=== PATIENT | male | born 1950 | race Caucasian/White ===

== ENCOUNTER → 2016-10-10 | Outpatient (CLI) | payer OTHER ==
[~2016-10-10] MED LIST: ASPECUNK PO; ATOR80TA PO; CLOP1TAB54 PO; LISI-461 PO; METO-551 PO
[2016-10-10 15:17] LABS: HEMATOCRIT 42.2 % (42-52); MEAN CELL VOLUME 97.2 fL (80-100); MEAN CORPUSCULAR HEMOGLOBIN 32.3 pg (25-34); MEAN CORPUSCULAR HGB CONC 33.2 g/dl (32-36); MEAN PLATELET VOLUME 11.3 fL (7.4-10.4); PLATELET COUNT 191 K/uL (130-400); RED BLOOD COUNT 4.34 M/uL (4.7-6.1); WHITE BLOOD COUNT 6.91 K/uL (4.8-10.8)
[2016-10-10 15:45] LABS: INR 0.9 (0.9-1.1)
[2016-10-10 15:46] LABS: PFT COL EPI 93 SECONDS (80-184)
== END | disposition home or self-care (01) ==
LOC: C.LAB 12:58
PROVIDERS: ATTEND Family Medicine
DX: T14.8 Other injury of unspecified body region (principal); D69.6 Thrombocytopenia, unspecified; M10.9 Gout, unspecified; X58.XXXA Exposure to other specified factors, initial encounter

== ENCOUNTER → 2017-04-22 | Outpatient (CLI) | payer OTHER | END | disposition home or self-care (01) | LOC: C.RDSM 11:43 | PROVIDERS: ATTEND Physical Medicine & Rehabilitation Sports Medicine | DX: M25.562 Pain in left knee (principal) ==

== ENCOUNTER → 2017-09-05 | Outpatient (CLI) | payer OTHER ==
--- NOTE | 2017-09-05 11:14 | DIAGNOSTIC IMAGING REPORT ---
L FOOT MIN 3 VIEWS ROUTINE CLINICAL HISTORY: Left foot pain and swelling. History of gout. Concern for osteomyelitis. COMPARISON: None FINDINGS: Alignment of the left foot is anatomic. Tarsometatarsal joints are intact. There is soft tissue swelling of the left foot, greater along the dorsal aspect. No fracture is evident. There is no evidence for osteomyelitis by radiography. There is mild joint space narrowing and osteophytosis of the left first metatarsophalangeal joint. There is soft tissue swelling medial to the left first metatarsophalangeal joint with possible faint calcific densities. IMPRESSION: 1. No acute fracture. No radiographic evidence of osteomyelitis. 2. Mild to moderate osteophytosis with joint space narrowing of the left first metatarsophalangeal joint. No erosions. Soft tissue swelling medial to the joint is nonspecific but could be seen in the setting of gout. 3. Dorsal soft tissue swelling of the left foot. Electronically signed by: Malcolm Guzman M.D. 09/05/2017 11:13 AM Dictated Date/Time: 09/05/2017 11:10 AM
== END | disposition home or self-care (01) ==
LOC: C.RAD1850 10:58
PROVIDERS: ATTEND Nurse Practitioner Family
DX: M79.89 Other specified soft tissue disorders (principal); Z87.39 Personal history of other diseases of the musculoskeletal system and connective tissue; M79.672 Pain in left foot

== ENCOUNTER 2021-01-14 16:57 | Inpatient (IN) ==
[~2021-01-14 16:57] MED LIST changes: -ASPECUNK PO; -ATOR80TA PO; -CLOP1TAB54 PO; -LISI-461 PO; -METO-551 PO; +THIAMINE HCL 100 MG TAB PO SCH
[2021-01-14] MEDS ORDERED: ONDANSETRON INJ 2 MG/ML 2 ML VIAL IV STA (18:17)
[2021-01-14] MEDS ORDERED: PANTOprazole 80 MG in DEXTROSE 5% 100 ML IV ONE (18:17)
[2021-01-14] MEDS ORDERED: FAMOTIDINE 20MG IV PUSH 20 MG/5 ML SYR IV STA (18:17)
--- NOTE | 2021-01-14 18:21 | Emergency Department Note ---
Impression & Plan Acute GI bleeding, Black stool, Diarrhea, Nausea ED Provider Note NAME: AYSHA EDWARDS AGE: 70 SEX: M : 1950 ARRIVES VIA: Walk-In INFORMANT: [Patient] ED PROVIDER(S): [Leighton Lozoya MD] CHIEF COMPLAINT: Black diarrhea HISTORY OF PRESENT ILLNESS: The patient is a 70-year-old male with a history of a duodenal ulcer. He is no longer on antiulcer medication. Yesterday, he felt a bit tired and weak and had some nausea but things seemed to pass. Today, he felt okay up until about 2 hours ago. He states that he had a bowel movement and it was black diarrhea. He was concerned that he could again be bleeding inside. There is no abdominal pain. He has not vomited. He has not had fever, chills, cough or congestion. No shortness of breath. He is not on any blood thinning medications. He does take a baby aspirin daily. REVIEW OF SYSTEMS: See HPI for pertinent positives and negatives. A total of ten systems were reviewed and were otherwise negative. PMHx/PSHx: See Below SOCIAL HISTORY: See Below. PHYSICAL EXAM: GENERAL: Patient is in no acute distress. HEENT: No acute trauma, normocephalic atraumatic, mucous membranes moist, no nasal congestion, no scleral icterus. NECK: No stridor, no adenopathy, no meningismus, trachea is midline. LUNGS: Clear to auscultation bilaterally, no wheeze, no rhonchi, breath sounds equal. HEART: Without murmurs gallops or rubs, regular rate and rhythm. ABDOMEN: Soft, nontender, bowel sounds positive, no hernias, no peritonitis. EXTREMITIES: No cyanosis or edema, full range of motion of all the joints without pain or difficulty, no signs for acute trauma. NEUROLOGIC: Oriented x 3, no acute motor or sensory deficits, no focal weakness. SKIN: No rash, no jaundice, no diaphoresis. Rectal: Black stool, liquidy, heme positive. DIFFERENTIAL DIAGNOSIS: Diverticulosis, AVM, coagulopathy, colitis, inflammatory bowel disease, malignancy, Ava-Reece tear, esophagitis, peptic ulcer disease, variceal bleed, gastritis, epistaxis, fissure, hemorrhoids, as well as other pathologies. EMERGENCY DEPARTMENT COURSE/PROCEDURES: ECG: Indication was GI bleed. ECG shows a normal sinus rhythm with a rate of 87. There is no ST elevation, no PVCs. The QTc is 454. Continuous Cardiac Monitoring: An order was placed for continuous cardiac monitoring. The monitor shows a rate of 93 with normal sinus rhythm. Critical Care Note: I have personally spent 47 minutes of critical care time in the direct management of this patient. This includes bedside care, interpretation of diagnostic studies, and testing, discussion with consultants, patient, and family members, and other required patient management activities. This 47 minutes is in excess of all separately billable procedures. MEDICAL DECISION MAKING: There is no leukocytosis or worrisome anemia. There is a normal platelet count. No coagulopathy. No renal failure. There were some subtle liver enzyme elevations, the total bilirubin though was normal. Lipase is very mildly elevated but not high enough to diagnose pancreatitis. ECG shows a normal sinus rhythm, no acute ischemia. Cardiac enzyme testing x1 is not consistent with acute cardiac injury. Covid testing returned negative. On exam, the patient was not toxic. There was no abdominal discomfort by palpation. His stool was liquidy, black and heme positive. The patient was aggressively managed as he had been quite ill previously with a GI bleed. He was given IV saline, IV Protonix, IV Zofran. He received IV Pepcid. The patient is currently resting comfortably. He has been stable during his time here in the ED. I did speak with the patient about his findings. I spoke with the welfare case worker. The on-call hospitalist has been consulted. Past Med/Surg History Medical History GI bleed Social History Smoking Status: Former smoker Tobacco Type: Cigarettes Hx Alcohol Use: Yes Alcohol type: hard liquor Hx Substance Use: No Preferred Language: Georgian Supervisor Varnish Required: No Beliefs That Will Affect Care: None Current Living Situation: Spouse Feels Safe at Home: Yes Assistive Devices: Glasses Allergies Allergies Allergy/AdvReac Type Severity Reaction Status Date / Time No Known Allergies Allergy Unknown Verified 10/05/11 07:13 Home Meds Home Medications Medication Instructions Recorded Confirmed allopurinol 300 mg tablet 300 mg PO DAILY 01/14/21 01/14/21 amlodipine 5 mg tablet 5 mg PO DAILY 01/14/21 01/14/21 atorvastatin 80 mg tablet 40 mg PO AMHS 01/14/21 01/14/21 metoprolol tartrate 50 mg tablet 50 mg PO BID 01/14/21 01/14/21 olmesartan 40 mg tablet 40 mg PO HS 01/14/21 01/14/21 Results & Data (ED) Vital Signs Vital Signs - 24 hr 01/14/21 17:22 01/14/21 18:24 01/14/21 18:32 Temperature 36.2 C L Temperature Source Temporal Artery Scan Pulse Rate 93 H 93 H 93 H Pulse Rate from SpO2 Sensor 93 H Pulse Rhythm Regular Regular Pulse Strength Normal Respiratory Rate 20 17 14 Respiratory Effort / Characteristics Non-Labored Spontaneous Respiratory Depth Normal Blood Pressure 164/96 H 159/102 H Blood Pressure Mean 118 121 Blood Pressure Position Sitting Pulse Oximetry 99 98 99 Oxygen Delivery Method Room Air Room Air Room Air Sepsis Recent Fever Within 48 Hours No Sepsis New/Unexplained Change in Mental Status N/A Sepsis Action Taken by Nursing No Action Required 01/14/21 18:45 01/14/21 19:00 Temperature Temperature Source Pulse Rate 102 H 90 Pulse Rate from SpO2 Sensor 95 H 92 H Pulse Rhythm Pulse Strength Respiratory Rate 15 12 Respiratory Effort / Characteristics Respiratory Depth Blood Pressure 167/103 H 156/102 H Blood Pressure Mean 124 120 Blood Pressure Position Pulse Oximetry 98 97 Oxygen Delivery Method Sepsis Recent Fever Within 48 Hours Sepsis New/Unexplained Change in Mental Status Sepsis Action Taken by [facility] Medications Current Medication List: was personally reviewed by me Laboratory Data Attestation: I reviewed the patient's lab results. Result diagrams: 01/15/21 01:30 01/15/21 01:30 Lab Results 01/14/21 01/14/21 01/14/21 Range/Units 18:24 18:24 18:25 WBC (4.8-10.8) K/uL RBC (4.7-6.1) M/uL Hgb (14.0-18.0) g/dL Hct (42-52) % MCV (80-100) fL MCH (25-34) pg MCHC (32-36) g/dL RDW Std Deviation (36.4-46.3) fL RDW Coeff of Elli (11.5-14.5) % Plt Count (130-400) K/uL MPV (7.4-10.4) fL Immature Gran % (Auto) % Neut % (Auto) % Lymph % (Auto) % [place] % (Auto) % Eos % (Auto) % Baso % (Auto) % Neut # (Auto) (1.4-6.5) K/uL Lymph # (Auto) (1.2-3.4) K/uL [facility] # (Auto) (0.11-0.59) K/uL Eos # (Auto) (0-0.5) K/uL Baso # (Auto) (0-0.2) K/uL Immature Gran # (Auto) (0.00-0.02) K/uL PT INR APTT PTT Ratio Sodium (136-145) mmol/L Potassium (3.5-5.1) mmol/L Chloride (98-107) mmol/L Carbon Dioxide (21-32) mmol/L Anion Gap (3-11) BUN (7-18) mg/dl Creatinine (0.6-1.4) mg/dl Est Cr Clr Drug Dosing ml/min Est GFR ( Amer) ml/min Est GFR (Non-Af Amer) ml/min BUN/Creatinine Ratio (10-20) Glucose (70-99) mg/dl Calcium (8.5-10.1) mg/dl Magnesium (1.8-2.4) mg/dl Total Bilirubin (0.2-1) mg/dl AST (15-37) U/L ALT (12-78) U/L Alkaline Phosphatase (45-117) U/L Troponin I (0-0.045) ng/ml Total Protein (6.4-8.2) gm/dl Albumin (3.4-5.0) gm/dl Globulin (2.5-4.0) gm/dl Albumin/Globulin Ratio (0.9-2) Lipase (73-393) U/L COVID-19 Eval Order Covid19 at [facility] SARS-CoV-2 (PCR) NEGATIVE (Negative) Blood Type Cancelled Antibody Screen Cancelled 01/14/21 01/14/21 01/14/21 Range/Units 18:25 18:25 18:25 WBC 7.43 (4.8-10.8) K/uL RBC 4.42 L (4.7-6.1) M/uL Hgb 15.4 (14.0-18.0) g/dL Hct 44.7 (42-52) % MCV 101.1 H (80-100) fL MCH 34.8 H (25-34) pg MCHC 34.5 (32-36) g/dL RDW Std Deviation 54.5 H (36.4-46.3) fL RDW Coeff of Elli 14.9 H (11.5-14.5) % Plt Count 162 (130-400) K/uL MPV 11.3 H (7.4-10.4) fL Immature Gran % (Auto) 0.3 % Neut % (Auto) 74.9 % Lymph % (Auto) 14.3 % [place] % (Auto) 8.9 % Eos % (Auto) 1.5 % Baso % (Auto) 0.1 % Neut # (Auto) 5.57 (1.4-6.5) K/uL Lymph # (Auto) 1.06 L (1.2-3.4) K/uL [facility] # (Auto) 0.66 H (0.11-0.59) K/uL Eos # (Auto) 0.11 (0-0.5) K/uL Baso # (Auto) 0.01 (0-0.2) K/uL Immature Gran # (Auto) 0.02 (0.00-0.02) K/uL PT Cancelled INR Cancelled APTT Cancelled PTT Ratio Cancelled Sodium 137 (136-145) mmol/L Potassium (3.5-5.1) mmol/L Chloride 104 (98-107) mmol/L Carbon Dioxide 24 (21-32) mmol/L Anion Gap 9.0 (3-11) BUN 21 H (7-18) mg/dl Creatinine 0.95 (0.6-1.4) mg/dl Est Cr Clr Drug Dosing 72.6 ml/min Est GFR ( Amer) 92.3 ml/min Est GFR (Non-Af Amer) 79.7 ml/min BUN/Creatinine Ratio 21.7 H (10-20) Glucose 105 H (70-99) mg/dl Calcium 9.4 (8.5-10.1) mg/dl Magnesium (1.8-2.4) mg/dl Total Bilirubin 1.0 (0.2-1) mg/dl AST (15-37) U/L ALT 49 (12-78) U/L Alkaline Phosphatase 131 H (45-117) U/L Troponin I < 0.015 (0-0.045) ng/ml Total Protein 8.4 H (6.4-8.2) gm/dl Albumin 4.4 (3.4-5.0) gm/dl Globulin 4.0 (2.5-4.0) gm/dl Albumin/Globulin Ratio 1.1 (0.9-2) Lipase 427 H (73-393) U/L COVID-19 Eval Order SARS-CoV-2 (PCR) (Negative) Blood Type Antibody Screen 01/14/21 01/14/21 01/14/21 Range/Units 19:36 19:36 19:36 WBC (4.8-10.8) K/uL RBC (4.7-6.1) M/uL Hgb (14.0-18.0) g/dL Hct (42-52) % MCV (80-100) fL MCH (25-34) pg MCHC (32-36) g/dL RDW Std Deviation (36.4-46.3) fL RDW Coeff of Elli (11.5-14.5) % Plt Count (130-400) K/uL MPV (7.4-10.4) fL Immature Gran % (Auto) % Neut % (Auto) % Lymph % (Auto) % [facility] % (Auto) % Eos % (Auto) % Baso % (Auto) % Neut # (Auto) (1.4-6.5) K/uL Lymph # (Auto) (1.2-3.4) K/uL [facility] # (Auto) (0.11-0.59) K/uL Eos # (Auto) (0-0.5) K/uL Baso # (Auto) (0-0.2) K/uL Immature Gran # (Auto) (0.00-0.02) K/uL PT 10.9 INR 1.1 APTT 24.3 PTT Ratio 0.9 Sodium (136-145) mmol/L Potassium 3.8 (3.5-5.1) mmol/L Chloride (98-107) mmol/L Carbon Dioxide (21-32) mmol/L Anion Gap (3-11) BUN (7-18) mg/dl Creatinine (0.6-1.4) mg/dl Est Cr Clr Drug Dosing ml/min Est GFR ( Amer) ml/min Est GFR (Non-Af Amer) ml/min BUN/Creatinine Ratio (10-20) Glucose (70-99) mg/dl Calcium (8.5-10.1) mg/dl Magnesium 1.3 L (1.8-2.4) mg/dl Total Bilirubin (0.2-1) mg/dl AST 45 H (15-37) U/L ALT (12-78) U/L Alkaline Phosphatase (45-117) U/L Troponin I (0-0.045) ng/ml Total Protein (6.4-8.2) gm/dl Albumin (3.4-5.0) gm/dl Globulin (2.5-4.0) gm/dl Albumin/Globulin Ratio (0.9-2) Lipase (73-393) U/L COVID-19 Eval Order SARS-CoV-2 (PCR) (Negative) Blood Type B Positive Antibody Screen NEGATIVE Administered Medications Folic Acid (Folic Acid 1 Mg Tab) 1 mg PO QAM NATALIE Stop: 02/13/21 21:59 Last Admin: 01/14/21 22:56 Dose: 1 mg Documented by: [id number] Thiamine HCl (Thiamine Hcl 100 Mg Tab) 100 mg PO QAM NATALIE Stop: 02/13/21 21:59 Last Admin: 01/14/21 22:56 Dose: 100 mg Documented by: [id number] Discontinued Medications Diazepam (Diazepam 5 Mg/Ml Inj 10ml Vial) 10 mg IV NOW STA Stop: 01/15/21 01:02 Last Admin: 01/15/21 01:10 Dose: 10 mg Documented by: [id number] Sodium Chloride (Nss 1000ml) 1,000 mls @ 999 mls/hr IV .Q1H1M NATALIE Stop: 01/14/21 19:30 Last Infusion: 01/14/21 19:14 Dose: 0 mls/hr Documented by: [id number] Admin: 01/14/21 18:34 Dose: 999 mls/hr Documented by: [id number] Pantoprazole Sodium 80 mg/ (Dextrose) 100 mls @ 400 mls/hr IV NOW ONE Stop: 01/14/21 18:31 Last Infusion: 01/14/21 19:31 Dose: 0 mls/hr Documented by: [id number] Admin: 01/14/21 19:14 Dose: 400 mls/hr Documented by: [id number] Famotidine (Pepcid 20mg Iv Push) 20 mg in 5 mls @ 2.5 mls/min IV NOW STA Stop: 01/14/21 18:18 Last Admin: 01/14/21 18:35 Dose: 2.5 mls/min Documented by: [id number] Lorazepam (Lorazepam 1 Mg Tab) 1 mg PO ONE PRN; Protocol PRN Reason: EtoH Withdrawal AWSS 6-10 Last Admin: 01/15/21 00:31 Dose: 1 mg Documented by: [id number] Ondansetron HCl (Ondansetron Inj 2 Mg/Ml 2 Ml Vial) 4 mg IV ONE STA Stop: 01/14/21 18:18 Last Admin: 01/14/21 18:35 Dose: 4 mg Documented by: [id number] Thiamine HCl (Thiamine Hcl 100 Mg Tab) 100 mg PO QAM [facility] Stop: 02/13/21 08:59 Last Admin: 01/14/21 21:38 Dose: Not Given Documented by: [id number] Discharge Plan Visit Data Chief Complaint: Diarrhea Stated Complaint: BLACK WATERY STOOLS ED Provider: Leighton Lozoya Discharge Problem: Acute GI bleeding, Black stool, Diarrhea, Nausea Patient Disposition: Admitted As Inpatient Condition: Good Discharge Instructions Interventions: ED Discharge Assessment Last Done: 01/14/21 20:48
[2021-01-14] MEDS ORDERED: SODIUM CHLORIDE 0.9% 1000ML 1,000 ML IV SCH (18:30)
[2021-01-14 18:39] LABS: Basophils # (auto) 0.01 K/uL (0-0.2); Basophils % (auto) 0.1 %; Eosinophils # (auto) 0.11 K/uL (0-0.5); Eosinophils % (auto) 1.5 %; Hematocrit (blood only) 44.7 % (42-52); Hemoglobin 15.4 g/dL (14.0-18.0); Immature Granulocytes # (auto) 0.02 K/uL (0.00-0.02); Immature Granulocytes % (auto) 0.3 %; Lymphocytes # (auto) 1.06 K/uL (1.2-3.4); Lymphocytes % (auto) 14.3 %; Mean Corpuscular Hemoglobin 34.8 pg (25-34); Mean Corpuscular Hgb Conc 34.5 g/dL (32-36); Mean Corpuscular Volume 101.1 fL (80-100); Mean Platelet Volume 11.3 fL (7.4-10.4); Monocytes # (auto) 0.66 K/uL (0.11-0.59); Monocytes % (auto) 8.9 %; Neutrophils # (auto) 5.57 K/uL (1.4-6.5); Neutrophils % (auto) 74.9 %; Platelet Count 162 K/uL (130-400); RDW Coefficient of Variation 14.9 % (11.5-14.5); RDW Standard Deviation 54.5 fL (36.4-46.3); Red Blood Count 4.42 M/uL (4.7-6.1); White Blood Count 7.43 K/uL (4.8-10.8)
[2021-01-14 19:05] LABS: Lipase 427 U/L (73-393)
[2021-01-14 19:07] LABS: Troponin I < 0.015 ng/ml (0-0.045)
[2021-01-14 19:10] LABS: Alanine Aminotransferase 49 U/L (12-78); Albumin Globulin Ratio 1.1 (0.9-2); Albumin Level 4.4 gm/dl (3.4-5.0); Alkaline Phosphatase 131 U/L (45-117); BUN Creatinine Ratio 21.7 (10-20); Blood Urea Nitrogen 21 mg/dl (7-18); Calcium 9.4 mg/dl (8.5-10.1); Carbon Dioxide 24 mmol/L (21-32); Chloride 104 mmol/L (98-107); Creatinine Clr Calc Pharmacy 72.6 ml/min; Est GFR (African American) 92.3 ml/min; Est GFR (Non-African American) 79.7 ml/min; Glucose 105 mg/dl (70-99); Sodium 137 mmol/L (136-145); Total Protein 8.4 gm/dl (6.4-8.2)
[2021-01-14 20:01] LABS: Potassium 3.8 mmol/L (3.5-5.1)
--- NOTE | 2021-01-14 20:01 | History & Physical Report ---
Date of Service January 14, 2021 Assessment & Plan (1) GI bleed: Plan: 70-year-old male presenting with generalized weakness, fatigue and decreased exercise tolerance. 1 day of nausea and several melanic stools today. Concern for upper GI bleed. Patient presently not on antiplatelet or anticoagulation. He does not take NSAIDs. He does drink a considerable amount of alcohol, 4-6 whiskey drinks per day. He has a remote history of upper GI bleed secondary to arterial bleed in 2011 requiring transfer to [facility] for angiography and transfusion of 10 units PRBCs Patient presently tachycardic and mildly hypertensive. [address] [place]. Hemoglobin = 15.4, hematocrit = 44.7, BUN = 21. No coagulopathy or evidence of underlying liver disease Admit to PCU Keep n.p.o. Maintain 2 large-bore peripheral IVs Trend CBC every 6 hours. Transfuse PRBCs for ongoing bleed, symptomatic anemia or hemoglobin less than 8 Protonix 40 mg IV twice daily Zofran as needed for nausea GI consultation appreciated (2) CAD (coronary artery disease): Plan: Patient with underlying coronary artery disease status post stent placement in May 2011. Presently not on antiplatelet therapy. Patient denies chest pain. Troponin undetectable Hold metoprolol and olmesartan in setting of active bleed Continue atorvastatin 40 mg daily (3) Hypertension: Plan: Blood pressure mildly elevated. Holding antihypertensives in setting of active bleed Continue to monitor (4) Gout: Plan: Well-controlled. Patient states he has not had a gout flare for over a year Continue allopurinol 300 mg daily (5) Alcohol dependence, daily use: Plan: Patient reports drinking 4-6 drinks per day. Is concerned that he has alcohol dependence. He does report some mild withdrawal symptoms when he was unable to drink. Must consider possible withdrawal as well as active bleed as underlying cause for tachycardia. Patient does appear mildly tremulous on exam. Given Valium 10 mg p.o. x1. Can repeat dose if patient continues to experience symptoms of withdrawal FRITZ as protocol with IV Ativan as needed Thiamine and folic acid p.o. daily Patient may benefit from information regarding alcohol abuse and addiction services available in the area Plan: FENmaintain 2 peripheral IVs. Electrolytes within normal limits. N.p.o. for now ProphylaxisSCDs to bilateral lower extremities [place] per discussion with patient Dispositionadmit to PCU History of Present Illness Chief Complaint: UGIB, melenic stools Primary Care Provider: Jimmy Santana MD Huan Domingo is a pleasant 70-year-old male with history of hypertension, coronary artery disease, gout, prior upper GI bleed secondary to duodenal artery bleed in October 2011. Patient reports decreased exercise tolerance and stamina for the last several days. He developed nausea and generalized weakness beginning yesterday. Today at 1600 he went to the bathroom and passed a large amount of liquid black stool. He had a second episode of melena approximately 30 minutes later. He denies abdominal pain, cramping, chest pain, cough, shortness of breath. Denies fever/chills. He does report some nausea as well as poor appetite. He has had a bowel movement in the ER and reports that it appears less bloody than before. Patient with history of coronary artery disease status post stent placement in May 2011. He was previously on aspirin and Plavix however, presently not taking aspirin, Plavix, blood thinners. He does not take NSAIDs either. Patient does drink a considerable amount of alcohol, reportedly 4-6 whiskey drinks per night. He has had mild symptoms of withdrawal in the past with cutting back. No history of seizures or DTs. He does feel that he drinks too much alcohol and is somewhat concerned that he is developing a dependence on alcohol. Per review of records, patient presented with upper GI bleed in October 2011. He was transfused 4 units of blood prior to endoscopy. Endoscopy performed by Dr. Villarfound to have clean-based ulcers in the duodenal bulb and a Ava-Reece tear at the GE junction which was treated with epinephrine injection/cautery. He has recurrent bleeding from the posterior duodenal bulb, likely GDA distribution. Patient was transferred to [facility] for possible angiography. He reports that he received a total of 10 units of blood during this episode. We do not have records from [facility] hospitalization at this time. ER course: Pepcid, Zofran, Protonix, normal saline Allergies Allergy/AdvReac Type Severity Reaction Status Date / Time No Known Allergies Allergy Unknown Verified 10/05/11 07:13 Home Medications Medication Instructions Recorded Confirmed Type allopurinol 300 mg tablet 300 mg PO DAILY 01/14/21 01/14/21 History amlodipine 5 mg tablet 5 mg PO DAILY 01/14/21 01/14/21 History atorvastatin 80 mg tablet 40 mg PO AMHS 01/14/21 01/14/21 History metoprolol tartrate 50 mg tablet 50 mg PO BID 01/14/21 01/14/21 History olmesartan 40 mg tablet 40 mg PO HS 01/14/21 01/14/21 History Past Med/Surg History Medical History (Updated 01/15/21 @ 02:37 by Aisha Wright DO) Alcohol dependence, daily use CAD (coronary artery disease) GI bleed Gout Hypertension Surgical History (Updated 01/15/21 @ 02:35 by Aisha Wright DO) History of heart artery stent 2012 History of hernia repair Family History (Updated 01/15/21 @ 02:35 by Aisha Wright DO) Other COPD (chronic obstructive pulmonary disease) Cancer Social History Smoking Status: Former smoker Tobacco Type: Cigarettes Hx Alcohol Use: Yes Alcohol type: hard liquor Hx Substance Use: No Preferred Language: Thai Mold Filler Required: No Beliefs That Will Affect Care: None Current Living Situation: Spouse Feels Safe at Home: Yes Assistive Devices: Glasses Review of Systems Review of Systems: All systems reviewed & are unremarkable except as noted in HPI & below Physical Exam Physical Exam: General: patient resting comfortably, NAD, non-toxic in appearance, AA&O x 4 Skin: warm, dry, intact, no rashes or lesions HEENT: NC/AT, PERRL, EOMI, anicteric sclera, conjunctiva without injection, external ear normal to inspection and nontender, nares patent, moist mucus membranes, dentition intact, no oropharyngeal lesions, neck supple, trachea midline, no LAD, no thyromegaly, no JVD Heart: +S1/S2, regular, tachycardic, no m/r/g Lungs: equal air entry bilaterally, no rales/rhonchi/wheezes Abd: +BS, soft, NT/ND, no masses/organomegaly/ascites Ext: warm, 2+ pulses in UE/LE bilaterally, no clubbing/cyanosis or edema, 2 peripheral IVs present in right antecubital fossa Neuro: nonfocal, patient AA&O x 4, speech intact, no facial droop, moving all extremities on command with equal strength 5/5 Results & Data Results & Data ([facility]) Vital Signs (Past 12 Hours) Vital Signs Temp Pulse Resp BP Pulse Ox 01/14/21 19:00 90 12 156/102 H 97 01/14/21 18:45 102 H 15 167/103 H 98 01/14/21 18:32 93 H 14 159/102 H 99 01/14/21 18:24 93 H 17 98 01/14/21 17:22 36.2 C L 93 H 20 164/96 H 99 Laboratory Results Laboratory Results WBC 7.29 K/uL (4.8-10.8) 01/15/21 01:30 RBC 3.53 M/uL (4.7-6.1) L 01/15/21 01:30 Hgb 12.0 g/dL (14.0-18.0) L D 01/15/21 01:30 Hct 35.6 % (42-52) L 01/15/21 01:30 MCV 100.8 fL (80-100) H 01/15/21 01:30 MCH 34.0 pg (25-34) 01/15/21 01:30 MCHC 33.7 g/dL (32-36) 01/15/21 01:30 RDW Std Deviation 53.7 fL (36.4-46.3) H 01/15/21 01:30 RDW Coeff of Elli 14.7 % (11.5-14.5) H 01/15/21 01:30 Plt Count 140 K/uL (130-400) 01/15/21 01:30 MPV 10.7 fL (7.4-10.4) H 01/15/21 01:30 Immature Gran % (Auto) 0.3 % 01/15/21 01:30 Neut % (Auto) 77.1 % 01/15/21 01:30 Lymph % (Auto) 12.3 % 01/15/21 01:30 [place] % (Auto) 9.3 % 01/15/21 01:30 Eos % (Auto) 0.7 % 01/15/21 01:30 Baso % (Auto) 0.3 % 01/15/21 01:30 Neut # (Auto) 5.62 K/uL (1.4-6.5) 01/15/21 01:30 Lymph # (Auto) 0.90 K/uL (1.2-3.4) L 01/15/21 01:30 [place] # (Auto) 0.68 K/uL (0.11-0.59) H 01/15/21 01:30 Eos # (Auto) 0.05 K/uL (0-0.5) 01/15/21 01:30 Baso # (Auto) 0.02 K/uL (0-0.2) 01/15/21 01:30 Immature Gran # (Auto) 0.02 K/uL (0.00-0.02) 01/15/21 01:30 PT 10.9 Seconds (9.0-12.0) 01/14/21 19:36 INR 1.1 (0.9-1.1) 01/14/21 19:36 APTT 24.3 Seconds (21.0-31.0) 01/14/21 19:36 PTT Ratio 0.9 01/14/21 19:36 Sodium 141 mmol/L (136-145) 01/15/21 01:30 Potassium 4.1 mmol/L (3.5-5.1) 01/15/21 01:30 Chloride 107 mmol/L (98-107) 01/15/21 01:30 Carbon Dioxide 26 mmol/L (21-32) 01/15/21 01:30 Anion Gap 7.0 (3-11) 01/15/21 01:30 BUN 23 mg/dl (7-18) H 01/15/21 01:30 Creatinine 0.85 mg/dl (0.6-1.4) 01/15/21 01:30 Est Cr Clr Drug Dosing 81.5 ml/min 01/15/21 01:30 Est GFR ( Amer) 100.9 ml/min 01/15/21 01:30 Est GFR (Non-Af Amer) 87.1 ml/min 01/15/21 01:30 BUN/Creatinine Ratio 27.2 (10-20) H 01/15/21 01:30 Glucose 112 mg/dl (70-99) H 01/15/21 01:30 Calcium 8.4 mg/dl (8.5-10.1) L 01/15/21 01:30 Magnesium 1.3 mg/dl (1.8-2.4) L 01/14/21 19:36 Total Bilirubin 1.0 mg/dl (0.2-1) 01/14/21 18:25 AST 45 U/L (15-37) H 01/14/21 19:36 ALT 49 U/L (12-78) 01/14/21 18:25 Alkaline Phosphatase 131 U/L (45-117) H 01/14/21 18:25 Troponin I < 0.015 ng/ml (0-0.045) 01/14/21 18:25 Total Protein 8.4 gm/dl (6.4-8.2) H 01/14/21 18:25 Albumin 4.4 gm/dl (3.4-5.0) 01/14/21 18:25 Globulin 4.0 gm/dl (2.5-4.0) 01/14/21 18:25 Albumin/Globulin Ratio 1.1 (0.9-2) 01/14/21 18:25 Lipase 427 U/L (73-393) H 01/14/21 18:25 COVID-19 Eval Order Covid19 at [facility] 01/14/21 18:24 SARS-CoV-2 (PCR) NEGATIVE (Negative) 01/14/21 18:24 Blood Type B Positive 01/14/21 19:36 Antibody Screen NEGATIVE 01/14/21 19:36 Code Status & VTE Plan VTE Prophylaxis Plan VTE Prophylaxis will be ordered: Yes PG Care Time/CCT Total # of Minutes Spent Total Time Spent with Patient: Total time spent is greater than 50% in coordination of care (as documented) at patient's floor/unit and/or counseling patient: Coding Level of Care Code 75694 Initial Inpt Care Lvl 3 Diagnoses GI bleed K92.2 CAD (coronary artery disease) I25.10 Hypertension I10 Gout M10.9 Alcohol dependence, daily use F10.20
[2021-01-14 20:06] LABS: Magnesium 1.3 mg/dl (1.8-2.4)
[2021-01-14 20:12] LABS: INR 1.1 (0.9-1.1); Partial Thromboplastin Ratio 0.9; Partial Thromboplastin Time 24.3 Seconds (21.0-31.0); Prothrombin Time 10.9 Seconds (9.0-12.0)
[2021-01-14] MEDS ORDERED: ACETAMINOPHEN 325 MG TAB PO PRN (20:45)
[2021-01-14] MEDS ORDERED: ONDANSETRON INJ 2 MG/ML 2 ML VIAL IV PRN (20:45)
[2021-01-14] MEDS ORDERED: LORazepam 1 MG TAB PO PRN (21:28)
[2021-01-14] MEDS: FOLIC ACID 1 MG TAB PO SCH (22:56)
[2021-01-14] MEDS: THIAMINE HCL 100 MG TAB PO SCH (22:56)
[2021-01-15] MEDS ORDERED: ATIVAN IV ALCOHOL WITHDRAWL IV PRN (00:57)
[2021-01-15] MEDS ORDERED: LORazepam 3 MG/6 ML VIAL IV PRN (00:57)
[2021-01-15] MEDS ORDERED: LORazepam 1 MG/2 ML VIAL IV PRN (00:57)
[2021-01-15 01:50] LABS: Basophils # (auto) 0.02 K/uL (0-0.2); Basophils % (auto) 0.3 %; Eosinophils # (auto) 0.05 K/uL (0-0.5); Eosinophils % (auto) 0.7 %; Hematocrit (blood only) 35.6 % (42-52); Immature Granulocytes # (auto) 0.02 K/uL (0.00-0.02); Immature Granulocytes % (auto) 0.3 %; Lymphocytes % (auto) 12.3 %; Mean Corpuscular Hgb Conc 33.7 g/dL (32-36); Mean Corpuscular Volume 100.8 fL (80-100); Mean Platelet Volume 10.7 fL (7.4-10.4); Monocytes # (auto) 0.68 K/uL (0.11-0.59); Monocytes % (auto) 9.3 %; Neutrophils # (auto) 5.62 K/uL (1.4-6.5); Neutrophils % (auto) 77.1 %; Platelet Count 140 K/uL (130-400); RDW Coefficient of Variation 14.7 % (11.5-14.5); RDW Standard Deviation 53.7 fL (36.4-46.3); Red Blood Count 3.53 M/uL (4.7-6.1); White Blood Count 7.29 K/uL (4.8-10.8)
[2021-01-15 02:01] LABS: BUN Creatinine Ratio 27.2 (10-20); Calcium 8.4 mg/dl (8.5-10.1); Creatinine Clr Calc Pharmacy 81.5 ml/min; Est GFR (African American) 100.9 ml/min; Est GFR (Non-African American) 87.1 ml/min; Potassium 4.1 mmol/L (3.5-5.1)
[2021-01-15 07:58] LABS: Basophils # (auto) 0.02 K/uL (0-0.2); Basophils % (auto) 0.3 %; Eosinophils % (auto) 1.3 %; Hematocrit (blood only) 36.1 % (42-52); Hemoglobin 11.9 g/dL (14.0-18.0); Immature Granulocytes # (auto) 0.02 K/uL (0.00-0.02); Immature Granulocytes % (auto) 0.3 %; Lymphocytes # (auto) 1.06 K/uL (1.2-3.4); Lymphocytes % (auto) 13.5 %; Mean Corpuscular Hemoglobin 33.4 pg (25-34); Mean Corpuscular Volume 101.4 fL (80-100); Mean Platelet Volume 10.8 fL (7.4-10.4); Monocytes # (auto) 1.14 K/uL (0.11-0.59); Monocytes % (auto) 14.5 %; Neutrophils # (auto) 5.54 K/uL (1.4-6.5); Neutrophils % (auto) 70.1 %; Platelet Count 164 K/uL (130-400); RDW Coefficient of Variation 14.8 % (11.5-14.5); RDW Standard Deviation 54.2 fL (36.4-46.3); Red Blood Count 3.56 M/uL (4.7-6.1); White Blood Count 7.88 K/uL (4.8-10.8)
[2021-01-15] MEDS: PANTOprazole 40 MG in SYRINGE 0 ML IV SCH ×2 (08:02→21:07)
[2021-01-15] MEDS: THIAMINE HCL 100 MG TAB PO SCH (08:02)
[2021-01-15] MEDS: FOLIC ACID 1 MG TAB PO SCH (08:03)
[2021-01-15] MEDS: ATORVASTATIN 40 MG TAB PO SCH (08:03)
[2021-01-15] MEDS: allopurinoL 300 MG TAB PO SCH (08:03)
[2021-01-15] MEDS: MAGNESIUM SULFATE / D5W 1 GM/100 ML BAG IV SCH ×2 (08:33→10:41)
[2021-01-15] MEDS: MAGNESIUM OXIDE 400 MG TAB PO SCH ×2 (08:33→21:07)
--- NOTE | 2021-01-15 10:49 | Gastrointestinal Consultation ---
Date of Consultation January 15, 2021 Assessment & Plan (1) GI bleed: IV PPI Trend HGB Transfuse EGD tomorrow 70 year old male admitted w/ decreased appetite, dark stools x 1 day who has remained hemodynamically stable, HGB 12 w/ BUN 23. NPO MRCP for elevated LFTs Arrange EGD 01/16/2021 Trend HGB Monitor stools Transfuse PRN Continue IV PPI bolus then drip No NSAIDs Appears he is not on anticoagulation at present time Thank you for allowing us to participate in the care of this patient. Please call with any acute changes, questions or concerns. Please see addendum below with additional recommendation from my supervising physician. Supervising Physician Co-Signing Physician Notes I performed a history and physical examination of the patient today, including specifically on physical exam - soft abdomen. I have discussed the patient's management with the advanced practitioner. Please refer to the nurse practitioner's note for the documented findings and plan of care. EGD today Patient was explained in detail regarding risks, benefits, limitations and alternatives of the above endoscopic procedure. Risks of intravenous sedation used for procedure were also explained. Risks include, but not limited to perforation, bleeding, infection, respiratory distress, cardiac arrest and . Patient is also aware about the possibility of missed lesion. Patient's questions were answered. The patient verbalized understanding the information and agreed to undergo the procedure. History of Present Illness Reason for Consultation: gi bleed, elevated LFTs Requesting Physician: Miller Attending Physician: Cristian Bhatt MD History of Present Illness 70 year old male w/ history of CAD, HTN, prior upper GI bleed secondary to duodenal artery bleed 2011 admitted w/ dark stools x 1 day. Pt was seen and evaluated, chart reviewed. he notes decreased appetite and fatigue x 1 day, the next day he noted dark, tarry stools. Moved about 3 Bms since onset of dark stools. No BRBPR. No UGI symptoms specfiically no black/bloody emesis. This AM he feels less weak and better rested. He is normotensive, tachycardiac, HGB 12. No NSAIDs Denies blood thinners Does use ETOH liquor nightly Allergies Allergy/AdvReac Type Severity Reaction Status Date / Time No Known Allergies Allergy Unknown Verified 10/05/11 07:13 Home Medications Medication Instructions Recorded Confirmed Type allopurinol 300 mg tablet 300 mg PO DAILY 01/14/21 01/14/21 History amlodipine 5 mg tablet 5 mg PO DAILY 01/14/21 01/14/21 History atorvastatin 80 mg tablet 40 mg PO AMHS 01/14/21 01/14/21 History metoprolol tartrate 50 mg tablet 50 mg PO BID 01/14/21 01/14/21 History olmesartan 40 mg tablet 40 mg PO HS 01/14/21 01/14/21 History Patient History Medical History Alcohol dependence, daily use CAD (coronary artery disease) GI bleed Gout Hypertension Surgical History History of heart artery stent 2012 History of hernia repair Family History Other COPD (chronic obstructive pulmonary disease) Cancer Social History Smoking Status: Former smoker Tobacco Type: Cigarettes Hx Alcohol Use: Yes Alcohol type: hard liquor Hx Substance Use: No Preferred Language: Monegasque Communication Ability: Effective 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 Radial Required: No Beliefs That Will Affect Care: None marital status: Current Living Situation: Spouse How many Children do You have: 0 Feels Safe at Home: Yes Assistive Devices: None Review of Systems Review of Systems: All systems reviewed & are unremarkable except as noted in HPI & below Physical Exam Constitutional: WD/WN, vitals as above Neck: trachea midline, no thyromegaly Respiratory: normal respiratory effort, lungs clear to auscultation Cardiovascular: RRR, no murmur, no edema Gastrointestinal (Abdomen): normal bowel sounds, soft, nontender, no hepatosplenomegaly Results & Data ([facility]) Vital Signs (Past 12 Hours) Vital Signs Temp Pulse Pulse Resp BP Pulse Ox 01/15/21 08:14 37.1 C 101 H 20 130/78 98 01/15/21 08:00 105 H 01/15/21 03:23 37 C 88 15 123/82 98 01/15/21 00:00 101 H 01/14/21 23:41 36.9 C 87 19 147/76 H 97 Diagnostic Findings 01/15/21 01/15/21 01/15/21 Range/Units 07:44 01:30 01:30 WBC 7.88 7.29 (4.8-10.8) K/uL RBC 3.56 L 3.53 L (4.7-6.1) M/uL Hgb 11.9 L 12.0 L D (14.0-18.0) g/dL Hct 36.1 L 35.6 L (42-52) % MCV 101.4 H 100.8 H (80-100) fL MCH 33.4 34.0 (25-34) pg MCHC 33.0 33.7 (32-36) g/dL RDW Std Deviation 54.2 H 53.7 H (36.4-46.3) fL RDW Coeff of Elli 14.8 H 14.7 H (11.5-14.5) % Plt Count 164 140 (130-400) K/uL MPV 10.8 H 10.7 H (7.4-10.4) fL Immature Gran % (Auto) 0.3 0.3 % Neut % (Auto) 70.1 77.1 % Lymph % (Auto) 13.5 12.3 % Howard % (Auto) 14.5 9.3 % Eos % (Auto) 1.3 0.7 % Baso % (Auto) 0.3 0.3 % Neut # (Auto) 5.54 5.62 (1.4-6.5) K/uL Lymph # (Auto) 1.06 L 0.90 L (1.2-3.4) K/uL Howard # (Auto) 1.14 H 0.68 H (0.11-0.59) K/uL Eos # (Auto) 0.10 0.05 (0-0.5) K/uL Baso # (Auto) 0.02 0.02 (0-0.2) K/uL Immature Gran # (Auto) 0.02 0.02 (0.00-0.02) K/uL PT INR APTT PTT Ratio Sodium 141 (136-145) mmol/L Potassium 4.1 (3.5-5.1) mmol/L Chloride 107 (98-107) mmol/L Carbon Dioxide 26 (21-32) mmol/L Anion Gap 7.0 (3-11) BUN 23 H (7-18) mg/dl Creatinine 0.85 (0.6-1.4) mg/dl Est Cr Clr Drug Dosing 81.5 ml/min Est GFR ( Amer) 100.9 ml/min Est GFR (Non-Af Amer) 87.1 ml/min BUN/Creatinine Ratio 27.2 H (10-20) Glucose 112 H (70-99) mg/dl Calcium 8.4 L (8.5-10.1) mg/dl Magnesium (1.8-2.4) mg/dl Total Bilirubin (0.2-1) mg/dl AST (15-37) U/L ALT (12-78) U/L Alkaline Phosphatase (45-117) U/L Troponin I (0-0.045) ng/ml Total Protein (6.4-8.2) gm/dl Albumin (3.4-5.0) gm/dl Globulin (2.5-4.0) gm/dl Albumin/Globulin Ratio (0.9-2) Lipase (73-393) U/L COVID-19 Eval Order SARS-CoV-2 (PCR) (Negative) Blood Type Antibody Screen 01/14/21 01/14/21 01/14/21 Range/Units 19:36 19:36 19:36 WBC (4.8-10.8) K/uL RBC (4.7-6.1) M/uL Hgb (14.0-18.0) g/dL Hct (42-52) % MCV (80-100) fL MCH (25-34) pg MCHC (32-36) g/dL RDW Std Deviation (36.4-46.3) fL RDW Coeff of Elli (11.5-14.5) % Plt Count (130-400) K/uL MPV (7.4-10.4) fL Immature Gran % (Auto) % Neut % (Auto) % Lymph % (Auto) % Howard % (Auto) % Eos % (Auto) % Baso % (Auto) % Neut # (Auto) (1.4-6.5) K/uL Lymph # (Auto) (1.2-3.4) K/uL Howard # (Auto) (0.11-0.59) K/uL Eos # (Auto) (0-0.5) K/uL Baso # (Auto) (0-0.2) K/uL Immature Gran # (Auto) (0.00-0.02) K/uL PT 10.9 INR 1.1 APTT 24.3 PTT Ratio 0.9 Sodium (136-145) mmol/L Potassium 3.8 (3.5-5.1) mmol/L Chloride (98-107) mmol/L Carbon Dioxide (21-32) mmol/L Anion Gap (3-11) BUN (7-18) mg/dl Creatinine (0.6-1.4) mg/dl Est Cr Clr Drug Dosing ml/min Est GFR ( Amer) ml/min Est GFR (Non-Af Amer) ml/min BUN/Creatinine Ratio (10-20) Glucose (70-99) mg/dl Calcium (8.5-10.1) mg/dl Magnesium 1.3 L (1.8-2.4) mg/dl Total Bilirubin (0.2-1) mg/dl AST 45 H (15-37) U/L ALT (12-78) U/L Alkaline Phosphatase (45-117) U/L Troponin I (0-0.045) ng/ml Total Protein (6.4-8.2) gm/dl Albumin (3.4-5.0) gm/dl Globulin (2.5-4.0) gm/dl Albumin/Globulin Ratio (0.9-2) Lipase (73-393) U/L COVID-19 Eval Order SARS-CoV-2 (PCR) (Negative) Blood Type B Positive Antibody Screen NEGATIVE 01/14/21 01/14/21 01/14/21 Range/Units 18:25 18:25 18:25 WBC 7.43 (4.8-10.8) K/uL RBC 4.42 L (4.7-6.1) M/uL Hgb 15.4 (14.0-18.0) g/dL Hct 44.7 (42-52) % MCV 101.1 H (80-100) fL MCH 34.8 H (25-34) pg MCHC 34.5 (32-36) g/dL RDW Std Deviation 54.5 H (36.4-46.3) fL RDW Coeff of Elli 14.9 H (11.5-14.5) % Plt Count 162 (130-400) K/uL MPV 11.3 H (7.4-10.4) fL Immature Gran % (Auto) 0.3 % Neut % (Auto) 74.9 % Lymph % (Auto) 14.3 % Howard % (Auto) 8.9 % Eos % (Auto) 1.5 % Baso % (Auto) 0.1 % Neut # (Auto) 5.57 (1.4-6.5) K/uL Lymph # (Auto) 1.06 L (1.2-3.4) K/uL Howard # (Auto) 0.66 H (0.11-0.59) K/uL Eos # (Auto) 0.11 (0-0.5) K/uL Baso # (Auto) 0.01 (0-0.2) K/uL Immature Gran # (Auto) 0.02 (0.00-0.02) K/uL PT Cancelled INR Cancelled APTT Cancelled PTT Ratio Cancelled Sodium 137 (136-145) mmol/L Potassium (3.5-5.1) mmol/L Chloride 104 (98-107) mmol/L Carbon Dioxide 24 (21-32) mmol/L Anion Gap 9.0 (3-11) BUN 21 H (7-18) mg/dl Creatinine 0.95 (0.6-1.4) mg/dl Est Cr Clr Drug Dosing 72.6 ml/min Est GFR ( Amer) 92.3 ml/min Est GFR (Non-Af Amer) 79.7 ml/min BUN/Creatinine Ratio 21.7 H (10-20) Glucose 105 H (70-99) mg/dl Calcium 9.4 (8.5-10.1) mg/dl Magnesium (1.8-2.4) mg/dl Total Bilirubin 1.0 (0.2-1) mg/dl AST (15-37) U/L ALT 49 (12-78) U/L Alkaline Phosphatase 131 H (45-117) U/L Troponin I < 0.015 (0-0.045) ng/ml Total Protein 8.4 H (6.4-8.2) gm/dl Albumin 4.4 (3.4-5.0) gm/dl Globulin 4.0 (2.5-4.0) gm/dl Albumin/Globulin Ratio 1.1 (0.9-2) Lipase 427 H (73-393) U/L COVID-19 Eval Order SARS-CoV-2 (PCR) (Negative) Blood Type Antibody Screen 01/14/21 01/14/21 01/14/21 Range/Units 18:25 18:24 18:24 WBC (4.8-10.8) K/uL RBC (4.7-6.1) M/uL Hgb (14.0-18.0) g/dL Hct (42-52) % MCV (80-100) fL MCH (25-34) pg MCHC (32-36) g/dL RDW Std Deviation (36.4-46.3) fL RDW Coeff of Elli (11.5-14.5) % Plt Count (130-400) K/uL MPV (7.4-10.4) fL Immature Gran % (Auto) % Neut % (Auto) % Lymph % (Auto) % Howard % (Auto) % Eos % (Auto) % Baso % (Auto) % Neut # (Auto) (1.4-6.5) K/uL Lymph # (Auto) (1.2-3.4) K/uL Howard # (Auto) (0.11-0.59) K/uL Eos # (Auto) (0-0.5) K/uL Baso # (Auto) (0-0.2) K/uL Immature Gran # (Auto) (0.00-0.02) K/uL PT INR APTT PTT Ratio Sodium (136-145) mmol/L Potassium (3.5-5.1) mmol/L Chloride (98-107) mmol/L Carbon Dioxide (21-32) mmol/L Anion Gap (3-11) BUN (7-18) mg/dl Creatinine (0.6-1.4) mg/dl Est Cr Clr Drug Dosing ml/min Est GFR ( Amer) ml/min Est GFR (Non-Af Amer) ml/min BUN/Creatinine Ratio (10-20) Glucose (70-99) mg/dl Calcium (8.5-10.1) mg/dl Magnesium (1.8-2.4) mg/dl Total Bilirubin (0.2-1) mg/dl AST (15-37) U/L ALT (12-78) U/L Alkaline Phosphatase (45-117) U/L Troponin I (0-0.045) ng/ml Total Protein (6.4-8.2) gm/dl Albumin (3.4-5.0) gm/dl Globulin (2.5-4.0) gm/dl Albumin/Globulin Ratio (0.9-2) Lipase (73-393) U/L COVID-19 Eval Order Covid19 at [facility] SARS-CoV-2 (PCR) NEGATIVE (Negative) Blood Type Cancelled Antibody Screen Cancelled
[2021-01-15] MEDS ORDERED: SODIUM CHLORIDE 0.9% 1000ML 1,000 ML IV ONE (11:21)
--- NOTE | 2021-01-15 11:49 | Hospitalist Progress Note ---
Date of Service January 15, 2021 Assessment & Plan (1) GI bleed: Plan: 70-year-old male presenting with generalized weakness, fatigue and decreased exercise tolerance. 1 day of nausea and several melanic stools today. Concern for upper GI bleed. Patient presently not on antiplatelet or anticoagulation. He does not take NSAIDs. He does drink a considerable amount of alcohol, 4-6 whiskey drinks per day. He has a remote history of upper GI bleed secondary to arterial bleed in 2011 requiring transfer to [facility] for angiography and transfusion of 10 units PRBCs Acute GI Bleed, history of duodenal ulcer bleed - Pt with BM with mixed melena/blood this afternoon, has had BM ~Q2-4H. Mildly hypotensive, tachycardic following. CBC pending +1L NSS, blood consent completed. Hgb transfusion threshold 7.0 Keep n.p.o. Maintain 2 large-bore peripheral IVs Trend CBC every 6 hours. Transfuse PRBCs for ongoing bleed, symptomatic anemia or hemoglobin less than 8 Protonix 40 mg IV twice daily Zofran as needed for nausea GI consultation appreciated EGD: Normal esophagus, medium hiatal hernia, few nonbleeding superficial gastric ulcers with no stigmata of bleeding at gastric antrum. 1 oozing cratered duodenal ulcer with visible vessel found at duodenal bulb. The lesion was 15 mm in largest diameter. Area was successfully injected with 2 mL of 1- 10,000 epinephrine for hemostasis. Coagulation using bipolar probe was successful. Second portion of duodenum and third portion of duodenum were normal. Few small superficial ulcerations were seen. Based on above suspect control of source bleeding via EGD Per GI recommendations clear liquid diet today, avoid aspirin and NSAIDs for 5 days, PPI IV for 2 days and then switch to p.o. twice daily for 2 months Mesenteric duplex ultrasound pending (2) CAD (coronary artery disease): Plan: Patient with underlying coronary artery disease status post stent placement in May 2011. Presently not on antiplatelet therapy. Patient denies chest pain. Troponin undetectable Hold metoprolol and olmesartan in setting of active bleed Continue atorvastatin 40 mg daily (3) Hypertension: Plan: Blood pressure mildly elevated. Holding antihypertensives in setting of active bleed Continue to monitor (4) Gout: Plan: Well-controlled. Patient states he has not had a gout flare for over a year Continue allopurinol 300 mg daily (5) Alcohol dependence, daily use: Plan: Patient reports drinking 4-6 drinks per day. Is concerned that he has alcohol dependence. He does report some mild withdrawal symptoms when he was unable to drink. Must consider possible withdrawal as well as active bleed as underlying cause for tachycardia. Patient does appear mildly tremulous on exam. Given Valium 10 mg p.o. x1. Can repeat dose if patient continues to experience symptoms of withdrawal FRITZ as protocol with IV Ativan as needed Thiamine and folic acid p.o. daily Patient may benefit from information regarding alcohol abuse and addiction services available in the area Plan: FEN GI: Maintain 2 peripheral IVs. Electrolytes within acceptable limits. Progress to clears post EGD ProphylaxisSCDs to bilateral lower extremities cervical prophylaxis contraindicated in the setting of bleeding [place] per discussion with patient Dispositionadmit to PCU Admission and Anticipated Discharge Date Admission Date: January 14, 2021 Carrie Pressley is seen at the bedside this morning. He reports he became lightheaded and dizzy after he had a bowel movement with mixed black melena and red blood. He reports he has been having intermittent bloody bowel movements every 2-4 hours since admission. He reports he has not felt lightheaded or dizzy until this episode, but feels comfortable laying in bed. He is not having chest pain or shortness of breath at time of assessment. He refutes that he feels a little bit bloated, but nontender in the abdomen at time of assessment. He reports he is concerned because his prior duodenal ulcer bled suddenly and required 10 units of transfusion and transfer to [place]. He reports if he had to choose between an open procedure and transfer to [place] he would prefer to be transferred in an emergency as long as he were stable enough to do so. Consented for blood. Feeling improved with stabilization of vital signs following NSS, CBC ordered with a one-point drop in hemoglobin from prior and one-point drop on repeat. GI notified, EGD performed with results as noted in A&P. Review of Systems Review of Systems: Constitutional: Denies fever, chills, malaise. Endorses lightheadedness as noted in HPI Eyes: Denies vision change ENT: Denies ear pain, sore throat, sinus pain Cardiovascular: Denies Chest pain, chest pressure, palpitations, extremity swelling Respiratory: Denies shortness of breath, cough, sputum production, difficulty breathing Gastrointestinal: See HPI Genitourinary: Denies dysuria, urinary frequency Musculoskeletal: Denies acute focal weakness, muscle aches/pain, joint aches/pain Integumentary:Denies acute rash, lesions, bruising Neurological: See HPI Physical Exam Physical Exam: General: A&Ox3. NAD. Cooperative. Laying flat in bed, alert and oriented, answers questions appropriately. Follows 1 and two-step commands HEENT: Atraumatic, normocephalic. Visual acuity is grossly intact. Hearing is intact Pulm: CTAB A&P. -wheezes, -rales, -rhonchi. Symmetrical chest rise. No increase work of breathing. No respiratory distress. Cardiac: Tachycardic,-mrg. Radial pulses intact and symmetrical. Abdominal: Nontender, nondistended, soft. BS present. Extremities: Warm and dry, cap refill is less than 2 seconds. 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 Results & Data Results & Data ([facility]) Vital Signs (Past 12 Hours) Vital Signs Temp Pulse Pulse Resp BP BP Pulse Ox 01/15/21 11:15 36.6 C 128 H 18 94/64 L 100 01/15/21 08:14 37.1 C 101 H 20 130/78 98 01/15/21 08:00 105 H 01/15/21 03:23 37 C 88 15 123/82 98 01/15/21 00:00 101 H PG Care Time/CCT Total # of Minutes Spent Total Time Spent with Patient: Total time spent is greater than 50% in coord ination of care (as documented) at patient's floor/unit and/or counseling patient: Coding Level of Care Code 31304 Subseq Hosp Care Lvl 3 Diagnoses GI bleed K92.2 CAD (coronary artery disease) I25.10 Hypertension I10 Gout M10.9 Alcohol dependence, daily use F10.20
[2021-01-15 12:08] LABS: Basophils # (auto) 0.02 K/uL (0-0.2); Basophils % (auto) 0.2 %; Eosinophils # (auto) 0.05 K/uL (0-0.5); Eosinophils % (auto) 0.6 %; Hemoglobin 10.9 g/dL (14.0-18.0); Immature Granulocytes # (auto) 0.02 K/uL (0.00-0.02); Immature Granulocytes % (auto) 0.2 %; Lymphocytes # (auto) 1.16 K/uL (1.2-3.4); Lymphocytes % (auto) 13.5 %; Mean Corpuscular Volume 102.8 fL (80-100); Mean Platelet Volume 11.4 fL (7.4-10.4); Monocytes % (auto) 12.8 %; Neutrophils # (auto) 6.27 K/uL (1.4-6.5); Neutrophils % (auto) 72.7 %; Platelet Count 171 K/uL (130-400); RDW Coefficient of Variation 14.7 % (11.5-14.5); RDW Standard Deviation 55.3 fL (36.4-46.3); Red Blood Count 3.21 M/uL (4.7-6.1); White Blood Count 8.62 K/uL (4.8-10.8)
--- NOTE | 2021-01-15 12:51 | Anesthesiology Consultation ---
Date of Service January 15, 2021 Assessment & Plan (1) Encounter for pre-operative examination: Chart Review Chart Review: Acceptable Risk for Surgery History Surgery Operation Date: 01/15/21 19:05 Proposed Procedures p Esophagogastroduodenoscopy Cruz Argueta MD Operation Date: 01/16/21 16:30 Proposed Procedures p Esophagogastroduodenoscopy Dr Argueta - Tam Argueta MD Height/Weight Height: 5 ft 5 in Weight: 92.1 kg Allergies Allergy/AdvReac Type Severity Reaction Status Date / Time No Known Allergies Allergy Unknown Verified 10/05/11 07:13 Medications Home Medications Medication Instructions Recorded Confirmed Last Taken allopurinol 300 mg tablet 300 mg PO DAILY 01/14/21 01/14/21 01/14/21 amlodipine 5 mg tablet 5 mg PO DAILY 01/14/21 01/14/21 01/14/21 atorvastatin 80 mg tablet 40 mg PO AMHS 01/14/21 01/14/21 01/14/21 metoprolol tartrate 50 mg tablet 50 mg PO BID 01/14/21 01/14/21 01/13/21 olmesartan 40 mg tablet 40 mg PO HS 01/14/21 01/14/21 01/13/21 Active Medications Generic Name Dose Route Start Last Admin Trade Name Bhavya PRN Reason Stop Dose Admin Allopurinol 300 mg 01/15/21 09:00 01/15/21 08:03 Allopurinol 300 Mg Tab PO 02/14/21 08:59 300 mg DAILY NATALIE Administration Atorvastatin Calcium 80 mg 01/15/21 09:00 01/15/21 08:03 Atorvastatin 40 Mg Tab PO 02/14/21 08:59 80 mg DAILY NATALIE Administration Folic Acid 1 mg 01/14/21 22:00 01/15/21 08:03 Folic Acid 1 Mg Tab PO 02/13/21 21:59 1 mg QAM NATALIE Administration Pantoprazole Sodium 40 mg/ 10 mls @ 5 mls/min 01/15/21 09:00 01/15/21 08:02 Syringe IV 02/14/21 08:59 5 mls/min BID NATALIE Administration Magnesium Oxide 400 mg 01/15/21 09:00 01/15/21 08:33 Magnesium Oxide 400 Mg Tab PO 02/14/21 08:59 400 mg BID NATALIE Administration Thiamine HCl 100 mg 01/14/21 22:00 01/15/21 08:02 Thiamine Hcl 100 Mg Tab PO 02/13/21 21:59 100 mg QAM NATALIE Administration Past Medical History Medical History Alcohol dependence, daily use CAD (coronary artery disease) GI bleed Gout Hypertension Past Family History Family History Other COPD (chronic obstructive pulmonary disease) Cancer Past Surgical History Surgical History History of heart artery stent 2011 History of hernia repair Social History Smoking Status: Former smoker Hx Alcohol Use: Yes Alcohol type: hard liquor alcohol intake frequency: 3 or more drinks per day Alcohol Intake Frequency Comment: pt report will be missed while admited Hx Substance Use: No Physical Exam Vital Signs Last Vital Signs Temp 36.6 C 01/15/21 11:15 Pulse 128 H 01/15/21 11:15 Resp 18 01/15/21 11:15 BP 94/64 L 01/15/21 11:15 Pulse Ox 100 01/15/21 11:15 Testing Laboratory Results 01/15/21 11:27 01/15/21 01:30 PT 10.9 Seconds (9.0-12.0) 01/14/21 19:36 INR 1.1 (0.9-1.1) 01/14/21 19:36 APTT 24.3 Seconds (21.0-31.0) 01/14/21 19:36 Blood Type B Positive 01/14/21 19:36 Antibody Screen NEGATIVE 01/14/21 19:36 Electrocardiogram Date: 01/14/21 Findings: + NSR @ (87)
[2021-01-15] MEDS ORDERED: PROPOFOL IV EMULSION 10 MG/ML 20 ML VIAL IV ONE ×2 (15:26→16:26)
[2021-01-15] MEDS ORDERED: LIDOCAINE 2% 2 ML VIAL/AMP(20MG/ML) INFIL ONE ×2 (15:26)
[2021-01-15] MEDS ORDERED: ONDANSETRON INJ 2 MG/ML 2 ML VIAL ONE (15:26)
--- NOTE | 2021-01-15 15:26 | Electrocardiogram Report ---
Test Reason : Blood Pressure : / mmHG Vent. Rate : 087 BPM Atrial Rate : 087 BPM P-R Int : 158 ms QRS Dur : 074 ms QT Int : 378 ms P-R-T Axes : 060 008 014 degrees QTc Int : 454 ms Normal sinus rhythm Normal ECG When compared with ECG of 05-OCT-2011 07:26, Nonspecific T wave abnormality now evident in Anterior leads Confirmed by Mitchel Medina ([id number]) on 01/15/2021 3:25:56 PM Referred By: REFERRED SELF Confirmed By:Mitchel Medina
[2021-01-15] MEDS ORDERED: ePHEDrine sulfate 50 MG/ML AMP IV PRN (15:34)
[2021-01-15] MEDS ORDERED: ONDANSETRON INJ 2 MG/ML 2 ML VIAL IV PRN (15:34)
[2021-01-15] MEDS ORDERED: fentaNYL citrate 100 MCG/2 ML VIAL IV PRN (15:34)
[2021-01-15] MEDS ORDERED: ATROPINE SULFATE 0.1 MG/ML 10ML SYR IV PRN (15:34)
--- NOTE | 2021-01-15 15:59 | Operative Report ---
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 Any exceptions are noted below.
--- NOTE | 2021-01-15 16:11 | GI REPORT ---
Patient Name: Huan Domingo Procedure Date: 01/15/2021 3:38 PM Date of : 1950 Admit Type: Inpatient Age: 70 Gender: Male Attending MD: Tam Argueta MD Procedure: Upper GI endoscopy Providers: Tam Argueta MD Referring MD: Cristian Bhatt Md, Jimmy Santana Indications: Melena Medicines: Propofol per Anesthesia Complications: No immediate complications. Estimated Blood Loss: Estimated blood loss: none. Procedure: Pre-Anesthesia Assessment: - Prior to the procedure, a History and Physical was performed, and patient medications, allergies and sensitivities were reviewed. The patient's tolerance of previous anesthesia was reviewed. - The risks and benefits of the procedure and the sedation options and risks were discussed with the patient. All questions were answered and informed consent was obtained. - Patient identification and proposed procedure were verified prior to the procedure by the physician and the nurse. The procedure was verified in the procedure room. - Pre-procedure physical examination revealed no contraindications to sedation. After obtaining informed consent, the endoscope was passed under direct vision. Throughout the procedure, the patient's blood pressure, pulse, and oxygen saturations were monitored continuously. The Endoscope was introduced through the mouth, and advanced to the second part of duodenum. The upper GI endoscopy was accomplished without difficulty. The patient tolerated the procedure well. Findings: The examined esophagus was normal. A medium-sized hiatal hernia was present. Few non-bleeding superficial gastric ulcers with no stigmata of bleeding were found in the gastric antrum. One oozing cratered duodenal ulcer with a visible vessel was found in the duodenal bulb. The lesion was 15 mm in largest dimension. Area was successfully injected with 2 mL of a 1:10,000 solution of epinephrine for hemostasis. Coagulation for hemostasis using bipolar probe was successful. The second portion of the duodenum and third portion of the duodenum were normal. Few small superficial ulcerations seen. Impression: - Normal esophagus. No varices. - Medium-sized hiatal hernia. - Non-bleeding gastric ulcers with no stigmata of bleeding. - Oozing duodenal ulcer with a visible vessel. Injected. Treated with bipolar cautery. - Normal second portion of the duodenum and third portion of the duodenum. Recommendation: - Return [facility] to [facility] for [facility] care. - Clear liquid diet today. - No aspirin, ibuprofen, naproxen, or other non-steroidal anti-inflammatory drugs for 5 days. - Use a proton pump inhibitor IV for 2 days then switch to PO BID for 2 months. - Obtain a mesenteric duplex ultrasound.. Tam Argueta MD 01/15/2021 4:10:53 PM This report has been signed electronically. Note Initiated On: 01/15/2021 3:38 PM Number of Addenda: 0 I attest to the content of the Intraoperative Record and orders documented therein, exceptions below {[id number]}
--- NOTE | 2021-01-15 16:41 | Anesthesiology Progress Note ---
Date of Service January 15, 2021 Anesthesia Post Procedure Vital Signs Vital Signs: Temp Pulse Pulse Resp BP BP BP 01/15/21 16:30 91 H 16 107/68 01/15/21 16:14 36.4 C L 99 H 16 86/63 L 01/15/21 14:17 37 C 130 H 16 124/73 01/15/21 11:15 36.6 C 128 H 18 94/64 L 01/15/21 08:14 37.1 C 101 H 20 130/78 01/15/21 08:00 105 H 01/15/21 03:23 37 C 88 15 123/82 01/15/21 00:00 101 H 01/14/21 23:41 36.9 C 87 19 147/76 H 01/14/21 21:40 91 H 01/14/21 20:48 37.1 C 92 H 98 H 17 155/100 H 157/87 H 01/14/21 20:30 94 H 16 01/14/21 20:15 97 H 16 01/14/21 20:02 103 H 22 01/14/21 20:00 37 C 20 01/14/21 19:00 90 12 156/102 H 01/14/21 18:45 102 H 15 167/103 H 01/14/21 18:32 93 H 14 159/102 H 01/14/21 18:24 93 H 17 01/14/21 17:22 36.2 C L 93 H 20 164/96 H Pulse Ox 01/15/21 16:30 100 01/15/21 16:14 97 01/15/21 14:17 98 01/15/21 11:15 100 01/15/21 08:14 98 01/15/21 08:00 01/15/21 03:23 98 01/15/21 00:00 01/14/21 23:41 97 01/14/21 21:40 01/14/21 20:48 98 01/14/21 20:30 97 01/14/21 20:15 98 01/14/21 20:02 98 01/14/21 20:00 98 01/14/21 19:00 97 01/14/21 18:45 98 01/14/21 18:32 99 01/14/21 18:24 98 01/14/21 17:22 99 Transfer of Care Handoff Completed per policy Notes Mental Status: alert / awake / arousable Patient Amnestic to Procedure: Yes Nausea / Vomiting: adequately controlled Pain: adequately controlled Airway Patency, RR, SpO2: stable & adequate BP & HR: stable & adequate Hydration State: stable & adequate Anesthetic Complications: no major complications apparent
[2021-01-15 17:27] LABS: Basophils # (auto) 0.02 K/uL (0-0.2); Basophils % (auto) 0.2 %; Eosinophils # (auto) 0.02 K/uL (0-0.5); Eosinophils % (auto) 0.2 %; Hematocrit (blood only) 27.9 % (42-52); Hemoglobin 9.3 g/dL (14.0-18.0); Immature Granulocytes # (auto) 0.01 K/uL (0.00-0.02); Immature Granulocytes % (auto) 0.1 %; Lymphocytes # (auto) 1.02 K/uL (1.2-3.4); Lymphocytes % (auto) 12.6 %; Mean Corpuscular Hemoglobin 34.2 pg (25-34); Mean Corpuscular Hgb Conc 33.3 g/dL (32-36); Mean Corpuscular Volume 102.6 fL (80-100); Monocytes # (auto) 0.97 K/uL (0.11-0.59); Neutrophils # (auto) 6.04 K/uL (1.4-6.5); Neutrophils % (auto) 74.9 %; Platelet Count 151 K/uL (130-400); RDW Coefficient of Variation 14.8 % (11.5-14.5); RDW Standard Deviation 55.2 fL (36.4-46.3); Red Blood Count 2.72 M/uL (4.7-6.1); White Blood Count 8.08 K/uL (4.8-10.8)
[2021-01-15] MEDS: LORazepam 2 MG/4 ML VIAL IV PRN ×2 (21:05→22:32)
[2021-01-16 00:33] LABS: Hematocrit (blood only) 23.7 % (42-52); Hemoglobin 7.8 g/dL (14.0-18.0)
[2021-01-16] MEDS ORDERED: SODIUM CHLORIDE 0.9% 250 ML IV PRN (00:48)
--- NOTE | 2021-01-16 00:53 | Communication Note ---
Date of Service: January 16, 2021 Subjective: Nursing notified me that the patient had a hgb of 7.8 down from 9.3. He was not having any continued bloody bowel movements since his scope. He was asymptomatic and vitals were stable. Objective: BP: 105/71, HR 83 General: patient pale and poorly responsive (recent Ativan given for withdrawal symptoms earlier) A/P: - transfused 2U, 2 available - continue to monitor vitals and for symptoms of further bleeding
[2021-01-16] MEDS: LORazepam 2 MG/4 ML VIAL IV PRN ×3 (03:33→17:52)
[2021-01-16] MEDS: allopurinoL 300 MG TAB PO SCH (08:14)
[2021-01-16] MEDS: ATORVASTATIN 40 MG TAB PO SCH (08:15)
[2021-01-16] MEDS: MAGNESIUM OXIDE 400 MG TAB PO SCH ×2 (08:15→20:56)
[2021-01-16] MEDS: THIAMINE HCL 100 MG TAB PO SCH (08:15)
[2021-01-16] MEDS: FOLIC ACID 1 MG TAB PO SCH (08:15)
[2021-01-16] MEDS: PANTOprazole 40 MG in SYRINGE 0 ML IV SCH ×2 (08:15→20:56)
--- NOTE | 2021-01-16 09:24 | Magnetic Resonance Report ---
MRCP CLINICAL HISTORY: elevated LFTs TECHNIQUE: Utilizing a 1.5 Renea magnet and dedicated coil, multiplanar, multiecho imaging of [facility] abdomen was performed utilizing heavily T2 weighted pulsing sequences without IV contrast. COMPARISON STUDY: No previous studies for comparison. FINDINGS: Limited evaluation of lung bases shows small area of fluid signal anteriorly to the pericardium which might represent minimal pericardial effusion versus other etiology. Small area of increased T2 signa l at bilateral lung bases might represent trace bilateral pleural effusion. Liver is normal in size and shows normal signal characteristics on T2 weighted imaging. No intrahepa tic biliary dilatation is seen. 0.6 cm T2 hyperintense lesion is seen within right lobe of the liver, most likely representing cyst. Gallbladder is normal in size without evidence of cholelithiasis. Spleen, pancreas and visualized portion of left adrenal gland are normal. Possible 2.2 cm right adren al nodule (4/13), evaluation is suboptimal on this nondedicated exam. No evidence of hydronephrosis. Minimal perinephric stranding is seen bilaterally. Possible small hiatal hernia. Visualized bowel loops are nondilated. Visualized portion of abdominal aorta is normal in caliber. MRCP: Limited exam due to motion artifact. Intrahepatic and extrahepatic biliary duct is nondilated. No int raluminal filling defect is seen to suggest calculi. Pancreatic duct is normal in caliber. IMPRESSION: 1. Normal size liver with small cyst within its right lobe. No intrahepatic biliary dilatation seen. Normal signal characteristics of the liver parenchyma on T2 sequence. 2. Normal gallbladder. No biliary or pancreatic duct dilatation. Limited exam due to motion artifact . 3. Possible 2.2 cm right adrenal nodule, evaluation is suboptimal and this nondedicated exam. Furthe r evaluation with CT of the abdomen, adrenal protocol might be considered. 4. The rest of findings as above. ACT 112: Positive. There are findings on this exam that require communication between the performing entity and the patient following Patient Test Result Information Act ([place] Act 112) guidelines. The above report was generated using voice recognition software. It may contain grammatical, syntax o r spelling errors. Electronically signed by: Caryl Mancuso DO 01/16/2021 9:23 AM
--- NOTE | 2021-01-16 09:26 | Gastroenterology Progress Note ---
Date of Service January 16, 2021 Assessment & Plan (1) GI bleed: Plan: 70 year old male admitted w/ anemia and GIB EGD yesterday w/ a few nonbleeding gastric ulcers, oozing duodenal ulcer, treated. Drop in HGB overnight but per chart review he has moved 1 dark movement since EGD, no further bleeding documented. Clear liquid diet today --> advance after imaging reviewed No aspirin, ibuprofen, naproxen, or other non-steroidal anti-inflammatory drugs for 5 days. Use a proton pump inhibitor IV for 2 days then switch to PO BID for 2 months. Obtain a mesenteric duplex ultrasound. Obtain MRCP Admission and Anticipated Discharge Date Admission Date: January 14, 2021 Supervising Physician Co-Signing Physician Notes I performed a history and physical examination of the patient today, including specifically on physical exam - soft abdomen. I have discussed the patient's management with the advanced practitioner. Please refer to the nurse practitioner's note for the documented findings and plan of care. No BM since yesterday hence bleeding is controlled. Diet as tolerated. MRCP normal. Recall GI if needed. Subjective Pt not in in room on 3 attempts this AM. Chart reviewed. HGB down to 7.8 BUN stable. Some black liquid stool documented EGD 2020: The examined esophagus was normal. A medium-sized hiatal hernia was present. Few non-bleeding superficial gastric ulcers with no stigmata of bleeding were found in the gastric antrum. One oozing cratered duodenal ulcer with a visible vessel was found in the duodenal bulb. The lesion was 15 mm in largest dimension. Area was successfully injected with 2 mL of a 1:10,000 solution of epinephrine for hemostasis. Coagulation for hemostasis using bipolar probe was successful. The second portion of the duodenum and third portion of the duodenum were normal. Few small superficial ulcerations seen. Results & Data ([facility]) Vital Signs (Past 12 Hours) Vital Signs Temp Pulse Pulse Resp BP BP BP 01/16/21 07:55 36.4 C L 84 20 119/82 01/16/21 06:30 36.6 C 79 17 110/74 01/16/21 06:25 36.6 C 79 17 110/71 01/16/21 06:00 36.6 C 73 14 112/76 01/16/21 05:45 36.6 C 69 16 95/65 L 01/16/21 05:29 36.5 C 69 16 101/77 01/16/21 05:03 36.6 C 76 16 104/75 01/16/21 04:03 36.4 C L 72 15 100/64 01/16/21 03:33 36.7 C 78 15 105/69 01/16/21 03:18 36.7 C 86 16 126/83 01/16/21 03:02 36.5 C 77 17 108/72 01/16/21 02:11 98 H 01/15/21 23:59 37 C 83 18 105/71 Pulse Ox 01/16/21 07:55 97 01/16/21 06:30 97 01/16/21 06:25 97 01/16/21 06:00 98 01/16/21 05:45 100 01/16/21 05:29 98 01/16/21 05:03 95 01/16/21 04:03 97 01/16/21 03:33 99 01/16/21 03:18 99 01/16/21 03:02 95 01/16/21 02:11 01/15/21 23:59 98 Laboratory Results 01/16/21 01/15/21 01/15/21 Range/Units 00:17 17:10 11:31 WBC 8.08 (4.8-10.8) K/uL RBC 2.72 L (4.7-6.1) M/uL Hgb 7.8 L 9.3 L (14.0-18.0) g/dL Hct 23.7 L 27.9 L (42-52) % MCV 102.6 H (80-100) fL MCH 34.2 H (25-34) pg MCHC 33.3 (32-36) g/dL RDW Std Deviation 55.2 H (36.4-46.3) fL RDW Coeff of Elli 14.8 H (11.5-14.5) % Plt Count 151 (130-400) K/uL MPV 11.0 H (7.4-10.4) fL Immature Gran % (Auto) 0.1 % Neut % (Auto) 74.9 % Lymph % (Auto) 12.6 % Hill % (Auto) 12.0 % Eos % (Auto) 0.2 % Baso % (Auto) 0.2 % Neut # (Auto) 6.04 (1.4-6.5) K/uL Lymph # (Auto) 1.02 L (1.2-3.4) K/uL Hill # (Auto) 0.97 H (0.11-0.59) K/uL Eos # (Auto) 0.02 (0-0.5) K/uL Baso # (Auto) 0.02 (0-0.2) K/uL Immature Gran # (Auto) 0.01 (0.00-0.02) K/uL Blood Type Blood Type Recheck B Positive Antibody Screen Crossmatch 01/15/21 01/14/21 Range/Units 11:27 19:36 WBC 8.62 (4.8-10.8) K/uL RBC 3.21 L (4.7-6.1) M/uL Hgb 10.9 L (14.0-18.0) g/dL Hct 33.0 L (42-52) % MCV 102.8 H (80-100) fL MCH 34.0 (25-34) pg MCHC 33.0 (32-36) g/dL RDW Std Deviation 55.3 H (36.4-46.3) fL RDW Coeff of Elli 14.7 H (11.5-14.5) % Plt Count 171 (130-400) K/uL MPV 11.4 H (7.4-10.4) fL Immature Gran % (Auto) 0.2 % Neut % (Auto) 72.7 % Lymph % (Auto) 13.5 % Hill % (Auto) 12.8 % Eos % (Auto) 0.6 % Baso % (Auto) 0.2 % Neut # (Auto) 6.27 (1.4-6.5) K/uL Lymph # (Auto) 1.16 L (1.2-3.4) K/uL Hill # (Auto) 1.10 H (0.11-0.59) K/uL Eos # (Auto) 0.05 (0-0.5) K/uL Baso # (Auto) 0.02 (0-0.2) K/uL Immature Gran # (Auto) 0.02 (0.00-0.02) K/uL Blood Type B Positive Blood Type Recheck Antibody Screen NEGATIVE Crossmatch See Detail Diagnostic Findings 01/16/21 01/15/21 01/15/21 Range/Units 00:17 17:10 11:31 WBC 8.08 (4.8-10.8) K/uL RBC 2.72 L (4.7-6.1) M/uL Hgb 7.8 L 9.3 L (14.0-18.0) g/dL Hct 23.7 L 27.9 L (42-52) % MCV 102.6 H (80-100) fL MCH 34.2 H (25-34) pg MCHC 33.3 (32-36) g/dL RDW Std Deviation 55.2 H (36.4-46.3) fL RDW Coeff of Elli 14.8 H (11.5-14.5) % Plt Count 151 (130-400) K/uL MPV 11.0 H (7.4-10.4) fL Immature Gran % (Auto) 0.1 % Neut % (Auto) 74.9 % Lymph % (Auto) 12.6 % Hill % (Auto) 12.0 % Eos % (Auto) 0.2 % Baso % (Auto) 0.2 % Neut # (Auto) 6.04 (1.4-6.5) K/uL Lymph # (Auto) 1.02 L (1.2-3.4) K/uL Hill # (Auto) 0.97 H (0.11-0.59) K/uL Eos # (Auto) 0.02 (0-0.5) K/uL Baso # (Auto) 0.02 (0-0.2) K/uL Immature Gran # (Auto) 0.01 (0.00-0.02) K/uL Blood Type Blood Type Recheck B Positive Antibody Screen Crossmatch 01/15/21 01/14/21 Range/Units 11:27 19:36 WBC 8.62 (4.8-10.8) K/uL RBC 3.21 L (4.7-6.1) M/uL Hgb 10.9 L (14.0-18.0) g/dL Hct 33.0 L (42-52) % MCV 102.8 H (80-100) fL MCH 34.0 (25-34) pg MCHC 33.0 (32-36) g/dL RDW Std Deviation 55.3 H (36.4-46.3) fL RDW Coeff of Elli 14.7 H (11.5-14.5) % Plt Count 171 (130-400) K/uL MPV 11.4 H (7.4-10.4) fL Immature Gran % (Auto) 0.2 % Neut % (Auto) 72.7 % Lymph % (Auto) 13.5 % Hill % (Auto) 12.8 % Eos % (Auto) 0.6 % Baso % (Auto) 0.2 % Neut # (Auto) 6.27 (1.4-6.5) K/uL Lymph # (Auto) 1.16 L (1.2-3.4) K/uL Hill # (Auto) 1.10 H (0.11-0.59) K/uL Eos # (Auto) 0.05 (0-0.5) K/uL Baso # (Auto) 0.02 (0-0.2) K/uL Immature Gran # (Auto) 0.02 (0.00-0.02) K/uL Blood Type B Positive Blood Type Recheck Antibody Screen NEGATIVE Crossmatch See Detail
[2021-01-16 10:41] LABS: Basophils # (auto) 0.02 K/uL (0-0.2); Basophils % (auto) 0.4 %; Eosinophils % (auto) 3.9 %; Hematocrit (blood only) 30.6 % (42-52); Hemoglobin 10.2 g/dL (14.0-18.0); Immature Granulocytes # (auto) 0.01 K/uL (0.00-0.02); Immature Granulocytes % (auto) 0.2 %; Lymphocytes % (auto) 21.6 %; Mean Corpuscular Hemoglobin 32.9 pg (25-34); Mean Corpuscular Hgb Conc 33.3 g/dL (32-36); Mean Corpuscular Volume 98.7 fL (80-100); Mean Platelet Volume 10.6 fL (7.4-10.4); Monocytes # (auto) 0.62 K/uL (0.11-0.59); Monocytes % (auto) 12.2 %; Neutrophils # (auto) 3.15 K/uL (1.4-6.5); Neutrophils % (auto) 61.7 %; Platelet Count 119 K/uL (130-400); RDW Coefficient of Variation 16.3 % (11.5-14.5); RDW Standard Deviation 58.3 fL (36.4-46.3)
--- NOTE | 2021-01-16 10:44 | Ultrasound Report ---
US duplex mesenteric CLINICAL HISTORY: numerous gastric ulcers rule out stenosis COMPARISON STUDY: MRCP January 15, 2021. TECHNIQUE: Grayscale, color and duplex Doppler sonography of the abdominal aorta and mesenteric vesse ls was performed. FINDINGS: Peak systolic velocity within the abdominal aorta was 96 cm/s. Peak systolic velocity withi n the superior mesenteric artery was 173 cm/s. Peak systolic velocity within the celiac axis was 108 cm/s. No elevated velocities were identified. IMPRESSION: No sonographic evidence of a hemodynamically significant stenosis within the celiac axis or superior mesenteric artery. ACT 112: Negative or not required by law. Electronically signed by: Malcolm Guzman M.D. 01/16/2021 10:43 AM
[2021-01-16 10:54] LABS: BUN Creatinine Ratio 27.4 (10-20); Calcium 8.2 mg/dl (8.5-10.1); Creatinine Clr Calc Pharmacy 80.8 ml/min; Est GFR (African American) 100.4 ml/min; Est GFR (Non-African American) 86.6 ml/min; Magnesium 2.1 mg/dl (1.8-2.4); Potassium 4.3 mmol/L (3.5-5.1)
--- NOTE | 2021-01-16 17:51 | Hospitalist Progress Note ---
Date of Service January 16, 2021 Assessment & Plan (1) GI bleed: Plan: 70-year-old male presenting with generalized weakness, fatigue and decreased exercise tolerance. 1 day of nausea and several melanic stools today. Concern for upper GI bleed. Patient presently not on antiplatelet or anticoagulation. He does not take NSAIDs. He does drink a considerable amount of alcohol, 4-6 whiskey drinks per day. He has a remote history of upper GI bleed secondary to arterial bleed in 2011 requiring transfer to [facility] for angiography and transfusion of 10 units PRBCs Acute GI Bleed, history of duodenal ulcer bleed - Pt with BM with mixed melena/blood this afternoon, has had BM ~Q2-4H. Mildly hypotensive, tachycardic following. CBC pending +1L NSS, blood consent completed. Hgb transfusion threshold 7.0 Clears, may advance diet as tolerated per GI after imaging reviewed Maintain 2 large-bore peripheral IVs Trend CBC every 6 hours. Transfuse PRBCs for ongoing bleed, symptomatic anemia or hemoglobin less than 8 Protonix 40 mg IV twice daily, may convert to orals tomorrow Zofran as needed for nausea GI consultation appreciated EGD: Normal esophagus, medium hiatal hernia, few nonbleeding superficial gastric ulcers with no stigmata of bleeding at gastric antrum. 1 oozing cratered duodenal ulcer with visible vessel found at duodenal bulb. The lesion was 15 mm in largest diameter. Area was successfully injected with 2 mL of 1- 10,000 epinephrine for hemostasis. Coagulation using bipolar probe was successful. Second portion of duodenum and third portion of duodenum were normal. Few small superficial ulcerations were seen. Based on above suspect control of source bleeding via EGD Per GI recommendations clear liquid diet today, avoid aspirin and NSAIDs for 5 days, PPI IV for 2 days and then switch to p.o. twice daily for 2 months Mesenteric duplex: No sonographic evidence of a hemodynamically significant stenosis within the celiac axis or superior mesenteric artery. - MRCP: Normal size liver with small cyst within its right lobe. No intrahepatic biliary dilatation seen. Normal signal characteristics of the liver parenchyma on T2 sequence. Normal gallbladder. No biliary or pancreatic duct dilatation. Limited exam due to motion artifact. Possible 2.2 cm right adrenal nodule, evaluation is suboptimal and this nondedicated exam. Further evaluation with CT of the abdomen, adrenal protocol might be considered. (2) CAD (coronary artery disease): Plan: Patient with underlying coronary artery disease status post stent placement in May 2011. Presently not on antiplatelet therapy. Patient denies chest pain. Troponin undetectable Hold metoprolol and olmesartan in setting of active bleed Continue atorvastatin 40 mg daily (3) Hypertension: Plan: Blood pressure mildly elevated. Holding antihypertensives in setting of active bleed Continue to monitor (4) Gout: Plan: Well-controlled. Patient states he has not had a gout flare for over a year Continue allopurinol 300 mg daily (5) Alcohol dependence, daily use: Plan: Patient reports drinking 4-6 drinks per day. Is concerned that he has alcohol dependence. He does report some mild withdrawal symptoms when he was unable to drink. Must consider possible withdrawal as well as active bleed as underlying cause for tachycardia. Patient does appear mildly tremulous on exam. Given Valium 10 mg p.o. x1. Can repeat dose if patient continues to experience symptoms of withdrawal FRITZ as protocol with IV Ativan as needed Thiamine and folic acid p.o. 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 Electrolytes within acceptable limits. ProphylaxisSCDs to bilateral lower extremities cervical prophylaxis contraindicated in the setting of bleeding [place] per discussion with patient Dispositionadmit to PCU Admission and Anticipated Discharge Date Admission Date: January 14, 2021 Carrie Pressley is seen at the bedside. Reports he feels well, tired as he just woke up prior to visit. Denies abdominal pain, has not had a bowel movement today. 1 bowel movement since EGD, dark but not black. Denies fever, chills, lightheadedness, dizziness (lightheadedness improved today). No chest pain, chest pressure, difficulty breathing. Review of Systems Review of Systems: Constitutional: Denies fever, chills, malaise. Eyes: Denies vision change ENT: Denies ear pain, sore throat, sinus pain Cardiovascular: Denies Chest pain, chest pressure, palpitations, extremity swelling Respiratory: Denies shortness of breath, cough, sputum production, difficulty breathing Gastrointestinal: See HPI Genitourinary: Denies dysuria, urinary frequency Musculoskeletal: Denies acute focal weakness, muscle aches/pain, joint aches/pain Integumentary:Denies acute rash, lesions, bruising Physical Exam Physical Exam: General: A&Ox3. NAD. Cooperative. Sitting up, answers questions appropriately HEENT: Atraumatic, normocephalic. Visual acuity is grossly intact. Hearing is intact Pulm: CTAB A&P. -wheezes, -rales, -rhonchi. Symmetrical chest rise. No increase work of breathing. No respiratory distress. Cardiac: Tachycardic,-mrg. Radial pulses intact and symmetrical. Abdominal: Nontender, nondistended, soft. BS present. Extremities: Warm and dry, cap refill is less than 2 seconds. Glue Maker Bone strength, ankle dorsiflexion/plantar flexion 5/5 and symmetrical. Results & Data Results & Data ([facility]) Vital Signs (Past 12 Hours) Vital Signs Temp Pulse Pulse Resp BP BP Pulse Ox 01/16/21 15:22 37.1 C 98 H 18 119/78 98 01/16/21 11:53 36.7 C 92 H 18 118/88 93 01/16/21 07:55 36.4 C L 84 20 119/82 97 01/16/21 06:30 36.6 C 79 17 110/74 97 01/16/21 06:25 36.6 C 79 17 110/71 97 01/16/21 06:00 36.6 C 73 14 112/76 98 01/16/21 05:45 36.6 C 69 16 95/65 L 100 PG Care Time/CCT Total # of Minutes Spent Total Time Spent with Patient: Total time spent is greater than 50% in coordination of care (as documented) at patient's floor/unit and/or counseling patient: Coding Level of Care Code 47077 Subseq Hosp Care Lvl 3 Diagnoses GI bleed K92.2 CAD (coronary artery disease) I25.10 Hypertension I10 Gout M10.9 Alcohol dependence, daily use F10.20 Adrenal nodule E27.8
[2021-01-16] MEDS ORDERED: OPTIRAY 320 100ml IV ONE (19:42)
--- NOTE | 2021-01-16 20:37 | CT Scan Report ---
CT abdomen wo/w con HISTORY: 70 years-old Male Adrenal protocol, adrenal nodule follow-up study in a patient with a righ t adrenal gland nodule COMPARISON: MRCP 01/15/2021 TECHNIQUE: Multiple axial CT images of the abdomen were obtained both with and without the use of 86 mL Optiray utilizing adrenal mass protocol. A dose lowering technique was used consistent with the pr incipals of SAGAR. FINDINGS: Mild cardiomegaly with coronary artery calcifications. Minimal linear subsegmental scarring/atelectas is of the basal left lower lobe. The spleen, visualized pancreas, gallbladder and left adrenal gland are unremarkable. There is a 2.2 x 1.6 cm right adrenal gland adenoma. The noncontrast Hounsfield is 4, the portal venous enhancement seen it is 32 and the delayed Hounsfield unit is 11. Hepatic steatos is. No evidence of cirrhosis or hepatic mass. Patency of the hepatic and portal veins. Streak artifac t from embolization coils within the distribution of the gastroduodenal artery. Mild nonspecific bilateral perinephric stranding. No urolith or hydronephrosis. Moderate atherosclero sis of the aorta without aneurysm. Retroaortic left renal vein. There is no adenopathy. Tiny hiatal hernia. No bowel obstruction or bowel wall thickening. No ascites or mesenteric inflammat ion. Normal appendix. Tiny fat filled periumbilical hernia. Unremarkable soft tissues. Degenerative c hanges of the spine. Levoscoliosis of the thoracolumbar junction. No acute fracture. IMPRESSION: 1. No acute intra-abdominal abnormality. 2. 2.2 cm right adrenal gland adenoma. 3. Hepatic steatosis. 4. Additional findings as above. ACT 112: Negative or not required by law. The above report was generated using voice recognition software. It may contain grammatical, syntax o r spelling errors. Electronically signed by: Bobby Disla M.D. 01/16/2021 8:35 PM
[2021-01-17] MEDS ORDERED: HALOPERIDOL LACTATE 5 MG/ML 1 ML VIAL ONE (00:33)
[2021-01-17] MEDS ORDERED: LORazepam 2 MG/ML VIAL (IM USE) IM STA ×2 (00:44→00:51)
--- NOTE | 2021-01-17 00:47 | Communication Note ---
Date of Service: January 17, 2021 Subjective: Nursing notified that the patient initially wanted to have something to eat, then later that he wanted to leave, and again that the patient had pulled out his IV site and was trying to leave. I talked to the patient twice over the night, initially he was agreeable to staying and following up with GI and the hospitalist in the morning. He did appear confused at that time and brought up that he thought that this was an experiment. The second time that I Objective: converted to atrial fibrillation with HR up to 200 initially, came down to 160 BP as low as 70's over 50's, general: anxious affect A/P: Agitated confused patient does not appear to have capacity, pulled out his IV site, and attempting to leave in the middle of the night, and grabbed staff. Does not appear to have capacity. - Haldol and 2 mg Ativan given initially and again 2mg Ativan given after pt. was aggressive with staff Atrial fibrillation w/ RVR, new onset; potentially brought on from anxiety VS alcohol withdrawal VS delirium - EKG ordered - BMP, Phos., Mg. ordered Hypotension - started on fluid initially NSS 500 ml with some improvement in symptoms - attempted diltiazem drip but BP dropped with this - H&H ordered
[2021-01-17] MEDS ORDERED: STAT IV Infusion **Titration per Protocol STA ×3 (01:38→02:31)
[2021-01-17] MEDS ORDERED: SODIUM CHLORIDE 0.9% 1000ML 500 ML IV ONE (01:38)
[2021-01-17] MEDS ORDERED: dilTIAZem HCL 125 MG in DEXTROSE 5% 100 ML IV SCH (01:45)
[2021-01-17 02:08] LABS: Hematocrit (blood only) 32.3 % (42-52); Hemoglobin 10.6 g/dL (14.0-18.0)
[2021-01-17] MEDS ORDERED: AMIODARONE IV BOLUS & DRIP IV STA (02:31)
[2021-01-17] MEDS ORDERED: LORazepam 2 MG/4 ML VIAL IV STA (02:32)
[2021-01-17] MEDS ORDERED: AMIODARONE 150MG / 100ML D5W IV ONE (02:33)
[2021-01-17] MEDS ORDERED: AMIODARONE 360MG / 200ML D5W IV ONE (02:33)
[2021-01-17] MEDS ORDERED: AMIODARONE / D5W 150 MG/100 ML BAG IV STA (02:34)
[2021-01-17] MEDS ORDERED: NORMOSOL-R 1,000 ML IV ONE (02:35)
[2021-01-17] MEDS: PHENYLEPHRINE HCL 20 MG in DEXTROSE 5% 500 ML IV SCH ×6 (02:41→19:10)
[2021-01-17 02:42] LABS: BUN Creatinine Ratio 14.8 (10-20); Creatinine Clr Calc Pharmacy 63.8 ml/min; Est GFR (African American) 78.2 ml/min; Est GFR (Non-African American) 67.5 ml/min; Phosphorus 2.9 mg/dl (2.5-4.9); Potassium 3.5 mmol/L (3.5-5.1)
[2021-01-17] MEDS ORDERED: 0.2 MICRON FILTER SET 1 EA IV ONE (02:45)
[2021-01-17] MEDS ORDERED: AMIODARONE / D5W 360 MG/200 ML BAG IV ONE (03:00)
--- NOTE | 2021-01-17 03:17 | Critical Care Consultation ---
Date of Consultation January 17, 2021 Assessment & Plan (1) Atrial fibrillation with RVR: Reason Critically Ill: 70-year-old male admitted for GI bleed and undergoing treatment for alcohol withdrawal now presents to the ICU with new onset of A. fib RVR with episode of hypotension. Neuro - Alcohol withdrawalreports 4 to 6 glasses of whiskey per day -patient undergoing treatment with FRITZ S protocol with IV Ativan. Did have episode of agitation where code roel was called and he received Haldol earlier this evening. -May consider adding Precedex if patient has refractory DTs -Continue thiamine, folic acid Cardiac - A. fib RVRno prior history. csm consultant with heart rate 150s to 160s appeared to be irregular. EKG revealed atrial fibrillation with RVR -Patient initially started on diltiazem for rate control but became hypotensive. This is improved following discontinuation of diltiazem drip -Blood pressure does remain soft and phenylephrine running peripherally at low-dose. Held off on IV metoprolol for this reason. -Patient bolus and started with amiodarone drip -We will proceed with synchronized cardioversion if patient were to decompensate -Continuous monitor on telemetry. Transferred to ICU for ongoing care -Electrolytes pending -Consider consult cardiology CADstatus post stent 2011, not on antiplatelet therapy. No active issue HTNholding antihypertensives in the setting of GI bleed Respiratory - No history of pulmonary disease, lungs clear to auscultation. Maintaining oxygen saturation on room air without respiratory distress Continuous monitoring on pulse ox GI - Upper GI bleeds/p EGD where he received epinephrine for hemostasis for actively bleeding duodenal ulcer with visible vessel found at duodenal bulb -Source of bleeding appears to be controlled post EGD as H&H is remained stable -GI following -Continue PPI -No NSAIDs, clear liquid diet RENAL/LYTES - Creatinine within normal limits, monitor routine BMPs replete electrolytes as indicated - Strict I's and O's ENDO - No history of diabetes or thyroid disease ICU hyperglycemic protocol Adrenal nodulenoted on CT, 2.2 cm right adrenal nodule no evidence of hormonal hypersecretion. CT adrenal protocol ordered HEME - Acute blood loss anemiasecondary to upper GI bleed -Patient did receive 2 units RBCs prior to EGD. Hemoglobin now stable -Monitor with routine CBCs. Coags within normal limits. Hold anticoagulation ID - No indication for infectious process at this time LINES/IV ACCESS - Peripheral IVs x2 DVT PROPHYLAXIS - SCDs, hold anticoagulation in the setting of GI bleed I have personally spent 40 minutes of critical care time in the direct management of this patient. This is a life/limb threatening event. This includes time spent evaluating patient, direct bedside care, chart review, placing orders, interpretation of diagnostic studies, discussion with consultants, patient, and family members, as well as other required patient management activities. This time is exclusive of all separately billable procedures, and teaching time and separate from and in addition to any other critical care service time. Thank you for allowing us to participate in the care of this patient. Please refer to my attending physician's documentation for any further recommendations. (2) GI bleed: (3) Alcohol dependence, daily use: (4) Gout: (5) CAD (coronary artery disease): (6) Hypertension: (7) Duodenal ulcer: (8) Adrenal nodule: Supervising Physician Co-Signing Physician Notes Patient seen separately from the VALDEMAR. Agree with the assessment and plan. Mental status is improving. Once he is off phenylephrine, can transfer to the floor with telemetry. Continue alcohol withdrawal protocol. Continue Protonix 40 mg twice daily for now gastric ulcers and oozing duodenal ulcer. Atrial ablation overnight has spontaneously converted to normal sinus rhythm. Holding all anticoagulation at this time due to concern for GI bleeding. History of Present Illness Attending Physician: Cristian Bhatt MD History of Present Illness Patient is a 70-year-old male past medical history including CAD, HTN, gout, alcohol abuse who presented to the emergency department on 01/14 with complaints of fatigue, weakness, and several melanotic stools. Patient reported drinking 4-6 whiskey drinks per day. Patient received to your's RBCs and went for EGD and was found to have few nonbleeding gastric ulcers and 1 oozing cratered duodenal ulcer with a visible vessel which was injected with epinephrine for hemostasis. Patient was admitted to PCU where he was undergoing treatment for alcohol withdrawal. This evening agapito sevilla was called and patient received Haldol. Patient was found to be in A. fib RVR and was initially started on diltiazem drip but became hypotensive. He has no previous history of A. fib. At this point he was transferred to the ICU. He is undergoing treatment with amiodarone and phenylephrine. On arrival to the ICU the patient is confused but is able to answer simple questions. He denies any headache, dizziness, nausea or vomiting, shortness of breath, chest pain, palpitations, abdominal pain, or any other generalized pain. He is currently seeing loading dose of amiodarone and started on peripheral phenylephrine. Patient to remain in ICU for further management this time. Allergies Allergy/AdvReac Type Severity Reaction Status Date / Time No Known Allergies Allergy Unknown Verified 10/05/11 07:13 Home Medications Medication Instructions Recorded Confirmed Type allopurinol 300 mg tablet 300 mg PO DAILY 01/14/21 01/14/21 History amlodipine 5 mg tablet 5 mg PO DAILY 01/14/21 01/14/21 History atorvastatin 80 mg tablet 40 mg PO AMHS 01/14/21 01/14/21 History metoprolol tartrate 50 mg tablet 50 mg PO BID 01/14/21 01/14/21 History olmesartan 40 mg tablet 40 mg PO HS 01/14/21 01/14/21 History Patient History Medical History Alcohol dependence, daily use CAD (coronary artery disease) GI bleed Gout Hypertension Surgical History History of heart artery stent 2011 History of hernia repair Family History Other COPD (chronic obstructive pulmonary disease) Cancer Social History Smoking Status: Former smoker Tobacco Type: Cigarettes Hx Alcohol Use: Yes Alcohol type: hard liquor Hx Substance Use: No Preferred Language: Indonesian Communication Ability: Effective Rebar Fabricator Required: No Beliefs That Will Affect Care: None marital status: Current Living Situation: Spouse How many Children do You have: 0 Feels Safe at Home: Yes Assistive Devices: Glasses Review of Systems Constitutional: as per Subjective / HPI Physical Exam Constitutional: cooperative and + lethargic; no acute distress and not diaphoretic Eyes: PERRL, conjunctivae normal, anicteric sclerae ENMT: external ear and nose normal, oropharynx normal Neck: trachea midline, no thyromegaly Respiratory: normal respiratory effort, lungs clear to auscultation Cardiovascular: Rate/Rhythm: + tachycardic and + irregularly irregular Vessels: no JVD Extremities: normal capillary refill; no edema Gastrointestinal (Abdomen): normal bowel sounds, soft, nontender, no hepatosplenomegaly Musculoskeletal: no cyanosis or clubbing, extremities motor strength 5/5 Skin: no rashes, warm and dry Neurologic: Patient confused, symmetrical movement, cranial nerves intact. No dysarthria Psychiatric: Orientation: oriented to person and cooperative; + not oriented to place and + not oriented to time Results & Data Results & Data ([facility]) Vital Signs (Past 12 Hours) Vital Signs Temp Pulse Pulse Resp BP BP Pulse Ox 01/17/21 00:12 113 H 01/16/21 22:43 36.5 C 106 H 20 138/87 98 01/16/21 20:49 36.8 C 107 H 22 143/98 H 98 01/16/21 15:22 37.1 C 98 H 18 119/78 98 Coding Level of Care Code Critical Care 1st 30-74 mins Diagnoses Atrial fibrillation with RVR I48.91 GI bleed K92.2 Alcohol dependence, daily use F10.20 Gout M10.9 CAD (coronary artery disease) I25.10 Hypertension I10 Duodenal ulcer K26.9 Adrenal nodule E27.8
[2021-01-17] MEDS: LORazepam 2 MG/4 ML VIAL IV PRN ×3 (03:20→17:40)
[2021-01-17] MEDS ORDERED: METOPROLOL TARTRATE 1 MG/ML VIAL IV STA (03:43)
[2021-01-17] MEDS ORDERED: METOPROLOL TARTRATE 1 MG/ML VIAL IV ONE (03:46)
[2021-01-17] MEDS: POTASSIUM CHLORIDE / WTR 10 MEQ/100 ML PLCT IV SCH ×4 (03:51→08:49)
[2021-01-17 06:45] LABS: Basophils # (auto) 0.02 K/uL (0-0.2); Basophils % (auto) 0.2 %; Eosinophils # (auto) 0.32 K/uL (0-0.5); Eosinophils % (auto) 3.5 %; Hematocrit (blood only) 30.8 % (42-52); Hemoglobin 10.1 g/dL (14.0-18.0); Immature Granulocytes # (auto) 0.01 K/uL (0.00-0.02); Immature Granulocytes % (auto) 0.1 %; Lymphocytes # (auto) 1.57 K/uL (1.2-3.4); Lymphocytes % (auto) 17.2 %; Mean Corpuscular Hemoglobin 32.9 pg (25-34); Mean Corpuscular Hgb Conc 32.8 g/dL (32-36); Mean Corpuscular Volume 100.3 fL (80-100); Mean Platelet Volume 10.8 fL (7.4-10.4); Monocytes # (auto) 1.14 K/uL (0.11-0.59); Monocytes % (auto) 12.5 %; Neutrophils # (auto) 6.06 K/uL (1.4-6.5); Neutrophils % (auto) 66.5 %; Platelet Count 153 K/uL (130-400); RDW Coefficient of Variation 16.4 % (11.5-14.5); RDW Standard Deviation 59.5 fL (36.4-46.3); Red Blood Count 3.07 M/uL (4.7-6.1); White Blood Count 9.12 K/uL (4.8-10.8)
[2021-01-17 07:21] LABS: BUN Creatinine Ratio 15.8 (10-20); Calcium 7.8 mg/dl (8.5-10.1); Creatinine Clr Calc Pharmacy 77.3 ml/min; Est GFR (African American) 98.5 ml/min
[2021-01-17] MEDS: allopurinoL 300 MG TAB PO SCH (07:50)
[2021-01-17] MEDS: THIAMINE HCL 100 MG TAB PO SCH (07:51)
[2021-01-17] MEDS: FOLIC ACID 1 MG TAB PO SCH (07:51)
[2021-01-17] MEDS: ATORVASTATIN 40 MG TAB PO SCH (07:51)
[2021-01-17] MEDS: MAGNESIUM OXIDE 400 MG TAB PO SCH ×2 (07:51→19:34)
[2021-01-17] MEDS: AMIODARONE / D5W 360 MG/200 ML BAG IV SCH ×2 (08:35→19:33)
[2021-01-17] MEDS: PANTOprazole 40 MG in SYRINGE 0 ML IV SCH ×2 (08:36→19:32)
[2021-01-17 09:21] LABS: T4 Free Thyroxine 1.07 ng/dl (0.8-1.6)
[2021-01-17] MEDS ORDERED: LACTATED RINGER'S 500 ML IV ONE (09:35)
--- NOTE | 2021-01-17 13:39 | Hospitalist Progress Note ---
Date of Service January 17, 2021 Assessment & Plan (1) GI bleed: Plan: 70-year-old male presenting with generalized weakness, fatigue and decreased exercise tolerance. 1 day of nausea and several melanic stools today. Concern for upper GI bleed. Patient presently not on antiplatelet or anticoagulation. He does not take NSAIDs. He does drink a considerable amount of alcohol, 4-6 whiskey drinks per day. He has a remote history of upper GI bleed secondary to arterial bleed in 2011 requiring transfer to [facility] for angiography and transfusion of 10 units PRBCs. During mission he was found to have a bleeding duodenal ulcer which was treated on endoscopy, course was complicated when subsequently transferred to ICU with altered mental status, tachycardia, and A. fib with concern for alcohol withdrawal Acute GI Bleed, history of duodenal ulcer bleed - Pt with BM with mixed melena/blood during admission EGD: Normal esophagus, medium hiatal hernia, few nonbleeding superficial gastric ulcers with no stigmata of bleeding at gastric antrum. 1 oozing cratered duodenal ulcer with visible vessel found at duodenal bulb. The lesion was 15 mm in largest diameter. Area was successfully injected with 2 mL of 1- 10,000 epinephrine for hemostasis. Coagulation using bipolar probe was successful. Second portion of duodenum and third portion of duodenum were normal. Few small superficial ulcerations were seen. Based on above suspect control of source bleeding via EGD Per GI recommendations clear liquid diet today, avoid aspirin and NSAIDs for 5 days, PPI IV for 2 days and then switch to p.o. twice daily for 2 months Mesenteric duplex: No sonographic evidence of a hemodynamically significant stenosis within the celiac axis or superior mesenteric artery. - MRCP: Normal size liver with small cyst within its right lobe. No intrahepatic biliary dilatation seen. Normal signal characteristics of the liver parenchyma on T2 sequence. Normal gallbladder. No biliary or pancreatic duct dilatation. Limited exam due to motion artifact. Possible 2.2 cm right adrenal nodule, evaluation is suboptimal and this nondedicated exam. Further evaluation with CT of the abdomen, adrenal protocol might be considered. Maintain 2 large-bore peripheral IVs CBC stable, appropriate rise with 2 units 01/16 Protonix 40 mg IV twice daily, may convert to orals on downgrade from ICU Zofran as needed for nausea (2) Alcohol dependence, daily use: Plan: [employer]ER[employer]IST history of 4-6 drinks per day of whiskey Given Valium 10 mg p.o. x1 on admission. Patient scoring on FRITZ S with intermittent Ativan given as indicated, patient experienced a mental status deterioration during admission, tremulousness, and A. fib potentially due to alcohol withdrawal. Has been transferred to the ICU, rate improved but remains on phenylephrine, amiodarone, diltiazem drip - Pt not requiring precedex at this time, may consider for worsening sx Continue thiamine, folate acid Case management consult with provision of alcohol support services/rehab services/outpatient options when patient is clinically improved and able to engage in discussion (3) CAD (coronary artery disease): Plan: Patient with underlying coronary artery disease status post stent placement in May 2011. Presently not on antiplatelet therapy. Patient denies chest pain. Troponin undetectable Toprol all held Continue atorvastatin 40 mg daily Olmesartan held (4) Hypertension: Plan: Antihypertensives held in the setting of active bleed on admission, continue to be held while patient on phenylephrine/amiodarone/diltiazem as noted above (5) Gout: Plan: Well-controlled. Patient states he has not had a gout flare for over a year Continue allopurinol 300 mg daily (6) Adrenal nodule: Plan: Adrenal incidentaloma 2.2 cm right adrenal nodule, no evidence of hormonal hypersecretion CT adrenal protocol ordered. No acute intra-abdominal abnormality. 2.2 cm right adrenal gland adenoma. Hepatic steatosis. On enhanced CT Hounsfield units less than 10, greater than 50% washout after delay consistent with benign imaging phenotype. Suggest repeat imaging at 12 months to follow stability. Plan: FEN GI: Maintain 2 peripheral IVs. Electrolytes within acceptable limits. ProphylaxisSCDs to bilateral lower extremities pharmacoprophylaxis contraindicated in the setting of bleeding [place] per discussion with patient DispositionICU Admission and Anticipated Discharge Date Admission Date: January 14, 2021 Subjective Patient seen at bedside, he is oriented to name only. Arouses to voice, denies pain in other symptoms intermittently falls asleep and subjective is limited by cognitive status. Discussed Huan's case with his in detail, his reports she is not sure how much he drinks as he drinks at night after she goes to sleep. No additional questions or concerns, reviewed of of regular updates. Review of Systems Review of Systems: Unobtainable due to cognitive status Physical Exam Physical Exam: General: Oriented to name only. Appears confused, fatigued, no acute distress. No diaphoresis, no tremors appreciated. HEENT: Atraumatic, normocephalic. Visual acuity grossly intact, hearing grossly intact. Pulm: CTAB A&P. -wheezes, -rales, -rhonchi. Symmetrical chest rise. No increase work of breathing. No respiratory distress. Cardiac: RRR, -mrg. Radial pulses intact and symmetrical. Abdominal: Nontender, nondistended, soft. BS present. Results & Data Results & Data ([facility]) Vital Signs (Past 12 Hours) Vital Signs Temp Pulse Resp BP Pulse Ox 01/17/21 06:48 67 14 102/71 97 01/17/21 06:43 68 13 87/54 L 91 01/17/21 06:35 72 21 100/52 L 95 01/17/21 06:28 78 21 126/91 98 01/17/21 06:24 65 14 98/69 L 89 L 01/17/21 06:18 65 23 116/73 93 01/17/21 06:13 62 20 89/62 L 94 01/17/21 06:08 63 21 88/59 L 93 01/17/21 06:04 65 20 86/61 L 92 01/17/21 05:58 62 20 114/76 91 01/17/21 05:53 59 L 14 111/73 91 01/17/21 05:47 63 14 72/50 L 91 01/17/21 05:41 67 14 70/50 L 94 01/17/21 05:35 69 15 64/44 L 90 01/17/21 05:30 73 15 67/46 L 92 01/17/21 05:01 72 14 95/62 L 90 01/17/21 04:19 68 20 107/71 93 01/17/21 04:09 76 17 82/50 L 94 01/17/21 03:49 126 H 21 119/86 90 01/17/21 03:19 124 H 18 100/78 94 01/17/21 03:10 36.5 C 01/17/21 03:04 124 H 15 104/90 93 01/17/21 02:49 135 H 15 100/66 98 01/17/21 02:36 153 H 21 96/66 L 82 L 01/17/21 02:15 161 H 3 L 01/17/21 02:00 160 H 0 L PG Care Time/CCT Total # of Minutes Spent Total Time Spent with Patient: Total time spent is greater than 50% in coordination of care (as documented) at patient's floor/unit and/or counseling patient: Coding Level of Care Code 07906 Subseq Hosp Care Lvl 3 Diagnoses GI bleed K92.2 CAD (coronary artery disease) I25.10 Hypertension I10 Gout M10.9 Alcohol dependence, daily use F10.20 Adrenal nodule E27.8
--- NOTE | 2021-01-17 15:31 | Electrocardiogram Report ---
Test Reason : Blood Pressure : / mmHG Vent. Rate : 155 BPM Atrial Rate : 220 BPM P-R Int : 000 ms QRS Dur : 078 ms QT Int : 292 ms P-R-T Axes : 000 004 037 degrees QTc Int : 469 ms Atrial fibrillation with rapid ventricular response Nonspecific ST abnormality Abnormal ECG When compared with ECG of 14-JAN-2021 18:42, Atrial fibrillation has replaced Sinus rhythm Vent. rate has increased BY 68 BPM Nonspecific T wave abnormality no longer evident in Anterior leads Confirmed by Mitchel Mednia ([id number]) on 01/17/2021 3:30:49 PM Referred By: REFERRED SELF Confirmed By:Mitchel Medina
--- NOTE | 2021-01-17 15:33 | Electrocardiogram Report ---
Test Reason : Blood Pressure : / mmHG Vent. Rate : 071 BPM Atrial Rate : 071 BPM P-R Int : 172 ms QRS Dur : 082 ms QT Int : 442 ms P-R-T Axes : 058 039 009 degrees QTc Int : 480 ms Normal sinus rhythm Possible Inferior infarct , age undetermined Abnormal ECG When compared with ECG of 17-JAN-2021 02:01, (unconfirmed) Significant changes have occurred Confirmed by Mitchel Medina ([id number]) on 01/17/2021 3:33:22 PM Referred By: REFERRED SELF Confirmed By:Mitchel Medina
[2021-01-18 05:38] LABS: Basophils # (auto) 0.01 K/uL (0-0.2); Basophils % (auto) 0.2 %; Eosinophils # (auto) 0.36 K/uL (0-0.5); Eosinophils % (auto) 7.1 %; Hematocrit (blood only) 28.1 % (42-52); Hemoglobin 9.1 g/dL (14.0-18.0); Lymphocytes # (auto) 0.74 K/uL (1.2-3.4); Lymphocytes % (auto) 14.5 %; Mean Corpuscular Hemoglobin 32.9 pg (25-34); Mean Corpuscular Hgb Conc 32.4 g/dL (32-36); Mean Corpuscular Volume 101.4 fL (80-100); Mean Platelet Volume 10.9 fL (7.4-10.4); Monocytes # (auto) 0.44 K/uL (0.11-0.59); Monocytes % (auto) 8.6 %; Neutrophils # (auto) 3.54 K/uL (1.4-6.5); Neutrophils % (auto) 69.6 %; Platelet Count 113 K/uL (130-400); RDW Standard Deviation 58.2 fL (36.4-46.3); Red Blood Count 2.77 M/uL (4.7-6.1); White Blood Count 5.09 K/uL (4.8-10.8)
[2021-01-18 06:17] LABS: Albumin Globulin Ratio 1.2 (0.9-2); Albumin Level 2.8 gm/dl (3.4-5.0); BUN Creatinine Ratio 7.6 (10-20); Bilirubin,Total 0.4 mg/dl (0.2-1); Calcium 8.1 mg/dl (8.5-10.1); Creatinine Clr Calc Pharmacy 84.8 ml/min; Est GFR (African American) 102.4 ml/min; Est GFR (Non-African American) 88.3 ml/min; Globulin 2.3 gm/dl (2.5-4.0); Potassium 3.9 mmol/L (3.5-5.1); Total Protein 5.1 gm/dl (6.4-8.2)
[2021-01-18] MEDS: FOLIC ACID 1 MG TAB PO SCH (08:03)
[2021-01-18] MEDS: allopurinoL 300 MG TAB PO SCH (08:03)
[2021-01-18] MEDS: THIAMINE HCL 100 MG TAB PO SCH (08:03)
[2021-01-18] MEDS: ATORVASTATIN 40 MG TAB PO SCH (08:04)
[2021-01-18] MEDS: PANTOprazole 40 MG in SYRINGE 0 ML IV SCH (08:06)
[2021-01-18] MEDS: MAGNESIUM OXIDE 400 MG TAB PO SCH ×2 (08:43→20:15)
[2021-01-18] MEDS: AMIODARONE / D5W 360 MG/200 ML BAG IV SCH (08:44)
[2021-01-18] MEDS: AMIODARONE 200 MG TAB PO SCH ×2 (10:21→16:47)
--- NOTE | 2021-01-18 12:48 | Hospitalist Progress Note ---
Date of Service January 18, 2021 Assessment & Plan (1) GI bleed: Plan: 70-year-old male presenting with generalized weakness, fatigue and decreased exercise tolerance. 1 day of nausea and several melanic stools today. Concern for upper GI bleed. Patient presently not on antiplatelet or anticoagulation. He does not take NSAIDs. He does drink a considerable amount of alcohol, 4-6 whiskey drinks per day. He has a remote history of upper GI bleed secondary to arterial bleed in 2011 requiring transfer to [facility] for angiography and transfusion of 10 units PRBCs. During mission he was found to have a bleeding duodenal ulcer which was treated on endoscopy, course was complicated when subsequently transferred to ICU with altered mental status, tachycardia, and A. fib likely 2/2 alcohol withdrawal Acute GI Bleed, history of duodenal ulcer bleed - Pt with BM with mixed melena/blood during admission EGD: Normal esophagus, medium hiatal hernia, few nonbleeding superficial gastric ulcers with no stigmata of bleeding at gastric antrum. 1 oozing cratered duodenal ulcer with visible vessel found at duodenal bulb. The lesion was 15 mm in largest diameter. Area was successfully injected with 2 mL of 1- 10,000 epinephrine for hemostasis. Coagulation using bipolar probe was successful. Second portion of duodenum and third portion of duodenum were normal. Few small superficial ulcerations were seen. Based on above suspect control of source bleeding via EGD Per GI recommendations clear liquid diet today, avoid aspirin and NSAIDs for 5 days, PPI IV for 2 days and then switch to p.o. twice daily for 2 months Mesenteric duplex: No sonographic evidence of a hemodynamically significant stenosis within the celiac axis or superior mesenteric artery. - MRCP: Normal size liver with small cyst within its right lobe. No intrahepatic biliary dilatation seen. Normal signal characteristics of the liver parenchyma on T2 sequence. Normal gallbladder. No biliary or pancreatic duct dilatation. Limited exam due to motion artifact. Possible 2.2 cm right adrenal nodule, evaluation is suboptimal and this nondedicated exam. Further evaluation with CT of the abdomen, adrenal protocol might be considered. Maintain 2 large-bore peripheral IVs CBC stable, appropriate rise with 2 units 01/16 and slight downtrend 01/18 Protonix 40 mg p.o. twice daily x6 weeks Zofran as needed for nausea (2) Alcohol dependence, daily use: Plan: [employer] history of 4-6 drinks per day of whiskey Given Valium 10 mg p.o. x1 on admission. Patient developed A. fib with RVR, acute confusion, and altered mental status day 4 of admission likely 2/2 alcohol withdrawal. Progressively improved over next 24 hours, and on reassessment 01/18 appear to be at baseline mental status without tremors, diaphoresis, or confusion. Continue thiamine, folate acid Asthma did in subjective on 01/18 reviewed case with patient. Discussed the impact of alcohol both on his heart, withdrawal, and relation to atrial fibrillation. Patient expresses an understanding of this, reports he understands why it is important to avoid alcohol in the future but also worries that this will be difficult as alcohol is a "old friend ". He reports the last time he was sober for a long period of time was the entire month of June many years ago when his challenged him to remain sober, but he notes he did not have any withdrawal or difficulty and it was several years ago. Discussed that both his withdrawal in the hospital and his A. fib reflect worsening effect of alcohol on his body and more dependence than he had at that time, but that now that the patient was also through withdrawal he had a clean Slate remain sober. Discussed that if he needs drinking he could go through withdrawal again, and while symptoms of withdrawal can be treated it is a potentially lethal condition every time he goes through and may get worse with time. Patient acknowledges this, and agrees to provision of support resources at discharge. Case management consult with provision of alcohol support services/rehab services/outpatient options (3) Atrial fibrillation with RVR: Plan: Patient experienced A. fib with RVR and hemodynamic compromise during admission, likely incited by acute alcohol withdrawal Patient treated in the ICU, did not tolerate diltiazem drip and developed hypotension, diltiazem drip discontinued and patient started on amiodarone drip with conversion and improvement in pressure. Transiently required phenylephrine low-dose which was discontinued and patient was able to be downgraded 01/18. Case was discussed with Dr. Salomon who patient is seen as an outpatient, will continue amiodarone and continue metoprolol at this time Risks/benefits of anticoagulation discussed with patient. Chads 2 vas score of 2. Given that his initial episode was likely provoked by alcohol withdrawal, and that he is at high risk of bleeding especially to duodenal ulcer bleeds 1 of which requiring tertiary transfer with 10+ units of blood, and current hospital episode for recurrent ulcer, he is at a higher bleeding risk especially at this time. In the setting of current/recent acute bleeding at high risk, and single episode of focal A. fib risks of anticoagulation likely outweigh the benefits, and will continue with beta-jama, amiodarone treatment at this time. Patient expresses an understanding of this, and will continue to follow-up with cardiology on discharge. (4) CAD (coronary artery disease): Plan: Patient with underlying coronary artery disease status post stent placement in May 2011. Presently not on antiplatelet therapy. Patient denies chest pain. Troponin undetectable Resumed metoprolol Continue atorvastatin 40 mg daily Olmesartan held (5) Hypertension: Plan: Antihypertensives held in the setting of active bleed on admission, continue to be held while patient on phenylephrine/amiodarone/diltiazem in ICU Patient normotensive, anticipate resumption on discharge (6) Gout: Plan: Well-controlled. Patient states he has not had a gout flare for over a year Continue allopurinol 300 mg daily (7) Adrenal nodule: Plan: Adrenal incidentaloma 2.2 cm right adrenal nodule, no evidence of hormonal hypersecretion CT adrenal protocol ordered. No acute intra-abdominal abnormality. 2.2 cm right adrenal gland adenoma. Hepatic steatosis. On enhanced CT Hounsfield units less than 10, greater than 50% washout after delay consistent with benign imaging phenotype. Suggest repeat imaging at 12 months to follow stability. Plan: FEN GI: Maintain 2 peripheral IVs. Electrolytes within acceptable limits. ProphylaxisSCDs to bilateral lower extremities pharmacoprophylaxis contraindicated in the setting of bleeding [place] per discussion with patient DispositionPCU. Patient just downgraded from ICU, continue to follow mental status for stability and retrend hemoglobin due to slight drop, low suspicion for rebleed. PT/OT eval pending Admission and Anticipated Discharge Date Admission Date: January 14, 2021 Carrie Pressley is seen at the bedside this morning, he is alert and well oriented and appears greatly improved from prior. Is able to engage in meaningful conversation regarding his hospitalization. He reports that he feels better today, but remembers some but not all of his ICU transfer and treatment. Reviewed case with patient. Discussed the impact of alcohol both on his heart, withdrawal, and relation to atrial fibrillation. Patient expresses an understanding of this, reports he understands why it is important to avoid alcohol in the future but also worries that this will be difficult as alcohol is a "old friend ". He reports the last time he was sober for a long period of time was the entire month of June many years ago when his challenged him to remain sober, but he notes he did not have any withdrawal or difficulty and it was several years ago. Discussed that both his withdrawal in the hospital and his A. fib reflect worsening effect of alcohol on his body and more dependence than he had at that time, but that now that the patient was also through withdrawal he had a clean Slate remain sober. Discussed that if he needs drinking he could go through withdrawal again, and while symptoms of withdrawal can be treated it is a potentially lethal condition every time he goes through and may get worse with time. Patient acknowledges this, and agrees to provision of support resources at discharge. He denies tremulousness, hallucinations, headache, disorientation today. No bowel movement day of assessment, denies lightheadedness/dizziness/chest pain. Review of Systems Review of Systems: Constitutional: Denies fever, chills, malaise Eyes: Denies vision change ENT: Denies ear pain, sore throat, sinus pain Cardiovascular: Denies Chest pain, chest pressure, palpitations, extremity swelling Respiratory: Denies shortness of breath, cough, sputum production, difficulty breathing Gastrointestinal: Denies abdominal pain, nausea, vomiting, constipation, diarrhea Genitourinary: Denies dysuria Integumentary:Denies acute rash, lesions, bruising Neurological: Denies headache, numbness, tingling, focal weakness Physical Exam Physical Exam: General: A&Ox3. NAD. Cooperative. HEENT: Atraumatic, normocephalic. Pulm: CTAB A&P. -wheezes, -rales, -rhonchi. Symmetrical chest rise. No increase work of breathing. No respiratory distress. Cardiac: RRR, -mrg. Radial pulses intact and symmetrical. Abdominal: Nontender, nondistended, soft. BS present. CRANIAL NERVES: II: Pupils equal and reactive, no relative afferent pupillary defect, no VF cuts III, IV, : EOM intact, no gaze preference or deviation, no nystagmus. V: normal sensation in V1, V2, and V3 segments bilaterally VII: no asymmetry, no nasolabial fold flattening VIII: normal hearing to speech IX, X: normal palatal elevation, no uvular deviation XI: 5/5 head turn and 5/5 shoulder shrug bilaterally XII: midline tongue protrusion MOTOR: RUE: LUE: 5/5 Elbow flexion/extension, wrist flexion/extension 5/5 center manager strength, finger flexion/extension, interosseus RLE: 5/5ankle dorsiflexion/plantarflexion LLE: 5/5 ankle dorsiflexion/plantarflexion SENSORY: Normal to touch in upper and lower extremities without deficit or asymmetry COORD: No resting tremor with arm extension appreciated Results & Data Results & Data ([facility]) Vital Signs (Past 12 Hours) Vital Signs Temp Pulse Pulse Resp BP BP Pulse Ox 01/18/21 11:26 36.7 C 82 18 127/83 96 01/18/21 10:07 36.8 C 84 18 134/84 96 01/18/21 08:28 90 23 108/89 01/18/21 06:58 66 16 106/72 94 01/18/21 06:28 67 17 124/84 86 L 01/18/21 05:28 36.4 C L 63 15 108/65 96 01/18/21 04:28 73 24 129/83 95 01/18/21 03:28 78 16 128/83 96 01/18/21 02:28 65 14 113/73 97 01/18/21 01:28 37 C 67 22 108/69 94 PG Care Time/CCT Total # of Minutes Spent Total Time Spent with Patient: Total time spent is greater than 50% in coordination of care (as documented) at patient's floor/unit and/or counseling patient: Coding Level of Care Code 65923 Subseq Hosp Care Lvl 3 Diagnoses GI bleed K92.2 Alcohol dependence, daily use F10.20 CAD (coronary artery disease) I25.10 Hypertension I10 Gout M10.9 Adrenal nodule E27.8 Atrial fibrillation with RVR I48.91
[2021-01-18] MEDS: PANTOprazole 40 MG TAB PO SCH (20:15)
[2021-01-19] MEDS ORDERED: MELATONIN 3 MG TAB PO PRN (01:27)
[2021-01-19 08:55] LABS: Basophils # (auto) 0.01 K/uL (0-0.2); Basophils % (auto) 0.2 %; Eosinophils # (auto) 0.37 K/uL (0-0.5); Eosinophils % (auto) 6.2 %; Hematocrit (blood only) 32.8 % (42-52); Hemoglobin 10.7 g/dL (14.0-18.0); Immature Granulocytes # (auto) 0.01 K/uL (0.00-0.02); Immature Granulocytes % (auto) 0.2 %; Lymphocytes # (auto) 0.87 K/uL (1.2-3.4); Lymphocytes % (auto) 14.6 %; Mean Corpuscular Hemoglobin 33.1 pg (25-34); Mean Corpuscular Hgb Conc 32.6 g/dL (32-36); Mean Corpuscular Volume 101.5 fL (80-100); Mean Platelet Volume 11.1 fL (7.4-10.4); Monocytes # (auto) 0.67 K/uL (0.11-0.59); Monocytes % (auto) 11.2 %; Neutrophils # (auto) 4.04 K/uL (1.4-6.5); Neutrophils % (auto) 67.6 %; Platelet Count 141 K/uL (130-400); RDW Standard Deviation 58.6 fL (36.4-46.3); Red Blood Count 3.23 M/uL (4.7-6.1); White Blood Count 5.97 K/uL (4.8-10.8)
[2021-01-19] MEDS: FOLIC ACID 1 MG TAB PO SCH (09:04)
[2021-01-19] MEDS: MAGNESIUM OXIDE 400 MG TAB PO SCH (09:05)
[2021-01-19] MEDS: PANTOprazole 40 MG TAB PO SCH (09:05)
[2021-01-19] MEDS: ATORVASTATIN 40 MG TAB PO SCH (09:05)
[2021-01-19 09:06] LABS: BUN Creatinine Ratio 3.9 (10-20); Calcium 8.8 mg/dl (8.5-10.1); Creatinine Clr Calc Pharmacy 72.5 ml/min; Est GFR (African American) 92.3 ml/min; Est GFR (Non-African American) 79.7 ml/min; Potassium 3.6 mmol/L (3.5-5.1)
[2021-01-19] MEDS: AMIODARONE 200 MG TAB PO SCH (09:06)
[2021-01-19] MEDS: THIAMINE HCL 100 MG TAB PO SCH (09:06)
[2021-01-19] MEDS: allopurinoL 300 MG TAB PO SCH (09:06)
--- NOTE | 2021-01-19 16:49 | Discharge Summary ---
Date of Service January 19, 2021 Admission HPI Per Admitting Provider Huan Domingo is a pleasant 70-year-old male with history of hypertension, coronary artery disease, gout, prior upper GI bleed secondary to duodenal artery bleed in October 2011. Patient reports decreased exercise tolerance and stamina for the last several days. He developed nausea and generalized weakness beginning yesterday. Today at 1600 he went to the bathroom and passed a large amount of liquid black stool. He had a second episode of melena approximately 30 minutes later. He denies abdominal pain, cramping, chest pain, cough, shortness of breath. Denies fever/chills. He does report some nausea as well as poor appetite. He has had a bowel movement in the ER and reports that it appears less bloody than before. Patient with history of coronary artery disease status post stent placement in May 2011. He was previously on aspirin and Plavix however, presently not taking aspirin, Plavix, blood thinners. He does not take NSAIDs either. Patient does drink a considerable amount of alcohol, reportedly 4-6 whiskey drinks per night. He has had mild symptoms of withdrawal in the past with cutting back. No history of seizures or DTs. He does feel that he drinks too much alcohol and is somewhat concerned that he is developing a dependence on alcohol. Per review of records, patient presented with upper GI bleed in October 2011. He was transfused 4 units of blood prior to endoscopy. Endoscopy performed by Dr. Villarfound to have clean-based ulcers in the duodenal bulb and a Ava-Reece tear at the GE junction which was treated with epinephrine injection/cautery. He has recurrent bleeding from the posterior duodenal bulb, likely GDA distribution. Patient was transferred to [facility] for possible angiography. He reports that he received a total of 10 units of blood during this episode. We do not have records from [facility] hospitalization at this time. ER course: Pepcid, Zofran, Protonix, normal saline Admission Exam Per Admitting Provider General: patient resting comfortably, NAD, non-toxic in appearance, AA&O x 4 Skin: warm, dry, intact, no rashes or lesions HEENT: NC/AT, PERRL, EOMI, anicteric sclera, conjunctiva without injection, external ear normal to inspection and nontender, nares patent, moist mucus membranes, dentition intact, no oropharyngeal lesions, neck supple, trachea midline, no LAD, no thyromegaly, no JVD Heart: +S1/S2, regular, tachycardic, no m/r/g Lungs: equal air entry bilaterally, no rales/rhonchi/wheezes Abd: +BS, soft, NT/ND, no masses/organomegaly/ascites Ext: warm, 2+ pulses in UE/LE bilaterally, no clubbing/cyanosis or edema, 2 peripheral IVs present in right antecubital fossa Neuro: nonfocal, patient AA&O x 4, speech intact, no facial droop, moving all extremities on command with equal strength 5/5 Principal Diagnosis Acute Upper GIB 2/2 Duodenal Ulcerr Acute Alcohol Withdrawal Discharge Exam General: A&Ox3. NAD. Cooperative. HEENT: Atraumatic, normocephalic. Pulm: CTAB A&P. -wheezes, -rales, -rhonchi. Symmetrical chest rise. No increase work of breathing. No respiratory distress. Cardiac: RRR, -mrg. Radial pulses intact and symmetrical. Abdominal: Nontender, nondistended, soft. BS present. CRANIAL NERVES: II: Pupils equal and reactive, no relative afferent pupillary defect, no VF cuts III, IV, : EOM intact, no gaze preference or deviation, no nystagmus. V: normal sensation in V1, V2, and V3 segments bilaterally VII: no asymmetry, no nasolabial fold flattening VIII: normal hearing to speech IX, X: normal palatal elevation, no uvular deviation XI: 5/5 head turn and 5/5 shoulder shrug bilaterally XII: midline tongue protrusion MOTOR: RUE: 5/5 Elbow flexion/extension, wrist flexion/extension 5/5 welder fitter apprentice strength, finger flexion/extension, interosseus LUE: 5/5 Elbow flexion/extension, wrist flexion/extension 5/5 welder fitter apprentice strength, finger flexion/extension, interosseus RLE: 5/5ankle dorsiflexion/plantarflexion LLE: 5/5 ankle dorsiflexion/plantarflexion SENSORY: Normal to touch in upper and lower extremities without deficit or asymmetry COORD: No resting tremor with arm extension appreciated Discharge Data Allergies Allergy/AdvReac Type Severity Reaction Status Date / Time No Known Allergies Allergy Unknown Verified 10/05/11 07:13 Consultations 01/14/21 19:14 ED Decision to Admit Stat 01/14/21 20:45 Consult Gastroenterology Routine 01/17/21 02:36 Consult Key Punch Teacher Routine Procedures Performed Operation Date: 01/15/21 19:05 Actual Procedures p Esophagogastroduodenoscopy(Not Applicable) - Tam Argueta MD Operation Date: 01/16/21 16:30 <No data on this case meets the specified criteria> Ordered Studies 01/15/21 10:39 MR MRCP Routine 01/16/21 08:30 US duplex mesenteric Routine 01/16/21 17:51 CT abdomen wo/w con Routine Hospital Course (1) GI bleed: 70-year-old male presenting with generalized weakness, fatigue and decreased exercise tolerance. 1 day of nausea and several melanic stools today. Concern for upper GI bleed. Patient presently not on antiplatelet or anticoa gulation. He does not take NSAIDs. He does drink a considerable amount of alcohol, 4-6 whiskey drinks per day. He has a remote history of upper GI bleed secondary to arterial bleed in 2011 requiring transfer to [facility] for angiography and transfusion of 10 units PRBCs. During admission he was found to have a bleeding duodenal ulcer which was treated on endoscopy, course was complicated when subsequently transferred to ICU with altered mental status, tachycardia, and A. fib likely 2/2 alcohol withdrawal. Following 1 day of care in the ICU he was downgraded, and was stable for discharge the following day. To do as outpatient: 1. Follow-up for alcohol abstinence related services and care 2. Complete 2 months of PPI twice daily therapy, assess for conversion for once a day therapy thereafter 3. Repeat adrenal protocol CT in 12 months to assess nodule for stability 4. Follow-up with cardiology for reassessment of treatment with amiodarone for provoked A. fib, and reevaluation of her/benefits of anticoagulation Acute GI Bleed, history of duodenal ulcer bleed - Pt with BM with mixed melena/blood during admission with downtrending hemoglobin during admission. Required 2 units of red blood cells 01/16. EGD: Normal esophagus, medium hiatal hernia, few nonbleeding superficial gastric ulcers with no stigmata of bleeding at gastric antrum. 1 oozing cratered duodenal ulcer with visible vessel found at duodenal bulb. The lesion was 15 mm in largest diameter. Area was successfully injected with 2 mL of 1- 10,000 epinephrine for hemostasis. Coagulation using bipolar probe was successful. Second portion of duodenum and third portion of duodenum were normal. Few small superficial ulcerations were seen. Based on above suspect control of source bleeding via EGD Recommend continuing p.o. PPI twice daily for 2 months Mesenteric duplex: No sonographic evidence of a hemodynamically significant stenosis within the celiac axis or superior mesenteric artery. - MRCP: Normal size liver with small cyst within its right lobe. No intrahepatic biliary dilatation seen. Normal signal characteristics of the liver parenchyma on T2 sequence. Normal gallbladder. No biliary or pancreatic duct dilatation. Limited exam due to motion artifact. Possible 2.2 cm right adrenal nodule, evaluation is suboptimal and this nondedicated exam. Further evaluation with CT of the abdomen, adrenal protocol might be considered. Follow-up adrenal CT was performed, see below Hemoglobin was up trending greater than 10-day of discharge (2) Alcohol dependence, daily use: SAP GATHERER history of 4-6 drinks per day of whiskey Given Valium 10 mg p.o. x1 on admission. Patient developed A. fib with RVR, acute confusion, and altered mental status day 4 of admission likely 2/2 alcohol withdrawal requiring 1 day of ICU care. Progressively improved over next 24 hours, and on reassessment 01/18 appear to be at baseline mental status without tremors, diaphoresis, or confusion. Continue thiamine, folate acid Reviewed alcohol use and his episode of atrial flutter and ICU transfer with patient. Discussed the impact of alcohol both on his heart, withdrawal, and relation to atrial fibrillation. Patient expresses an understanding of this, reports he understands why it is important to avoid alcohol in the future but also worries that this will be difficult as alcohol is a "old friend ". He reports the last time he was sober for a long period of time was the entire month of June many years ago when his challenged him to remain sober, but he notes he did not have any withdrawal or difficulty and it was several years ago. Discussed that both his withdrawal in the hospital and his A. fib reflect worsening effect of alcohol on his body and more dependence than he had at that time, but that now that the patient was also through withdrawal he had a clean Slate remain sober. Discussed that if he needs drinking he could go through withdrawal again, and while symptoms of withdrawal can be treated it is a potentially lethal condition every time he goes through and may get worse with time. Patient acknowledges this, and agrees to provision of support resources at discharge. Case management consulted with provision of alcohol support services/rehab services/outpatient options (3) Atrial fibrillation with RVR: Patient experienced A. fib with RVR and hemodynamic compromise during admission, likely incited by acute alcohol withdrawal Patient treated in the ICU, did not tolerate diltiazem drip and developed hypotension, diltiazem drip discontinued and patient started on amiodarone drip with conversion and improvement in pressure. Transiently required phenylephrine low-dose which was discontinued and patient was able to be downgraded 01/18. Case was discussed with Dr. Antonio who patient is seen as an outpatient, will continue amiodarone and continue metoprolol at this time. To accommodate for amiodarone calcium channel jama was discontinued on discharge Risks/benefits of anticoagulation discussed with patient. Chads 2 vas score of 2. Given that his initial episode was likely provoked by alcohol withdrawal, and that he is at high risk of bleeding especially to duodenal ulcer bleeds 1 of which requiring tertiary transfer with 10+ units of blood, and current hospital episode for recurrent ulcer, he is at a higher bleeding risk especially at this time. In the setting of current/recent acute bleeding at high risk, and single episode of focal A. fib risks of anticoagulation likely outweigh the benefits, and will continue with beta-jama, amiodarone treatment at this time. Patient expresses an understanding of this, and will continue to follow-up with cardiology on discharge. (4) CAD (coronary artery disease): Patient with underlying coronary artery disease status post stent placement in May 2011. Presently not on antiplatelet therapy. Patient denies chest pain. Troponin undetectable Resumed metoprolol Continue atorvastatin 40 mg daily Olmesartan held (5) Hypertension: Antihypertensives held in the setting of active bleed on admission, continue to be held while patient on phenylephrine/amiodarone/diltiazem in ICU Patient normotensive, anticipate resumption on discharge (6) Gout: Well-controlled. Patient states he has not had a gout flare for over a year Continued allopurinol 300 mg daily (7) Adrenal nodule: Adrenal incidentaloma 2.2 cm right adrenal nodule, no evidence of hormonal hypersecretion CT adrenal protocol ordered. No acute intra-abdominal abnormality. 2.2 cm right adrenal gland adenoma. Hepatic steatosis. On enhanced CT Hounsfield units less than 10, greater than 50% washout after delay consistent with benign imaging ph enotype. Suggest repeat imaging at 12 months to follow stability. Total Time Total Time Spent Total Time Spent (In Minutes): Time spent day of discharge coordinating discharge including discussions with patient, review of labs and images, coordination of care, and direct patient care approximately 1 hour. Discharge Plan Discharge Items Patient Disposition: Home - Self-Care Reason For Visit: UGIB Discharge Diagnosis: Duodenal ulcer, upper GI bleed Alcohol withdrawal Condition on Discharge: Good Activity: Resume your previous activity Non-emergency contact: Primary Care Provider Call non-emergency contact if: you have any medication questions, your symptoms worsen, your pain is not controlled, your pain is worsening, your pain is unusual for you, your pain is concerning for you and you have a fever Follow-up/Referrals: Neil Antonio DO [Physician] - Jimmy Santana MD [Primary Care Provider] - Diet: Regular Addtl Attending Provider Instructions: You were seen at the hospital for a bleeding duodenal ulcer. Your hospital course was complicated by acute alcohol withdrawal. An EGD was performed and you were found to have a bleeding ulcer which was treated without complication. You did not show signs of continued bleeding. You have been prescribed an anti-acid medication as noted below. Your blood levels were stable and increasing at time of discharge. You have been prescribed an anti-acid medication, pantoprazole. Please take pantoprazole 40mg twice daily for 6 weeks. You have been prescribed a heart medication, amiodarone. Please take amiodarone 200 mg twice daily. Please discuss this medication on follow-up with your shipping clerk. You have been prescribed thiamine and folic acid, vitamins that may become depleted with alcohol use. Please take vitamin B-1 100 mg (thiamine) and folic acid 1 mg daily. Patient's with an episode of atrial fibrillation are increased risk for blood clots. Your episode of atrial fibrillation was likely incited by acute alcohol withdrawal, you returned to a normal heart rhythm following treatment in the ICU. This was discussed with you in the risk of anticoagulation in the setting of a recent GI bleed, and past GI bleed requiring 10 units of transfusion and transfer to tertiary care hospital likely outweigh the short-term benefits of anticoagulation. This should continue to be reassessed with you as an outpatient, and please discuss anticoagulation with your primary care provider/shipping clerk on follow-up. It is critically important to remain abstinent from alcohol. Alcohol withdrawal is a potentially fatal process every time it is experienced. Alcohol may also contribute to upper GI bleeding. Alcohol use and withdrawal likely contributed to/caused your atrial fibrillation episode. Case management has provided alcohol support resources to you, please continue to remain abstinent from alcohol and discuss abstinence strategies and resources with your primary care provider on follow-up. A followup appointment is being scheduled for you with Dr. Antonio, cardiology. You should be seen seen within 1 month. You should receive a call to confirm this appointment. If you do not receive a call within 48 hours to confirm this appointment, or need to change this appointment, please call the provider's office at . A followup appointment is being scheduled for you with [facility]. You should be seen seen within 1 week. You should receive a call to confirm this appointment. If you do not receive a call within 48 hours to confirm this appointment, or need to change this appointment, please call the provider's office at . If you develop any new or worsening symptoms including fever, chills, sweats, chest pain, chest pressure, difficulty breathing, uncontrolled nausea/vomiting, rash, wheezing, passing out or nearly passing out, bleeding, black/bloody bowel movements, or other new or concerning symptoms please call your primary care physician at , or call 911 for re-evaluation in the emergency department if you are very concerned. Pending Studies at Discharge: No Stand-Alone Forms: My [facility], Smoking Cessation Medications and DC Order Prescriptions: New amiodarone 200 mg Tablet 200 mg PO BIDM 30 Days Qty: 60 RF: 0 pantoprazole 40 mg Tablet,Delayed Release (Dr/Ec) 40 mg PO BID 42 Days Qty: 84 RF: 0 thiamine HCl (vitamin B1) [Vitamin B-1] 100 mg Tablet 100 mg PO QAM 30 Days Qty: 30 RF: 0 folic acid 1 mg Tablet 1 mg PO QAM 30 Days Qty: 30 RF: 0 Continued atorvastatin 80 mg tablet 40 mg PO AMHS RF: 0 metoprolol tartrate 50 mg tablet 50 mg PO BID RF: 0 allopurinol 300 mg tablet 300 mg PO DAILY RF: 0 olmesartan 40 mg tablet 40 mg PO HS RF: 0 Discontinued amlodipine 5 mg tablet 5 mg PO DAILY RF: 0 Discharge Orders: Discharge Order (Routine); Ordered 01/19/21 Ordered By: Cristian Bhatt Admission Data Admit Date/Time: 01/14/21 20:00 Attending Provider: Cristian Bhatt Admit Provider: Aisha Wright Primary Care Provider: Jimmy Santana Other Providers: Aisha Wright ; Tam Argueta ; Ananda Pruitt Other Interventions: Discharge Summary Assessment (RN) Last Done: 01/19/21 13:43 Coding Level of Care Code D/C DAY MANAGEMENT >30 MINS Diagnoses GI bleed K92.2 Alcohol dependence, daily use F10.20 Atrial fibrillation with RVR I48.91 CAD (coronary artery disease) I25.10 Hypertension I10 Gout M10.9 Adrenal nodule E27.8
== END 2021-01-19 18:50 | disposition home or self-care (01) | DRG 378 ==
LOC: ED 16:57 → SUATTDRO 20:00 → 2S 20:00 → 1E 01-17 02:29 → 2W 01-18 07:37

== ENCOUNTER 2021-09-05 06:30 | Observation (INO) ==
--- NOTE | 2021-08-24 10:09 | PAT Medication Instructions ---
Medication Instructions Date of Service August 24, 2021 Home Medications allopurinol 300 mg tablet 300 mg PO QAM atorvastatin 80 mg tablet 40 mg PO QPM olmesartan 40 mg tablet 20 mg PO BID amlodipine 10 mg tablet 10 mg PO QAM metoprolol succinate 25 mg tablet,extended release 24 hr 12.5 mg PO QAM [id number] 5 mg-zeaxanth 1 mg-bilberry 7.5 mg-herbal capsule (Macular Health Formula) 2 cap PO BID multivitamin 1 tab PO QAM pantoprazole 40 mg tablet,delayed release 40 mg PO BID STOP taking 2 weeks before surgery [id number] 5 mg-zeaxanth 1 mg-bilberry 7.5 mg-herbal capsule (Macular Health Formula) 2 cap PO BID DO NOT take the morning of surgery olmesartan 40 mg tablet 20 mg PO BID multivitamin 1 tab PO QAM Take morning of surgery With a small sip of water, OTHERWISE NOTHING TO EAT OR DRINK AFTER MIDNIGHT: allopurinol 300 mg tablet 300 mg PO QAM amlodipine 10 mg tablet 10 mg PO QAM metoprolol succinate 25 mg tablet,extended release 24 hr 12.5 mg PO QAM pantoprazole 40 mg tablet,delayed release 40 mg PO BID Take evening before surgery atorvastatin 80 mg tablet 40 mg PO QPM olmesartan 40 mg tablet 20 mg PO BID pantoprazole 40 mg tablet,delayed release 40 mg PO BID Other Notes If you have any questions please call us at [phone] or [phone] or [phone] or [phone]
--- NOTE | 2021-08-27 15:24 | Anesthesiology Consultation ---
Date of Service August 27, 2021 Assessment & Plan (1) Encounter for pre-operative examination: - Patient acceptable risk for surgery pending most recent cardiology office visit note (Dr. Antonio). - COVID screening: Per assessment on 08/27: No known COVID-19 positive contacts or current COVID-19 related symptoms. Travel screen negative. Surgeon arranging preop COVID testing. Awaiting results. Chart Review Chart Review: Acceptable Risk for Surgery and Patient seen in Pre Admission Testing Teaching & Discussion Pre-Anesthesia Teaching/Discussion Notes: Instructed NPO after midnight before surgery,except medications with 15 cc of water. Medication instructions provided according to the PAT guidelines. History Surgery Operation Date: 09/05/21 09:00 Proposed Procedures p Left Total Knee Arthroplasty - Lanre Whitt MD Height/Weight Height: 5 ft 5 in Weight: 95 kg Allergies Allergy/AdvReac Type Severity Reaction Status Date / Time No Known Allergies Allergy Unknown Verified 08/23/21 14:26 Medications Home Medications Medication Instructions Recorded Confirmed Last Taken allopurinol 300 mg tablet 300 mg PO QAM 01/14/21 08/23/21 01/14/21 atorvastatin 80 mg tablet 40 mg PO QPM 01/14/21 08/23/21 01/14/21 olmesartan 40 mg tablet 20 mg PO BID 01/14/21 08/23/21 01/13/21 amlodipine 10 mg tablet 10 mg PO QAM 08/23/21 08/23/21 Unknown metoprolol succinate 25 mg 12.5 mg PO QAM 08/23/21 08/23/21 Unknown tablet,extended release 24 hr jyytqslu-qlp-qmqylk 5 mg-zeaxanth 2 cap PO BID 08/23/21 08/23/21 Unknown 1 mg-bilberry 7.5 mg-herbal capsule (Macular Health Formula) multivitamin 1 tab PO QAM 08/23/21 08/23/21 Unknown pantoprazole 40 mg tablet,delayed 40 mg PO BID 08/23/21 08/23/21 Unknown release Past Medical History Medical History Arthritis Bradycardia Chronic, baseline HR 45-50s per cardiology records CAD (coronary artery disease) Stent x1 (2011) Follows with Dr. Antonio History of GI bleed x2 (most recent episode 2020) > reason for PPI R/t Ava-Reece tear and duodenal ulcers Hx of gout Hyperlipidemia Hypertension Myocardial Infarction 2012 Exercise / Class Metabolic Activity II 4-5 Yardwork/Stairs/Walk up hill Past Family History Family History Grandmother (Paternal) Family history of diabetes mellitus Other COPD (chronic obstructive pulmonary disease) Cancer No family history of adverse response to anesthesia Past Surgical History Surgical History H/O inguinal hernia repair History of arthroscopy LEFT KNEE History of colonoscopy History of esophagogastroduodenoscopy (EGD) History of heart artery stent Stent x1 (2011) History of tonsillectomy [place] teeth removed Past Anesthesia History No Hx of Anesthesia Complications and No Family Hx of Anesthesia Complications History of PONV No Hx of PONV and No Hx of Motion Sickness Social History Smoking Status: Former smoker tobacco type: cigarettes Do You Dip or Chew Tobacco: No Smoking End Date: Quit 1978 Hx Alcohol Use: Yes Alcohol type: wine alcohol intake frequency: 0-2 drinks per day (2 drinks/day (wine)) Hx Substance Use: No substance use type: does not use Review of Systems Patient denies chest pain, shortness of breath, dyspnea on exertion, fever, chills, cough, wheezing, palpitations. Physical Exam Vital Signs VITALS BP 126/79 P 83 TEMP 98.5 SP02 98%RA RESP 18 PHYSICAL Full cervical extension range of motion. Full TMJ range of motion. TMD 3.5 finger breaths Mallampati Score 2 Dentition: intact, several crowns Lungs: clear throughout to auscultation Cardiac: regular rate and rhythm, no murmurs noted Spine: normal Carotid arteries: negative bruit Extremities: no edema Lab Results Anesthesia Preop Results Results Anesthesia Widget: WBC 7.30 K/uL (4.8-10.8) 08/27/21 Hgb 13.7 g/dL (14.0-18.0) L 08/27/21 Hct 41.1 % (42-52) L 08/27/21 Plt 175 K/uL (130-400) 08/27/21 Na 138 mmol/L (136-145) 08/27/21 K 4.1 mmol/L (3.5-5.1) 08/27/21 Cl 105 mmol/L (98-107) 08/27/21 CO2 27 mmol/L (21-32) 08/27/21 BUN 16 mg/dl (6-23) 08/27/21 Creat 0.81 mg/dl (0.6-1.4) 08/27/21 Glucose Level 109 mg/dl (70-99(Fasting)) H 08/27/21 PT 11.0 Seconds (9.0-12.0) 08/27/21 PTT 26.5 Seconds (21.0-31.0) 08/27/21 INR 1.0 (0.9-1.1) 08/27/21 Urine Color Yellow 08/27/21 Urine Appearance Clear (Clear) 08/27/21 Urine pH 5.5 (4.5-7.5) 08/27/21 Urine Specific [place] 1.019 (1.000-1.030) 08/27/21 Urine Protein Negative (Negative) 08/27/21 Urine Glucose (UA) Negative (Negative) 08/27/21 Urine Ketones Negative (Negative) 08/27/21 Urine Blood Negative (Negative) 08/27/21 Urine Nitrite Negative (Negative) 08/27/21 Urine Bilirubin Negative (Negative) 08/27/21 Urine Urobilinogen Negative (Negative) 08/27/21 Urine Leukocyte Esterase Negative (Negative) 08/27/21 Blood Type B Positive 08/27/21 Antibody Screen NEGATIVE 08/27/21 Testing Electrocardiogram Date: 01/25/21 Sinus bradycardia with sinus arrhythmia at 50 bpm. Otherwise normal ECG. No significant change compared to 08/11/2017 per candle making supervisor review. Chest X-Ray Date: 08/28/21 FINDINGS: Lung volumes are normal. Lungs are clear. There is no pneumothorax or pleural effusion. Cardiac size is at the upper limits of normal. Mediastinal contours are normal. There is no evidence for pulmonary edema. Nipple shadows project over the lower hemithoraces. Endovascular coils within the upper abdomen are incidentally noted. IMPRESSION: No acute cardiopulmonary findings. 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 EF 65%. Basal asymmetric septal hypertrophy of the elderly. Grade 2 diastolic dysfunction. Mild LAD. RVD. RAD. Dilated aortic root (4.0 cm) and ascending aorta (3.9 cm). Moderate PI. Mild TR. Mild pulmonary hypertension (PASP 40 mmHg). Compared to previous study 08/22/2017, there is no significant change per report.
--- NOTE | 2021-09-04 15:24 | History & Physical Report ---
Date of Service September 04, 2021 Assessment & Plan (1) Left knee DJD: Plan: Postoperative prescriptions for Percocet and an anticoagulant will be provided at discharge from the hospital. Given his 2 previous GI bleeds, he understands the risks of anticoagulation, though he understands it is necessary due to his lower extremity surgery. The patient did inquire about overnight stay versus outpatient joint surgery. He will stay the one night. We will certainly need t o keep an eye on his withdrawal symptoms given the potential. PDMP was checked and there are no concerning findings. The patient is aware of the COVID-19 risks associated with surgery. He is currently asymptomatic of any COVID-19 symptoms. He will obtain nasal swab testing 2 days prior to surgery. He will obtain medical clearance and cardiac clearance. Anticipate discharge to home with home health services. He already has access to a cane and walker. Call with any other concerns. History of Present Illness Chief Complaint: Left knee pain Primary Care Provider: Jimmy Santana MD HISTORY OF PRESENT ILLNESS: This 70-year-old male presents for his preoperative history and physical. He is scheduled to undergo a left knee total knee arthroplasty on 09/05/2021. The patient has had a longstanding history of bilateral knee pain. He states the left hurts worse than the right. He has tried activity modification as well as topical lidocaine without improvement. The pain is worse with weightbearing. It is affecting his ADLs. He cannot take NSAIDs based on a history of GI bleeds. He notes loss of motion. No numbness or tingling. Allergies Allergy/AdvReac Type Severity Reaction Status Date / Time No Known Allergies Allergy Unknown Verified 08/23/21 14:26 Home Medications Medication Instructions Recorded Confirmed Type allopurinol 300 mg tablet 300 mg PO QAM 01/14/21 08/23/21 History atorvastatin 80 mg tablet 40 mg PO QPM 01/14/21 08/23/21 History olmesartan 40 mg tablet 20 mg PO BID 01/14/21 08/23/21 History amlodipine 10 mg tablet 10 mg PO QAM 08/23/21 08/23/21 History metoprolol succinate 25 mg 12.5 mg PO QAM 08/23/21 08/23/21 History tablet,extended release 24 hr uumanjus-twq-deaped 5 mg-zeaxanth 2 cap PO BID 08/23/21 08/23/21 History 1 mg-bilberry 7.5 mg-herbal capsule (Macular Health Formula) multivitamin 1 tab PO QAM 08/23/21 08/23/21 History pantoprazole 40 mg tablet,delayed 40 mg PO BID 08/23/21 08/23/21 History release Past Med/Surg History Medical History (Updated 09/04/21 @ 15:23 by Americo Soliman PA-C) Arthritis Atrial fibrillation fall 2020 Bradycardia Chronic, baseline HR 45-50s per cardiology records CAD (coronary artery disease) Stent x1 (2011) Follows with Dr. Antonio History of GI bleed x2 (most recent episode 2020) > reason for PPI R/t Ava-Reece tear and duodenal ulcers Hx of gout Hyperlipidemia Hypertension Myocardial Infarction 2011 Surgical History H/O inguinal hernia repair History of arthroscopy LEFT KNEE History of colonoscopy History of esophagogastroduodenoscopy (EGD) History of heart artery stent Stent x1 (2011) History of tonsillectomy [place] teeth removed Family History Grandmother (Paternal) Family history of diabetes mellitus Other COPD (chronic obstructive pulmonary disease) Cancer No family history of adverse response to anesthesia Social History Smoking Status: Former smoker Tobacco Type: Cigarettes Second Hand Exposure: Yes (IN THE PAST); Hx Alcohol Use: Yes Alcohol type: wine Hx Substance Use: No Preferred Language: Korean Communication Ability: Effective Assistant To The Vice President Required: No Beliefs That Will Affect Care: None marital status: Current Living Situation: Spouse How many Children do You have: 0 Feels Safe at Home: Yes Assistive Devices: Glasses and Hearing Aid - Bilateral Review of Systems Review of Systems: All systems reviewed & are unremarkable except as noted in HPI & below A total of 10 systems were reviewed. Physical Exam Physical Exam: Vitals: Height 162.3 cm, weight 95.4 kilograms, BMI 36.5, temperature 36.4, BP 100/72, pulse 78, respirations 20, O2 sat 93% on room air. General: Well-developed, well-nourished, elderly white male in no acute distress. Sitting in a chair. Alert and oriented. Skin: Warm and dry with good turgor. No rashes. No intra-articular effusion in the left knee. HEENT: Normocephalic, atraumatic. Eyes: PERRLA, EOMI. Nares and oropharynx exams deferred due to COVID precautions. Heart: RRR. No MGR. Lungs: Clear to auscultation bilaterally. No crackles, rhonchi or wheezing. Good air movement. Abdomen: Mildly obese. Bowel sounds present x4. Soft, nontender. No organomegaly. No masses. Musculoskeletal: Left knee evaluation reveals no intraarticular effusion. Varus stance. He lacks a few degrees of terminal extension. Flexion to greater than 100 degrees. Strength is 5/5 with fairly good quad tone. He has focal pain with palpation over the medial and lateral joint lines, medial being worst. There is palpable crepitus with motion in the patellofemoral joint. Stable collateral ligaments. No defect in the patellar tendon or quadriceps tendon. Ambulating today with an antalgic gait. Neurologic: Gross sensation is intact across both lower extremities by soft touch. Peripheral pulses are 2+. Results & Data Results & Data ([facility]) Diagnostic Findings Radiographic imaging previously obtained shows end-stage DJD of the left knee in all 3 compartments. Varus alignment. Periarticular osteophytes, subchondral sclerosis, and joint space narrowing are all present. Code Status & VTE Plan VTE Prophylaxis Plan VTE Prophylaxis will be ordered: Yes
--- NOTE | 2021-09-05 05:55 | History & Physical Bridge Note ---
Date of Service September 05, 2021 History & Physical Bridge Note I have examined the patient, reviewed the History & Physical and in the interval since the performance of the History & Physical I have noted the following changes of clinical significance: consent obtained/site verified/covid screen negative.no changes noted
[~2021-09-05 06:30] MED LIST changes: +BUPIVACAINE 0.5 % 5 MG/1 ML PF 10ML VIAL ONE; +EPINEPHrine INJ 1 MG/ML AMP ONE; +LR 500ML BOLUS, THEN 15ML/HR IV SCH; +LR 60ML/HR IV SCH; +ROPIVACAINE 0.5% 5 MG/ML 30 ML VIAL ONE; +ROPIVACAINE 0.5% HCL/PF 150 MG, BUPIVACAINE 0.75% MPF 20 ML, EPINEPHrine 0.15 MG, Ketor... INFIL SCH; +ROPIVACAINE 0.5% HCL/PF 150 MG, BUPIVACAINE 0.75% MPF 20 ML, EPINEPHrine 0.15 MG, dexAM... INFIL SCH; -THIAMINE HCL 100 MG TAB PO SCH; +TRANEXAMIC ACID 1,000 MG x 1 **For Topical Use TOP SCH; +ceFAZolin 2000MG 2,000 MG/15 ML SYR IV SCH
[2021-09-05] MEDS ORDERED: MIDAZOLAM HCL 1 MG/ML 2ML VIAL ONE (07:42)
[2021-09-05] MEDS ORDERED: fentaNYL citrate 100 MCG/2 ML VIAL ONE (07:43)
[2021-09-05] MEDS ORDERED: ORTHO JOINT ANESTHETIC ONE (08:52)
[2021-09-05] MEDS ORDERED: PROPOFOL IV EMULSION 10 MG/ML 20 ML VIAL IV ONE ×2 (08:58→10:30)
[2021-09-05] MEDS ORDERED: LIDOCAINE 2% 2 ML VIAL/AMP(20MG/ML) INFIL ONE (08:58)
[2021-09-05] MEDS ORDERED: ONDANSETRON INJ 2 MG/ML 2 ML VIAL ONE (08:58)
[2021-09-05] MEDS ORDERED: ePHEDrine sulfate 50 MG/ML SYR ONE (09:31)
--- NOTE | 2021-09-05 09:31 | Discharge Summary (DS) ---
DATE OF ADMISSION: 09/05/2021. DATE OF DISCHARGE: 09/06/2021. CHIEF COMPLAINT: Left knee pain. HISTORY OF PRESENT ILLNESS: The patient underwent elective left total knee replacement. He is felt to be a high risk patient for GI issues and bleeds. He only will be followed carefully with his Coumadin, keep his INR in the 1.5 range. Osteoarthritis in both knees are severe, he decided to have the left one done. PREADMISSION MEDICATIONS: Include allopurinol at for statin, olmesartan, amlodipine, metoprolol, multivitamins. ALLERGIES: None. PAST SURGICAL HISTORY: Remarkable for arthritis, atrial fibrillation, bradycardia, coronary artery disease with stent, history of GI bleeds, history of gout, hyperlipidemia, hypertension, myocardial infarction. Surgery includes arthroscopies, colonoscopies, EGDs, cardiac stent, tonsillectomy, wisdom teeth. FAMILY HISTORY: Reveals COPD. SOCIAL HISTORY: Reveals he is a former smoker of cigarette. Secondhand exposure yes in the past. Alcohol yes significant use. Lives with his spouse. Has hearing aids and glasses. REVIEW OF SYSTEMS: At this point in time, reveals no active GI bleed, chest pain, shortness of breath, fever, chills. ASSESSMENT: Status post left total knee replacement. Continue with care pathway. Discharge if he does well overnight, on 09/06/2021. Dictated, not read. Job ID: [id number] [facility]ITAL[facility]ianca
[2021-09-05] MEDS ORDERED: PHENYLEPHRINE HCL 10 MG/ML VIAL ONE (10:30)
--- NOTE | 2021-09-05 10:58 | Post Operative Brief Note ---
Immediate Post Op Note v1 Date of Surgery September 05, 2021 Pre & Post Diagnosis Operation Date: 09/05/21 08:50 Pre-Op Diagnosis: Left Knee Degenerative Joint Disease Post-Op Diagnosis: Left Knee Degenerative Joint Disease I identified the patient and participated in the time-out.: Yes Procedure Operation Date: 09/05/21 08:50 Actual Procedures p Left Total Knee Arthroplasty(Left) - Lanre Whitt MD Surgeon Lanre Whitt MD Logging Tractor Operator Swamp Janny/ Silvino MS-2 Estimated Blood Loss 50 Findings Consistent with Post-Op Diagnosis
--- NOTE | 2021-09-05 11:14 | Operative Report ---
Post Operative Report Pre & Post Diagnosis Operation Date: 09/05/21 08:50 Pre-Op Diagnosis: Left Knee Degenerative Joint Disease Post-Op Diagnosis: Left Knee Degenerative Joint Disease I identified the patient and participated in the time-out.: Yes Procedure Operation Date: 09/05/21 08:50 Actual Procedures p Left Total Knee Arthroplasty(Left) - Lanre Whitt MD Surgeon FITO Whitt MD Molded Goods Inspector Trimmer Boby Dubois MS-2 Estimated Blood Loss 50 Findings Consistent with Post-Op Diagnosis see operative report Specimens see operative report Drains none Complications none Disposition Accompanied Patient To Recovery: Yes Indications This 70-year-old male presented to the office with complaints of persisting left knee pain. He had tried conservative care measures without improvement. He elected to proceed with surgical intervention after being educated about potential risks and outcomes. Preoperative imaging was obtained. Medical clearance was also obtained. Description of Procedure Patient was administered a spinal anesthetic and then taken to the operating room where he was given sedation. He was prepped and draped in the usual sterile fashion. Please see Dr. Whitt's operative report for specifics of the procedure. I was present for the entire case from initial patient positioning through final wound closure. Assistance was provided in tissue retraction, hemostasis, trial implant placement, final implant placement, and final wound closure. Patient was taken to the recovery room in satisfactory c ondition. I attest to the content of the Intraoperative Record and any orders documented therein. Any exceptions are noted below.
[2021-09-05] MEDS ORDERED: FLUMAZENIL 0.1 MG/1 ML 10 ML VIAL IV PRN (11:30)
[2021-09-05] MEDS ORDERED: ePHEDrine sulfate 50 MG/ML AMP IV PRN (11:30)
[2021-09-05] MEDS ORDERED: fentaNYL citrate 100 MCG/2 ML VIAL IV PRN (11:30)
[2021-09-05] MEDS ORDERED: ATROPINE SULFATE 0.1 MG/ML 10ML SYR IV PRN (11:30)
[2021-09-05] MEDS ORDERED: NALOXONE HCL 0.4 MG/1 ML VIAL/CARP IV PRN ×2 (11:30→13:33)
[2021-09-05] MEDS ORDERED: PROMETHAZINE HCL 12.5 MG in SODIUM CHLORIDE 0.9% 50 ML IV PRN (11:30)
[2021-09-05] MEDS ORDERED: ONDANSETRON INJ 2 MG/ML 2 ML VIAL IV PRN ×2 (11:30→13:33)
--- NOTE | 2021-09-05 11:34 | Anesthesiology Progress Note ---
Date of Service September 05, 2021 Anesthesia Post Procedure Vital Signs Vital Signs: Temp Pulse Resp BP BP Pulse Ox 09/05/21 11:30 88 19 110/68 97 09/05/21 11:20 79 12 107/68 100 09/05/21 11:10 84 12 112/70 100 09/05/21 11:02 36.5 C 87 20 108/63 98 09/05/21 06:45 36.8 C 72 20 126/82 99 Pain Intensity Left Knee: Pain Intensity: 0 Transfer of Care Handoff Completed per policy Notes Mental Status: alert / awake / arousable Patient Amnestic to Procedure: Yes Nausea / Vomiting: adequately controlled Pain: adequately controlled Airway Patency, RR, SpO2: stable & adequate BP & HR: stable & adequate Hydration State: stable & adequate Anesthetic Complications: no major complications apparent
--- NOTE | 2021-09-05 11:46 | XRay Report ---
LEFT KNEE 2 VIEWS History: Left total knee arthroplasty. Degenerative arthritis. Postop. FINDINGS: The patient is status post a left total knee arthroplasty. The hardware is intact. No fract ure or dislocation. Skin marco are in place. IMPRESSION: Left total knee arthroplasty. No evidence for hardware complication. ACT 112: Negative or not required by law. Electronically signed by: Jose Daniel Mclean M.D. 09/05/2021 11:45 AM
--- NOTE | 2021-09-05 12:00 | Operative Report (OR) ---
DATE OF PROCEDURE: 09/05/2021. SURGEON: Lanre Whitt MD. INFECTIOUS DISEASE PHYSICIAN: Americo Soliman PA-C. No resident or fellow available. Medical student, Silvino, MS-2 was s crubbed. PREOPERATIVE DIAGNOSES: Osteoarthritis with varus flexion deformity, left knee. POSTOPERATIVE DIAGNOSES: Osteoarthritis with varus flexion deformity, left knee. OPERATION PERFORMED: Cemented left total knee replacement. SUMMARY OF IMPLANTS: A JJ rotating platform size 3 left femur posterior cruciate substituting size 3 mobile bearing tray, size 41 patella, size 3 x 10 mm insert, 2 bags of Palacos G cement. ESTIMATED BLOOD LOSS: 50 mL CRYSTALLOID: Per anesthesia. PATHOLOGY: Pending on bone. PERIOPERATIVE SITUATION: Medically cleared male with intractable knee pain, has comorbidities, but w as cleared based on his GI dysfunction, cardiac function, etc. At this point in time, understands ri sks and consequences. DESCRIPTION OF PROCEDURE: The patient was appropriately identified, site verified, consent verified. Antibiotics were confirmed as being given. The left lower extremity was prepped and draped in the usual routine fashion. Tourniquet was inflated to 300 mmHg after exsanguination of the limb with a r ubber Esmarch bandage for a total of 58 minutes. Midline exposure was utilized. Parapatellar arthrotomy performed. Synovectomy completed, osteophyte s resected. Knee flexed, marked disease noted in the trochlea, medial compartment and the lateral co mpartment. Appropriate releases were performed. Cruciates were resected. Distal femur entered. It should be mentioned that the ACL was gone, the PCL was resected. Distal femur was resected 14 mm ti ketan subluxated resected 4 mm. Extension gap was excellent. The tibia sized to a 3, femur sized to a 3. Appropriate cutting block applied. Anterior, posterior condylar and chamfer cuts were made. Fl exion gap was checked, it was excellent, extension gap was excellent. The box cut was then made and required some revision on the medial side with an osteophyte overhangin g there. Once that was done, the size 3 fit well. Tibia was then subluxated, broached and reamed fo r a size 3 tibia, a 10 spacer, gave excellent stability in extension, flexion and mid range flexion. The patella tracked well. The patella was resected leaving 14 mm. A 41 button seated after drillin g holes made it tracked well. Orthomix was then injected. Once that was all done, the implants were removed. The TXA placed for 4 minutes. This was then irrigated and the permanent cemented in posit ion tibia, femur, and patella in that order. At 12 minutes, the tourniquet was deflated. Minor blee ding points controlled with electrocautery. At 14 minutes, the knee was flexed. No cement removal r equired. The wound was irrigated. Trial spacer removed, the wound irrigated and the permanent seate d. The knee then closed at 30-40 degrees of flexion using #2 Vicryl, 2-0 Vicryl and stainless steel clips. Appropriate dressing applied. The patient was transferred to recovery room in satisfactory c ondition, having tolerated the procedure well. EBL was 50 mL CRYSTALLOID: Per anesthesia. PATHOLOGY: Pending on bone. DVT prophylaxis with Coumadin, keep INR under 1.5 range based on his history of GI bleed. SUMMARY OF IMPLANTS: Size 3 left femur posterior cruciate substituting size 3 mobile bearing tray, s ize 41 patella, size 3 x 10 mm insert, J and J rotating platform knee. Job ID: [id number]
--- NOTE | 2021-09-05 12:10 | Progress Notes ---
SUBJECTIVE: Status post left total knee replacement, doing well. Denies chest pain, shortness of breath, fever, chills, nausea, vomiting or headache. OBJECTIVE: VITAL SIGNS: Stable. He is afebrile. Neurovascular check limited by block. Wound dressing clean, dry and intact. IMAGING: X-rays, AP and lateral of the knee look good. ASSESSMENT: Doing well status post left total knee replacement. PLAN: Continue postoperative care pathway. Follow up for potential discharge tomorrow morning after PT/OT. Addendum: Again DVT prophylaxis will be with Coumadin running on the low range based on the history of GI bleed. We will need GI protection with Pepcid. We will also order some Maalox. Job ID: [id number] [facility]
[2021-09-05] MEDS ORDERED: SODIUM CHLORIDE 0.9% 1000ML 1,000 ML IV SCH (13:33)
[2021-09-05] MEDS ORDERED: METOCLOPRAMIDE HCL INJ 5 MG/ML 2 ML VIAL IV PRN (13:33)
[2021-09-05] MEDS ORDERED: MAGNESIUM HYDROXIDE SUSP 30 ML UDC PO PRN (13:33)
[2021-09-05] MEDS ORDERED: HYDROmorphone INJ 0.5 MG/0.5 ML SYR IV PRN (13:33)
[2021-09-05] MEDS ORDERED: LORazepam 2 MG/1 ML VIAL IV PRN (13:33)
[2021-09-05] MEDS ORDERED: TAMSULOSIN HCL 0.4 MG CAP PO PRN (13:33)
[2021-09-05] MEDS ORDERED: ALUMINUM/MAGNESIUM SUSP 30 ML UDC PO PRN (13:33)
[2021-09-05] MEDS ORDERED: bisacodyL 10 MG SUPP PR PRN (13:33)
[2021-09-05] MEDS ORDERED: diphenhydrAMINE 50 MG/ML VIAL IV PRN (13:33)
[2021-09-05] MEDS: ACETAMINOPHEN 500 MG TAB PO SCH ×2 (14:52→21:45)
[2021-09-05] MEDS ORDERED: WARFARIN SOD 4 MG TAB PO ONE (16:00)
[2021-09-05] MEDS: FERROUS GLUCONATE 324 MG TAB PO SCH (16:53)
[2021-09-05] MEDS: ASCORBIC ACID 500 MG TAB PO SCH (16:54)
[2021-09-05] MEDS: ceFAZolin 2000MG 2,000 MG/15 ML SYR IV SCH (17:18)
[2021-09-05] MEDS ORDERED: SENNA 8.6 MG TAB PO SCH (21:00)
[2021-09-05] MEDS ORDERED: ATORVASTATIN 40 MG TAB PO SCH (21:00)
[2021-09-05] MEDS: DOCUSATE SODIUM 100 MG CAP PO SCH (21:43)
[2021-09-05] MEDS: PANTOprazole 40 MG TAB PO SCH (21:44)
[2021-09-05] MEDS: OLMESARTAN MEDOXOMIL 20 MG TAB PO SCH (22:19)
[2021-09-05] MEDS: oxyCODONE HCL IR 5 MG TAB (IMMEDIATE RELEASE) PO PRN (22:21)
[2021-09-06] MEDS: ceFAZolin 2000MG 2,000 MG/15 ML SYR IV SCH (00:55)
[2021-09-06] MEDS: ACETAMINOPHEN 500 MG TAB PO SCH (05:49)
[2021-09-06 06:45] LABS: Hematocrit (blood only) 36.5 % (42-52); Mean Corpuscular Hemoglobin 31.5 pg (25-34); Mean Corpuscular Hgb Conc 32.9 g/dL (32-36); Mean Corpuscular Volume 95.8 fL (80-100); Mean Platelet Volume 11.5 fL (7.4-10.4); Platelet Count 204 K/uL (130-400); RDW Coefficient of Variation 14.4 % (11.5-14.5); RDW Standard Deviation 50.8 fL (36.4-46.3); Red Blood Count 3.81 M/uL (4.7-6.1); White Blood Count 15.38 K/uL (4.8-10.8)
[2021-09-06 06:54] LABS: Prothrombin Time 10.7 Seconds (9.0-12.0)
[2021-09-06 07:05] LABS: BUN Creatinine Ratio 16.5 (10-20); Calcium 8.8 mg/dl (8.5-10.1); Creatinine Clr Calc Pharmacy 77.2 ml/min; Est GFR (African American) 97.2 ml/min; Est GFR (Non-African American) 83.9 ml/min; Potassium 3.7 mmol/L (3.5-5.1)
[2021-09-06] MEDS: ASCORBIC ACID 500 MG TAB PO SCH (07:44)
[2021-09-06] MEDS: FERROUS GLUCONATE 324 MG TAB PO SCH (07:45)
[2021-09-06] MEDS ORDERED: dexAMETHasone 10 MG in SYRINGE 0 ML IV SCH (08:00)
[2021-09-06] MEDS ORDERED: allopurinoL 300 MG TAB PO SCH (09:00)
[2021-09-06] MEDS ORDERED: amLODIPine BESYLATE 5 MG TAB PO SCH (09:00)
[2021-09-06] MEDS ORDERED: METOPROLOL SUCC 25MG EXT REL TAB PO SCH (09:00)
[2021-09-06] MEDS ORDERED: MULTIVITAMIN TAB PO SCH (09:00)
[2021-09-06] MEDS: DOCUSATE SODIUM 100 MG CAP PO SCH (09:04)
[2021-09-06] MEDS: PANTOprazole 40 MG TAB PO SCH (09:04)
[2021-09-06] MEDS: OLMESARTAN MEDOXOMIL 20 MG TAB PO SCH (09:04)
--- NOTE | 2021-09-06 10:13 | Progress Notes ---
SUBJECTIVE: Postop check postoperative day #1, status post left total knee replacement. The patient is sitting up in a chair. He has no major issues. His pain was well managed with oral medications. He denies chest pain, shortness of breath, fever, chills, nausea, vomiting or headache. OBJECTIVE: VITAL SIGNS: Stable. He is afebrile. A.m. labs are pending. Wound dressing clean, dry and intact, femoral sciatic nerve functioning is normal. ASSESSMENT AND PLAN: Doing well. Discharged to home today. Coumadin dose keep on the low side base d on his history of GI bleed. We will discharge on 2 mg of Coumadin. Check INR on Friday. Job ID: [id number]
[2021-09-06] MEDS: oxyCODONE HCL IR 5 MG TAB (IMMEDIATE RELEASE) PO PRN (11:39)
[2021-09-06] MEDS ORDERED: WARFARIN SOD 2 MG TAB PO ONE (12:15)
== END 2021-09-06 13:15 | disposition home health service (06) ==
LOC: ASU 06:30 → PACUINP 06:30 → 3N 13:30

== ENCOUNTER 2022-09-16 10:43 | Inpatient (IN) ==
[2022-09-16] MEDS ORDERED: dilTIAZem HCl 5 MG/ML 5 ML VIAL IV STA (11:03)
[2022-09-16] MEDS ORDERED: THIAMINE HCL 200 MG in SODIUM CHLORIDE 0.9% 50 ML IV STA (11:03)
[2022-09-16] MEDS ORDERED: MAGNESIUM SULFATE / D5W 1 GM/100 ML BAG IV STA (11:04)
[2022-09-16] MEDS ORDERED: SODIUM CHLORIDE 0.9% 1000ML 1,000 ML IV SCH (11:15)
--- NOTE | 2022-09-16 11:16 | Emergency Department Note ---
Impression & Plan Atrial fibrillation with rapid ventricular response, Peripheral edema, Hypomagnesemia, Chronic alcohol abuse ED Provider Note NAME: AYSHA EDWARDS AGE: 71 SEX: M : 1950 ARRIVES VIA: Walk-In INFORMANT: Patient, ED PROVIDER(S): Mitchel Ramsay DO CHIEF COMPLAINT: Cough HPI: The patient is a 71-year-old male who presented to the emergency department for an evaluation of cough. The patient was seen at his primary care physician's office. He was sent to the emergency department because he was found to be in atrial fibrillation with RVR. The patient has a history of chronic alcohol use. He has been using alcohol daily using multiple drinks of whiskey. He has had an 8 pound weight gain and shortness of breath. He currently does not take any blood thinners although he does a history of paroxysmal atrial fibrillation. He also has a history of GI bleeding so blood thinners are contraindicated in this gentleman at this time. He complains of shortness of breath with exertion as well as nonproductive cough. He complains of orthopnea. He also notices swelling in his legs. The patient denies having any black or bloody stool. ROS: See above HPI for pertinent positives & negatives. A total of 10 systems reviewed and were otherwise negative. PAST MEDICAL HISTORY: See Below PAST SURGICAL HISTORY: See Below FAMILY HISTORY: See Below SOCIAL HISTORY: See Below HOME MEDICATIONS: See Below ALLERGIES: See Below VITALS: See Below PHYSICAL EXAMINATION: GENERAL: Patient is awake alert in no acute distress patient is resting comfortably and showing no signs of anxiety EYES: The conjunctivae are clear. The pupils are round and reactive. EARS, NOSE, MOUTH AND THROAT: The nose is without any evidence of any deformity. Mucous membranes are moist. Tongue is midline. NECK: The neck is nontender and supple. RESPIRATORY: Normal respiratory effort is noted there is no evidence of wheezing rhonchi or rales CARDIOVASCULAR: Tachycardic and irregular heart sounds were noted to auscultation. There is no definite murmur. GASTROINTESTINAL: The abdomen is soft. Abdomen is nontender. MUSCULOSKELETAL/EXTREMITIES: There is no evidence of gross deformity full range of motion is noted in the hips and shoulders. SKIN: Skin was warm and dry. Pedal edema was noted bilaterally. NEUROLOGIC: Patient is awake alert and oriented x3 MEDICAL DECISION MAKING: The patient is a 71-year-old male who presented to the emergency department for an evaluation of palpitations. The patient was found to have atrial fibrillation with RVR as an outpatient. He was having lower extremity swelling and weight gain. He does have a history of chronic alcohol abuse. He was treated with IV fluids as well as IV Cardizem in the emergency department. He then started on a Cardizem drip. I discussed the patient's laboratory and radiographic studies with him. He was feeling somewhat improved on reevaluation. I discussed his condition with the on-call [facility] alist group. They have agreed to evaluate the patient in the emergency department for further management and disposition. Triage Nursing notes reviewed. Prior medical records reviewed Vital Signs: reviewed and remarkable for tachycardia. Differential diagnosis: Premature contractions, electrolyte abnormality, cardiac dysrhythmia, thyroid dysfunction, pulmonary embolism, infection, gastrointestinal, as well as other pathologies. ER treatment provided: See below Diagnostics interpreted by me: ECG: EKG was obtained in the emergency department. My interpretation is atrial fibrillation at [address] segment abnormalities were noted. This was compared to a tracing from January 17, 2021. Atrial fibrillation has replaced sinus rhythm. Cardiac Monitoring: An order was placed for continuous cardiac monitoring. The monitor shows a rate of 155 bpm with atrial fibrillation and RVR. Laboratory studies: As stated above and show below. Imaging studies: See below. Radiographic imaging was reviewed by myself Consultation(s): I discussed this case with Bear who is on for the [facility] hospitalist group. They will evaluate the patient in the emergency department. ED COURSE: Procedures: none Critical Care: I have personally spent greater than 45 minutes of critical care time in the direct management of this patient. This includes bedside care, interpretation of diagnostic studies, and testing, discussion with consultants, patient, and family members, and other required patient management activities. This 45 minutes is in excess of all separately billable procedures. Past Med/Surg History Medical History Adrenal nodule Arthritis Atrial fibrillation fall 2020 Atrial fibrillation with RVR Bradycardia Chronic, baseline HR 45-50s per cardiology records CAD (coronary artery disease) Stent x1 (2011) Follows with Dr. Antonio Duodenal ulcer GI bleed History of GI bleed x2 (most recent episode 2020) > reason for PPI R/t Ava-Reece tear and duodenal ulcers Hx of gout Hyperlipidemia Hypertension Myocardial Infarction 2011 Surgical History H/O inguinal hernia repair History of arthroscopy LEFT KNEE History of colonoscopy History of esophagogastroduodenoscopy (EGD) History of heart artery stent Stent x1 (2011) History of tonsillectomy [place] teeth removed Family History Grandmother (Paternal) Family history of diabetes mellitus Other COPD (chronic obstructive pulmonary disease) Cancer No family history of adverse response to anesthesia Social History Smoking Status: Never smoker Tobacco Type: Cigarettes Second Hand Exposure: Yes (IN THE PAST); Do You Dip or Chew Tobacco: No; Hx Alcohol Use: Yes Alcohol type: wine Hx Substance Use: No Preferred Language: [place] Communication Ability: Effective 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 Beliefs That Will Affect Care: None marital status: Current Living Situation: Spouse How many Children do You have: 0 Feels Safe at Home: Yes Assistive Devices: None Allergies Allergies Allergy/AdvReac Type Severity Reaction Status Date / Time No Known Allergies Allergy Unknown Verified 09/05/21 06:52 Home Meds Home Medications Medication Instructions Recorded Confirmed allopurinol 300 mg tablet 300 mg PO QAM 01/14/21 09/16/22 atorvastatin 80 mg tablet 40 mg PO QPM 01/14/21 09/16/22 olmesartan 40 mg tablet 20 mg PO BID 01/14/21 09/16/22 amlodipine 10 mg tablet 10 mg PO QAM 08/23/21 09/16/22 metoprolol succinate 25 mg 12.5 mg PO QAM 08/23/21 09/16/22 tablet,extended release 24 hr [id number] 5 mg-zeaxanth 2 cap PO BID 08/23/21 09/16/22 1 mg-bilberry 7.5 mg-herbal capsule (Macular Health Formula) multivitamin 1 tab PO QAM 08/23/21 09/16/22 pantoprazole 40 mg tablet,delayed 40 mg PO BID 08/23/21 09/16/22 release Results & Data (ED) Vital Signs Vital Signs - 24 hr 09/16/22 10:49 09/16/22 11:29 09/16/22 11:37 Temperature 36.5 C Temperature Source Temporal Artery Scan Pulse Rate 161 H 168 H Pulse Rate [Apical] 170 H Pulse Rate from SpO2 Sensor Pulse Rhythm Regular Pulse Rhythm [Apical] Regular Respiratory Rate 20 18 Respiratory Effort / Characteristics Non-Labored Spontaneous Non-Labored Spontaneous Respiratory Depth Normal Normal Respiratory Pattern Regular Blood Pressure 132/99 Blood Pressure [Right Arm] 130/101 H Blood Pressure Mean 110 Blood Pressure Mean [Right Arm] 110 Blood Pressure Position [Right Arm] Lying Pulse Oximetry 97 Oxygen Delivery Method Room Air Room Air Sepsis Recent Fever Within 48 Hours No Sepsis New/Unexplained Change in Mental Status No Sepsis Action Taken by Nursing No Action Required 09/16/22 11:37 09/16/22 11:03 09/16/22 11:30 Temperature Temperature Source Pulse Rate 178 H 172 H Pulse Rate [Apical] Pulse Rate from SpO2 Sensor 166 H 172 H Pulse Rhythm Pulse Rhythm [Apical] Respiratory Rate 19 19 Respiratory Effort / Characteristics Respiratory Depth Respiratory Pattern Blood Pressure Blood Pressure [Right Arm] Blood Pressure Mean Blood Pressure Mean [Right Arm] Blood Pressure Position [Right Arm] Pulse Oximetry 97 96 98 Oxygen Delivery Method Room Air Room Air Room Air Sepsis Recent Fever Within 48 Hours Sepsis New/Unexplained Change in Mental Status Sepsis Action Taken by Nursing 09/16/22 11:40 09/16/22 11:40 09/16/22 12:00 Temperature Temperature Source Pulse Rate 145 H Pulse Rate [Apical] Pulse Rate from SpO2 Sensor 125 H Pulse Rhythm Pulse Rhythm [Apical] Respiratory Rate 19 Respiratory Effort / Characteristics Respiratory Depth Respiratory Pattern Blood Pressure 109/86 105/80 Blood Pressure [Right Arm] Blood Pressure Mean 93 88 Blood Pressure Mean [Right Arm] Blood Pressure Position [Right Arm] Pulse Oximetry 96 Oxygen Delivery Method Room Air Sepsis Recent Fever Within 48 Hours Sepsis New/Unexplained Change in Mental Status Sepsis Action Taken by Nursing 09/16/22 12:00 09/16/22 12:30 09/16/22 12:30 Temperature Temperature Source Pulse Rate 164 H 169 H Pulse Rate [Apical] Pulse Rate from SpO2 Sensor 166 H 140 H Pulse Rhythm Pulse Rhythm [Apical] Respiratory Rate 18 16 Respiratory Effort / Characteristics Respiratory Depth Respiratory Pattern Blood Pressure 116/90 Blood Pressure [Right Arm] Blood Pressure Mean 98 Blood Pressure Mean [Right Arm] Blood Pressure Position [Right Arm] Pulse Oximetry 96 96 Oxygen Delivery Method Room Air Room Air Sepsis Recent Fever Within 48 Hours Sepsis New/Unexplained Change in Mental Status Sepsis Action Taken by Nursing 09/16/22 13:31 09/16/22 14:35 09/16/22 14:35 Temperature Temperature Source Pulse Rate Pulse Rate [Apical] 162 H 155 H Pulse Rate from SpO2 Sensor Pulse Rhythm Pulse Rhythm [Apical] Regular Regular Respiratory Rate 18 18 Respiratory Effort / Characteristics Non-Labored Spontaneous Non-Labored Spontaneous Respiratory Depth Normal Normal Respiratory Pattern Regular Regular Blood Pressure Blood Pressure [Right Arm] 110/84 126/93 Blood Pressure Mean Blood Pressure Mean [Right Arm] 92 104 Blood Pressure Position [Right Arm] Lying Lying Pulse Oximetry 98 97 97 Oxygen Delivery Method Room Air Room Air Room Air Sepsis Recent Fever Within 48 Hours Sepsis New/Unexplained Change in Mental Status Sepsis Action Taken by Custodial Medications Current Medication List: was personally reviewed by me Laboratory Data Attestation: I reviewed the patient's lab results. 09/16/22 11:10 09/16/22 11:10 Lab Results 09/16/22 09/16/22 09/16/22 Range/Units 11:10 11:10 11:10 WBC 7.46 (4.8-10.8) K/ul RBC 4.24 L (4.70-6.10) M/uL Hgb 13.5 L (14.0-18.0) g/dl Hct 40.2 L (42.0-52.0) % MCV 94.8 (80.0-100.0) fL MCH 31.8 (25.0-34.0) pg MCHC 33.6 (32.0-36.0) g/dL RDW Std Deviation 48.6 H (36.4-46.3) fL RDW Coeff of Elli 13.9 (11.5-14.5) % Plt Count 225 (130-400) K/uL MPV 11.6 (9.4-12.4) fL Immature Gran % (Auto) 0.4 % Neut % (Auto) 71.4 % Lymph % (Auto) 14.5 % Gregory % (Auto) 11.5 % Eos % (Auto) 1.5 % Baso % (Auto) 0.7 % Neut # (Auto) 5.33 (1.40-6.50) K/uL Lymph # (Auto) 1.08 L (1.2-3.4) K/uL Gregory # (Auto) 0.86 H (0.11-0.59) K/uL Eos # (Auto) 0.11 (0-0.50) K/uL Baso # (Auto) 0.05 (0-0.2) K/uL Immature Gran # (Auto) 0.03 (0.01-0.20) K/uL PT 12.2 H (9.0-12.0) Seconds INR 1.1 (0.9-1.1) APTT 27.5 (21.0-31.0) Seconds PTT Ratio 1.0 Sodium 140 (136-145) mmol/L Potassium 3.5 (3.5-5.1) mmol/L Chloride 103 (98-107) mmol/L Carbon Dioxide 26 (21-32) mmol/L Anion Gap 11 (3-11) BUN 9 (6-23) mg/dl Creatinine 0.80 (0.6-1.4) mg/dl Est Cr Clr Drug Dosing 92.0 ml/min Est GFR ( Amer) 102.7 ml/min Est GFR (Non-Af Amer) 88.6 ml/min BUN/Creatinine Ratio 11.3 (10-20) Glucose 112 H (70-99(Fasting)) mg/dl Calcium 9.1 (8.6-10.3) mg/dl Magnesium 1.6 L (1.7-2.4) mg/dl Total Bilirubin 0.9 (0.2-1.0) mg/dl AST 29 (13-39) U/L ALT 17 (7-52) U/L Alkaline Phosphatase 121 H (34-104) U/L Troponin I High Sens 19.1 (0-20) pg/ml Total Protein 6.7 (6.0-8.3) gm/dl Albumin 4.1 (3.4-5.0) gm/dl Globulin 2.6 (2.5-4.0) gm/dl Albumin/Globulin Ratio 1.6 (0.9-2) TSH (0.300-4.500) uIu/ml Free T4 (0.61-1.60) ng/dl Ethyl Alcohol mg/dL (<10.0) mg/dl SARS-CoV-2, RNA, NAAT (NEGATIVE) 09/16/22 09/16/22 09/16/22 Range/Units 11:10 11:10 12:50 WBC (4.8-10.8) K/ul RBC (4.70-6.10) M/uL Hgb (14.0-18.0) g/dl Hct (42.0-52.0) % MCV (80.0-100.0) fL MCH (25.0-34.0) pg MCHC (32.0-36.0) g/dL RDW Std Deviation (36.4-46.3) fL RDW Coeff of Elli (11.5-14.5) % Plt Count (130-400) K/uL MPV (9.4-12.4) fL Immature Gran % (Auto) % Neut % (Auto) % Lymph % (Auto) % Gregory % (Auto) % Eos % (Auto) % Baso % (Auto) % Neut # (Auto) (1.40-6.50) K/uL Lymph # (Auto) (1.2-3.4) K/uL Gregory # (Auto) (0.11-0.59) K/uL Eos # (Auto) (0-0.50) K/uL Baso # (Auto) (0-0.2) K/uL Immature Gran # (Auto) (0.01-0.20) K/uL PT (9.0-12.0) Seconds INR (0.9-1.1) APTT (21.0-31.0) Seconds PTT Ratio Sodium (136-145) mmol/L Potassium (3.5-5.1) mmol/L Chloride (98-107) mmol/L Carbon Dioxide (21-32) mmol/L Anion Gap (3-11) BUN (6-23) mg/dl Creatinine (0.6-1.4) mg/dl Est Cr Clr Drug Dosing ml/min Est GFR ( Amer) ml/min Est GFR (Non-Af Amer) ml/min BUN/Creatinine Ratio (10-20) Glucose (70-99(Fasting)) mg/dl Calcium (8.6-10.3) mg/dl Magnesium (1.7-2.4) mg/dl Total Bilirubin (0.2-1.0) mg/dl AST (13-39) U/L ALT (7-52) U/L Alkaline Phosphatase (34-104) U/L Troponin I High Sens (0-20) pg/ml Total Protein (6.0-8.3) gm/dl Albumin (3.4-5.0) gm/dl Globulin (2.5-4.0) gm/dl Albumin/Globulin Ratio (0.9-2) TSH 7.492 H (0.300-4.500) uIu/ml Free T4 1.10 (0.61-1.60) ng/dl Ethyl Alcohol mg/dL < 10.0 (<10.0) mg/dl SARS-CoV-2, RNA, NAAT NEGATIVE (NEGATIVE) Administered Medications Diltiazem HCl 125 mg/ Dextrose 125 mls @ 5 mls/hr IV .Q24H [facility]; Protocol Stop: 10/16/22 12:14 Last Titration: 09/16/22 13:31 Dose: 15 mg/hr, 15 mls/hr Documented By: MICHAELLE Co-signed By: CLAIR Titration: 09/16/22 12:52 Dose: 10 mg/hr, 10 mls/hr Documented By: ALONDRA Co-signed By: NELLIE Admin: 09/16/22 12:36 Dose: 5 mg/hr, 5 mls/hr Documented By: MICHAELLE Co-signed By: NELLIE Discontinued Medications Diltiazem HCl (Diltiazem Hcl 5 Mg/Ml 5 Ml Vial) 20 mg IV NOW STA Stop: 09/16/22 11:04 Last Admin: 09/16/22 11:27 Dose: 20 mg Documented By: ALONDRA Co-signed By: MICHAELLE Magnesium Sulfate/Dextrose (Magnesium Sulfate / D5w) 1 gm in 100 mls @ 100 mls/hr IV NOW STA Stop: 09/16/22 12:03 Last Infusion: 09/16/22 12:48 Dose: 0 mls/hr Documented By: Admin: 09/16/22 11:50 Dose: 100 mls/hr Documented By: ALONDRA Thiamine HCl 200 mg/ Sodium (Chloride) 52 mls @ 210 mls/hr IV NOW STA Stop: 09/16/22 11:17 Last Infusion: 09/16/22 11:47 Dose: 0 mls/hr Documented By: Admin: 09/16/22 11:32 Dose: 210 mls/hr Documented By: ALONDRA Sodium Chloride (Nss) 500 mls @ 999 mls/hr IV .Q31M ONE Stop: 09/16/22 12:31 Last Infusion: 09/16/22 13:31 Dose: 0 mls/hr Documented By: Admin: 09/16/22 12:41 Dose: 999 mls/hr Documented By: MICHAELLE Miscellaneous (Stat Iv Infusion Titration Per Protocol) 1 each N/A NOW STA Stop: 09/16/22 12:03 Last Admin: 09/16/22 12:42 Dose: Not Given Documented By: MICHAELLE Imaging Data Attestation: I personally reviewed and interpreted this imaging study as follows: My Impression: 1 view chest x-ray was obtained in the emergency department. My interpretation is no free air, no definite infiltrate, final report below Radiologist's Impression: Chest X-Ray 09/16/22 11:03 XR chest 1V portable CLINICAL HISTORY: weakness TECHNIQUE: Single frontal radiograph of the chest was obtained. Comparison: Comparison is made to chest radiograph 08/27/2021 FINDINGS: No lines and tubes are seen. Cardiomegaly is noted. The aortic arch is calcified. The lungs are clear. No evidence of pleural effusion or pneumothorax. Degenerative changes are seen in the shoulder joints. IMPRESSION: No acute chest disease. Cardiomegaly is noted. ACT 112: Negative or not required by law. Electronically signed by: Kiran Macias M.D. 09/16/2022 11:37 AM Discharge Plan Visit Data Chief Complaint: Arrhythmia/Palpitations Stated Complaint: AFIB ED Provider: Mitchel Ramsay Discharge Problem: Atrial fibrillation with rapid ventricular response, Peripheral edema, Hy pomagnesemia, Chronic alcohol abuse Patient Disposition: Being Evaluated by Hospitalist Forms Stand Alone Forms: My [facility] Prescriptions Prescriptions: No Action atorvastatin 80 mg tablet 40 mg PO QPM allopurinol 300 mg tablet 300 mg PO QAM olmesartan 40 mg tablet 20 mg PO BID multivitamin Tablet 1 tab PO QAM amlodipine 10 mg Tablet 10 mg PO QAM pantoprazole 40 mg Tablet,Delayed Release (Dr/Ec) 40 mg PO BID metoprolol succinate 25 mg Tablet Extended Release 24 Hr 12.5 mg PO QAM [facility] Formula 5-1-7.5 mg Capsule 2 cap PO BID Referrals Referrals: Esther,Jimmy, MD [Primary Care Provider] -
--- NOTE | 2022-09-16 11:38 | XRay Report ---
XR chest 1V portable CLINICAL HISTORY: weakness TECHNIQUE: Single frontal radiograph of the chest was obtained. Comparison: Comparison is made to chest radiograph 08/27/2021 FINDINGS: No lines and tubes are seen. Cardiomegaly is noted. The aortic arch is calcified. The lungs are clear . No evidence of pleural effusion or pneumothorax. Degenerative changes are seen in the shoulder join ts. IMPRESSION: No acute chest disease. Cardiomegaly is noted. ACT 112: Negative or not required by law. Electronically signed by: Kiran Macias M.D. 09/16/2022 11:37 AM
[2022-09-16 11:57] LABS: Basophils # (auto) 0.05 K/uL (0-0.2); Basophils % (auto) 0.7 %; Eosinophils # (auto) 0.11 K/uL (0-0.50); Eosinophils % (auto) 1.5 %; Hematocrit (blood only) 40.2 % (42.0-52.0); Hemoglobin 13.5 g/dl (14.0-18.0); Immature Granulocytes # (auto) 0.03 K/uL (0.01-0.20); Immature Granulocytes % (auto) 0.4 %; Lymphocytes # (auto) 1.08 K/uL (1.2-3.4); Lymphocytes % (auto) 14.5 %; Mean Corpuscular Hemoglobin 31.8 pg (25.0-34.0); Mean Corpuscular Hgb Conc 33.6 g/dL (32.0-36.0); Mean Corpuscular Volume 94.8 fL (80.0-100.0); Mean Platelet Volume 11.6 fL (9.4-12.4); Monocytes # (auto) 0.86 K/uL (0.11-0.59); Monocytes % (auto) 11.5 %; Neutrophils # (auto) 5.33 K/uL (1.40-6.50); Neutrophils % (auto) 71.4 %; Platelet Count 225 K/uL (130-400); RDW Coefficient of Variation 13.9 % (11.5-14.5); RDW Standard Deviation 48.6 fL (36.4-46.3); Red Blood Count 4.24 M/uL (4.70-6.10); White Blood Count 7.46 K/ul (4.8-10.8)
[2022-09-16] MEDS ORDERED: SODIUM CHLORIDE 0.9% 500 ML IV ONE (12:01)
[2022-09-16] MEDS ORDERED: STAT IV Infusion **Titration per Protocol STA (12:02)
[2022-09-16 12:06] LABS: Albumin Globulin Ratio 1.6 (0.9-2); Albumin Level 4.1 gm/dl (3.4-5.0); BUN Creatinine Ratio 11.3 (10-20); Bilirubin,Total 0.9 mg/dl (0.2-1.0); Calcium 9.1 mg/dl (8.6-10.3); Est GFR (African American) 102.7 ml/min; Est GFR (Non-African American) 88.6 ml/min; Globulin 2.6 gm/dl (2.5-4.0); Magnesium 1.6 mg/dl (1.7-2.4); Potassium 3.5 mmol/L (3.5-5.1); Total Protein 6.7 gm/dl (6.0-8.3)
[2022-09-16 12:12] LABS: Troponin I High Sensitivity 19.1 pg/ml (0-20)
[2022-09-16 12:16] LABS: INR 1.1 (0.9-1.1); Partial Thromboplastin Time 27.5 Seconds (21.0-31.0); Prothrombin Time 12.2 Seconds (9.0-12.0)
[2022-09-16 12:19] LABS: Thyroid Stimulating Hormone 7.492 uIu/ml (0.300-4.500)
[2022-09-16] MEDS: dilTIAZem HCL 125 MG in DEXTROSE 5% 100 ML IV SCH ×2 (12:36→20:03)
[2022-09-16 12:59] LABS: T4 Free Thyroxine 1.1 ng/dl (0.61-1.60)
--- NOTE | 2022-09-16 14:07 | History & Physical Report ---
Date of Service September 16, 2022 Assessment & Plan (1) Atrial fibrillation with rapid ventricular response: Plan: -Admit to the PCU on tele -Currently on Cardizem drip at 15 mg/hr and S/P 20 mg IV cardizem initially on ED arrival -Patient has a hx of afib and is on 12.5 mg PO metoprolol succinate daily, not on anticoagulation due to the previous duodenal ulcer hemorrhage -S/P 1.5L NSS in the ED and 1 gm IV mag sulfate -HR currently fluctuating between 130-170's on Cardizem drip, patient is currently asymptomatic and hemodynamically stable -Has been having ongoing CASILLAS, non-productive cough, and symmetrical LE swelling over the past 1-1.5 weeks, this is likely due to his RVR, which could be contributing to some acute CHF -Consulting [facility], spoke with Nevaeh Wright, appreciate her help. She saw him this am prior to sending him to the ED. She states that him weaning his drinking over the past 3 weeks could possibly be causing withdrawal and exacerbation of his afib. They will follow, recommended to continue on dilt drip for now and hold additional interventions -Will obtain STAT TTE, BL LE dopplers, and BNP for further assessment -Continue on dilt drip, will given another 1 gm IV mag sulfate STAT, continue to monitor on tele -Will start with SQ lovenox for DVT PPX -AM CBC, CMP, Mag, PT/INR (2) Chronic alcohol abuse: Plan: -Patient drinks approximately 3 shots of whiskey nightly, he denies a previous hx of serious withdrawal symptoms but [facility] notes hx of DT's -Patient does not want to go through detox during this admission, will order HS beer with a max of of 3 for now -Will also start him on a Librium taper to help prevent withdrawal due to decreasing alcohol consumption over the past 3 weeks -Patient is currently calm and comfortable, continue to monitor for withdrawal and monitor on tele (3) Peripheral edema: Plan: -Noted to have BL pitting edema today on exam -BNP on admission elevated at 480, no previous hx of CHF -Likely due to acute CHF, possible etiology of afib RVR -Will start 20 mg IV lasix BID today, continue to monitor daily renal function, electrolytes, and weight (4) Hypomagnesemia: Plan: -Noted to be 1.6 today -Likely due to his drinking -S/P 1gm IV mag-sulfate in the ED, will give another 1 gm IV on admission -Monitor am Mag level and monitor on tele (5) Gout: Plan: -Continue allopurinol (6) Hypertension: Plan: -Stable, continue am metoprolol -Continue to monitor BP with IV diuresis and diltiazem drip Plan The patient was discussed with Dr. Mahan at the time of the admission History of Present Illness Chief Complaint: sent from PCP's office due to afib RVR Primary Care Provider: Jimmy Santana MD Huan is a 71 year old male with a PMH significant for current alcohol abuse, afib (not on anticoagulation due to previous GI bleeds), PUD with previous duodenal ulcer hemorrhage, HTN, CAD, gout who was sent to the [facility] ED today from his PCP's office when found to be in afib RVR with HR in the 160's. In the ED the patient was found to be stable but with an initial HR in the 160's. Labs were significant for a mag of 1.6, alk phos of 121, medical alcohol level < 10, and covid 19 negative. Chest xray shows stable cardiomegaly without other acute findings. The patient was initially given 1500 mL NSS, 1gm IV mag, and 20 mg IV mag but eventually required a Cardizem drip. He was given 200 mg IV thiamine prior to admission. At the time of the exam the patient was sitting in bed in no acute distress. He states that for the past 1-1.5 weeks he has been having a non-productive cough, significantly increased CASILLAS with even walking 10-15 feet, and BL LE swelling. He denies recent fevers, chills, chest pain/pleuritic chest pain, abd pain, nausea, vomiting, diarrhea, dysuria, hematuria, melena, and recent trauma. He confirms that he is still off anticoagulation for previous GI bleeds. He started doing research over the past few days for his symptoms and was seen in the [facility] Office today due to his concerns of coronary artery disease. He states in the office they found his HR to be in the 160's and sent him to the ED for further evaluation. He states that he is currently asymptomatic while at rest, despite his HR going into the 160's-170's during my exam. He denies unilateral leg swelling/pain and has been taking his medications as prescribed. He has been working to wean himself off of alcohol, he is currently drinking about 3 shots of whiskey nightly. At this time he would not want alcohol held during his admission as he wants to continue to wean himself down after discharge. He does not believe that he has gone into alcohol withdrawal in the past but has not tried to stop completely either. He is a full code and would want his to make medical decisions for him if he could not make them himself. Please refer to Dr. Mahan's attestation for any changes to the treatment plan Allergies Allergy/AdvReac Type Severity Reaction Status Date / Time No Known Allergies Allergy Unknown Verified 09/05/21 06:52 Home Medications Medication Instructions Recorded Confirmed Type allopurinol 300 mg tablet 300 mg PO QAM 01/14/21 09/16/22 History atorvastatin 80 mg tablet 40 mg PO QPM 01/14/21 09/16/22 History olmesartan 40 mg tablet 20 mg PO BID 01/14/21 09/16/22 History amlodipine 10 mg tablet 10 mg PO QAM 08/23/21 09/16/22 History metoprolol succinate 25 mg 12.5 mg PO QAM 08/23/21 09/16/22 History tablet,extended release 24 hr [id number] 5 mg-zeaxanth 2 cap PO BID 08/23/21 09/16/22 History 1 mg-bilberry 7.5 mg-herbal capsule (Macular Health Formula) multivitamin 1 tab PO QAM 08/23/21 09/16/22 History pantoprazole 40 mg tablet,delayed 40 mg PO BID 08/23/21 09/16/22 History release Past Med/Surg History Medical History Adrenal nodule Arthritis Atrial fibrillation fall 2020 Atrial fibrillation with RVR Bradycardia Chronic, baseline HR 45-50s per cardiology records CAD (coronary artery disease) Stent x1 (2011) Follows with Dr. Antonio Duodenal ulcer GI bleed History of GI bleed x2 (most recent episode 2020) > reason for PPI R/t Ava-Reece tear and duodenal ulcers Hx of gout Hyperlipidemia Hypertension Myocardial Infarction 2012 Surgical History H/O inguinal hernia repair History of arthroscopy LEFT KNEE History of colonoscopy History of esophagogastroduodenoscopy (EGD) History of heart artery stent Stent x1 (2011) History of tonsillectomy Willard teeth removed Family History Grandmother (Paternal) Family history of diabetes mellitus Other COPD (chronic obstructive pulmonary disease) Cancer No family history of adverse response to anesthesia Social History Smoking Status: Former smoker Tobacco Type: Cigarettes Second Hand Exposure: Yes (IN THE PAST); Do You Dip or Chew Tobacco: No; Hx Alcohol Use: Yes Alcohol type: other Hx Substance Use: No Preferred Language: Mohawk Communication Ability: Effective [employer]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 Dispatcher Required: No Beliefs That Will Affect Care: None marital status: Current Living Situation: Spouse How many Children do You have: 0 Feels Safe at Home: Yes Assistive Devices: Glasses Physical Exam Physical Exam: Physical Exam: General: In no acute distress, stated age, well-nourished, good hygiene HEENT: Normocephalic, atraumatic, no scleral icterus, pupils around round, symmetrical, and reactive to light, moist mucus membranes, trachea midline, no thyromegaly Chest/Pulm: No respiratory distress, symmetrical chest expansion, clear breath sounds throughout Cardiac: irregular rate and rhythm, no murmurs noted Abdomen: Negative for ascites and bruising, normoactive bowel sounds, soft, non-tender to palpation throughout Musculoskeletal: Symmetrical and without signs of acute trauma, upper and lower extremities with full ROM, no atrophy, spasticity, or flaccidity Extremities: Radial, dorsalis pedis, and posterior tibial pulses are intact and symmetrical, 1-2+ pitting edema noted in the BL LE's Skin: Warm, dry, no rashes , lesions, or scars noted Neuro: Alert and oriented to person, place, month, year, and president, no focal defects, CN II-XII tested and intact, no tremors noted Psych: No acute distress, calm and cooperative during the exam Results & Data Results & Data Vital Signs (Past 12 Hours) Vital Signs Temp Pulse Pulse Resp BP BP Pulse Ox 09/16/22 13:31 162 H 18 110/84 98 09/16/22 12:30 169 H 16 96 09/16/22 12:30 116/90 09/16/22 12:00 164 H 18 96 09/16/22 12:00 105/80 09/16/22 11:40 109/86 09/16/22 11:40 145 H 19 96 09/16/22 11:30 172 H 19 98 09/16/22 11:03 178 H 19 96 09/16/22 11:37 97 09/16/22 11:37 170 H 18 130/101 H 97 09/16/22 11:29 168 H 09/16/22 10:49 36.5 C 161 H 20 132/99 O2 Del Method 09/16/22 13:31 Room Air 09/16/22 12:30 Room Air 09/16/22 12:30 09/16/22 12:00 Room Air 09/16/22 12:00 09/16/22 11:40 09/16/22 11:40 Room Air 09/16/22 11:30 Room Air 09/16/22 11:03 Room Air 09/16/22 11:37 Room Air 09/16/22 11:37 Room Air 09/16/22 11:29 09/16/22 10:49 Room Air Laboratory Results Abnormal lab results 09/16/22 09/16/22 09/16/22 Range/Units 11:10 11:10 11:10 RBC 4.24 L (4.70-6.10) M/uL Hgb 13.5 L (14.0-18.0) g/dl Hct 40.2 L (42.0-52.0) % RDW Std Deviation 48.6 H (36.4-46.3) fL Lymph # (Auto) 1.08 L (1.2-3.4) K/uL Nicholas # (Auto) 0.86 H (0.11-0.59) K/uL PT 12.2 H (9.0-12.0) Seconds Glucose 112 H (70-99(Fasting)) mg/dl Magnesium 1.6 L (1.7-2.4) mg/dl Alkaline Phosphatase 121 H (34-104) U/L TSH (0.300-4.500) uIu/ml 05/15/23 Range/Units 11:10 RBC (4.70-6.10) M/uL Hgb (14.0-18.0) g/dl Hct (42.0-52.0) % RDW Std Deviation (36.4-46.3) fL Lymph # (Auto) (1.2-3.4) K/uL Nicholas # (Auto) (0.11-0.59) K/uL PT (9.0-12.0) Seconds Glucose (70-99(Fasting)) mg/dl Magnesium (1.7-2.4) mg/dl Alkaline Phosphatase (34-104) U/L TSH 7.492 H (0.300-4.500) uIu/ml Diagnostic Findings Chest X-Ray 09/16/22 11:03 XR chest 1V portable CLINICAL HISTORY: weakness TECHNIQUE: Single frontal radiograph of the chest was obtained. Comparison: Comparison is made to chest radiograph 08/27/2021 FINDINGS: No lines and tubes are seen. Cardiomegaly is noted. The aortic arch is calcified. The lungs are clear. No evidence of pleural effusion or pneumothorax. Degenerative changes are seen in the shoulder joints. IMPRESSION: No acute chest disease. Cardiomegaly is noted. ACT 112: Negative or not required by law. Electronically signed by: Kiran Macias M.D. 09/16/2022 11:37 AM ECG Additional Comments: Atrial fibrillation with rapid ventricular response Low voltage QRS Abnormal QRS-T angle, consider primary T wave abnormality Abnormal ECG When compared with ECG of 17-JAN-2021 07:58, Atrial fibrillation has replaced Sinus rhythm Vent. rate has increased BY [address] no longer elevated in Lateral leads Code Status & VTE Plan Code Status Full code VTE Prophylaxis Plan VTE Prophylaxis will be ordered: Yes PG Care Time/CCT Total # of Minutes Spent Total Time Spent with Patient: Total time spent is greater than 50% in coordination of care (as documented) at patient's floor/unit and/or counseling patient: Coding [place] [address] INT INP/OBS CARE 3/75MIN Patient Type Established History Comprehensive Exam Comprehensive Medical Decision Making High Complexity Diagnoses Atrial fibrillation with rapid ventricular response I48.91 Chronic alcohol abuse F10.10 Peripheral edema R60.9 Hypomagnesemia E83.42 Gout M10.9 Hypertension I10
[2022-09-16] MEDS ORDERED: MAGNESIUM SULFATE / D5W 1 GM/100 ML BAG IV ONE (14:48)
[2022-09-16] MEDS ORDERED: Ativan IV Alcohol Withdrawal--Active Protocol IV PRN (15:32)
[2022-09-16] MEDS ORDERED: LORazepam 2 MG/1 ML VIAL IV PRN ×3 (15:32)
--- NOTE | 2022-09-16 16:01 | Ultrasound Report ---
US venous doppler LE BI CLINICAL HISTORY: LE swelling, monitor for DVT TECHNIQUE: Bilateral lower extremity real-time compression venous ultrasound with Color Doppler imagi ng. Utilizing real-time ultrasonic imaging multiple real time high-resolution ultrasonic images with compression and noncompression maneuvers of the deep venous system in addition to color doppler imagi ng were performed from the common femoral vein through the proximal calf veins. COMPARISON: None available at the time of this dictation. FINDINGS/IMPRESSION: Currently there is normal compressibility of the deep venous system from the common femoral vein thro ugh the proximal calf veins. No superficial venous thrombosis is identified. ACT 112: Negative or not required by law. Electronically signed by: Kiran Macias M.D. 09/16/2022 3:59 PM
[2022-09-16] MEDS ORDERED: LORazepam 2 MG/1 ML VIAL IV STA (16:10)
[2022-09-16] MEDS ORDERED: chlordiazePOXIDE ALCOHOL WITHDRAWL 25MG PO STA (16:21)
[2022-09-16] MEDS ORDERED: METOPROLOL TARTRATE 25 MG TAB PO ONE (16:30)
[2022-09-16] MEDS: LOSARTAN POTASSIUM 50 MG TAB PO SCH (16:48)
[2022-09-16] MEDS: ENOXAPARIN INJ 40 MG/0.4 ML SYR SQ SCH (16:48)
[2022-09-16] MEDS: chlordiazePOXIDE HCl 25 MG CAP PO SCH ×2 (17:02→22:32)
--- NOTE | 2022-09-16 17:03 | XCELERA ---
[id number]
--- NOTE | 2022-09-16 17:10 | Electrocardiogram Report ---
Test Reason : Blood Pressure : / mmHG Vent. Rate : 174 BPM Atrial Rate : 000 BPM P-R Int : 000 ms QRS Dur : 074 ms QT Int : 264 ms P-R-T Axes : 000 045 -19 degrees QTc Int : 449 ms Atrial fibrillation with rapid ventricular response Low voltage QRS Abnormal QRS-T angle, consider primary T wave abnormality Abnormal ECG When compared with ECG of 17-JAN-2021 07:58, Atrial fibrillation has replaced Sinus rhythm Vent. rate has increased BY [address] no longer elevated in Lateral leads Confirmed by Alvarado Vargas ([id number]) on 09/16/2022 5:10:03 PM Referred By: REFERRED SELF Confirmed By:Gabriel Vargas
[2022-09-16] MEDS ORDERED: BEER 1 CAN PO PRN (20:00)
[2022-09-16] MEDS: PANTOprazole 40 MG TAB PO SCH (20:01)
[2022-09-16] MEDS: ATORVASTATIN 40 MG TAB PO SCH (20:56)
[2022-09-16] MEDS ORDERED: FUROSEMIDE INJ 20 MG/2 ML VIAL IV SCH (21:00)
[2022-09-16] MEDS ORDERED: METOPROLOL TARTRATE 25 MG TAB PO SCH (21:00)
[2022-09-16 21:12] LABS: Appearance Urine Clear (Clear); Bilirubin Urine Negative (Negative); Blood Urine Negative (Negative); Color Urine Yellow; Glucose Urine UA Negative (Negative); Ketones Urine Trace (Negative); Leukocyte Esterase Urine Negative (Negative); Nitrite Urine Negative (Negative); Protein Urine Negative (Negative); Specific Gravity Urine 1.008 (1.000-1.030); Urobilinogen Urine Negative (Negative); pH Urine 5.5 (4.5-7.5)
[2022-09-17] MEDS: chlordiazePOXIDE HCl 25 MG CAP PO SCH (04:23)
[2022-09-17] MEDS: dilTIAZem HCL 125 MG in DEXTROSE 5% 100 ML IV SCH ×2 (04:48→19:20)
[2022-09-17 06:29] LABS: Basophils # (auto) 0.03 K/uL (0-0.2); Basophils % (auto) 0.4 %; Eosinophils # (auto) 0.18 K/uL (0-0.50); Eosinophils % (auto) 2.6 %; Hematocrit (blood only) 36.6 % (42.0-52.0); Hemoglobin 12.4 g/dl (14.0-18.0); Immature Granulocytes # (auto) 0.02 K/uL (0.01-0.20); Immature Granulocytes % (auto) 0.3 %; Lymphocytes # (auto) 0.97 K/uL (1.2-3.4); Lymphocytes % (auto) 14.2 %; Mean Corpuscular Hemoglobin 32.3 pg (25.0-34.0); Mean Corpuscular Hgb Conc 33.9 g/dL (32.0-36.0); Mean Corpuscular Volume 95.3 fL (80.0-100.0); Mean Platelet Volume 11.4 fL (9.4-12.4); Monocytes # (auto) 0.71 K/uL (0.11-0.59); Monocytes % (auto) 10.4 %; Neutrophils # (auto) 4.94 K/uL (1.40-6.50); Neutrophils % (auto) 72.1 %; Platelet Count 176 K/uL (130-400); RDW Coefficient of Variation 13.7 % (11.5-14.5); RDW Standard Deviation 47.8 fL (36.4-46.3); Red Blood Count 3.84 M/uL (4.70-6.10); White Blood Count 6.85 K/ul (4.8-10.8)
[2022-09-17 06:45] LABS: Albumin Globulin Ratio 1.5 (0.9-2); Albumin Level 3.7 gm/dl (3.4-5.0); BUN Creatinine Ratio 14.6 (10-20); Calcium 8.8 mg/dl (8.6-10.3); Creatinine Clr Calc Pharmacy 83.7 ml/min; Est GFR (African American) 101.7 ml/min; Est GFR (Non-African American) 87.7 ml/min; Globulin 2.4 gm/dl (2.5-4.0); Magnesium 1.8 mg/dl (1.7-2.4); Potassium 3.4 mmol/L (3.5-5.1); Total Protein 6.1 gm/dl (6.0-8.3)
[2022-09-17 06:52] LABS: INR 1.2 (0.9-1.1); Prothrombin Time 12.7 Seconds (9.0-12.0)
[2022-09-17] MEDS: PANTOprazole 40 MG TAB PO SCH ×2 (08:07→20:11)
[2022-09-17] MEDS: FOLIC ACID 1 MG TAB PO SCH (08:07)
[2022-09-17] MEDS: allopurinoL 300 MG TAB PO SCH (08:07)
[2022-09-17] MEDS: LOSARTAN POTASSIUM 50 MG TAB PO SCH (08:07)
--- NOTE | 2022-09-17 08:12 | Hospitalist Progress Note ---
Date of Service September 17, 2022 Assessment & Plan (1) Atrial fibrillation with rapid ventricular response: Plan: 71 M with PMH of GA in 2012, hypertension, alcohol use disorder, gout, peripheral edema, who presented from dietitian chief office with AF with RVR (160s). Now admitted for further management of atrial fibrillation. AF with RVR -Appears to be new onset. Does not appear to be related to alcohol consumption, as too early for withdrawal at this time. -Takes metoprolol 12.5 mg twice daily at home for systolic heart failure (s/p GA, JENNI to LCx in 2011). * Cardiology consulted: Metoprolol dose increased to 50 mg twice daily. * Per cardiology, not a candidate for outpatient anticoagulation at this time (history of severe GI bleed, secondary to Ava-Reece tear requiring 10 units of blood, and on another occasion, duodenal ulcer requiring 2 units). * Possible candidate for Watchman procedure, pending successful discontinuation of drinking, which would allow for temporary anticoagulation prior. Alcohol use disorder -Currently on restricted whiskey nightly. Interested in quitting. -Received Librium p.o. 25 mg x 3 doses overnight. Stopped in the a.m. -Currently on FRITZ protocol with symptomatic management as needed with IV Ativan. Has not required since admission. * Continue AWSS protocol * Recommend initiation of naltrexone at PCP follow-up. Patient may also benefit from initiation of SSRI due to anxiety, which he reports is driving his drinking currently. Systolic heart failure -EF of 40 to 45% newly reduced at this admission. BNP elevated (480). -Already on metoprolol 12.5 mg twice daily. Increased to 50 mg twice daily. -Started IV Lasix 40 mg daily on 09/17. * Continue IV Lasix. Trend I's and O's with goal of diuresis until soft GADIEL. * Consider initiation of Entresto if EF remains unimproved. Gout -Chronic; managed on allopurinol * Continue home regimen Hypertension -Chronic; managed on losartan 50 mg daily, metoprolol 12.5 mg twice daily * Continue home losartan. Adjusted metoprolol as above. Code: Full code Dispo: Med-Surg telemetry FEN/GI: Heart healthy DVT Prophylaxis: No anticoagulation. (High bleeding risk as above) PT/OT: No Consults: Cardiology Case Management: No (2) Systolic heart failure: (3) Chronic alcohol abuse: (4) Left knee DJD: (5) Alcohol dependence, daily use: (6) Hypertension: Admission and Anticipated Discharge Date Admission Date: September 16, 2022 Supervising Physician Co-Signing Physician Notes Attending attestation Pt seen and examined in concert with Dr. Cooley. In agreement with the documented findings as noted in the resident documentation with any exceptions or additions as noted here. Resting comfortably in bed with c/o ongoing swelling and mild nonproductive cough improved from previous. On examination, S1/S2 nl, regular rate, no MCG. CTAB. Abd NT/ND BS+ve Atrial fibrillation with RVR - cardiology consult - s/p diltiazem trip. metoprolol 50mg with lopressor PRN rate control as noted Alcohol abuse - reviewed the impact of his use on his overall health and options for treatment and patient endorses the desire to quit completely. I reviewed the options for doing so and we will likely have him do a librium taper at time of discharge. AWSS and monitor. He has asked to follow up with the residency clinic on his discharge, so we will have to coordinate that as well. Else see resident documentation as noted. Subjective Patient resting comfortably in bed this morning. He has no acute concerns or complaints at this time. He reports he recently cut down to 3 shots of whiskey nightly approximately 3 weeks ago. He is interested in quitting drinking and would like to know management options. Review of Systems Review of Systems: All systems reviewed & are unremarkable except as noted in HPI & below Physical Exam Physical Exam: General: No acute distress HEENT: PERRLA. Normal conjunctiva, anicteric sclera. Oropharynx normal. Respiratory: Normal respiratory effort, CTABL. Cardiovascular: RRR without murmurs, gallops, or rubs. No pedal edema. GI: Soft abdomen with normal bowel sounds heard on auscultation. Nontender x4 quadrants Neuro: Alert and oriented x3. Results & Data Results & Data Vital Signs (Past 12 Hours) Vital Signs Temp Pulse Pulse Resp BP Pulse Ox O2 Del Method 09/17/22 03:39 36.4 C L 100 H 16 114/78 96 Room Air 09/17/22 00:00 121 H 09/16/22 23:17 36.9 C 116 H 18 119/83 95 Room Air Resident Activity Tracking Resident Involvement: Resident Care Provided Care Provided: Adult Hospital Medicine
[2022-09-17] MEDS: POTASSIUM CHLORIDE / WTR 10 MEQ/100 ML PLCT IV SCH ×4 (08:58→13:04)
[2022-09-17] MEDS: FUROSEMIDE 40 MG/4 ML VIAL IV SCH (08:58)
[2022-09-17] MEDS: THIAMINE HCL 100 MG TAB PO SCH (08:59)
[2022-09-17] MEDS ORDERED: METOPROLOL TARTRATE 25 MG TAB PO SCH (09:00)
[2022-09-17] MEDS: METOPROLOL TARTRATE 50 MG TAB PO SCH ×2 (09:31→20:10)
--- NOTE | 2022-09-17 10:31 | Cardiology Consultation ---
Date of Consultation September 17, 2022 Assessment & Plan (1) Atrial fibrillation with rapid ventricular response: (2) Systolic heart failure: (3) Tachycardia induced cardiomyopathy: (4) Chronic alcohol abuse: Plan History: 1. 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 2. Residual mild 3-vessel coronary artery disease. 3. Hyperlipidemia. 4. Hypertension. 5. History of severe GI bleeding, one secondary a Ava-Reece tear requiring 10 units of blood in 2011 and then a duodenal ulcer fall 2020 requiring two units of blood. 6. Asymptomatic paroxysmal atrial fibrillation during his fall 2020 GI bleeding. 7. History of DTs during his fall 2020 hospitalization. 8. Preserved left ventricular systolic function with mild atrial left enlargement by echo 02/21/21. Mr. Domingo continues to be in a rapid atrial fibrillation of which he is not aware. He has likely been in a fast rate for 3 weeks given the timing of his sob and cough. His cardizem drip was discontinued this morning and he has been started on 50 mg bid of metoprolol tartrate. His heart rate should be maintained below 100 bpm given his tachycardia induced cardiomyopathy. His ejection fraction on echo is newly reduced to 45%. He has a mildly in increased BNP. He has been diuresing with IV furosemide and his cough has improved. If his EF doesn't improve with rate control we could start him on Entresto. He is not anticoagulated given that he has had significant GI bleeds. His CHADS-VASc is 4 so he is at significantly elevated risk for stroke in the setting of afib. He might be a candidate for Watchman procedure but will need to be on anticoagulation for a period before and after. As I discussed with Mr. Domingo, his afib treatment is being affected by his alcohol abuse. As long as he is drinking he is too high risk for GI bleed to be anticoagulated leaving him vulnerable to stroke. If he were not drinking we could consider at least anticoagulating periprocedurally for a Watchman. His afib is going to be harder to control in the setting of alcohol use. His reduced EF is likely mostly due to tachycardia but there may be an element of alcohol induced cardiomyopathy too. Further, if we did want to control his afib with an antiarrhythmic following either MARLON or anticoagulation for 3 weeks our choices would be limited. He cannot use flecainide due to history of CAD and Multaq or amiodarone would be bad choices for him given his alcohol use. That would leave sotalol or Tikosyn which have to be loaded in the hospital for 3 days. For now we will continue with a rate control strategy. He was understanding of this and expressed that he would be willing to quit drinking. Given his need for ICU care briefly during his last detox in 2020, he will need to have some kind of taper with either Librium or gabapentin on discharge. History of Present Illness Attending Physician: Duran Boles MD History of Present Illness Mr. Domingo was seen in the cardiology clinic yesterday with complaints of cough, sob, and weight gain of 8 lbs all starting 3 weeks ago. An EKG was performed in the office which showed atrial fibrillation with a rate of 168 bpm. Mr. Domingo was not able to feel any irregular or racing heart rate. The only preceding change he had was a decrease in the amount of whiskey he was drinking from 5 drinks a day to 3 three weeks ago. No recent illnesses. He was referred to the ED. Since being in the hospital he has been on a di ltiazem drip which has brought his heart rate down but he is still tachycardic around 120 bpm on telemetry. He has also been diuresing. He does feel that his cough and sob have improved. Allergies Allergy/AdvReac Type Severity Reaction Status Date / Time No Known Allergies Allergy Unknown Verified 09/05/21 06:52 Home Medications Medication Instructions Recorded Confirmed Type allopurinol 300 mg tablet 300 mg PO QAM 01/14/21 09/16/22 History atorvastatin 80 mg tablet 40 mg PO QPM 01/14/21 09/16/22 History olmesartan 40 mg tablet 20 mg PO BID 01/14/21 09/16/22 History amlodipine 10 mg tablet 10 mg PO QAM 08/23/21 09/16/22 History metoprolol succinate 25 mg 12.5 mg PO QAM 08/23/21 09/16/22 History tablet,extended release 24 hr uvujoekc-cqo-zkjrsb 5 mg-zeaxanth 2 cap PO BID 08/23/21 09/16/22 History 1 mg-bilberry 7.5 mg-herbal capsule ([employer] Health Formula) multivitamin 1 tab PO QAM 08/23/21 09/16/22 History pantoprazole 40 mg tablet,delayed 40 mg PO BID 08/23/21 09/16/22 History release Patient History Medical History Adrenal nodule Arthritis Atrial fibrillation fall 2020 Atrial fibrillation with RVR Bradycardia Chronic, baseline HR 45-50s per cardiology records CAD (coronary artery disease) Stent x1 (2011) Follows with Dr. Antonio Duodenal ulcer GI bleed History of GI bleed x2 (most recent episode 2020) > reason for PPI R/t Ava-Reece tear and duodenal ulcers Hx of gout Hyperlipidemia Hypertension Myocardial Infarction 2011 Surgical History H/O inguinal hernia repair History of arthroscopy LEFT KNEE History of colonoscopy History of esophagogastroduodenoscopy (EGD) History of heart artery stent Stent x1 (2011) History of tonsillectomy [place] teeth removed Family History Grandmother (Paternal) Family history of diabetes mellitus Other COPD (chronic obstructive pulmonary disease) Cancer No family history of adverse response to anesthesia Social History Smoking Status: Former smoker Tobacco Type: Cigarettes Second Hand Exposure: Yes (IN THE PAST); Do You Dip or Chew Tobacco: No; Hx Alcohol Use: Yes Alcohol type: other Hx Substance Use: No Preferred Language: Bengali Communication Ability: Effective Photo Mask Processor Required: No Beliefs That Will Affect Care: None marital status: Current Living Situation: Spouse How many Children do You have: 0 Feels Safe at Home: Yes Safety Concerns: Feels Safe At This Time Assistive Devices: None Review of Systems Review of Systems: All systems reviewed & are unremarkable except as noted in HPI & below Physical Exam Constitutional: WD/WN, vitals as above Respiratory: normal respiratory effort, lungs clear to auscultation Cardiovascular: Rate/Rhythm: + abnormal rate and + abnormal rhythm Heart Sounds: no murmur Extremities: + edema (trace lower extremity edema ) Neurologic: moves all extremities and awake Psychiatric: A+Ox3, euthymic affect Results & Data Vital Signs (Past 12 Hours) Vital Signs Temp Pulse Pulse Resp BP Pulse Ox O2 Del Method 09/17/22 08:10 36.5 C 88 18 128/77 97 Room Air 09/17/22 08:00 Room Air 09/17/22 03:39 36.4 C L 100 H 16 114/78 96 Room Air 09/17/22 00:00 121 H 09/16/22 23:17 36.9 C 116 H 18 119/83 95 Room Air
[2022-09-17] MEDS: ENOXAPARIN INJ 40 MG/0.4 ML SYR SQ SCH (17:26)
[2022-09-17] MEDS ORDERED: chlordiazePOXIDE HCl 25 MG CAP PO SCH (18:30)
[2022-09-17] MEDS: ATORVASTATIN 40 MG TAB PO SCH (20:11)
[2022-09-17] MEDS ORDERED: METOPROLOL TARTRATE 25 MG TAB PO ONE (21:30)
[2022-09-17] MEDS: MAGNESIUM SULFATE / D5W 1 GM/100 ML BAG IV SCH ×2 (21:33→23:02)
[2022-09-18] MEDS: ACETAMINOPHEN 325 MG TAB PO PRN ×3 (01:43→14:21)
[2022-09-18] MEDS ORDERED: METOPROLOL TARTRATE 25 MG TAB PO ONE (03:41)
[2022-09-18 06:25] LABS: Basophils # (auto) 0.04 K/uL (0-0.2); Basophils % (auto) 0.5 %; Eosinophils # (auto) 0.15 K/uL (0-0.50); Eosinophils % (auto) 1.7 %; Hematocrit (blood only) 37.6 % (42.0-52.0); Hemoglobin 12.7 g/dl (14.0-18.0); Immature Granulocytes # (auto) 0.02 K/uL (0.01-0.20); Immature Granulocytes % (auto) 0.2 %; Lymphocytes # (auto) 1.34 K/uL (1.2-3.4); Lymphocytes % (auto) 15.6 %; Mean Corpuscular Hemoglobin 31.8 pg (25.0-34.0); Mean Corpuscular Hgb Conc 33.8 g/dL (32.0-36.0); Mean Corpuscular Volume 94.2 fL (80.0-100.0); Mean Platelet Volume 11.2 fL (9.4-12.4); Monocytes # (auto) 0.97 K/uL (0.11-0.59); Monocytes % (auto) 11.3 %; Neutrophils # (auto) 6.09 K/uL (1.40-6.50); Neutrophils % (auto) 70.7 %; Platelet Count 193 K/uL (130-400); RDW Coefficient of Variation 13.6 % (11.5-14.5); RDW Standard Deviation 46.6 fL (36.4-46.3); Red Blood Count 3.99 M/uL (4.70-6.10); White Blood Count 8.61 K/ul (4.8-10.8)
[2022-09-18 06:43] LABS: Albumin Globulin Ratio 1.5 (0.9-2); Albumin Level 3.8 gm/dl (3.4-5.0); BUN Creatinine Ratio 14.3 (10-20); Bilirubin,Total 0.9 mg/dl (0.2-1.0); Creatinine Clr Calc Pharmacy 80.2 ml/min; Est GFR (African American) 100.7 ml/min; Est GFR (Non-African American) 86.9 ml/min; Globulin 2.5 gm/dl (2.5-4.0); Potassium 3.9 mmol/L (3.5-5.1); Total Protein 6.3 gm/dl (6.0-8.3)
[2022-09-18 06:46] LABS: INR 1.1 (0.9-1.1); Prothrombin Time 12.4 Seconds (9.0-12.0)
[2022-09-18] MEDS: FOLIC ACID 1 MG TAB PO SCH (07:52)
[2022-09-18] MEDS: LOSARTAN POTASSIUM 50 MG TAB PO SCH (07:52)
[2022-09-18] MEDS: allopurinoL 300 MG TAB PO SCH (07:52)
[2022-09-18] MEDS: METOPROLOL TARTRATE 50 MG TAB PO SCH ×2 (07:53→19:55)
[2022-09-18] MEDS: PANTOprazole 40 MG TAB PO SCH ×2 (07:54→19:55)
[2022-09-18] MEDS: FUROSEMIDE 40 MG/4 ML VIAL IV SCH (07:54)
[2022-09-18] MEDS: THIAMINE HCL 100 MG TAB PO SCH (07:54)
[2022-09-18] MEDS ORDERED: STAT IV Infusion **Titration per Protocol STA (08:07)
[2022-09-18] MEDS: dilTIAZem HCL 125 MG in DEXTROSE 5% 100 ML IV SCH ×2 (08:20→22:53)
--- NOTE | 2022-09-18 08:34 | Cardiology Progress Note ---
Date of Service September 18, 2022 Assessment & Plan Admission and Anticipated Discharge Date Admission Date: September 16, 2022 Subjective He feels better. The cough is gone. He is not short of breath talking in sent ences. He denies any lightheadedness or dizziness currently. He is unaware of his palpitations. He has no chest pain or chest pressure. He is anxious and concerned about his atrial fibrillation. Results & Data Vital Signs (Past 12 Hours) Vital Signs Temp Pulse Pulse Resp BP BP Pulse Ox 09/18/22 08:10 36.5 C 117 H 20 134/76 97 09/18/22 03:52 123 H 120/56 L 09/18/22 02:55 36.4 C L 124 H 18 115/77 97 09/17/22 23:32 132 H 09/17/22 22:54 36.8 C 132 H 19 116/88 94 09/17/22 22:19 09/17/22 21:47 118/90 O2 Del Method O2 Del Method 09/18/22 08:10 Room Air 09/18/22 03:52 09/18/22 02:55 Room Air 09/17/22 23:32 09/17/22 22:54 Room Air 09/17/22 22:19 Room Air 09/17/22 21:47 He is awake alert and oriented x3. He did not appear short of breath talking in sentences. HEENT: Mildly reduced carotid upstrokes Lungs: Clear to auscultation bilaterally no rales rhonchi or wheezing Heart: Irregular rate and rhythm (tachycardic) no appreciable murmurs Abdomen: Soft nontender nontender positive bowel sounds Extremities: No clubbing cyanosis or edema Psychiatric his affect appeared appropriate Assessment & Plan (1) Atrial fibrillation with rapid ventricular response: (2) Systolic heart failure: (3) Tachycardia induced cardiomyopathy: (4) Chronic alcohol abuse: Plan History: 1. 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 2. Residual mild 3-vessel coronary artery disease. 3. Hyperlipidemia. 4. Hypertension. 5. History of severe GI bleeding, one secondary a Ava-Reece tear requiring 10 units of blood in 2011 and then a duodenal ulcer fall of 2020 requiring two units of blood. 6. Asymptomatic paroxysmal atrial fibrillation during his fall 2020 GI ble eding. 7. History of DTs during his fall 2020 hospitalization. 8. Preserved left ventricular systolic function with mild atrial left enlargement by echo 02/21/21 now with mild LV dysfunction this admission As I discussed with Huan the challenge is controlling his heart rate. With discontinuation of his diltiazem drip his heart rates are back in the 140s. He does not have a ton of blood pressure room to increase his AV sadie blockers. As I discussed, there is a;so the challenge clinically of AC given his history of alcohol abuse and a history of GI bleed, once with a Ava-Reece tear from vomiting and the other from a duodenal ulcer likely exacerbated by his alcohol use. I discussed with him that if we consider MARLON with cardioversion he needs to be on anticoagulation for at least a month afterwards in order to reduce the risk of a cardioembolic event. If he were to have bleeding and we have to stop his anticoagulation the risk of stroke in the first 30 days is approximately 10% off anticoagulation. After understanding the risk of ongoing alcohol and concurrent anticoagulation and the fact he has not any alcohol since Friday. he is accepting of the fact that he needs to stop drinking completely. And he seems committed to that. He would like to meet with psychiatry while here in the hospital to help with the plan to get him through his alcohol withdrawal. In the past he did have an episode of withdrawal in 2020 during a hospitalization. Additionally he would like long-term help in the community to remain alcohol free. In light of this I think the risk of anticoagulation although high is acceptable enough given his understanding the risk of bleeding and alcohol consumption. Therefore we will arrange for MARLON and cardioversion tomorrow with the [facility] cardiology group. This was discussed with him in detail. We discussed the risk and benefits of MARLON and cardioversion. He has no swallowing difficulties nor has had any hemoptysis. He will be n.p.o. after midnight. We will restart his diltiazem drip to improve his rate control until tomorrow morning, start Eliquis 5 mg twice daily and stop his Lovenox, and hold his diltiazem drip starting about an hour prior to his cardioversion. Assuming we are able to get him back into sinus rhythm, he can go home on beta- blockers depending on his heart rate and anticoagulation with close follow-up tomorrow afternoon. All this was discussed with the nursing staff and Dr. Vargas
[2022-09-18] MEDS ORDERED: METOPROLOL TARTRATE 50 MG TAB PO STA (09:33)
--- NOTE | 2022-09-18 09:53 | Hospitalist Progress Note ---
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 Now admitted for further management of atrial fibrillation. AF with RVR -Appears to be acute though not new (history of AF after MWT requiring 10 units of blood years ago). Unclear if truly related to alcohol consumption, as too early for withdrawal tachycardia. -Takes metoprolol 12.5 mg twice daily at home for systolic heart failure (s/p NV, JENNI to LCx in 2011). -Dose increased to 50 mg twice daily on 09/17/2022. Further increased following persistent A-fib + RVR on 09/18/2022 (100 mg every morning, 50 mg p.m). * Metoprolol tartrate 100 mg in a.m., 50 mg in p.m. Plan for cardioversion tomorrow morning. Anticoagulated on Eliquis 5 mg twice daily. N.p.o. at midnight * Per cardiology, not a candidate for outpatient anticoagulation at this time (history of severe GI bleed, secondary to Ava-Reece tear requiring 10 units of blood, and on another occasion, duodenal ulcer requiring 2 units). * Possible candidate for Watchman procedure, pending successful discontinuation of drinking, which would allow for temporary anticoagulation prior. Alcohol use disorder -Currently on restricted whiskey nightly. Interested in quitting drinking. -Received Librium p.o. 25 mg x 3 doses overnight. Stopped in the a.m. -Currently on FRITZ protocol with symptomatic management as needed with IV Ativan. Has not required since admission. * Continue AWSS protocol * Recommend initiation of naltrexone at PCP follow-up. * Consider psych referral, as patient may also benefit from initiation of SSRI due to anxiety, which he reports is driving his drinking currently. Systolic heart failure -EF of 40 to 45% newly reduced at this admission. BNP elevated (480). -Already on metoprolol 12.5 mg twice daily. Increased to 50 mg twice daily. -Started IV Lasix 40 mg daily on 09/17. I's & O's: -0.962 L over 24 hours. -A.m. weight on 09/18/2022 of 92.1 kg, down from admission weight of 95.6 kg. * Continue IV Lasix with goal of diuresis until soft GADIEL. * Continue trending I's and O's. * Consider initiation of Entresto if EF remains unimproved. Gout -Chronic; managed on allopurinol * Continue home regimen Hypertension -Chronic; managed on losartan 50 mg daily, metoprolol 12.5 mg twice daily * Continue home losartan. Adjusted metoprolol as above. Code: Full code Dispo: Med-Surg telemetry FEN/GI: Heart healthy. N.p.o. at midnight DVT Prophylaxis: Eliquis 5 mg twice daily for scheduled cardioversion on 09/19/2022 PT/OT: No Consults: Cardiology Case Management: No (2) Systolic heart failure: (3) Chronic alcohol abuse: (4) Left knee DJD: (5) Alcohol dependence, daily use: (6) Hypertension: Admission and Anticipated Discharge Date Admission Date: September 16, 2022 Supervising Physician Co-Signing Physician Notes Attending attestation Pt seen and examined in concert with Dr. Cooley. In agreement with the documented findings as noted in the resident documentation with any exceptions or additions as noted here. Resting comfortably in bed with c/o ongoing swelling and mild nonproductive cough improved from previous. On examination, S1/S2 nl, regular rate, no MCG. CTAB. Abd NT/ND BS+ve Atrial fibrillation with RVR - cardiology consult - s/p diltiazem trip. metoprolol 50mg with improved but still elevated rates. For cardioversion tomorrow. Alcohol abuse - following up with [facility] residency for primary care following discharge. would be appropriate candidate for naltrexone. AWSS in place. Psychiatric recommendation for gabapentin for symptom control following discharge, though may be able to eschew taper based on duration of hospital course. Else see resident documentation as noted. Subjective Rates have been uncontrolled overnight despite 2 administrations of p.o. me toprolol 25 mg (~9 PM, ~3 AM). Patient is awake and resting comfortably in bed this morning. He has been ambulating to and from the bed without difficulty. He denies shortness of breath, headache, dizziness, chest pain, or nausea. Review of Systems Review of Systems: All systems reviewed & are unremarkable except as noted in HPI & below Physical Exam Physical Exam: General: No acute distress HEENT: PERRLA. Normal conjunctiva, anicteric sclera. Oropharynx normal. Respiratory: Normal respiratory effort, CTABL. Cardiovascular: Tachycardic rate. Irregular rhythm. No gallops, or rubs. 1+ bilateral pedal edema. GI: Soft abdomen with normal bowel sounds heard on auscultation. Nontender x4 quadrants Neuro: Alert and oriented x3. Results & Data Results & Data Vital Signs (Past 12 Hours) Vital Signs Temp Pulse Pulse Resp BP BP Pulse Ox 09/18/22 08:10 36.5 C 117 H 20 134/76 97 09/18/22 03:52 123 H 120/56 L 09/18/22 02:55 36.4 C L 124 H 18 115/77 97 09/17/22 23:32 132 H 09/17/22 22:54 36.8 C 132 H 19 116/88 94 09/17/22 22:19 O2 Del Method O2 Del Method 09/18/22 08:10 Room Air 09/18/22 03:52 09/18/22 02:55 Room Air 09/17/22 23:32 09/17/22 22:54 Room Air 09/17/22 22:19 Room Air Resident Activity Tracking Resident Involvement: Resident Care Provided Care Provided: Adult Hospital Medicine
[2022-09-18] MEDS: APIXABAN 5 MG TABLET PO SCH ×2 (10:04→19:55)
[2022-09-18 11:28] LABS: Phosphorus 3.1 mg/dl (2.5-4.9)
--- NOTE | 2022-09-18 11:37 | Psychiatric Consultation ---
Date of Consultation September 18, 2022 Impression / Recommendations Impression This is a 71 yo man with a history of alcohol use, afib, CAD admitted medically. Diagnostically consistent with alcohol use disorder and possible unspecified anxiety. Acute risk of self-harm is low given denial of SI and plans to avoid future alcohol use. Chronic risk of self-harm and harm to others is slightly increased due to substance use with substance use treatment being the most significant modifiable risk factor to reduce acute and chronic risk. Discussed options to help him be the most successful with his goal of avoiding future alcohol use. Engaged him in motivational interviewing and is in the ac tion stage of change and can identify potential barriers to avoiding future alcohol use. Reviewed options for substance use treatment including residential versus IOP versus individual dual diagnosis therapy and/or AA as well as medication assisted treatment options and option for SSRI trial in case anxiety is contributing to his evening pattern of use. He is not currently interested in outpatient therapy but would like to have the contact information should he change his mind in the future. He is very interested in starting naltrexone for alcohol use disorder and his liver enzymes were reviewed and stable for treatment with naltrexone and no concurrent opioids. He reports he does take opioids intermittently with gout flare-ups, discussed importance of talking to his provider before starting any opioid medications as they will likely advise him to discontinue his naltrexone while taking this as it can make sometimes make pain medication less effective, typically should be stopped 2 days before use of opioid pain medication. Also recommend that if medically appropriate he be given a script for gabapentin 300mg po HS prn for anxiety for off-label use of any anxiety that may emerge as he avoids his evening alcohol use. Having a back-up medication option, especially initially, tends to help motivated individuals avoid relapse. Gabapentin has good evidence for helping in early avoidance of alcohol use and can effectively treat anxiety. Discussed with Huan that gabapentin should not ever be combined with alcohol as this can lead to fatal respiratory depression. (1) Alcohol use disorder, moderate, dependence: Plan -Psychiatric liason will provide resources on local substance use therapy and will help Huan set up an appointment if he becomes interested in this -Agree with AWSS as well as thiamine and folic acid -Consider starting naltrexone 25mg daily with breakfast or daily with dinner for alcohol use disorder and increase after 3-5 days to 50mg daily with a meal if well tolerated. LFTs should be rechecked in 4-6 weeks to ensure no changes. -Encourage he be given a script for gabapentin 300mg po HS prn for anxiety at discharge to help with his planned goal of avoiding future alcohol use Psych History Identifying Data Huan is a 71 yo man with a history of alcohol use disorder, afib, history GI bleed, HTN, CAD, and gout admitted medically for afib. Psychiatry consulted for recommendations regarding his alcohol use. Chief Complaint "I want to quit drinking because after my procedure for afib drinking alcohol could cause it to come back again". History of Present Illness Huan was admitted for afib and is planning for a cardiac procedure tomorrow (cardioversion) to treat his afib. Due to his afib and potential that it could re-occur with alcohol use in the future he is motivated to stop drinking. He discusses a long history of alcohol use since age 16 with near constant use throughout his life. He recalls a period of sobreity for one month about 20 years ago after his told him she didn't think he could go that long without drinking. He was successful in his sobriety over the month but then returned to drinking. Up until about 2011 he drank beer consistently at high amounts, he recalls always haveing a "1/2 keg of beer in the house". Since 2011 he has been trying to reduce his use and about 2-3 weeks ago cut down from 5 shots of whiskey per evening to 3 shots of whiskey per evening. He doesn't drink during the day, only typically from 6pm-11pm. No history of AA attendance nor outpatient substance use treatment nor residential. Has never been on antiabuse nor naltrexone nor acamprosate. He likes that alcohol "relaxes me" and "I feel self-assured" but he doesn't like that he can't remember what he read or what movie he watched in the evenings due to his drinking. He liked that he could read more and retained the information during past periods of reduced alcohol use. He also doesn't like having afib and the health effects of this and feels that now is the time to quit drinking as "the benefits of alcohol aren't worth the risks". He feels 10/10 motivated to stop drinking and has not had any alcohol in the 3 days since admission. He denies any current cravings to drink. He can identify a possible barrier of an upcoming trip with friends on October 17 when they typically drink beer all evening and go to a baseball game together. However, he knows one of his friends never drinks so he plans to sit next to him and to bring mocktails to consume instead. We discussed other strategies to also help combat environment cues that can lead to drinking and ways to try to avoid getting back into old patterns of behavior. He plans to substitue his drinking patterns in the evenings by having a non-alcoholic drink he enjoys and spending more time reading his Judy and already has a lot of books available that he has e-borrowed through the library. He denies any history of legal/social/occupational consequences from his alcohol use. Had a past GI bleed thought to be possibly driven by his alcohol use. Denies any significant psychiatric history. Doesn't feel he is anxious or stressed. Discussed how some individuals will "self-medicate" anxiety or other worries using alcohol but he doesn't feel this is the case for him. Denies any depression symptoms. Allergies Allergy/AdvReac Type Severity Reaction Status Date / Time No Known Allergies Allergy Unknown Verified 09/05/21 06:52 Home Medications Medication Instructions Recorded Confirmed Type allopurinol 300 mg tablet 300 mg PO QAM 01/14/21 09/16/22 History atorvastatin 80 mg tablet 40 mg PO QPM 01/14/21 09/16/22 History olmesartan 40 mg tablet 20 mg PO BID 01/14/21 09/16/22 History amlodipine 10 mg tablet 10 mg PO QAM 08/23/21 09/16/22 History metoprolol succinate 25 mg 12.5 mg PO QAM 08/23/21 09/16/22 History tablet,extended release 24 hr [id number] 5 mg-zeaxanth 2 cap PO BID 08/23/21 09/16/22 History 1 mg-bilberry 7.5 mg-herbal capsule (Macular Health Formula) multivitamin 1 tab PO QAM 08/23/21 09/16/22 History pantoprazole 40 mg tablet,delayed 40 mg PO BID 08/23/21 09/16/22 History release Patient History Medical History Adrenal nodule Arthritis Atrial fibrillation fall 2020 Atrial fibrillation with RVR Bradycardia Chronic, baseline HR 45-50s per cardiology records CAD (coronary artery disease) Stent x1 (2011) Follows with Dr. Antonio Duodenal ulcer GI bleed History of GI bleed x2 (most recent episode 2020) > reason for PPI R/t Ava-Reece tear and duodenal ulcers Hx of gout Hyperlipidemia Hypertension Myocardial Infarction 2012 Surgical History H/O inguinal hernia repair History of arthroscopy LEFT KNEE History of colonoscopy History of esophagogastroduodenoscopy (EGD) History of heart artery stent Stent x1 (2011) History of tonsillectomy [place] teeth removed Family History Grandmother (Paternal) Family history of diabetes mellitus Other COPD (chronic obstructive pulmonary disease) Cancer No family history of adverse response to anesthesia Social History Smoking Status: Former smoker Tobacco Type: Cigarettes Second Hand Exposure: Yes (IN THE PAST); Do You Dip or Chew Tobacco: No; Hx Alcohol Use: Yes Alcohol type: other Hx Substance Use: No Preferred Language: Bahraini Communication Ability: Effective [employer] Required: No Beliefs That Will Affect Care: None marital status: Current Living Situation: Spouse How many Children do You have: 0 Feels Safe at Home: Yes Safety Concerns: Feels Safe At This Time Assistive Devices: None Physical Exam Psychiatric: Orientation: alert and oriented x 3 Apperance: appropriately dressed and appropriately groomed Eye Contact: good eye contact Motor Behavior: no abnormal motor movements Speech: normal rate/rhythm/volume of speech Affect: euthymic affect (with smiles and some laughs) Mood: no depressed mood and no anxious mood Thought Process: linear/logical thought process Thought Content: reality based without delusions Suicidal Thoughts: denies suicidal thoughts Homicidal Thoughts: denies homicidal thoughts Hallucinations: no auditory hallucinations and no visual hallucinations Cognition: recent memory grossly intact, remote memory grossly intact, attention grossly intact and language grossly intact Estimated Intelligence: consistent with education level Insight: + fair insight Judgment: + fair judgement Vital Signs (Past 24 Hours): Last Vital Signs Temp 36.5 C 09/18/22 08:10 Pulse 117 H 09/18/22 08:10 Resp 20 09/18/22 08:10 BP 134/76 05/17/23 08:10 Pulse Ox 97 09/18/22 08:10 O2 Del Method Room Air 09/18/22 08:10 Review of Systems All systems reviewed & are unremarkable except as noted in HPI & below Results & Data (PSY) Laboratory Results AST and ALT normal Medications Administered Acetaminophen (Acetaminophen 325 Mg Tab) 650 mg PO Q4H PRN PRN Reason: Pain Stop: 10/18/22 01:16 Last Admin: 09/18/22 07:53 Dose: 650 mg Documented By: Admin: 09/18/22 01:43 Dose: 650 mg Documented By: PAULOG Allopurinol (Allopurinol 300 Mg Tab) 300 mg PO QAM [facility] Stop: 10/17/22 08:59 Last Admin: 09/18/22 07:52 Dose: 300 mg Documented By: Admin: 09/17/22 08:07 Dose: 300 mg Documented By: GPF Apixaban (Apixaban 5 Mg Tablet) 5 mg PO BID [facility] Stop: 10/18/22 08:59 Last Admin: 09/18/22 10:04 Dose: 5 mg Documented By: DTT Atorvastatin Calcium (Atorvastatin 40 Mg Tab) 40 mg PO QPM [facility] Stop: 10/16/22 20:59 Last Admin: 09/17/22 20:11 Dose: 40 mg Documented By: Admin: 09/16/22 20:56 Dose: 40 mg Documented By: CHEVY Folic Acid (Folic Acid 1 Mg Tab) 1 mg PO QAM [facility] Stop: 10/17/22 08:59 Last Admin: 09/18/22 07:52 Dose: 1 mg Documented By: Admin: 09/17/22 08:07 Dose: 1 mg Documented By: GPF Furosemide (Furosemide 40 Mg/4 Ml Vial) 40 mg IV DAILY [facility] Stop: 10/17/22 08:59 Last Admin: 09/18/22 07:54 Dose: 40 mg Documented By: Admin: 09/17/22 08:58 Dose: 40 mg Documented By: GPF Diltiazem HCl 125 mg/ Dextrose 125 mls @ 5 mls/hr IV .Q24H NATALIE; Protocol Stop: 10/18/22 08:14 Last Admin: 09/18/22 08:20 Dose: 5 mg/hr, 5 mls/hr Documented By: MEDINA Co-signed By: CECELIA Losartan Potassium (Losartan Potassium 50 Mg Tab) 50 mg PO DAILY [facility]; Protocol Stop: 10/16/22 16:14 Last Admin: 09/18/22 07:52 Dose: 50 mg Documented By: Admin: 09/17/22 08:07 Dose: 50 mg Documented By: Admin: 09/16/22 16:48 Dose: 50 mg Documented By: BOBO Metoprolol Tartrate (Metoprolol Tartrate 50 Mg Tab) 50 mg PO BID [facility] Stop: 10/17/22 08:59 Last Admin: 09/18/22 07:53 Dose: 50 mg Documented By: Admin: 09/17/22 20:10 Dose: 50 mg Documented By: Admin: 09/17/22 09:31 Dose: 50 mg Documented By: EDWARD Pantoprazole Sodium (Pantoprazole 40 Mg Tab) 40 mg PO BID [facility] Stop: 10/16/22 20:59 Last Admin: 09/18/22 07:54 Dose: 40 mg Documented By: Admin: 09/17/22 20:11 Dose: 40 mg Documented By: Admin: 09/17/22 08:07 Dose: 40 mg Documented By: Admin: 09/16/22 20:01 Dose: 40 mg Documented By: CHEVY Thiamine HCl (Thiamine Hcl 100 Mg Tab) 100 mg PO QAM [facility] Stop: 10/17/22 08:59 Last Admin: 09/18/22 07:54 Dose: 100 mg Documented By: Admin: 09/17/22 08:59 Dose: 100 mg Documented By: EDWARD Coding Level of Care Code 28127 IN/OBS CONSULT LVL 4,60M Diagnoses Alcohol use disorder, moderate, dependence F10.20 Time Spent (min) 65
[2022-09-18] MEDS: ATORVASTATIN 40 MG TAB PO SCH (19:55)
[2022-09-19 06:43] LABS: Basophils # (auto) 0.03 K/uL (0-0.2); Basophils % (auto) 0.4 %; Eosinophils # (auto) 0.15 K/uL (0-0.50); Hematocrit (blood only) 36.7 % (42.0-52.0); Hemoglobin 12.3 g/dl (14.0-18.0); Immature Granulocytes # (auto) 0.02 K/uL (0.01-0.20); Immature Granulocytes % (auto) 0.3 %; Lymphocytes % (auto) 16.1 %; Mean Corpuscular Hemoglobin 31.9 pg (25.0-34.0); Mean Corpuscular Hgb Conc 33.5 g/dL (32.0-36.0); Mean Corpuscular Volume 95.3 fL (80.0-100.0); Mean Platelet Volume 11.8 fL (9.4-12.4); Monocytes # (auto) 0.99 K/uL (0.11-0.59); Monocytes % (auto) 13.3 %; Neutrophils # (auto) 5.07 K/uL (1.40-6.50); Neutrophils % (auto) 67.9 %; Platelet Count 166 K/uL (130-400); RDW Coefficient of Variation 13.8 % (11.5-14.5); RDW Standard Deviation 48.1 fL (36.4-46.3); Red Blood Count 3.85 M/uL (4.70-6.10); White Blood Count 7.46 K/ul (4.8-10.8)
[2022-09-19 07:09] LABS: Albumin Level 3.7 gm/dl (3.4-5.0); Bilirubin,Total 0.8 mg/dl (0.2-1.0); Calcium 8.8 mg/dl (8.6-10.3); Magnesium 1.8 mg/dl (1.7-2.4); Potassium 3.6 mmol/L (3.5-5.1)
[2022-09-19 07:15] LABS: Albumin Globulin Ratio 1.6 (0.9-2); BUN Creatinine Ratio 18.3 (10-20); Creatinine Clr Calc Pharmacy 72.4 ml/min; Est GFR (African American) 94.1 ml/min; Est GFR (Non-African American) 81.2 ml/min; Globulin 2.3 gm/dl (2.5-4.0)
--- NOTE | 2022-09-19 07:21 | Anesthesiology Consultation ---
Date of Service September 19, 2022 Assessment & Plan Chart Review Chart Review: Acceptable Risk for Surgery, Patient NOT seen in Pre Admission Testing and administrative assistant data entry initiated Consults Requested none ASA ASA3 Proposed Anesthesia Anesthesia Type: MAC Risk / Benefits Reviewed With: PT / POA / Parent / Guardian, Accepts Plan and Informed Consent Obtained History Surgery Operation Date: 09/19/22 07:30 Proposed Procedures p Echo Transesophageal - Alvarado Vargas MD s Cardioversion - Alvarado Vargas MD Height/Weight Height: 5 ft 4 in Weight: 92 kg Allergies Allergy/AdvReac Type Severity Reaction Status Date / Time No Known Allergies Allergy Unknown Verified 09/05/21 06:52 Medications Home Medications Medication Instructions Recorded Confirmed Last Taken allopurinol 300 mg tablet 300 mg PO QAM 01/14/21 09/16/22 09/05/21 05:30 atorvastatin 80 mg tablet 40 mg PO QPM 01/14/21 09/16/22 09/04/21 21:00 olmesartan 40 mg tablet 20 mg PO BID 01/14/21 09/16/22 09/04/21 21:00 amlodipine 10 mg tablet 10 mg PO QAM 08/23/21 09/16/22 09/05/21 05:30 metoprolol succinate 25 mg 12.5 mg PO QAM 08/23/21 09/16/22 09/05/21 05:30 tablet,extended release 24 hr [id number] 5 mg-zeaxanth 2 cap PO BID 08/23/21 09/16/22 1 Week Ago 1 mg-bilberry 7.5 mg-herbal ~08/29/21 capsule (Macular Health Formula) multivitamin 1 tab PO QAM 08/23/21 09/16/22 1 Week Ago ~08/29/21 pantoprazole 40 mg tablet,delayed 40 mg PO BID 08/23/21 09/16/22 09/05/21 05:30 release Active Medications Generic Name Dose Route Start Last Admin Trade Name Freq PRN Reason Stop Dose Admin Acetaminophen 650 mg 09/18/22 01:17 09/18/22 14:21 Acetaminophen 325 Mg Tab PO 10/18/22 01:16 650 mg Q4H PRN Administration Pain Allopurinol 300 mg 09/17/22 09:00 09/18/22 07:52 Allopurinol 300 Mg Tab PO 10/17/22 08:59 300 mg QAM NATALIE Administration Apixaban 5 mg 09/18/22 09:00 09/18/22 19:55 Apixaban 5 Mg Tablet PO 10/18/22 08:59 5 mg BID NATALIE Administration Atorvastatin Calcium 40 mg 09/16/22 21:00 09/18/22 19:55 Atorvastatin 40 Mg Tab PO 10/16/22 20:59 40 mg QPM NATALIE Administration Folic Acid 1 mg 09/17/22 09:00 09/18/22 07:52 Folic Acid 1 Mg Tab PO 10/17/22 08:59 1 mg QAM NATALIE Administration Furosemide 40 mg 09/17/22 09:00 09/18/22 07:54 Furosemide 40 Mg/4 Ml Vial IV 10/17/22 08:59 40 mg DAILY NATALIE Administration Diltiazem HCl 125 mg/ Dextrose 125 mls @ 10 mls/hr 09/18/22 08:30 09/19/22 06:56 IV 10/18/22 08:14 10 mg/hr .[id number] NATALIE 10 mls/hr Titration Protocol 10 MG/HR Losartan Potassium 50 mg 09/16/22 16:15 09/18/22 07:52 Losartan Potassium 50 Mg Tab PO 10/16/22 16:14 50 mg DAILY NATALIE Administration Protocol Metoprolol Tartrate 50 mg 09/17/22 09:00 09/18/22 19:55 Metoprolol Tartrate 50 Mg Tab PO 10/17/22 08:59 50 mg BID NATALIE Administration Pantoprazole Sodium 40 mg 09/16/22 21:00 09/18/22 19:55 Pantoprazole 40 Mg Tab PO 10/16/22 20:59 40 mg BID NATALIE Administration Thiamine HCl 100 mg 09/17/22 09:00 09/18/22 07:54 Thiamine Hcl 100 Mg Tab PO 10/17/22 08:59 100 mg QAM NATALIE Administration NPO Date Last Intake of Fluids: 09/18/22 Time Last Intake of Fluids: 21:00 Date Last Intake of Solids: 09/18/22 Time Last Intake of Solids: 17:00 Past Medical History Medical History Adrenal nodule Arthritis Atrial fibrillation fall 2020 Atrial fibrillation with RVR Bradycardia Chronic, baseline HR 45-50s per cardiology records CAD (coronary artery disease) Stent x1 (2011) Follows with Dr. Antonio Duodenal ulcer GI bleed History of GI bleed x2 (most recent episode 2020) > reason for PPI R/t Ava-Reece tear and duodenal ulcers Hx of gout Hyperlipidemia Hypertension Myocardial Infarction 2011 Exercise / Class Metabolic Activity II 4-5 Yardwork/Stairs/Walk up hill Past Family History Family History Grandmother (Paternal) Family history of diabetes mellitus Other COPD (chronic obstructive pulmonary disease) Cancer No family history of adverse response to anesthesia Past Surgical History Surgical History H/O inguinal hernia repair History of arthroscopy LEFT KNEE History of colonoscopy History of esophagogastroduodenoscopy (EGD) History of heart artery stent Stent x1 (2011) History of tonsillectomy [place] teeth removed Past Anesthesia History No Hx of Anesthesia Complications and No Family Hx of Anesthesia Complications History of PONV No Hx of PONV and No Hx of Motion Sickness Social History Smoking Status: Former smoker tobacco type: cigarettes Do You Dip or Chew Tobacco: No Hx Alcohol Use: Yes Alcohol type: other alcohol intake frequency: 0-2 drinks per day (2 drinks/day (wine)) Alcohol Intake Frequency Comment: 3 wiskey drinks daily Hx Substance Use: No substance use type: does not use Physical Exam Vital Signs Last Vital Signs Temp 36.3 C L 09/19/22 03:33 Pulse 82 09/19/22 03:33 Resp 18 09/19/22 03:33 BP 114/81 09/19/22 03:33 Pulse Ox 96 09/19/22 03:33 O2 Del Method Room Air 09/19/22 03:33 Constitutional + obese; no acute distress ENMT Mouth: no chipped teeth and no loose teeth Thyromental Distance: > or= 3.5 Finger Breadths Mallampati Class: II Neck normal visual inspection and trachea midline; neck extension not limited Respiratory normal respiratory effort; no respiratory distress Auscultation: lungs clear to auscultation bilaterally; no crackles, no rhonchi and no wheezes Cardiovascular Rate/Rhythm: + tachycardic; + abnormal rhythm Heart Sounds: no gallop, no murmur and no cardiac rub Musculoskeletal Head/Neck/Chest: full ROM of neck Neurologic moves all extremities and awake Psychiatric Orientation: alert and oriented x 3 Testing Laboratory Results 09/19/22 05:37 09/19/22 05:37 PT 12.4 Seconds (9.0-12.0) H 09/18/22 05:59 INR 1.1 (0.9-1.1) 09/18/22 05:59 APTT 27.5 Seconds (21.0-31.0) 09/16/22 11:10 Urine Color Yellow 09/16/22 Unknown Urine Appearance Clear (Clear) 09/16/22 Unknown Urine pH 5.5 (4.5-7.5) 09/16/22 Unknown Ur Specific Pierce 1.008 (1.000-1.030) 09/16/22 Unknown Urine Protein Negative (Negative) 09/16/22 Unknown Urine Glucose (UA) Negative (Negative) 09/16/22 Unknown Urine Ketones Trace (Negative) H 09/16/22 Unknown Urine Nitrite Negative (Negative) 09/16/22 Unknown Ur Leukocyte Esterase Negative (Negative) 09/16/22 Unknown
[2022-09-19 07:22] LABS: INR 1.2 (0.9-1.1)
[2022-09-19] MEDS ORDERED: BENZOCAINE/TETRACAIN/BUTAM 50 APPLN/5 GM CAN EXT ONE (07:23)
--- NOTE | 2022-09-19 07:29 | Hospitalist Progress Note ---
Date of Service September 19, 2022 Assessment & Plan (1) Atrial fibrillation with rapid ventricular response: Plan: 71 M with PMH of CO in 2011, hypertension, alcohol use disorder, gout, peripheral edema, who presented from [facility] office with AF with RVR (160s). Now admitted for further management of atrial fibrillation. AF with RVR -Appears to be acute though not new (history of AF after MWT requiring 10 units of blood years ago). Unclear if truly related to alcohol consumption, as too early for withdrawal tachycardia. -Per cardiology, not a candidate for outpatient anticoagulation at this time (history of severe GI bleed, secondary to Ava-Reece tear requiring 10 units of blood, and on another occasion, duodenal ulcer requiring 2 units). -Takes metoprolol 12.5 mg twice daily at home for systolic heart failure (s/p CO, JENNI to LCx in 2011). -Dose increased to 50 mg twice daily on 09/17/2022. Further increased following persistent A-fib + RVR on 09/18/2022 (100 mg every morning, 50 mg p.m). * Metoprolol tartrate 100 mg in a.m., 50 mg in p.m. * Plan for scheduled cardioversion 09/19. Anticoagulated on Eliquis 5 mg twice daily. * Possible candidate for Watchman procedure, pending successful discontinuation of drinking, which would allow for temporary anticoagulation prior. Alcohol use disorder -Currently on restricted whiskey nightly. Interested in quitting drinking. -Received Librium p.o. 25 mg x 3 doses overnight. Stopped in the a.m. -Currently on FRITZ protocol with symptomatic management as needed with IV Ativan. Has not required since admission. * Continue AWSS protocol * Recommend initiation of naltrexone at PCP follow-up. * Consider psych referral, as patient may also benefit from initiation of SSRI due to anxiety, which he reports is driving his drinking currently. Systolic heart failure -EF of 40 to 45% newly reduced at this admission. BNP elevated (480). -Already on metoprolol 12.5 mg twice daily. Increased to 50 mg twice daily. -Started IV Lasix 40 mg daily on 09/17. I's & O's: -0.962 L over 24 hours. -A.m. weight on 09/18/2022 of 92.1 kg, down from admission weight of 95.6 kg. * Continue IV Lasix with goal of diuresis until soft GADIEL. * Continue trending I's and O's. * Consider initiation of Entresto if EF remains unimproved. Gout -Chronic; managed on allopurinol * Continue home regimen Hypertension -Chronic; managed on losartan 50 mg daily, metoprolol 12.5 mg twice daily * Continue home losartan. Adjusted metoprolol as above. Code: Full code Dispo: Med-Surg telemetry FEN/GI: Heart healthy. N.p.o. at midnight DVT Prophylaxis: Eliquis 5 mg twice daily for scheduled cardioversion on 09/19/2022 PT/OT: No Consults: Cardiology Case Management: No (2) Systolic heart failure: (3) Chronic alcohol abuse: (4) Left knee DJD: (5) Alcohol dependence, daily use: (6) Hypertension: Admission and Anticipated Discharge Date Admission Date: September 16, 2022 Subjective Heart rates well controlled overnight. Review of Systems Review of Systems: All systems reviewed & are unremarkable except as noted in HPI & below Physical Exam Physical Exam: General: No acute distress HEENT: PERRLA. Normal conjunctiva, anicteric sclera. Oropharynx normal. Respiratory: Normal respiratory effort, CTABL. Cardiovascular: RRR without murmurs, gallops, or rubs. No pedal edema. GI: Soft abdomen with normal bowel sounds heard on auscultation. Nontender x4 quadrants Neuro: Alert and oriented x3. Results & Data Results & Data Vital Signs (Past 12 Hours) Vital Signs Temp Pulse Pulse Resp BP BP Pulse Ox 09/19/22 07:17 36.6 C 104 H 18 134/87 98 09/19/22 03:33 36.3 C L 82 18 114/81 96 09/19/22 00:11 89 09/18/22 22:55 36.8 C 89 18 112/79 97 09/18/22 19:32 36.4 C L 100 H 20 115/91 99 O2 Del Method 09/19/22 07:17 Room Air 09/19/22 03:33 Room Air 09/19/22 00:11 09/18/22 22:55 Room Air 09/18/22 19:32 Room Air
[2022-09-19] MEDS ORDERED: PROPOFOL IV EMULSION 10 MG/ML 20 ML VIAL IV ONE (08:04)
[2022-09-19] MEDS ORDERED: LIDOCAINE 2% 2 ML VIAL/AMP(20MG/ML) INFIL ONE (08:04)
--- NOTE | 2022-09-19 08:14 | Cardioversion ---
Date of Service September 19, 2022 PG Electrical Cardioversion Rp Electrical Cardioversion Report Procedure performed: Cardioversion Indication: Atrial fibrillation Staff fmd teacher: Alvarado Vargas MD Procedure in detail: The patient was informed of the risks benefits and alternatives to the intended procedure. He understood such which proceed. He was taken to the cardiac catheterization suite holding area. A general anesthetic was administered by the Anesthesiology Service. Once appropriately anesthetized, 200 joules was delivered in a biphasic fashion. The patient converted to sinus rhythm but quickly returned to atrial fibrillation. Another delivery of 200 joules in a biphasic fashion was then delivered. This returned the patient to sinus rhythm. The patient tolerated procedure well, there were no immediate complications. Patient was neurologically intact subsequent to the procedure. Impression: Successful cardioversion from atrial fibrillation to normal sinus rhythm Coding Level of Care Code 10062 CARDIOVERSION, ELECTIVE Additional Codes Electrical Cardioversion Report ([id number])
[2022-09-19] MEDS ORDERED: NALTREXONE HCL 50 MG TAB PO SCH (09:00)
[2022-09-19] MEDS: dilTIAZem HCL 125 MG in DEXTROSE 5% 100 ML IV SCH ×2 (09:03→09:12)
[2022-09-19] MEDS: PANTOprazole 40 MG TAB PO SCH (09:38)
[2022-09-19] MEDS: FOLIC ACID 1 MG TAB PO SCH (09:38)
[2022-09-19] MEDS: LOSARTAN POTASSIUM 50 MG TAB PO SCH (09:38)
[2022-09-19] MEDS: APIXABAN 5 MG TABLET PO SCH (09:38)
[2022-09-19] MEDS: allopurinoL 300 MG TAB PO SCH (09:38)
[2022-09-19] MEDS: THIAMINE HCL 100 MG TAB PO SCH (09:38)
[2022-09-19] MEDS: METOPROLOL TARTRATE 50 MG TAB PO SCH (09:38)
[2022-09-19] MEDS: FUROSEMIDE 40 MG/4 ML VIAL IV SCH (10:05)
--- NOTE | 2022-09-19 10:07 | Discharge Summary ---
Date of Service September 19, 2022 Admission HPI Per Admitting Provider Huan is a 71 year old male with a PMH significant for current alcohol abuse, afib (not on anticoagulation due to previous GI bleeds), PUD with previous duodenal ulcer hemorrhage, HTN, CAD, gout who was sent to the [facility] ED today from his PCP's office when found to be in afib RVR with HR in the 160's. In the ED the patient was found to be stable but with an initial HR in the 160's. Labs were significant for a mag of 1.6, alk phos of 121, medical alcohol level < 10, and covid 19 negative. Chest xray shows stable cardiomegaly without other acute findings. The patient was initially given 1500 mL NSS, 1gm IV mag, and 20 mg IV mag but eventually required a Cardizem drip. He was given 200 mg IV thiamine prior to admission. At the time of the exam the patient was sitting in bed in no acute distress. He states that for the past 1-1.5 weeks he has been having a non-productive cough, significantly increased CASILLAS with even walking 10-15 feet, and BL LE swelling. He denies recent fevers, chills, chest pain/pleuritic chest pain, abd pain, nausea, vomiting, diarrhea, dysuria, hematuria, melena, and recent trauma. He confirms that he is still off anticoagulation for previous GI bleeds. He started doing research over the past few days for his symptoms and was seen in the [facility] today due to his concerns of coronary artery disease. He states in the office they found his HR to be in the 160's and sent him to the ED for further evaluation. He states that he is currently asymptomatic while at rest, despite his HR going into the 160's-170's during my exam. He denies unilateral leg swelling/pain and has been taking his medications as prescribed. He has been working to wean himself off of alcohol, he is currently drinking about 3 shots of whiskey nightly. At this time he would not want alcohol held during his admission as he wants to continue to wean himself down after discharge. He does not believe that he has gone into alcohol withdrawal in the past but has not tried to stop completely either. He is a full code and would want his to make medical decisions for him if he could not make them himself. Please refer to Dr. Mahan's attestation for any changes to the treatment plan Admission Exam Per Admitting Provider General:In no acute distress, stated age, well-nourished, good hygiene HEENT:Normocephalic, atraumatic, no scleral icterus, pupils around round, symmetrical, and reactive to light, moist mucus membranes, trachea midline, no thyromegaly Chest/Pulm:No respiratory distress, symmetrical chest expansion, clear breath sounds throughout Cardiac:irregular rate and rhythm, no murmurs noted Abdomen:Negative for ascites and bruising, normoactive bowel sounds, soft, non-tender to palpation throughout Musculoskeletal:Symmetrical and without signs of acute trauma, upper and lower extremities with full ROM, no atrophy, spasticity, or flaccidity Extremities:Radial, dorsalis pedis, and posterior tibial pulses are intact and symmetrical, 1-2+ pitting edema noted in the BL LE's Skin:Warm, dry, no rashes , lesions, or scars noted Neuro:Alert and oriented to person, place, month, year, and president, no focal defects, CN II-XII tested and intact, no tremors noted Psych:No acute distress, calm and cooperative during the exam Principal Diagnosis Atrial fibrillation s/p successful cardioversion Discharge Exam General: No acute distress HEENT: PERRLA. Normal conjunctiva, anicteric sclera. Oropharynx normal. Respiratory: Normal respiratory effort, CTABL. Cardiovascular: RRR without murmurs, gallops, or rubs. No pedal edema. GI: Soft abdomen with normal bowel sounds heard on auscultation. Nontender x4 quadrants Neuro: Alert and oriented x3. Discharge Data Allergies Allergy/AdvReac Type Severity Reaction Status Date / Time No Known Allergies Allergy Unknown Verified 09/19/22 07:30 Consultations 09/16/22 13:59 ED Decision to Admit Stat 09/16/22 14:46 Consult Cardiology Stat 09/18/22 08:22 Consult Mental Health [Consult Psychiatry] Routine Procedures Performed Operation Date: 09/19/22 07:30 Actual Procedures p Echo Transesophageal - Alvarado Vargas MD s Cardioversion - Alvarado Vargas MD Ordered Studies 09/16/22 15:03 US venous doppler [facility] Urgent Hospital Course (1) Atrial fibrillation with rapid ventricular response: 71 M with PMH of HI in 2012, hypertension, alcohol use disorder, gout, peripheral edema, who presented from [facility] office with AF with RVR (160s). Now admitted for further management of atrial fibrillation. AF with RVR -Appears to be acute though not new (history of AF after MWT requiring 10 units of blood years ago). Unclear if truly related to alcohol consumption, as too ea rly for withdrawal tachycardia. -Per cardiology, not a candidate for outpatient anticoagulation at this time (history of severe GI bleed, secondary to Vaa-Reece tear requiring 10 units of blood, and on another occasion, duodenal ulcer requiring 2 units). -Takes metoprolol 12.5 mg twice daily at home for systolic heart failure (s/p HI, JENNI to LCx in 2011). -Dose increased to 50 mg twice daily on 09/17/2022. Further increased following persistent A-fib + RVR on 09/18/2022 (100 mg every morning, 50 mg p.m). -Successful cardioversion version 09/19 * Metoprolol tartrate 100 mg in a.m., 50 mg in p.m. Adjusted to metoprolol succinate 50 mg daily at discharge. * Scheduled cardioversion 09/19. Anticoagulated on Eliquis 5 mg twice daily. Continue at discharge Alcohol use disorder -Currently on restricted whiskey nightly. Interested in quitting drinking. -Received Librium p.o. 25 mg x 3 doses overnight. Stopped in the a.m. -Successfully weaned off: no IV Ativan requirement for duration of stay. -Currently on FRITZ protocol with symptomatic management as needed with IV Ativan. Has not required since admission. * AWSS protocol * Started on naltrexone: Start at 25 mg daily x3 days, then increase to 50 mg daily. Reassess at outpatient follow-up. Patient plans to follow-up with [facility] at [facility]. * Per psychiatry: also started gabapentin 300 mg qHS prn for anxiety. Systolic heart failure -EF of 40 to 45% newly reduced at this admission. BNP elevated (480). -Already on metoprolol 12.5 mg twice daily. Increased to 50 mg twice daily. -Started IV Lasix 40 mg daily on 09/17. I's & O's: -0.962 L over 24 hours. -A.m. weight on 09/18/2022 of 92.1 kg, down from admission weight of 95.6 kg. * Continue IV Lasix with goal of diuresis until soft GADIEL. * Trended I's and O's. * Consider initiation of Entresto if EF remains unimproved. * Outpatient f/u with cardiology (follows Dr. Neil Antonio of [facility]). Gout -Chronic; managed on allopurinol * Continue home regimen Hypertension -Chronic; managed on losartan 50 mg daily, metoprolol 12.5 mg twice daily * Continue home losartan. Adjusted metoprolol as above. (2) Systolic heart failure: (3) Chronic alcohol abuse: (4) Left knee DJD: (5) Alcohol dependence, daily use: (6) Hypertension: Total Time Total Time Spent Total Time Spent (In Minutes): Please see attending attestation. Discharge Plan Discharge Items Patient Disposition: Home - Self-Care Reason For Visit: AFIB RVR Discharge Diagnosis: Atrial fibrillation with rapid ventricular rate s/p electrical cardioversion Activity: Per Instructions section Non-emergency contact: Primary Care Provider Call non-emergency contact if: you have any medication questions and your symptoms worsen Follow-up/Referrals: Neil Antonio DO [Physician] - 09/27/22 10:40 am Viraj Cooley MD [Resident] - 09/26/22 8:05 am Diet: Regular Addtl Attending Provider Instructions: Deatapan Pressley, You came to the hospital because you were found to have severely fast and irregular heart rate, a condition known as atrial fibrillation with rapid vent ricular rate, or A-fib with RVR. You were admitted to the hospital for rate control. When that failed to control your heart rate, we consulted the layaway clerk and you were scheduled for electrical cardioversion, a procedure that shocks your heart back into a regular rhythm. Now that you have had this procedure, we believe you are ready to be discharged home. 1. We changed the dose of your metoprolol succinate and sent a new prescription to your pharmacy. Please take metoprolol succinate 50 mg daily. 2. We sent a medication called apixaban, or Eliquis to your pharmacy. Please take Eliquis 5 mg twice daily. 3. We sent a medication called naltrexone to your pharmacy. Please take naltrexone 25 mg (half tab) a day for the next 2 days, then continue taking 50 mg (1 tab) daily. 4. We sent a medication called gabapentin to your pharmacy. Please take gabapentin 300 mg nightly as needed for anxiety or insomnia. 5. You may continue taking your other medications as previously directed, unless otherwise instructed to by your primary care physician. 6. You will be contacted by [facility] to schedule you for a follow-up appointment with Dr. Cooley. If you do not hear from his office, you may contact them at [phone] to schedule an appointment. 7. You will also be contacted by Dr. Antonio's office for hospital follow-up for your atrial fibrillation. If you do not hear from his office you may contact them at to schedule an appointment. 8. It is very important that you abstain from drinking on the new medications that we have prescribed for you. Continuing to drink while taking these medications could lead to serious side effects such as a severe GI bleed, or increased drowsiness or unconsciousness. If you feel you are unable to abstain from drinking, please contact your PCP first before restarting drinking. It is been a pleasure to care for you here at [facility]. If you have any questions or concerns about your care, you may reach out to us at [phone] Pending Studies at Discharge: No Stand-Alone Forms: My [facility], Smoking Cessation Medications and DC Order Prescriptions: New metoprolol succinate 50 mg tablet extended release 24 hr 50 mg PO DAILY 30 Days Qty: 30 0RF naltrexone 50 mg tablet 50 mg PO DAILY 30 Days Qty: 30 0RF gabapentin 300 mg capsule 300 mg PO HS PRN (Reason: anxiety) 30 Days Qty: 30 0RF apixaban 5 mg tablet 5 mg PO BID 30 Days Qty: 60 0RF Continued atorvastatin 80 mg tablet 40 mg PO QPM allopurinol 300 mg tablet 300 mg PO QAM olmesartan 40 mg tablet 20 mg PO BID multivitamin Tablet 1 tab PO QAM amlodipine 10 mg Tablet 10 mg PO QAM pantoprazole 40 mg Tablet,Delayed Release (Dr/Ec) 40 mg PO BID Macular Health Formula 5-1-7.5 mg Capsule 2 cap PO BID Discontinued metoprolol succinate 25 mg Tablet Extended Release 24 Hr 12.5 mg PO QAM Discharge Orders: Discharge Order (Routine); Ordered 09/19/22 Ordered By: Viraj Abarca/Other Patient Handouts: Alcohol and Older Adults, AFib Dc, AFib Preventing Stroke, AFib Admission Data Admit Date/Time: 09/16/22 14:32 Attending Provider: Duran Boles Admit Provider: Albert Mahan Primary Care Provider: Jimmy Santana Other Providers: Albert Mahan ; Jazlyn Stewart ; Cassandra Mancera ; Lance Sinclair Other Interventions: Discharge Summary Assessment (RN) Last Done: 09/19/22 14:42 Supervising Physician Co-Signing Physician Notes Attending attestation Pt seen and examined in concert with Dr. Cooley. In agreement with the documented findings as noted in the resident documentation with any exceptions or additions as noted here. Resting comfortably in bed mild nonproductive cough. On examination, S1/S2 nl, regular rate, no MCG. CTAB. Abd NT/ND BS+ve Atrial fibrillation with RVR s/p cardioversion - cardiology consult - continue metoprolol 50mg and monitor rate w/ precautions re: worsening/changing sx. Follow up with residency clinic and [facility] cardiology. Alcohol abuse - following up with [facility] residency for primary care - starting naltrexone on discharge. PRN gabapentin qHS for anxiety/withdrawal sx. Else see resident documentation as noted. Total attending physician time spent with this patient's care on the day of discharge: 35 minutes. Resident Activity Tracking Resident Involvement: Resident Care Provided Care Provided: Adult Hospital Medicine
--- NOTE | 2022-09-19 10:11 | XCELERA ---
[id number]
--- NOTE | 2022-09-19 10:42 | Electrocardiogram Report ---
Test Reason : Blood Pressure : / mmHG Vent. Rate : 065 BPM Atrial Rate : 065 BPM P-R Int : 206 ms QRS Dur : 082 ms QT Int : 484 ms P-R-T Axes : 065 028 043 degrees QTc Int : 503 ms Sinus rhythm with Premature atrial complexes with Aberrant conduction Low voltage QRS Prolonged QT Abnormal ECG When compared with ECG of 16-SEP-2022 10:58, Sinus rhythm has replaced Atrial fibrillation Vent. rate has decreased BY 109 BPM Nonspecific T wave abnormality no longer evident in Inferior leads Confirmed by Alvarado Vargas ([id number]) on 09/19/2022 10:42:12 AM Referred By: REFERRED SELF Confirmed By:Gabriel Vargas
--- NOTE | 2022-09-19 14:54 | Anesthesiology Progress Note ---
Date of Service September 19, 2022 Anesthesia Post Procedure Vital Signs Vital Signs: Temp Pulse Pulse Resp BP BP Pulse Ox 09/19/22 14:42 36.5 C 82 14 118/71 100/66 95 09/19/22 13:16 82 14 09/19/22 11:50 36.5 C 100/66 09/19/22 09:16 79 09/19/22 08:46 72 14 118/71 95 09/19/22 08:16 36.8 C 78 16 128/77 97 09/19/22 08:30 71 09/19/22 07:00 102 H 09/19/22 08:15 75 18 108/67 98 09/19/22 07:56 70 16 97/72 L 98 09/19/22 08:00 62 16 98/71 L 98 09/19/22 07:17 36.6 C 104 H 18 134/87 98 09/19/22 03:33 36.3 C L 82 18 114/81 96 09/19/22 00:11 89 09/18/22 22:55 36.8 C 89 18 112/79 97 09/18/22 17:00 100 H 09/18/22 19:32 36.4 C L 100 H 20 115/91 99 09/18/22 16:00 36.8 C 118 H 18 139/73 97 O2 Del Method 09/19/22 14:42 09/19/22 13:16 09/19/22 11:50 Room Air 09/19/22 09:16 09/19/22 08:46 Room Air 09/19/22 08:16 Room Air 09/19/22 08:30 09/19/22 07:00 09/19/22 08:15 Room Air 09/19/22 07:56 Room Air 09/19/22 08:00 Room Air 09/19/22 07:17 Room Air 09/19/22 03:33 Room Air 09/19/22 00:11 09/18/22 22:55 Room Air 09/18/22 17:00 09/18/22 19:32 Room Air 09/18/22 16:00 Room Air Transfer of Care Handoff Completed per policy Notes Mental Status: alert / awake / arousable and participated in evaluation Patient Amnestic to Procedure: Yes Nausea / Vomiting: adequately controlled Pain: adequately controlled Airway Patency, RR, SpO2: stable & adequate BP & HR: stable & adequate Hydration State: stable & adequate Anesthetic Complications: no major complications apparent
[2022-09-19] MEDS ORDERED: chlordiazePOXIDE HCl 5 MG CAP PO SCH (22:30)
== END 2022-09-19 15:02 | disposition home or self-care (01) | DRG 309 ==
LOC: ED 10:43 → SUATTDRO 14:08 → 2S 14:08 → INTOOBSV 14:08 → 2S 15:35

== ENCOUNTER 2024-06-21 09:29 | Inpatient (IN) ==
--- NOTE | 2024-06-21 09:54 | Emergency Department Note ---
Impression & Plan GI bleed, Chronic alcohol abuse, Microcytic anemia ED Provider Note Provider: Dionicio Coffman MD CHIEF COMPLAINT: Weak, low blood counts HISTORY OF PRESENT ILLNESS: Patient is a 73-year-old gentleman history of A-fib on Eliquis and amiodarone, GI bleed/gastric ulcers on Protonix, CAD, hypertension, and daily alcohol use presenting here today referred by outpatient doctors office. Patient states in mid May noted some generalized weakness and lack of endurance with exertion activities. Saw his family doctor. She is little concerned with maybe some decreased pulses in his lower legs and ordered some blood work for him. 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 Call today as his blood counts were quite low by their report. Patient denies any known bleeding or bloody or black stools. Patient states he does drink alcohol regularly but does not use any NSAIDs. Denies any vomiting of blood or significant abdominal pain. No chest pain or syncope reported. History of transfusion and prior gastric ulcers requiring intervention in the past. Did take his Eliquis this morning. PAST MEDICAL HISTORY: As noted above MEDICATIONS: Reviewed home medications include Eliquis which he took this morning SOCIAL HISTORY: Regular alcohol use, former smoker PHYSICAL EXAM: GENERAL: alert and oriented in no acute distress on stretcher Head: normocephalic and atraumatic EYES: No injection, discharge or icterus. NECK: Trachea midline. ENT: Mucous membranes pink and moist. LUNGS: Airway patent. No retractions or tachypnea HEART: Regular rate and rhythm. No chest wall tenderness ABDOMEN: Soft and non-tender, without guarding or rebound. No masses Rectal: With her traffic manager present, brownish-black stool that is Hemoccult positive noted. No red stool. SKIN: Acyanotic, warm, dry, without rashes EXTREMITIES: Without swelling, tenderness or deformity NEUROLOGICAL: No focal deficits. No aphasia. No facial droop or slurred speech. Ambulatory. EK beats per minute. Normal sinus rhythm. No PVC or PAC. No acute ST segment elevation or depression with QTc of 453. CONTINUOUS CARDIAC MONITORING: was ordered and showed a heart rate of 70s to 80s bpm in normal sinus rhythm Patient's laboratory studies and imaging reviewed. Differential includes Infection, dehydration, metabolic abnormality, hypo/hyperglycemia, electrolyte disturbance, anemia, hypoxia, cardiac sources, intracerebral event/neurologic, gastrointestinal/GI bleed, diverticulitis as well as other pathologies. IMPRESSION/MEDICAL DECISION MAKING: Patient in no distress. Not singly tachycardic or hypotensive here. Has had ongoing symptoms of the last several weeks. Outpatient blood work evidently showed some significant anemia. Is Hemoccult positive on stool testing here. Denies any blood in the stool or black stools. Does daily drink but no NSAIDs reported. Is on Eliquis and took this morning. No syncope or trauma history. Denies significant back or abdominal pain. Doubt occult retroperitoneal bleed or intra-abdominal bleed. Question GI bleed. Could be lower versus gastric. Given Protonix bolus and drip here. Type and screen sent and basic labs ordered. Will obtain a CT scan of the abdomen pelvis with contrast to look for any signs of acute active bleeding at this point. No history reported of esophageal varices and again has not had any active vomiting of blood or discomfort here. Likely anemia does explain his endurance issues and generalized weakness. Has been growing over the last several weeks and doubt an acute massive GI bleed given this more gradual history. Iron panel is sent for completeness. I doubt a significant vascular occlusion of the lower extremities or spinal cord pathology. Chest x-ray questions possibly a left pulmonary nodule. As were already completing CT scan of the abdomen pelvis and do further workup his anemia and weakness, will complete a CT scan of the chest to delineate if possible underlying mass is present. [id number] blood work does show evidence of hemoglobin returning at 6.5. Formal CBC here shows hemoglobin 6.5 confirmed. No evidence acute hepatitis or pancreatitis with low iron levels on iron panel. Likely more of a chronic bleed. No significant renal dysfunction. No evidence of bleeding per radiology report on CT of the abdomen pelvis and no obvious mass in the chest on the CT of the chest. Likely more of a chronic GI bleed picture. Consented patient for blood and 1 unit of packed red blood cells ordered for transfusion given his and his anemia below 7. Will bring in for further monitoring and care and the hospitalist team was alerted. Prior EGDs without evidence of varices and will not start x-ray tied at this time. Patient resting company in bed and agreeable with this plan. DIAGNOSIS: Acute microcytic anemia, weakness, GI bleed DISPOSITION: Hospitalist will evaluate Patient was agreeable with this plan. Critical Care I have personally spent 32 minutes of critical care time in the direct management of this patient. This includes bedside care, interpretation of diagnostic studies, and testing, discussion with consultants, patient, and family members, and other required patient management activities. These 32 minutes is in excess of all separately billable procedures. Past Med/Surg History Problem List (Updated 06/21/24 @ 13:41 by Dionicio Coffman M.D.) Microcytic anemia (Acute) GI bleed (Acute) Chronic blood loss anemia Alcohol use disorder, moderate, dependence Tachycardia induced cardiomyopathy Systolic heart failure Atrial fibrillation with rapid ventricular response (Acute) Peripheral edema (Acute) Hypomagnesemia (Acute) Chronic alcohol abuse (Acute) Left knee DJD Encounter for pre-operative examination Gout Alcohol dependence, daily use CAD (coronary artery disease) Stent x1 (2011) Follows with Dr. Antonio Hypertension Medical History Adrenal nodule Arthritis Atrial fibrillation fall 2020 Atrial fibrillation with RVR Bradycardia Chronic, baseline HR 45-50s per cardiology records CAD (coronary artery disease) Stent x1 (2011) Follows with Dr. Antonio Duodenal ulcer GI bleed History of GI bleed x2 (most recent episode 2020) > reason for PPI R/t Ava-Reece tear and duodenal ulcers Hx of gout Hyperlipidemia Hypertension Myocardial Infarction 2011 Surgical History H/O inguinal hernia repair History of arthroscopy LEFT KNEE History of colonoscopy History of esophagogastroduodenoscopy (EGD) History of heart artery stent Stent x1 (2011) History of tonsillectomy Corinne teeth removed Family History Grandmother (Paternal) Family history of diabetes mellitus Other COPD (chronic obstructive pulmonary disease) Cancer No family history of adverse response to anesthesia Social History Smoking Status: Former smoker Tobacco Type: Cigarettes Second Hand Exposure: Yes (IN THE PAST); Do You Dip or Chew Tobacco: No; Hx Alcohol Use: Yes Alcohol type: other Hx Substance Use: No Preferred Language: [place]an Communication Ability: Effective Care Analyst Required: No Beliefs That Will Affect Care: None marital status: Current Living Situation: Spouse How many Children do You have: 0 Feels Safe at Home: Yes Assistive Devices: None Allergies Allergies Allergy/AdvReac Type Severity Reaction Status Date / Time No Known Allergies Allergy Unknown Verified 09/19/22 07:30 Home Meds Home Medications Medication Instructions Recorded Confirmed allopurinol 300 mg tablet 300 mg PO QAM 01/14/21 06/21/24 atorvastatin 80 mg tablet 40 mg PO QPM 01/14/21 06/21/24 olmesartan 40 mg tablet 20 mg PO BID 01/14/21 06/21/24 amlodipine 10 mg tablet 10 mg PO QAM 08/23/21 06/21/24 upzbppyc-xep-tierpn 5 mg-zeaxanth 2 cap PO BID 08/23/21 06/21/24 1 mg-bilberry 7.5 mg-herbal capsule (Macular Health Formula) multivitamin 1 tab PO QAM 08/23/21 06/21/24 pantoprazole 40 mg tablet,delayed 40 mg PO BID 08/23/21 06/21/24 release apixaban 5 mg tablet (Eliquis) 5 mg PO UD 06/21/24 06/21/24 diltiazem HCl 240 mg 240 mg PO QAM 06/21/24 06/21/24 capsule,extended release 24 hr Results & Data (ED) Vital Signs Vital Signs - 24 hr 06/21/24 09:30 06/21/24 09:46 06/21/24 10:50 Temperature 36.5 C Temperature Source Temporal Artery Scan Pulse Rate 100 H 87 Pulse Rate [Apical] 75 Respiratory Rate 18 17 Respiratory Effort / Characteristics Non-Labored Spontaneous Non-Labored Respiratory Depth Normal Normal Respiratory Pattern Regular Blood Pressure 161/67 H Blood Pressure [Left Arm] 141/74 H Blood Pressure Mean 98 Blood Pressure Mean [Left Arm] 96 Blood Pressure Position Sitting Pulse Oximetry 98 98 Oxygen Delivery Method Room Air Room Air Sepsis Recent Fever Within 48 Hours No Sepsis New/Unexplained Change in Mental Status No Sepsis Action Taken by Nursing No Action Required 06/21/24 12:56 06/21/24 13:05 06/21/24 13:15 Temperature 36.7 C 36.8 C Temperature Source Oral Oral Pulse Rate 69 75 73 Pulse Rate [Apical] Respiratory Rate 15 23 24 Respiratory Effort / Characteristics Respiratory Depth Respiratory Pattern Blood Pressure 127/75 146/76 H Blood Pressure [Left Arm] Blood Pressure Mean 92 99 Blood Pressure Mean [Left Arm] Blood Pressure Position Pulse Oximetry 99 99 99 Oxygen Delivery Method Room Air Sepsis Recent Fever Within 48 Hours Sepsis New/Unexplained Change in Mental Status Sepsis Action Taken by Nursing 06/21/24 13:30 Temperature Temperature Source Pulse Rate 70 Pulse Rate [Apical] Respiratory Rate 21 Respiratory Effort / Characteristics Respiratory Depth Respiratory Pattern Blood Pressure 130/76 Blood Pressure [Left Arm] Blood Pressure Mean 94 Blood Pressure Mean [Left Arm] Blood Pressure Position Pulse Oximetry 100 Oxygen Delivery Method Sepsis Recent Fever Within 48 Hours Sepsis New/Unexplained Change in Mental Status Sepsis Action Taken by Nursing Laboratory Data 06/21/24 10:00 06/21/24 09:57 Lab Results 06/21/24 06/21/24 06/21/24 Range/Units 09:57 10:00 10:02 WBC 5.41 (4.8-10.8) K/ul RBC 3.18 L (4.70-6.10) M/uL Hgb 6.5 L* (14.0-18.0) g/dl Hct 23.1 L (42.0-52.0) % MCV 72.6 L (80.0-100.0) fL MCH 20.4 L (25.0-34.0) pg MCHC 28.1 L (32.0-36.0) g/dL RDW Std Deviation 45.4 (36.4-46.3) fL RDW Coeff of Elli 17.4 H (11.5-14.5) % Plt Count 246 (130-400) K/uL MPV 11.0 (9.4-12.4) fL Immature Gran % (Auto) 0.4 % Neut % (Auto) 60.6 % Lymph % (Auto) 20.0 % [place] % (Auto) 13.5 % Eos % (Auto) 4.6 % Baso % (Auto) 0.9 % Neut # (Auto) 3.28 (1.40-6.50) K/uL Lymph # (Auto) 1.08 L (1.20-3.40) K/uL [place] # (Auto) 0.73 H (0.11-0.59) K/uL Eos # (Auto) 0.25 (0.00-0.50) K/uL Baso # (Auto) 0.05 (0.00-0.20) K/uL Immature Gran # (Auto) 0.02 (0.01-0.20) K/uL Polychromasia 2+ Hypochromasia Present Microcytosis Present PT 11.6 (9.0-12.0) Seconds INR 1.1 (0.9-1.1) Sodium 138 (136-145) mmol/L Potassium 3.7 (3.5-5.1) mmol/L Chloride 105 (98-107) mmol/L Carbon Dioxide 24 (21-32) mmol/L Anion Gap 9 (3-11) BUN 25 H (6-23) mg/dl Creatinine 1.19 (0.6-1.4) mg/dl Est Cr Clr Drug Dosing 57.8 ml/min eGFR 63.70 BUN/Creatinine Ratio 21.0 H (10-20) Glucose 117 H (70-99(Fasting)) mg/dl Calcium 8.9 (8.6-10.3) mg/dl Magnesium 2.3 (1.7-2.4) mg/dl Iron 34 L (35-175) mcg/dl TIBC 525 H (250-450) mcg/dl Transferrin 375 H (200-360) mg/dl Transferrin % Sat 6 L (20-50) % Ferritin 6.3 L (8-388) ng/ml Total Bilirubin 0.5 (0.2-1.0) mg/dl AST 62 H (13-39) U/L ALT 75 H (7-52) U/L Alkaline Phosphatase 99 (34-104) U/L Troponin I High Sens 14.9 (0-20) pg/ml Total Protein 6.8 (6.0-8.3) gm/dl Albumin 4.5 (3.4-5.0) gm/dl Globulin 2.3 L (2.5-4.0) gm/dl Albumin/Globulin Ratio 2.0 (0.9-2) TSH 12.654 H (0.300-4.500) uIu/ml Free T4 1.14 (0.61-1.60) ng/dl POC Stool Occult Blood (Negative) SARS-CoV-2, RNA, NAAT NEGATIVE (NEGATIVE) Blood Type B Positive Antibody Screen NEGATIVE Crossmatch See Detail 06/21/24 Range/Units 10:16 WBC (4.8-10.8) K/ul RBC (4.70-6.10) M/uL Hgb (14.0-18.0) g/dl Hct (42.0-52.0) % MCV (80.0-100.0) fL MCH (25.0-34.0) pg MCHC (32.0-36.0) g/dL RDW Std Deviation (36.4-46.3) fL RDW Coeff of Elli (11.5-14.5) % Plt Count (130-400) K/uL MPV (9.4-12.4) fL Immature Gran % (Auto) % Neut % (Auto) % Lymph % (Auto) % [place] % (Auto) % Eos % (Auto) % Baso % (Auto) % Neut # (Auto) (1.40-6.50) K/uL Lymph # (Auto) (1.20-3.40) K/uL [place] # (Auto) (0.11-0.59) K/uL Eos # (Auto) (0.00-0.50) K/uL Baso # (Auto) (0.00-0.20) K/uL Immature Gran # (Auto) (0.01-0.20) K/uL Polychromasia Hypochromasia Microcytosis PT (9.0-12.0) Seconds INR (0.9-1.1) Sodium (136-145) mmol/L Potassium (3.5-5.1) mmol/L Chloride (98-107) mmol/L Carbon Dioxide (21-32) mmol/L Anion Gap (3-11) BUN (6-23) mg/dl Creatinine (0.6-1.4) mg/dl Est Cr Clr Drug Dosing ml/min eGFR BUN/Creatinine Ratio (10-20) Glucose (70-99(Fasting)) mg/dl Calcium (8.6-10.3) mg/dl Magnesium (1.7-2.4) mg/dl Iron (35-175) mcg/dl TIBC (250-450) mcg/dl Transferrin (200-360) mg/dl Transferrin % Sat (20-50) % Ferritin (8-388) ng/ml Total Bilirubin (0.2-1.0) mg/dl AST (13-39) U/L ALT (7-52) U/L Alkaline Phosphatase (34-104) U/L Troponin I High Sens (0-20) pg/ml Total Protein (6.0-8.3) gm/dl Albumin (3.4-5.0) gm/dl Globulin (2.5-4.0) gm/dl Albumin/Globulin Ratio (0.9-2) TSH (0.300-4.500) uIu/ml Free T4 (0.61-1.60) ng/dl POC Stool Occult Blood Positive A (Negative) SARS-CoV-2, RNA, NAAT (NEGATIVE) Blood Type Antibody Screen Crossmatch Administered Medications Pantoprazole Sodium 40 mg/ (Dextrose) 100 mls @ 20 mls/hr IV Q5H NATALIE Stop: 07/21/24 10:14 Last Admin: 06/21/24 10:48 Dose: 8 mg/hr, 20 mls/hr Documented By: HUMPHREY Discontinued Medications Pantoprazole Sodium 80 mg/ (Dextrose) 120 mls @ 480 mls/hr IV NOW ONE Stop: 06/21/24 10:03 Last Infusion: 06/21/24 10:49 Dose: Infused Documented By: Admin: 06/21/24 10:18 Dose: 480 mls/hr Documented By: HUMPHREY Ioversol (Optiray 320 125ml) 120 ml IV ONCE ONE Stop: 06/21/24 11:06 Last Admin: 06/21/24 11:05 Dose: 120 ml Documented By: JAS Pantoprazole Sodium (Pantoprazole Bolus/Drip) 1 each IV NOW STA Stop: 06/21/24 09:50 Last Admin: 06/21/24 10:49 Dose: Not Given Documented By: HUMPHREY Imaging Data Radiologist's Impression: Chest X-Ray 06/21/24 09:34 XR chest 1V portable CLINICAL HISTORY: weakness COMPARISON STUDY: Chest radiograph September 16, 2022. FINDINGS: Lung volumes are normal. There is no consolidation. A 1.3 cm left upper lobe density is present. There is no pneumothorax or pleural effusion. The heart is mildly enlarged. Mediastinal contours are normal. There is no evidence for pulmonary edema. IMPRESSION: 1. No acute cardiopulmonary findings. 2. 1.3 cm left upper lobe density. This is likely artifactual. Follow-up PA and lateral chest radiograph in one month are recommended to exclude the possibility of a pulmonary nodule. ACT 112: Negative or not required by law. Electronically signed by: Malcolm Guzman M.D. 06/21/2024 9:57 AM Abdomen/Pelvis CTA 06/21/24 09:49 CT ANGIOGRAPHY OF THE ABDOMEN AND PELVIS CLINICAL HISTORY: low h/h, GI bleed COMPARISON STUDY: CT of the abdomen and pelvis January 16, 2021. MRCP January 15, 2021. TECHNIQUE: Helical axial images of the abdomen and pelvis were obtained during arterial phase following intravenous injection of 120 cc Optiray 320 IV. Sagittal and coronal reconstructed reviewed as well as maximal intensity projections on an independent 3-D workstation. Automated exposure control was utilized for the study. A dose lowering technique was utilized adhering to the principles of ALARA. FINDINGS: The heart is moderately enlarged. The caliber of the abdominal aorta is normal. There is moderate plaque within the abdominal aorta and branch vessels. There is no dissection within the abdominal aorta or branch vessels. Celiac axis, superior mesenteric artery and inferior mesenteric artery are patent. The bilateral common iliac, internal iliac and external iliac arteries are patent. There is mild stenosis at the origin the right renal artery. Embolization coils within the expected location of the gastroduodenal artery are present. 2.3 cm low-attenuation right adrenal nodule is unchanged since CT of January 16, 2021. This represents an adenoma. Arterial phase images of the liver, spleen, left adrenal gland, kidneys and pancreas are unremarkable. Caliber and wall thickness of small and large bowel are normal. No intraluminal contrast is identified to suggest active GI bleed on this exam. The appendix is normal. There is no lymphadenopathy. There are no fluid collections. Small fat- containing umbilical hernia is incidentally noted. IMPRESSION: 1. No intraluminal contrast within the bowel to suggest active GI bleed by CT. 2. Moderate atherosclerotic plaque within the abdominal aorta and branch vessels. No severe stenoses. No aneurysms. 3. No bowel obstruction. No bowel wall thickening. ACT 112: Negative or not required by law. Electronically signed by: Malcolm Guzman M.D. 06/21/2024 11:[address] 06/21/24 10:[address] WITH CONTRAST CT DOSE: 2091.63 mGy.cm HISTORY: Possible pulmonary nodule on a recent chest radiograph weak, L pulm nodule anemia, gi bleed, smoker TECHNIQUE: Multiaxial CT images of the chest were performed following the IV administration of 120 cc of Optiray. Sagittal and coronal reconstructions were performed. A dose lowering technique was utilized adhering to the principles of ALARA. COMPARISON STUDY: Chest radiograph dated 06/21/2024 FINDINGS: There is no significant pulmonary nodule identified. The recent radiographic findings are presumptively artifactual. The upper airway is unremarkable. There is no focal airspace opacity or pleural effusion. There is minor dependent discoid atelectasis. There is no adenopathy identified. There is no aortic aneurysm. The central pulmonary arteries are distended which can correlate with pulmonic valvular disease or pulmonary arterial hypertension. Aortic valve calcifications are present moderate coronary artery calcifications are present. There is no pericardial effusion. Heart size is slightly enlarged. The upper abdominal images demonstrate hepatic steatosis and a tiny low- attenuation lesion in the left lobe of the liver is statistically a cyst. There is a low-attenuation right adrenal nodule consistent with a lipid rich adenoma. IMPRESSION: No evidence of a significant pulmonary nodule. Please refer to the body of the report for additional nonacute findings. ACT 112: Negative or not required by law. Electronically signed by: Lashell Singh M.D. 06/21/2024 11:20 AM Discharge Plan Visit Data Chief Complaint: Abnormal Labs/Diagnostic Testing Stated Complaint: LOW HEMOGLOBIN ED Provider: Dionicio Coffman Discharge Problem: GI bleed, Chronic alcohol abuse, Microcytic anemia Patient Disposition: Being Evaluated by Hospitalist Forms Stand Alone Forms: My [facility] Prescriptions Prescriptions: No Action atorvastatin 80 mg tablet 40 mg PO QPM allopurinol 300 mg tablet 300 mg PO QAM olmesartan 40 mg tablet 20 mg PO BID multivitamin Tablet 1 tab PO QAM amlodipine 10 mg Tablet 10 mg PO QAM pantoprazole 40 mg Tablet,Delayed Release (Dr/Ec) 40 mg PO BID Macular Health Formula 5-1-7.5 mg Capsule 2 cap PO BID diltiazem HCl 240 mg capsule,extended release 24hr 240 mg PO QAM Eliquis 5 mg tablet 5 mg PO UD Rx Instructions: 5 mg po bid. per pt, he was told it is recommended he stop taking Referrals Referrals: Jimmy Santana MD [Primary Care Provider] - Discharge Problem: GI bleed Qualifiers: GI bleed type/associated pathology: unspecified gastrointestinal hemorrhage type Qualified Code(s): K92.2 - Gastrointestinal hemorrhage, unspecified
--- NOTE | 2024-06-21 09:59 | XRay Report ---
XR chest 1V portable CLINICAL HISTORY: weakness COMPARISON STUDY: Chest radiograph September 16, 2022. FINDINGS: Lung volumes are normal. There is no consolidation. A 1.3 cm left upper lobe density is pre sent. There is no pneumothorax or pleural effusion. The heart is mildly enlarged. Mediastinal contour s are normal. There is no evidence for pulmonary edema. IMPRESSION: 1. No acute cardiopulmonary findings. 2. 1.3 cm left upper lobe density. This is likely artifactual. Follow-up PA and lateral chest radiogr aph in one month are recommended to exclude the possibility of a pulmonary nodule. ACT 112: Negative or not required by law. Electronically signed by: Malcolm Guzman M.D. 06/21/2024 9:57 AM
[2024-06-21] MEDS: PANTOprazole 80 MG in DEXTROSE 5% 100 ML IV ONE (10:18)
[2024-06-21 10:30] LABS: INR 1.1 (0.9-1.1); Prothrombin Time 11.6 Seconds (9.0-12.0)
[2024-06-21 10:48] LABS: Albumin Level 4.5 gm/dl (3.4-5.0); Bilirubin,Total 0.5 mg/dl (0.2-1.0); Calcium 8.9 mg/dl (8.6-10.3); Creatinine Clr Calc Pharmacy 57.8 ml/min; Magnesium 2.3 mg/dl (1.7-2.4); Potassium 3.7 mmol/L (3.5-5.1); Total Protein 6.8 gm/dl (6.0-8.3)
[2024-06-21] MEDS: PANTOprazole 40 MG in DEXTROSE 5% MINI-B 100 ML IV SCH (10:48)
[2024-06-21] MEDS: PANTOPRAZOLE BOLUS/DRIP IV STA (10:49)
[2024-06-21 10:51] LABS: Globulin 2.3 gm/dl (2.5-4.0)
[2024-06-21 10:54] LABS: Troponin I High Sensitivity 14.9 pg/ml (0-20)
[2024-06-21 11:00] LABS: Hematocrit (blood only) 23.1 % (42.0-52.0); Hemoglobin 6.5 g/dl (14.0-18.0); Mean Corpuscular Hemoglobin 20.4 pg (25.0-34.0); Mean Corpuscular Hgb Conc 28.1 g/dL (32.0-36.0); Mean Corpuscular Volume 72.6 fL (80.0-100.0); Platelet Count 246 K/uL (130-400); RDW Coefficient of Variation 17.4 % (11.5-14.5); RDW Standard Deviation 45.4 fL (36.4-46.3); Red Blood Count 3.18 M/uL (4.70-6.10); White Blood Count 5.41 K/ul (4.8-10.8)
[2024-06-21 11:04] LABS: Thyroid Stimulating Hormone 12.654 uIu/ml (0.300-4.500)
[2024-06-21] MEDS: OPTIRAY 320 125ml IV ONE (11:05)
[2024-06-21 11:07] LABS: Basophils # (auto) 0.05 K/uL (0.00-0.20); Basophils % (auto) 0.9 %; Eosinophils # (auto) 0.25 K/uL (0.00-0.50); Eosinophils % (auto) 4.6 %; Hypochromasia Present; Immature Granulocytes # (auto) 0.02 K/uL (0.01-0.20); Immature Granulocytes % (auto) 0.4 %; Lymphocytes # (auto) 1.08 K/uL (1.20-3.40); Microcytosis Present; Monocytes # (auto) 0.73 K/uL (0.11-0.59); Monocytes % (auto) 13.5 %; Neutrophils # (auto) 3.28 K/uL (1.40-6.50); Neutrophils % (auto) 60.6 %; Polychromasia 2+
[2024-06-21 11:09] LABS: Ferritin 6.3 ng/ml (8-388)
--- NOTE | 2024-06-21 11:19 | CT Scan Report ---
CT ANGIOGRAPHY OF THE ABDOMEN AND PELVIS CLINICAL HISTORY: low h/h, GI bleed COMPARISON STUDY: CT of the abdomen and pelvis January 16, 2021. MRCP January 15, 2021. TECHNIQUE: Helical axial images of the abdomen and pelvis were obtained during arterial phase followi ng intravenous injection of 120 cc Optiray 320 IV. Sagittal and coronal reconstructed reviewed as wel l as maximal intensity projections on an independent 3-D workstation. Automated exposure control was utilized for the study. A dose lowering technique was utilized adhering to the principles of ALARA. FINDINGS: The heart is moderately enlarged. The caliber of the abdominal aorta is normal. There is mo derate plaque within the abdominal aorta and branch vessels. There is no dissection within the abdomi nal aorta or branch vessels. Celiac axis, superior mesenteric artery and inferior mesenteric artery a re patent. The bilateral common iliac, internal iliac and external iliac arteries are patent. There i s mild stenosis at the origin the right renal artery. Embolization coils within the expected location of the gastroduodenal artery are present. 2.3 cm low-attenuation right adrenal nodule is unchanged s arash CT of January 16, 2021. This represents an adenoma. Arterial phase images of the liver, spleen , left adrenal gland, kidneys and pancreas are unremarkable. Caliber and wall thickness of small and large bowel are normal. No intraluminal contrast is identified to suggest active GI bleed on this exa m. The appendix is normal. There is no lymphadenopathy. There are no fluid collections. Small fat-con taining umbilical hernia is incidentally noted. IMPRESSION: 1. No intraluminal contrast within the bowel to suggest active GI bleed by CT. 2. Moderate atherosclerotic plaque within the abdominal aorta and branch vessels. No severe stenoses. No aneurysms. 3. No bowel obstruction. No bowel wall thickening. ACT 112: Negative or not required by law. Electronically signed by: Malcolm Guzman M.D. 06/21/2024 11:17 AM
--- NOTE | 2024-06-21 11:21 | CT Scan Report ---
CHEST CT WITH CONTRAST CT DOSE: 2091.63 mGy.cm HISTORY: Possible pulmonary nodule on a recent chest radiograph weak, L pulm nodule anemia, gi bleed , smoker TECHNIQUE: Multiaxial CT images of the chest were performed following the IV administration of 120 cc of Optiray. Sagittal and coronal reconstructions were performed. A dose lowering technique was uti lized adhering to the principles of ALARA. COMPARISON STUDY: Chest radiograph dated 06/21/2024 FINDINGS: There is no significant pulmonary nodule identified. The recent radiographic findings are p resumptively artifactual. The upper airway is unremarkable. There is no focal airspace opacity or ple ural effusion. There is minor dependent discoid atelectasis. There is no adenopathy identified. There is no aortic aneurysm. The central pulmonary arteries are di stended which can correlate with pulmonic valvular disease or pulmonary arterial hypertension. Aortic valve calcifications are present moderate coronary artery calcifications are present. There is no pe ricardial effusion. Heart size is slightly enlarged. The upper abdominal images demonstrate hepatic steatosis and a tiny low-attenuation lesion in the lef t lobe of the liver is statistically a cyst. There is a low-attenuation right adrenal nodule consiste nt with a lipid rich adenoma. IMPRESSION: No evidence of a significant pulmonary nodule. Please refer to the body of the report for additional nonacute findings. ACT 112: Negative or not required by law. Electronically signed by: Lashell Singh M.D. 06/21/2024 11:20 AM
[2024-06-21 11:38] LABS: T4 Free Thyroxine 1.14 ng/dl (0.61-1.60)
[2024-06-21] MEDS ORDERED: SODIUM CHLORIDE 0.9% 100 ML IV PRN ×3 (11:59→20:26)
[2024-06-21] MEDS ORDERED: SODIUM CHLORIDE 0.9% 50 ML IV PRN ×3 (11:59→20:26)
--- OUTSIDE RECORDS SUMMARY | 2024-06-21 12:50 | External Medical Summary | Continuity of Care Document ---
Author Name Unknown Organization [facility] [address] Address [address] [place], [place] [id number] Care Team Providers Care Sales Agent Business Services Name Role Phone Jimmy Santana Primary Care Physician [phone] Encounter [facility] [id number] Date(s): 06/18/24 - 06/18/24 [facility] [address] [facility] [address], [facility] 1 [place], [place] [phone] Encounter Diagnosis Atherosclerotic heart disease of [place] coronary artery without angina pectoris (Final) - Mixed hyperlipidemia(Final) - Essential (primary) hypertension(Final) - Unspecified atrial fibrillation(Final) - Discharge Disposition: Home or Self Care Attending Physician: DO Antonio Jason D Referring Physician: DO Antonio Jason D Encounter Type: Clinic Allergies, Adverse Reactions, Alerts No Known Allergies Immunizations Given and Recorded Vaccine Date Status Refusal Reason SARS-CoV-2 (COVID-19) mRNA-1273 vaccine 1 07/14/20 Recorded SARS-CoV-2 (COVID-19) mRNA-1273 vaccine 2 06/16/20 Recorded tetanus toxoids-diphtheria, Td (Adult) 05/20/18 Gi jim tetanus toxoids-diphtheria, Td (Adult) 05/05/04 Re corded tetanus toxoids-diphtheria, Td (Adult) 3 05/05/04 Recorded 1Result Comment: 2022-10-29: Historical information-source unspecified 2Result Comment: 2022-10-29: Historical information-source unspecified 3Result Comment: 2022-10-29: Historical information-source unspecified Medications allopurinol 300 mg oral tablet Start: 05/09/23 11:38:00 AM EST, 1 tab, PO, Daily, Disp# 90 tab, Refills: 4, Pharmacy: [facility] #[facility] Start Date: 05/09/23 Status: Ordered Quantity: 90.0 Unit: tab Repeat number: 5 amiodarone 200 mg oral tablet Start: 05/08/23 12:34:00 PM EST, 0.5 tab, PO, Daily, Disp# 60 tab, Refills: 10, Pharmacy: [facility] #[facility] Start Date: 05/08/23 Status: Ordered Quantity: 60.0 Unit: tab Repeat number: 11 amoxicillin 500 mg oral capsule Start: 09/23/23 2:08:00 PM EDT, See Instructions, Disp# 4 cap, Refills: 2, take 4 tablets 1 hour prior to dental procedure as directed, Pharmacy: [facility] #[facility] Start Date: 09/23/23 Status: Ordered Quantity: 4.0 Unit: cap Repeat number: 1 atorvastatin 80 mg oral tablet Start: 10/13/23 8:35:00 AM EDT, 0.5 tab, PO, Daily, Disp# 45 tab, Refills: 3, .5 tab daily, Pharmacy: [facility] #[facility] Start Date: 10/13/23 Status: Ordered Quantity: 45.0 Unit: tab Repeat number: 4 colchicine 0.6 mg oral tablet Start: 06/25/19 8:59:00 AM EST, See Instructions, Disp# 20 tab, Refills: 1, 2 tab PO at the first sign of a gout flare followed by 1 tab one hour later, PRN: as needed for gout pain, Pharmacy: [facility] #[facility] Start Date: 06/25/19 Status: Ordered Quantity: 20.0 Unit: tab Repeat number: 2 DilTIAZem (Eqv-Cardizem CD) 240 mg/24 hours oral capsule, extended release Start: 03/03/24 2:33:00 PM EDT, 1 cap, PO, Daily, Disp# 90 cap, Refills: 3, Pharmacy: [facility] Start Date: 03/03/24 Status: Ordered Quantity: 90.0 Unit: cap Repeat number: 4 Eliquis 5 mg oral tablet Start: 10/23/23 3:44:00 PM EDT, 1 tab, PO, bid, Disp# 60 tab, Refills: 11, Pharmacy: [facility] #[facility] Start Date: 10/23/23 Status: Ordered Quantity: 60.0 Unit: tab Repeat number: 12 metoprolol succinate 100 mg oral tablet, extended release Start: 10/29/22 2:52:00 PM EDT, 1 tab, PO, Daily, Disp# 30 tab, Refills: 5, Pharmacy: [facility] Start Date: 10/29/22 Status: Ordered Quantity: 30.0 Unit: tab Repeat number: 6 olmesartan 40 mg oral tablet Start: 09/24/23 10:05:00 AM EDT, See Instructions, Disp# 100 tab, Refills: 1, TAKE 1/2 TABLET BY MOUTH TWICE DAILY, Pharmacy: [facility] Start Date: 09/24/23 Status: Ordered Quantity: 100.0 Unit: tab Repeat number: 2 pantoprazole 40 mg oral delayed release tablet Start: 07/21/23 9:58:00 AM EDT, 1 tab, PO, Daily, Disp# 90 tab, Refills: 3, Pharmacy: [facility] Start Date: 07/21/23 Status: Ordered Quantity: 90.0 Unit: tab Repeat number: 4 PreserVision AREDS Start: 01/28/22 9:16:00 AM EDT, See Instructions, 4 tabs po daily Start Date: 01/28/22 Status: Ordered Repeat number: 1 Problem List Condition Confirmation Course Effective Dates Status H ealth Status Informant Adrenal nodule 1 Confirmed 01/16/21 Active Alcohol use disorder in remission Confirmed Active Atrial fibrillation Confirmed Active Coronary arteriosclerosis 2 Confirmed Active Duodenal ulcer hemorrhage 3 Confirmed Active GOUT Confirmed Active Hiatal hernia 4 Confirmed 06/13/21 Active Status post total left knee replacement Confirmed Active Hypertension Confirmed 01/18/10 Active Hypertension Confirmed Active Lower urinary tract symptoms (LUTS) Confirmed Active Hyperlipidemia Confirmed Active Obesity Confirmed Active Osteoarthritis - hand joint Confirmed Active Primary osteoarthritis of knee Confirmed Active PUD (peptic ulcer disease) 5 Confirmed 01/16/21 Active Elevated TSH Confirmed Active Fatty liver 6 Confirmed Active Weight disorder Confirmed Active 10:55 EDT - STUART Em Haley CT Abdomen wo/w contrast Impression: 1. No acute intra-abdominal abnormality. 2. 2.2 cm right adrenal gland adenoma. 3. Hepatic steatosis. 2sees Dr. Antonio 3in 2018 4EGD in 03/2021:medium size hiatal hernia 5EGD in 01/2021 Impression: Normal esophagus. No varices. Medium-sized hiatal hernia. Non-bleeding gastric ulcers with no stigmata of bleeding. Oozing duodenal ulcer with a visible vessel. Injected. Treated with bipolar cautery. Normal second portion of the duodenum and third portion of the duodenum. 6US in 11/2018 for elevated LFt's: fatty liver Procedures Procedure Date Related Diagnosis Body Site Status Chest X-ray 1 09/16/22 Completed CAT scan 2 01/14/21 Completed MRI of abdomen 3 01/14/21 Complete d Upper GI endoscopy 4 01/14/21 Comp leted Ultrasound 5 11/30/18 Completed Foot X-ray Left 6 09/05/17 Complet ed Colonoscopy 7 08/20/16 Completed US scan of abdominal aorta 8 08/29/15 Completed Acute duodenal ulcer with he morrhage but without obstruction 10/04/11 Complete d cardiac stent 06/05/11 Completed athroscopy--left knee Com pleted Hernia repair Completed Tonsillectomy Completed Total knee replacement Left Completed 1No acute chest disease. Cardiomegaly is noted. 2Abdomen wo/w contrast Impression: 1. No acute intra-abdominal abnormality. 2. 2.2 cm right adrenal gland adenoma. 3. Hepatic steatosis. 4. Additional findings as above. 3Impression: 1. Normal size liver with small cyst within right lobe. No intrahepatic biliary dilatation seen. Normal signal characteristics of the liver parenchyma on T2 sequence. 2. Normal gallbladder. No biliary or pancreatic duct dilatation. Limited exam due to motion artifact. 3. Possible 2.2cm right adrenal nodule, evaluation is suboptimal and this nondedicated exam. Further evaluation with CT of abdomen, adrenal protocol might be considered. 4. The rest of findings as above. 4Impression: Normal esophagus. No varices. Medium-sized hiatal hernia. Non-bleeding gastric ulcers with no stigmata of bleeding. Oozing duodenal ulcer with a visible vessel. Injected. Treated with bipolar cautery. Normal second portion of the duodenum and third portion of the duodenum. 5Normal gallbladder. No gallstone Hepatic steatosis 6Impression: No acute fracture. No radiographic evidence of osteomyelitis. Mild to moderate osteophytosis with joint space narrowing of the left first metatarsophalangeal joint. No erosions. Soft tissue swelling medial to the joint is nonspecific but could be seen in the setting of gout Dorsal soft tissue swelling of the left foot. 7The entire examined colon is normal. The examined portion of the ileum was normal. The distal rectum and anal verge are normal on retroflexion view. No specimens colleceted. 8normal Results Laboratory List Name Date Complete Blood Count w Differential (CBC ,DIFFH) 06/18/24 Comprehensive Metabolic Panel (COMP META B PANEL) 06/18/24 T4, Free (T4, FREE) 06/18/24 Thyroid Stimulating Hormone (TSH) 5 Most recent to oldest [Reference Range]: 1 eGFR CKD-EPI [>60 mL/min/1.73 m2] >90 mL /min/1.73 m2 1 (06/18/24 2:43 PM) Hypochromia SLIGHT *Unknown* (06/18/24 2:43 PM) Platelet Morphology NORMAL *Unknown* (06/18/24 2:43 PM) Estimated CrCl 80.47 mL/min (06/18/24 3:24 PM) MPV [9.0-12.2 fL] 11.3 fL (06/18/24 2:43 PM) Immature Gran% 0.0 % (06/18/24 2:43 PM) Neut% 64.6 % (06/18/24 2:43 PM) Lymph% 20.0 % (06/18/24 2:43 PM) Lawrence% 11.8 % (06/18/24 2:43 PM) Baso% 1.8 % (06/18/24 2:43 PM) Eos% 1.8 % (06/18/24 2:43 PM) Immat Gran, Abs [0.0-0.4 K/uL] 0.00 K/uL (06/18/24 2:43 PM) Neut, Abs [2.0-7.7 K/uL] 3.67 K/uL (06/18/24 2:43 PM) Lymph, Abs [1.0-3.4 K/uL] 1.14 K/uL (06/18/24 2:43 PM) Lawrence, Abs [0-1.0 K/uL] 0.67 K/uL (06/18/24 2:43 PM) Baso, Abs [0-0.1 K/uL] 0.10 K/uL (06/18/24 2:43 PM) Eos, Abs [0-0.5 K/uL] 0.10 K/uL (06/18/24 2:43 PM) Type of Diff: MANUAL *Unknown* (06/18/24 2:43 PM) RDW [11.5-14.2 %] 17.3 % *HI* (06/18/24 2:43 PM) Anion Gap [5-14 mmol/L] 5 mmol/L (06/18/24 2:43 PM) Alb [3.5-5.0 g/dL] 4.3 g/dL (06/18/24 2:43 PM) Alk Phos [38-126 unit/L] 89 unit/L (06/18/24 2:43 PM) ALT [<50 unit/L] 101 unit/L *HI* (06/18/24 2:43 PM) AST [15-46 unit/L] 111 unit/L *HI* (06/18/24 2:43 PM) BUN [7-20 mg/dL] 15 mg/dL (06/18/24 2:43 PM) Ca [8.4-10.2 mg/dL] 8.6 mg/dL (06/18/24 2:43 PM) Cl- [96-107 mmol/L] 110 mmol/L *HI* (06/18/24 2:43 PM) HCO3 [22-30 mmol/L] 24 mmol/L (06/18/24 2:43 PM) Cret [0.70-1.30 mg/dL] 0.86 mg/dL (06/18/24 2:43 PM) Glu [74-106 mg/dL] 117 mg/dL *HI* (06/18/24 2:43 PM) Hct [39-48 %] 22.5 % *LOW* (06/18/24 2:43 PM) Hgb [13.0-17.0 g/dL] 6.1 g/dL *LOW* (06/18/24 2:43 PM) K [3.5-5.1 mmol/L] 4.3 mmol/L (06/18/24 2:43 PM) MCH [28-33 pg] 20.9 pg *LOW* (06/18/24 2:43 PM) MCHC [32-36 g/dL] 27.1 g/dL *LOW* (06/18/24 2:43 PM) MCV [81-96 fL] 77.1 fL *LOW* (06/18/24 2:43 PM) Na [137-145 mmol/L] 139 mmol/L (06/18/24 2:43 PM) Plts [150-350 K/uL] 222 K/uL (06/18/24 2:43 PM) RBC [4.40-5.60 M/uL] 2.92 M/uL *LOW* (06/18/24 2:43 PM) Free T4 [0.70-1.48 ng/dL] 1.03 ng/dL 2 (06/18/24 2:43 PM) T Bili [0.2-1.3 mg/dL] 0.6 mg/dL (06/18/24 2:43 PM) Prot [6.3-8.2 g/dL] 6.7 g/dL (06/18/24 2:43 PM) TSH [0.47-4.68 uIU/mL] 7.35 uIU/mL 3 *HI* (06/18/24 2:43 PM) WBC [4.0-10.4 K/uL] 5.68 K/uL (06/18/24 2:43 PM) 1Result Comment: Testing Performed By: Dept of Pathology [facility] [address], [address] [place] [address], [place] [address] 2Result Comment: Testing Performed By: Dept of Pathology [facility] [address], [address] [place] [address], [place] [address] 3Result Comment: Testing Performed By: Dept of Pathology [facility] [address], [address] [place] [address], [place] [address] Social History Social History Type Response Tobacco 1 Smoking Status Former Smoker, quit > 1 yr Sex Male Sex Representation Male (finding) 12 PPD x 15 years, quited at age 28 Patient Care team information Care Team Personnel Name: MD Santana Juan Position: Physician - Family Med Member Role: Primary Care Provider Address: [address] [place] [address], [place] [address] Telecom: [phone] Care Team Related Persons Name: MISHA EDWARDS Insurance Providers Guarantor name: AYSHA EDWARDS Health Plan Information #: 1 Payer: [employer] Member Number: [id number] Policy Number: FLORY Group Number: [id number] Health Plan Information #: 2 Payer: MEDICARE Member Number: FLORY Policy Number: FLORY Group Number: FLORY Health Plan Information #: 3 Payer: [facility] Member Number: [id number] Policy Number: FLORY Group Number: NA
--- OUTSIDE RECORDS SUMMARY | 2024-06-21 12:50 | External Medical Summary | Continuity of Care Document ---
Author Name Unknown Organization [address] Address [address] [place], [place] [id number] Care Team Providers Care Windows Technical Specialist Name Role Phone Jimmy Santana Primary Care Physician [phone] Encounter [facility] [id number] Date(s): 03/11/24 - 03/11/[address], [address] [place] [address] [phone] Encounter Diagnosis A-fib(Discharge Diagnosis) - 03/11/24 Discharge Disposition: Home or Self Care Attending Physician: MD Merced, Akiko Perez Allergies, Adverse Reactions, Alerts No Known Allergies [...] Daily, Disp# 90 tab, Refills: 4, Pharmacy: [facility] Start Date: 05/09/23 Status: Ordered amiodarone 200 mg oral tablet Start: 05/08/23 12:34:00 PM EST, 0.5 tab, PO, Daily, Disp# 60 tab, Refills: 10, Pharmacy: [facility] Start Date: 05/08/23 Status: Ordered amoxicillin 500 mg oral capsule Start: 09/23/23 2:08:00 PM EDT, See Instructions, Disp# 4 cap, Refills: 2, take 4 tablets 1 hour prior to dental procedure as directed, Pharmacy: [facility] Start Date: 09/23/23 Status: Ordered atorvastatin 80 mg oral tablet Start: 10/13/23 8:35:00 AM EDT, 0.5 tab, PO, Daily, Disp# 45 tab, Refills: 3, .5 tab daily, Pharmacy: [facility] Start Date: 10/13/23 Status: Ordered colchicine 0.6 mg oral tablet Start: 06/25/19 8:59:00 AM EST, See Instructions, Disp# 20 tab, Refills: 1, 2 tab PO at the first sign of a gout flare followed by 1 tab one hour later, PRN: as needed for gout pain, Pharmacy: [facility] Start Date: 06/25/19 Status: Ordered DilTIAZem (Eqv-Cardizem CD) 240 mg/24 hours oral capsule, extended release Start: 03/03/24 2:33:00 PM EDT, 1 cap, PO, Daily, Disp# 90 cap, Refills: 3, Pharmacy: [facility] Start Date: 03/03/24 Status: Ordered Eliquis 5 mg oral tablet Start: 10/23/23 3:44:00 PM EDT, 1 tab, PO, bid, Disp# 60 tab, Refills: 11, Pharmacy: [facility] Start Date: 10/23/23 Status: Ordered metoprolol succinate 100 mg oral tablet, extended release Start: 10/29/22 2:52:00 PM EDT, 1 tab, PO, Daily, Disp# 30 tab, Refills: 5, Pharmacy: [facility] Start Date: 10/29/22 Status: Ordered olmesartan 40 mg oral tablet Start: 09/24/23 10:05:00 AM EDT, See Instructions, Disp# 100 tab, Refills: 1, TAKE 1/2 TABLET BY MOUTH TWICE DAILY, Pharmacy: [facility] Start Date: 09/24/23 Status: Ordered pantoprazole 40 mg oral delayed release tablet Start: 07/21/23 9:58:00 AM EDT, 1 tab, PO, Daily, Disp# 90 tab, Refills: 3, Pharmacy: [facility] Start Date: 07/21/23 Status: Ordered PreserVision AREDS Start: 01/28/22 9:16:00 AM EDT, See Instructions, 4 tabs po daily Start Date: 01/28/22 Status: Ordered Mental Status 03/11/24 Barriers to Learning one year None evide nt Mandatory Health Literacy Documentation Yes Health Literacy Communication Barriers N ever Primary Language German Problem List Condition Confirmation Course Effective Dates [...] 3. Hepatic steatosis. 2sees Dr. Antonio 3in 2017 4EGD in 03/2021:medium size hiatal hernia 5EGD in 01/2021 Impression: Normal esophagus. No varices. Medium-sized hiatal hernia. Non-bleeding gastric ulcers with no stigmata of bleeding. Oozing duodenal ulcer with a visible vessel. Injected. Treated with bipolar cautery. Normal second portion of the duodenum and third portion of the duodenum. 6US in 11/2018 for elevated LFt's: fatty liver Diagnosis Diagnosis Type Effective Dates Health Status Clini husam Service Informant A-fib Discharge Diagnosis 03/11/24 Non-Specified Procedures Procedure Date Related Diagnosis Body Site [...] on retroflexion view. No specimens colleceted. 8normal Vital Signs Most recent to oldest [Reference Range]: 1 Patient Weight 99.2 kg (03/11/24 1:17 PM) Heart Rate 70 bpm (03/11/24 1:17 PM) Blood Pressure 136/78mmHg (03/11/24 1:17 PM) Cuff Pulse Pressure 58 mmHg (03/11/24 1:17 PM) Social History Social History Type Response Tobacco 1 Smoking Status Former Smoker, quit > 1 yr Sex Male Sex Representation Male (finding) 12 PPD x 15 years, quited at age 28 EKG study * Contributor_system, [id number]: PERFORM, VERIFY Event Display: EKG Authored Date: Please click on link to see image. Patient Care team information Care Team Personnel Name: MD Santana Juan Position: Physician - Family Med Member Role: Primary Care Provider Address: [address] [place] [address], [place] [address] [place] Care Team Related Persons Name: MISHA EDWARDS
--- OUTSIDE RECORDS SUMMARY | 2024-06-21 12:50 | External Medical Summary | Continuity of Care Document ---
Author Name Unknown Organization [facility] [address] Address [address] [place], [place] [id number] Care Team Providers Care Irrigator Valve Pipe Name Role Phone Jimmy Santana Primary Care Physician [phone] [id number] Date(s): 02/17/24 - 02/17/24 [facility] [address], [address] [place] [address] [phone] Encounter Diagnosis Atrial fibrillation(Discharge Diagnosis) - 06/30/23 Coronary arteriosclerosis(Discharge Diagnosis) - 02/17/24 Hyperlipidemia(Discharge Diagnosis) - 02/17/24 Hypertension(Discharge Diagnosis) - 02/17/24 Atrial fibrillation(Discharge Diagnosis) - 02/17/24 Discharge Disposition: Home or Self Care Attending Physician: DO Antonio Jason D Allergies, Adverse Reactions, Alerts No Known Allergies Assessment and Plan Extracted from: Title:Cardiology Office Visit Note Author:DO Antonio Jason D Date:02/17/24 1.Coronary arteriosclerosi s 2.Hyperlipidemia 3.Hypertension 4.Atrial fibrillation I reviewed his most recent labs from November on amiodarone. His LFTs are mildly abnormal and his TSH is elevated with a normal free T4. He is only due repeated in about 6 weeks just to make sure there is no progressive hypothyroidism or worsening LFT abnormalities. He is maintaining sinus rhythm with amiodarone. As you may remember when in A- fib previously he was very difficult to control. He did see Dr. Blackwood of electrophysiology prior to his Juneardioversion. We did discuss ablation and the new technique available for an A-fib ablation. And Dr. Blackwood's note suggested we can consider ablation once we got him back into his normal rhythm and maintained it. Will arrange for him to discuss it further with her and the idea of either proceeding with ablative therapy or reducing his amiodarone to 100 mg daily and see if he maintains sinus rhythm. He is on anticoagulation to reduce his risk of cardioembolic events. His previous creatinine was normal and there is no reason to adjust his Eliquis dosing. His blood pressures at home always in the 120s and almost always higher here in the office. He is on appropriate antihypertensive regimen. He will see Nevaeh in 6 months. I will see him in a year. Will reach out to him as to whether he wishes to see Dr. Blackwood. Will follow-up via phone regards to his labs. Immunizations Given and Recorded Vaccine Date Status [...] Daily, Disp# 90 tab, Refills: 4, Pharmacy: [id number] Start Date: 05/09/23 Status: Ordered amiodarone 200 mg oral tablet Start: 05/08/23 12:34:00 PM EST, 1 tab, PO, Daily, Disp# 60 tab, Refills: 10, Pharmacy: [id number] Start Date: 05/08/23 Status: Ordered amoxicillin 500 mg oral capsule Start: 09/23/23 2:08:00 PM EDT, See Instructions, Disp# 4 cap, Refills: 2, take 4 tablets 1 hour prior to dental procedure as directed, Pharmacy: [id number] Start Date: 09/23/23 Status: Ordered atorvastatin 80 mg oral tablet Start: 10/13/23 8:35:00 AM EDT, 0.5 tab, PO, Daily, Disp# 45 tab, Refills: 3, .5 tab daily, Pharmacy: [id number] Start Date: 10/13/23 Status: Ordered colchicine 0.6 mg oral tablet Start: 06/25/19 8:59:00 AM EST, See Instructions, Disp# 20 tab, Refills: 1, 2 tab PO at the first sign of a gout flare followed by 1 tab one hour later, PRN: as needed for gout pain, Pharmacy: [id number] Start Date: 06/25/19 Status: Ordered DilTIAZem (Eqv-Cardizem CD) 240 mg/24 hours oral capsule, extended release Start: 03/31/23 1:22:00 PM EST, 1 cap, PO, Daily, Disp# 90 cap, Refills: 3, Pharmacy: [facility] Start Date: 03/31/23 Status: Ordered Eliquis 5 mg oral tablet Start: 10/23/23 3:44:00 PM EDT, 1 tab, PO, bid, Disp# 60 tab, Refills: 11, Pharmacy: [facility] Start Date: 10/23/23 Status: Ordered metoprolol succinate 100 mg oral tablet, extended release Start: 10/29/22 2:52:00 PM EDT, 1 tab, PO, Daily, Disp# 30 tab, Refills: 5, Pharmacy: [facility] Start Date: 10/29/22 Status: Ordered olmesartan 40 mg oral tablet Start: 09/24/23 10:05:00 AM EDT, See Instructions, Disp# 100 tab, Refills: 1, TAKE 1/2 TABLET BY MOUTH TWICE DAILY, Pharmacy: [facility] Start Date: 09/24/23 Status: Ordered pantoprazole 40 mg oral delayed release tablet Start: 07/21/23 9:58:00 AM EDT, 1 tab, PO, Daily, Disp# 90 tab, Refills: 3, Pharmacy: [id number] Start Date: 07/21/23 Status: Ordered PreserVision AREDS Start: 01/28/22 9:16:00 AM EDT, See Instructions, 4 tabs po daily Start Date: 01/28/22 Status: Ordered Mental Status 02/17/24 Barriers to Learning one year None evide nt Mandatory Health Literacy Documentation Yes Health Literacy Communication Barriers N ever Primary Language Japanese Problem List Condition Confirmation Course Effective Dates [...] Diagnosis Diagnosis Type Effective Dates Health Status Clinical Service Informant Hyperlipidemia Discharge Diagnosis 02/17/24 Hypertension Discharge Diagnosis 02/17/24 Coronary arteriosclerosis Discharge Diagnosis 02/17/24 Atrial fibrillation Discharge Diagnosis 02/17/24 Atrial fibrillation Discharge Diagnosis 06/30/23 Non-Specified Procedures Procedure Date Related Diagnosis Body [...] to oldest [Reference Range]: 1 Patient Weight 98.6 kg (02/17/24 9:46 AM) Heart Rate 76 bpm (02/17/24 9:46 AM) Blood Pressure 160/70mmHg (02/17/24 9:46 AM) Cuff Pulse Pressure 90 mmHg (02/17/24 9:46 AM) BP Location # 1 Right Arm (02/17/24 9:46 AM) Social History Social History Type Response Tobacco 1 Smoking Status Former Smoker, quit > 1 yr Sex Male Sex Representation Male (finding) 12 PPD x 15 years, quited at age 28 Cardiology Outpatient Note * DO Antonio Jason D: PERFORM Event Display: Cardiology Outpt Note Authored Date: Primary Care Provider MD Santana Juan Chief Complaint Lightheadedness/dizziness is same at baseline. No orthostasis. Denies any recent SOB, chest pain, or edema. B/P elevated today. Does not feel his afib. Rhythm is regular today 70s History of Present Illness He denies any symptomatic recurrence of his atrial fibrillation. As you remember in the past though he did not really know he was ever in A-fib even with a rapid ventricular response. He denies any chest pain or chest pressure. He describes his function capacity is stable. He has no lightheadedness or dizziness. He denies any presyncope or syncope. He is had no lower extremity edema. He denies any bleeding or bruising on anticoagulation. He denies any dark stools or black stools. He denies any significant decline in his functional capacity. Review of Systems PAST MEDICAL HISTORY 1. Coronary artery disease status post very small non-ST elevation myocardial infarction (2011). 2. 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 3. 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 4. [place] circumflex arising from the left main supplying the proximal to mid lateral wall. 5.Episode of AFIB with RVR acute CHF; s/p CV 09/2022 with recurrence of Afib And repeat cardioversion 06/2023 amiodarone 6. Preserved left ventricular systolic function with mild atrial left enlargement by echo 02/21/21. 6b. mild LV dysfunction [facility] with AFib with RVR 7. Hyperlipidemia. 8. Hypertension. 9. Gout. 10. Osteoarthritis. 11. History GI bleed secondary to a Ava-Reece tear and a large duodenal ulcer status post embolization at [facility]. 12. GI bleed secondary to duodenal ulcer, fall 2020 at [facility] [address] in which he also went through detox from alcohol. 13. Asymptomatic paroxysmal atrial fibrillation during his fall of 2020 hospitalization. 14. ETOH abuse Physical Exam Vitals & Measurements HR:76(Monitored) BP:160/70 SpO2:97% WT:98.600kg(Dosing) WT:98.6kg PHYSICAL EXAMINATION: He is awake, alert, oriented x3. He is in no acute distress. He is a well-appearing male who looks his age. HEENT: 2+ carotid upstrokes, no evidence of carotid bruits. Generous pressure appeared normal. Lungs: Clear to auscultation bilaterally; no rales, rhonchi or wheezing. Heart:Irregular rate and rhythm; no appreciable murmurs, rubs or gallops. He had a slightly prominent RV lift. extremities: No clubbing, cyanosis or edema. Psychiatric: His affect appeared appropriate. Assessment/Plan 1.Coronary arteriosclerosis 2.Hyperlipidemia 3.Hypertension 4.Atrial fibrillation I reviewed his most recent labs from November on amiodarone. His LFTs are mildly abnormal and his TSHis elevated with a normal free T4. He is only due repeated in about 6 weeks just to make sure there is no progressive hypothyroidism or worsening LFT abnormalities. He is maintaining sinus rhythm with amiodarone. As you may remember when in A- fib previously he was very difficult to control. He did see Dr. Blackwood of electrophysiology prior to his Juneardioversion. We did discuss ablation and the new technique available for an A-fib ablation. And Dr. Blackwood's note suggested we can consider ablation once we got him back into his normal rhythm and maintained it. Will arrange for him to discuss it further with her and the idea of either proceeding with ablative therapy or reducing his amiodarone to 100 mg daily and see if he maintains sinus rhythm. He is on anticoagulation to reduce his risk of cardioembolic events. His previous creatinine was normal and there is no reason to adjust his Eliquis dosing. His bloodpressures at home always in the 120s and almost always higher here in the office. He is on appropriate antihypertensive regimen. He will see Nevaeh in 6 months. I will see him in a year. Will reach out to him as to whetherhe wishes to see Dr. Blackwood. Will follow-up via phone regards to his labs. Problem List/Past Medical History Ongoing Adrenal nodule Alcohol use disorder in remission Atrial fibrillation Coronary arteriosclerosis Duodenal ulcer hemorrhage Elevated TSH Fatty liver GOUT Hiatal hernia Hyperlipidemia Hypertension Hypertension Lower urinary tract symptoms (LUTS) Obesity Osteoarthritis - hand joint Primary osteoarthritis of knee PUD (peptic ulcer disease) Status post total left knee replacement Weight disorder Resolved Anemia Duodenal ulcer disease Elevated LFTs Gastrointestinal hemorrhage Laceration of left index finger Ava-Reece tear [place] (myocardial infarction) Procedure/Surgical History Chest X-ray| Service Date: 09/16/2022AT scan| Service Date: 01/14/2021MRI of abdomen| Service Date: 01/14/2021Upper GI endoscopy| Service Date: 01/14/2021Ultrasound| Service Date: 11/30/2018Foot X-ray Left| Service Date: 09/05/2017Colonoscopy| Service Date: 08/20/2016US scan of abdominal aorta| Service Date: 08/29/2015Acute duodenal ulcer with hemorrhage but without obstruction| Service Date: 10/04/2011cardiac stent| Service Date: 06/05/2011Hernia repairathroscopy--left kneeTonsillectomyTotal knee replacement Left Medications allopurinol(allopurinol 300 mg oral tablet), 300 mg= 1 tab, PO, Daily, 4 refills amiodarone(amiodarone 200 mg oral tablet), 200 mg= 1 tab, PO, Daily, 10 refills amoxicillin(amoxicillin 500 mg oral capsule), See Instructions apixaban(Eliquis 5 mg oral tablet), 5 mg= 1 tab, PO, bid, 11 refills atorvastatin(atorvastatin 80 mg oral tablet), 40 mg= 0.5 tab, PO, Daily, 3 refills colchicine(colchicine 0.6 mg oral tablet), See Instructions, PRN, 1 refills dilTIAZem(DilTIAZem (Eqv-Cardizem CD) 240 mg/24 hours oral capsule, extended release), 240 mg= 1 cap, PO, Daily, 3 refills metoprolol(metoprolol succinate 100 mg oral tablet, extended release), 100 mg= 1 tab, PO, Daily, 5 refills multivitamin with minerals(PreserVision AREDS), See Instructions olmesartan(olmesartan 40 mg oral tablet), See Instructions, 1 refills pantoprazole(pantoprazole 40 mg oral delayed release tablet), 40 mg= 1 tab, PO, Daily, 3 refills Allergies NKA Social History Smoking Status Former Smoker, quit > 1 yr Alcohol - High Risk Use:Current Type:Liquor - Comments: Quit October 2022 3 shots of hard liqou a day Tobacco - Denies Tobacco Use - Comments: 2 PPD x 15 years, quited at age 28 Family History COPD: Mother. Pancreatic cancer: Father. 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
--- OUTSIDE RECORDS SUMMARY | 2024-06-21 12:50 | External Medical Summary | Continuity of Care Document ---
Author Name Unknown Organization [place] [address] Address [address] [place], [place] [id number] Care Team Providers Care Nurse Monitoring Name Role Phone Jimmy Santana Primary Care Physician [phone] [id number] Date(s): 12/25/23 - 12/25/23 [facility] [address], [address] [place] [address] [phone] Encounter Diagnosis Adrenal nodule(Discharge Diagnosis) - 12/25/23 Discharge Disposition: Home or Self Care Attending Physician: DO López Melissa M Referring Physician: MD Santana Juan Allergies, Adverse Reactions, Alerts No Known Allergies Assessment and Plan Extracted from: Title:Office Visit Note Author:DO López Meliss a M Date:12/25/23 1.Adrenal nodule It is my impression that Aysha De La Rosa a 73-year-old male with an incidentally discovered right adrenal nodule picked up on abdominal imaging. We did have him check laboratory data prior to today's visit. His potassium is 4.5 with an aldosterone level of 10. I do not have a renin but this does not seem to fit hyperaldosteronism. Additionally, his cortisol level is 12 (normal)thereforeno evidence of hypercortisolemia. The only labs we do not have back are his fractionated metanephrines. Although I anticipate that these will be normalas he does not seem to exhibit any signs or symptoms of pheochromocytoma. If themetanephrines are abnormal I will give him a call or message him in the portal. Otherwise I think this is a benign nonfunctional adrenal adenoma and needs no further follow-up. I have not scheduled him a follow-up appointment with me but if he has any other questions or concerns he can certainly reach out to the office. Immunizations Given and Recorded Vaccine Date Status Refusal Reason SARS-CoV-2 (COVID-19) mRNA-1273 vaccine 1 07/14/20 Recorded SARS-CoV-2 (COVID-19) mRNA-1273 vaccine 2 06/16/20 Recorded tetanus toxoids-diphtheria, Td (Adult) 05/20/18 Gi jim tetanus toxoids-diphtheria, Td (Adult) 05/05/04 Re corded tetanus toxoids-diphtheria, Td (Adult) 3 05/05/04 Recorded 1Result Comment: 2022-10-29: Historical information-source unspecified 2Result Comment: 2022-10-29: Historical information-source unspecified 3Result Comment: 2022-10-29: Historical information-source unspecified Medications acetaminophen-oxyCODONE 325 mg-5 mg oral tablet Start: 09/26/22 8:10:00 AM EDT, Refills: 0 Start Date: 09/26/22 Status: Ordered allopurinol 300 mg oral tablet Start: 05/09/23 11:38:00 AM EST, 1 tab, PO, Daily, Disp# 90 tab, Refills: 4, Pharmacy: [facility] Start Date: 05/09/23 Status: Ordered amiodarone 200 mg oral tablet Start: 05/08/23 12:34:00 PM EST, 1 tab, PO, Daily, Disp# 60 tab, Refills: 10, Pharmacy: [facility] Start Date: 05/08/23 Status: Ordered amoxicillin 500 mg oral capsule Start: 09/23/23 2:08:00 PM EDT, See Instructions, Disp# 4 cap, Refills: 2, take 4 tablets 1 hour prior to dental procedure as directed, Pharmacy: [facility] Start Date: 09/23/23 Status: Ordered atorvastatin 80 mg oral tablet Start: 10/13/23 8:35:00 AM EDT, 0.5 tab, PO, Daily, Disp# 45 tab, Refills: 3, .5 tab daily, Pharmacy: [facility] Start Date: 10/13/23 Status: Ordered colchicine 0.6 mg oral tablet Start: 06/25/19 8:59:00 AM EST, See Instructions, Disp# 20 tab, Refills: 1, 2 tab PO at the first sign of a gout flare followed by 1 tab one hour later, PRN: as needed for gout pain, Pharmacy: [facility] Start Date: 06/25/19 Status: Ordered DilTIAZem (Eqv-Cardizem CD) 240 mg/24 hours oral capsule, extended release Start: 03/31/23 1:22:00 PM EST, 1 cap, PO, Daily, Disp# 90 cap, Refills: 3, Pharmacy: [facility] Start Date: 03/31/23 Status: Ordered Eliquis 5 mg oral tablet Start: 10/23/23 3:44:00 PM EDT, 1 tab, PO, bid, Disp# 60 tab, Refills: 11, Pharmacy: [facility] Start Date: 10/23/23 Status: Ordered metoprolol succinate 100 mg oral tablet, extended release Start: 10/29/22 2:52:00 PM EDT, 1 tab, PO, Daily, Disp# 30 tab, Refills: 5, Pharmacy: [facility] Start Date: 10/29/22 Status: Ordered olmesartan 40 mg oral tablet Start: 09/24/23 10:05:00 AM EDT, See Instructions, Disp# 100 tab, Refills: 1, TAKE 1/2 TABLET BY MOUTH TWICE DAILY, Pharmacy: [facility] Start Date: 09/24/23 Status: Ordered pantoprazole 40 mg oral delayed release tablet Start: 07/21/23 9:58:00 AM EDT, 1 tab, PO, Daily, Disp# 90 tab, Refills: 3, Pharmacy: [facility] Start Date: 07/21/23 Status: Ordered PreserVision AREDS Start: 01/28/22 9:16:00 AM EDT, See Instructions, 4 tabs po daily Start Date: 01/28/22 Status: Ordered Problem List Condition Confirmation Course Effective Dates [...] Diagnosis Diagnosis Type Effective Dates Health Status Cl inical Service Informant Adrenal nodule Discharge Diagnosis 12/25/23 Procedures Procedure Date Related Diagnosis Body Site [...] Most recent to oldest [Reference Range]: 1 Heart Rate 89 bpm (12/25/23 2:06 PM) Blood Pressure 154/84mmHg (12/25/23 2:06 PM) Cuff Pulse Pressure 70 mmHg (12/25/23 2:06 PM) BP Location # 1 Left Arm (12/25/23 2:06 PM) Social History Social History Type Response Tobacco 1 Smoking Status Never smoked cigaret annmarie Sex Male Sex Representation Male (finding) 12 PPD x 15 years, quited at age 28 Outpatient Note * DO López Melissa M: PERFORM Event Display: .Outpt Note Authored Date: History of Present Illness I had the pleasure of meeting Aysha Garcia the endocrine surgery clinic at [facility]. He is a pleasant 73-year-old male who was referred to me by his primary care provider for a right sided adrenal nodule. This was picked up in 2020incidentally. It measured 2.2 cm and Hounsfield units were [address] adenoma. He has not had any functional work up. On further questioning he exhibits no signs or symptoms of hypercortisolism, hyperaldosteronism,or pheochromocytoma. He has no episodic headaches. His blood pressure seems well-controlled although on 3 agents. He has not had any potassium supplementation recently. Additionallyhe has nofeeling of anxiety, impending sense of doom,ormyalgias or difficulty with activities of dailyliving to suggest proximal muscle wasting. Physical Exam Vitals & Measurements HR:89(Monitored) BP:154/84 SpO2:98% On physical exam he is well-appearing. His sclera and icteric and mucous membranes are moist. Skin over the anterior neck is smooth. He has no dorsocervical fat pad. Additionally he has no striae on his abdomen. The abdomen is soft nontender nondistended. He does not have evidence of proximal muscle wasting. He is able to stand up from a chairquite easily withoutassistance. Assessment/Plan 1.Adrenal nodule It is my impression that Aysha De La Rosa a 73-year-old male with an incidentally discovered rightadrenal nodule picked up on abdominal imaging. We did have him check laboratory data prior to today's visit. His potassium is 4.5 with an aldosterone level of 10. I do not have a renin but thisdoes not seem to fit hyperaldosteronism. Additionally, his cortisol level is 12 (normal)thereforeno evidence of hypercortisolemia. The only labs we do not have back are his fractionated metanephrines. Although I anticipate that these will be normalas he does not seem to exhibit any signs or symptoms of pheochromocytoma. If themetanephrines are abnormal I will give him a call or message him in the portal. Otherwise I think this is a benign nonfunctional adrenal adenoma and needs no further follow-up. I have not scheduled him a follow-up appointment with me but if he has anyother questions or concerns he can certainly reach out to the office. Problem List/Past Medical History Ongoing Adrenal nodule [...] Laceration of left index finger Ava-Reece tear [place] (myocardial infarction) Procedure/Surgical History Chest X-ray| Service Date: 3CAT scan| Service Date: 01/14/2021MRI of abdomen| Service Date: 01/14/2021Upper GI endoscopy| Service Date: 01/14/2021Ultrasound| Service Date: 11/30/2018Foot X-ray Left| Service Date: 05/04/2018Colonoscopy| Service Date: 08/20/2016US scan of abdominal aorta| Service Date: 08/29/2015Acute duodenal ulcer with hemorrhage but without obstruction| Service Date: 10/04/2011cardiac stent| Service Date: 06/05/2011Hernia repairathroscopy--left kneeTonsillectomyTotal knee replacement Left Medications acetaminophen-oxyCODONE(acetaminophen-oxyCODONE 325 mg-5 mg oral tablet) allopurinol(allopurinol 300 mg oral tablet), 300 mg= [...] refills Allergies NKA Social History Smoking Status Never smoked cigarettes Alcohol - High Risk Use:Current Type:Liquor - Comments: Quit October 2022 3 shots of hard liqou a day Tobacco - Denies Tobacco Use - Comments: 2 PPD x 15 years, quited at age 28 Family History COPD: Mother. Pancreatic cancer: Father. Health Status Family Member(s) Immunizations Vaccine Date Status SARS-CoV-2 (COVID-19) mRNA-1273 vaccine 07/14/2020 Recorded Comments : 2022-10-29: Historical information-source unspecified SARS-CoV-2 (COVID-19) mRNA-1273 vaccine 06/16/2020 Recorded Comments : 2022-10-29: Historical information-source unspecified tetanus toxoids-diphtheria, Td (Adult) 05/20/2018 Given tetanus toxoids-diphtheria, Td (Adult) 2004 Recorded tetanus toxoids-diphtheria, Td (Adult) 05/05/2004 Recorded Comments : 2022-10-29: Historical information-source unspecified Recommendations Health Maintenance Pending(in the next year) OverDue Medicare Annual Wellness Visit due12/01/20and every 1year Adult Influenza Vaccine due11/02/23and every 1year Due Adult COVID-19 Vaccination due12/25/23Unknown Frequency Adult Social Determinants of Health Screening due12/25/23Unknown Frequency Pneumococcal Vaccine Older Adults due12/25/23One-time only Shingles Vaccine due12/25/23One-time only Due In Future Body Mass Index not due until12/04/24and every 366day Satisfied(in the past 1 year) Satisfied Body Mass Index on12/04/23.Satisfied by STEPHEN Orozco, Betty Lipid Screening on11/28/23.Satisfied by Contributor_system, [employer] Electronic Signature on File Electronically Reviewed/Signed by: Olivia López DO Author Signature Dt/Tm:12/25/2023 02:40 PM Division of General Surgery [facility] Patient Care team information Care Team Personnel Name: MD Santana Juan Position: Physician - Family Med Member Role: Primary Care Provider Address: [address] [place] [address] Care Team Related Persons Name: MISHA EDWARDS"
--- OUTSIDE RECORDS SUMMARY | 2024-06-21 12:50 | External Medical Summary | Continuity of Care Document ---
Author Name Unknown Organization [address] [id number] Care Team Providers Care Image Assembler Name Role Phone Jimmy Santana Primary Care Physician [phone] [id number] Date(s): 05/31/24 - 05/31/[address] [address] [phone] Encounter Diagnosis Body mass index [BMI] 36.0-36.9, adult(Discharge Diagnosis) - 05/31/24 Weakness(Discharge Diagnosis) - 05/31/24 Claudication of both lower extremities.(Discharge Diagnosis) - 05/31/24 Atrial fibrillation(Discharge Diagnosis) - 05/31/24 Discharge Disposition: Home or Self Care Attending Physician: MD aSntana Juan Referring Physician: MD Santana Juan Allergies, Adverse Reactions, Alerts No Known Allergies Assessment and Plan Extracted from: Title:Office Visit Note Author:MD Santana Juan Christiano e:05/31/24 1.Weakness new problem. etiology unclear. check CBC, CMP, TSH 2.Claudication of both lower extremities. check bilateral arterialduppler 3.Atrial fibrillation Status: chronic, controlled. Data: EMR. Goal: controlled and stable. Plan: continue current treatment plan. BTO as scheduled 06/10/2024. Immunizations Given and Recorded Vaccine Date Status [...] Daily, Disp# 90 tab, Refills: 4, Pharmacy: [id number] Start Date: 05/09/23 Status: Ordered amiodarone 200 mg oral tablet Start: 05/08/23 12:34:00 PM EST, 0.5 tab, PO, Daily, Disp# 60 tab, Refills: 10, Pharmacy: [facility] Start Date: 05/08/23 Status: Ordered amoxicillin 500 mg oral capsule Start: 09/23/23 2:08:00 PM EDT, See Instructions, Disp# 4 cap, Refills: 2, take 4 tablets 1 hour prior to dental procedure as directed, Pharmacy: [facility] Start Date: 09/23/23 Status: Ordered atorvastatin 80 mg oral tablet Start: 10/13/23 8:35:00 AM EDT, 0.5 tab, PO, Daily, Disp# 45 tab, Refills: 3, .5 tab daily, Pharmacy: [facility] Start Date: 10/13/23 Status: Ordered colchicine 0.6 mg oral tablet Start: 06/25/19 8:59:00 AM EST, See Instructions, Disp# 20 tab, Refills: 1, 2 tab PO at the first sign of a gout flare followed by 1 tab one hour later, PRN: as needed for gout pain, Pharmacy: [facility] Start Date: 06/25/19 Status: Ordered DilTIAZem (Eqv-Cardizem CD) 240 mg/24 hours oral capsule, extended release Start: 03/03/24 2:33:00 PM EDT, 1 cap, PO, Daily, Disp# 90 cap, Refills: 3, Pharmacy: [facility] Start Date: 03/03/24 Status: Ordered Eliquis 5 mg oral tablet Start: 10/23/23 3:44:00 PM EDT, 1 tab, PO, bid, Disp# 60 tab, Refills: 11, Pharmacy: [facility] Start Date: 10/23/23 Status: Ordered metoprolol succinate 100 mg oral tablet, extended release Start: 10/29/22 2:52:00 PM EDT, 1 tab, PO, Daily, Disp# 30 tab, Refills: 5, Pharmacy: [facility] Start Date: 10/29/22 Status: Ordered olmesartan 40 mg oral tablet Start: 09/24/23 10:05:00 AM EDT, See Instructions, Disp# 100 tab, Refills: 1, TAKE 1/2 TABLET BY MOUTH TWICE DAILY, Pharmacy: [facility] Start Date: 09/24/23 Status: Ordered pantoprazole 40 mg oral delayed release tablet Start: 07/21/23 9:58:00 AM EDT, 1 tab, PO, Daily, Disp# 90 tab, Refills: 3, Pharmacy: [facility] Start Date: 07/21/23 Status: Ordered PreserVision AREDS Start: 01/28/22 9:16:00 AM EDT, See Instructions, 4 tabs po daily Start Date: 01/28/22 Status: Ordered Mental Status 05/31/24 Barriers to Learning one year None evide nt Mandatory Health Literacy Documentation Yes Health Literacy Communication Barriers N ever Primary Language Jordanian Problem List Condition Confirmation Course Effective Dates [...] Effective Dates Health Status Clinical Service Informant Body mass index [BMI] 36.0-36.9, adult Discharge Diagnosis 05/31/24 Non-Specified Claudication of both lower extremities. Discharge Diagnosis 05/31/24 Non-Specified Weakness Discharge Diagnosis 05/31/24 Non-Specified Atrial fibrillation Discharge Diagnosis 05/31/24 Non-Specified Procedures Procedure Date Related Diagnosis Body [...] Most recent to oldest [Reference Range]: 1 Height 165.1 cm (05/31/24 2:59 PM) Patient Weight 99.4 kg (05/31/24 2:59 PM) Body Mass Index 36.47 kg/m2 (05/31/24 2:59 PM) Heart Rate 80 bpm (05/31/24 2:59 PM) Respiratory Rate 20 br/min (05/31/24 2:59 PM) Blood Pressure 118/64mmHg (05/31/24 2:59 PM) Social History Social History Type Response Tobacco 1 Smoking Status Former Smoker, quit > 1 yr Sex Male Sex Representation Male (finding) 12 PPD x 15 years, quited at age 28 FCM Outpt Note * MD Santana Juan: PERFORM Event Display: [facility] Outpt Note Authored Date: [id number] Chief Complaint Established patient presents today for weakness that started last . History of Present Illness c/ogeneralizedweaknessespecially in both legs that it has been hard to walk x 4 days. symptoms relieved with resting. No symptom whensitting or in bed. No cp, sob. No muscle or joint pain. No chronic back pain or numbness or tingling of legs. Usually stationary bike 2-3 times a week - just started 4 weeks ago. Did not tried biking over the past 4 days due to feeling weakness with walking. feels hip muscle weakness after standing for a while. Feels arm muscle weakness after chopping some vegetable. No leg pain, except transientright knee pain the day before weakness started. No leg swelling. Nprecent long distance travel. No med change in the past 1 month. sleep well. No depression or anxiety. sees cardiology for AF. Physical Exam Vitals & Measurements HR:80(Monitored) RR:20 BP:118/64 SpO2:99% HT:165.1cm WT:99.400kg(Dosing) WT:99.4kg BMI:36.47 PHQ2 Data(Data Documented on:05/31/2024 14:59) Emotional health assessment NEGATIVE GENERAL: A&Ox3. No acute distress. Affect and speech appropriate. HEENT: PERRLA, EOMI, Conjunctivae clear. NECK: Supple, No lymphadenopathy. No carotid bruits. HEART: RRR, normal S1, S2. No murmurs, gallops or clicks. LUNGS: breathing not labored, breathing sound clear, breathing sound equal bilaterally, no rales, no wheezing. ABDOMEN: Positive bowel sound, soft, nontender, non-distended. No hepatosplenomegaly noted. No mass. EXTREMITIES: No edema, clubbing or cyanosis.I was not able to appreciate PD/DT pulse in right foot. I walked pt in hallway in office. Pulses remained 97-98%. HR in 90's with walking. Pt c/o bothleg weakness with walking. Assessment/Plan 1.Weakness new problem. etiology unclear. check CBC, CMP, TSH 2.Claudication of both lower extremities. check bilateral arterialduppler 3.Atrial fibrillation Status: chronic, controlled. Data: EMR. Goal: controlled and stable. Plan: continue current treatment plan. BTO as scheduled 06/10/2024. Attestation Pre-visit plannin min [id number] visit:20 min Post-visit:0 min Total visit time: 30 min Problem List/Past Medical History Ongoing Adrenal nodule [...] Laceration of left index finger Ava-Reece tear DE (myocardial infarction) Procedure/Surgical History Chest X-ray| Service Date: 09/16/2022AT scan| Service Date: 01/14/2021MRI of abdomen| Service Date: 01/14/2021Upper GI endoscopy| Service Date: 09/12/2021Ultrasound| Service Date: 11/30/2018Foot X-ray Left| Service Date: 09/05/2017Colonoscopy| Service Date: 08/20/2016US scan of abdominal aorta| Service Date: 08/29/2015Acute duodenal ulcer with hemorrhage but without obstruction| Service Date: 10/04/2011cardiac stent| Service Date: 06/05/2011Hernia repairathroscopy--left kneeTonsillectomyTotal knee replacement Left Medications allopurinol(allopurinol 300 mg oral tablet), 300 mg= 1 tab, PO, Daily, 4 refills amiodarone(amiodarone 200 mg oral tablet), 100 mg= 0.5 tab, PO, Daily, 10 refills amoxicillin(amoxicillin 500 [...] Visit due12/01/20and every 1year Adult Influenza Vaccine due11/03/23and every 1year Due Adult COVID-19 Vaccination due05/31/24Unknown Frequency Adult Social Determinants of Health Screening due05/31/24Unknown Frequency Pneumococcal Vaccine Older Adults due05/31/24One-time only Shingles Vaccine due05/31/24One-time only Satisfied(in the past 1 year) Satisfied Body Mass Index on05/31/24.Satisfied by ALEKSANDR Henson Deiadra Lipid Screening on11/28/23.Satisfied by [facility]system, [facility] Electronic Signature on File Electronically Reviewed/Signed by: Jimmy Santana MD Author Signature Dt/Tm:05/31/2024 03:48 PM Department of Family Medicine [facility] Patient Care team information Care Team Personnel Name: MD Santana Juan Position: Physician - Family Med Member Role: Primary Care Provider Address: [address] [place] [address] [place] Care Team Related Persons Name: MISHA EDWARDS"
--- OUTSIDE RECORDS SUMMARY | 2024-06-21 12:50 | External Medical Summary | Continuity of Care Document ---
Author Name Unknown Organization [facility] [address] Address [address] [place], [place] [id number] Care Team Providers Care Software Design Manager Name Role Phone Jimmy Santana Primary Care Physician [phone] Encounter [facility] [id number] Date(s): 12/22/23 - 12/22/23 [facility] [address] [facility] [address] [facility] [address] [place], [place] [phone] Encounter Diagnosis Other specified disorders of adrenal gland(Final) - Essential (primary) hypertension(Final) - Discharge Disposition: Home or Self Care Attending Physician: DO López Melissa M Referring Physician: DO López Melissa M Allergies, Adverse Reactions, Alerts No Known Allergies [...] Daily, Disp# 90 tab, Refills: 4, Pharmacy: [id number] Start Date: 05/09/23 Status: Ordered amiodarone 200 mg oral tablet Start: 05/08/23 12:34:00 PM EST, 1 tab, PO, Daily, Disp# 60 tab, Refills: 10, Pharmacy: [facility] Start Date: 05/08/23 Status: Ordered amoxicillin 500 mg oral capsule Start: 09/23/23 2:08:00 PM EDT, See Instructions, Disp# 4 cap, Refills: 2, take 4 tablets 1 hour prior to dental procedure as directed, Pharmacy: [facility] Start Date: 09/23/23 Status: Ordered atorvastatin 80 mg oral tablet Start: 10/13/23 8:35:00 AM EDT, 0.5 tab, PO, Daily, Disp# 45 tab, Refills: 3, .5 tab daily, Pharmacy: [facility] Start Date: 10/13/23 Status: Ordered colchicine 0.6 mg oral tablet Start: 06/25/19 8:59:00 AM EST, See Instructions, Disp# 20 tab, Refills: 1, 2 tab PO at the first sign of a gout flare followed by 1 tab one hour later, PRN: as needed for gout pain, Pharmacy: [facility] Start Date: 06/25/19 Status: Ordered DilTIAZem (Eqv-Cardizem CD) 240 mg/24 hours oral capsule, extended release Start: 03/31/23 1:22:00 PM EST, 1 cap, PO, Daily, Disp# 90 cap, Refills: 3, Pharmacy: [facility] Start Date: 03/31/23 Status: Ordered Eliquis 5 mg oral tablet Start: 10/23/23 3:44:00 PM EDT, 1 tab, PO, bid, Disp# 60 tab, Refills: 11, Pharmacy: [facility] Start Date: 10/23/23 Status: Ordered metoprolol succinate 100 mg oral tablet, extended release Start: 10/29/22 2:52:00 PM EDT, 1 tab, PO, Daily, Disp# 30 tab, Refills: 5, Pharmacy: [facility] Start Date: 10/29/22 Status: Ordered olmesartan 40 mg oral tablet Start: 09/24/23 10:05:00 AM EDT, See Instructions, Disp# 100 tab, Refills: 1, TAKE 1/2 TABLET BY MOUTH TWICE DAILY, Pharmacy: [facility] Start Date: 09/24/23 Status: Ordered pantoprazole 40 mg oral delayed release tablet Start: 07/21/23 9:58:00 AM EDT, 1 tab, PO, Daily, Disp# 90 tab, Refills: 3, Pharmacy: [facility] Start Date: 07/21/23 [...] colleceted. 8normal Results Laboratory List Name Date Aldosterone (ALDOSTERONE) 12/22/23 Cortisol Level (CORTISOL) 12/22/23 Most recent to oldest [Reference Range]: 1 Aldosterone 10.0 1 (12/22/23 10:36 AM) Cortisol [2.3-19.4 ug/dL] 12.0 ug/dL 2 (12/22/23 10:36 AM) 1Result Comment: Unit: ng/dL INTERPRETIVE INFORMATION: Aldosterone, Serum Reference intervals for age 15 and older: Upright ......... 4.0 - 31.0 ng/dL Supine .......... Less than or equal to 16.0 ng/dL Unspecified ..... Less than or equal to 31.0 ng/dL Normal serum levels of aldosterone are dependent on the sodium intake and whether the patient is upright or supine. High sodium intake will tend to suppress serum aldosterone, whereas low sodium intake will elevate serum aldosterone. The reference intervals for serum aldosterone are based on normal sodium intake. Access complete set of age- and/or gender-specific reference intervals for this test in the [facility] Test Directory ([email or web address]). Performed By: [facility] [address] [place] [id number] Senior Hr Generalist: Juan Antonio Akins MD, PhD CLIA Number: [id number] 2Result Comment: Reference Range: MORNING (7AM-10AM) 6.20-19.4 UG/DL AFTERNOON (4PM-8PM) 2.30-11.9 UG/DL Social History Social History Type Response Tobacco 1 Smoking Status Never smoked cigaret annmarie Sex Male Sex Representation Male (finding) 12 PPD x 15 years, quited at age 28 Patient Care team information Care Team Personnel Name: MD Santana Juan Position: Physician - Family Med Member Role: Primary Care Provider Address: [address] [place] [address] Care Team Related Persons Name: MISHA EDWARDS
--- OUTSIDE RECORDS SUMMARY | 2024-06-21 12:50 | External Medical Summary | Continuity of Care Document ---
Author Name Unknown Organization [address] Address [address] [place], [place] [id number] Care Team Providers Care Customer Loyalty Representative Name Role Phone Jimmy Santana Primary Care Physician [phone] Encounter [facility] [id number] Date(s): 02/23/24 - 02/23/[address] [address] [phone] Encounter Diagnosis Productive cough(Discharge Diagnosis) - 02/23/24 COVID-19(Discharge Diagnosis) - 02/23/24 Wheezing(Discharge Diagnosis) - 02/23/24 Hypertension(Discharge Diagnosis) - 02/23/24 History of tobacco use(Discharge Diagnosis) - 02/23/24 Discharge Disposition: Home or Self Care Attending Physician: DO Santiago Jona M Allergies, Adverse Reactions, Alerts No Known Allergies Assessment and Plan Extracted from: Title:Office Visit Note Author:DO Santiago Jon a M Date:02/23/24 1.COVID-19 Discussed this is a viral illness, symptoms improvingand encourage symptomatic care.Patient >6 days since symptoms onsetPatientis afebrile with 98% O2 on RA. Overall improving except for cough. Lung exam did reveal wheezing withdistal rhonchi in the lower lung navarro. Advised to use supportive care measuresincluding zinc, vitamin C, fluids, rest,tea with honey, as needed albuterol and Tessalon Perlesand Hycodan ifcough persist. If patient develops fever or ifsymptoms not improved in 24 to 48 hours,may begin antibiotic. Rx sent for Augmentin 875 125twice daily for 7 days.if symptoms persist despite abxor acutely worsen,encouraged follow-up and includingchest x-ray. 2.Wheezing As needed albuterol follow-up if not improved 3.Productive cough Discussed warm tea with honey,Tessalon Perles, albuterol,and if those measures are not enoughprescription given for Hycodan. Advised patient that thisdoes contain opioid and to use onlywhen other measures not working. 4.History of tobacco use 5.Hypertension Repeat improved but above goal. Patient did take medication this am. Discussed following if home and call for persistent elevations. Will follow up for recheck with PCP Immunizations Given and Recorded Vaccine Date Status Refusal Reason SARS-CoV-2 (COVID-19) mRNA-1273 vaccine 1 07/14/20 Recorded SARS-CoV-2 (COVID-19) mRNA-1273 vaccine 2 06/16/20 Recorded tetanus toxoids-diphtheria, Td (Adult) 05/20/18 Gi jim tetanus toxoids-diphtheria, Td (Adult) 05/05/04 Re corded tetanus toxoids-diphtheria, Td (Adult) 3 05/05/04 Recorded 1Result Comment: 2022-10-29: Historical information-source unspecified 2Result Comment: 2022-10-29: Historical information-source unspecified 3Result Comment: 2022-10-29: Historical information-source unspecified Medications Albuterol (Eqv-ProAir HFA) 90 mcg/inh inhalation aerosol Start: 02/23/24 9:39:00 AM EDT, 2 inh, inhaled, q6h, Disp# 1 each, X 7 day, PRN: wheezing, Stop: 03/01/24 9:39:00 AM EDT, Pharmacy: [id number] Start Date: 02/23/24 Stop Date: 03/01/24 Status: Ordered allopurinol 300 mg oral tablet Start: 05/09/23 11:38:00 AM EST, 1 tab, PO, Daily, Disp# 90 tab, Refills: 4, Pharmacy: [id number] Start Date: 05/09/23 Status: Ordered amiodarone 200 mg oral tablet Start: 05/08/23 12:34:00 PM EST, 1 tab, PO, Daily, Disp# 60 tab, Refills: 10, Pharmacy: [id number] Start Date: 05/08/23 Status: Ordered amoxicillin 500 mg oral capsule Start: 09/23/23 2:08:00 PM EDT, See Instructions, Disp# 4 cap, Refills: 2, take 4 tablets 1 hour prior to dental procedure as directed, Pharmacy: [id number] Start Date: 09/23/23 Status: Ordered atorvastatin 80 mg oral tablet Start: 10/13/23 8:35:00 AM EDT, 0.5 tab, PO, Daily, Disp# 45 tab, Refills: 3, .5 tab daily, Pharmacy: [facility] Start Date: 10/13/23 Status: Ordered Augmentin 875 mg-125 mg oral tablet Start: 02/23/24 9:39:00 AM EDT, amoxicillin 1 tab, PO, q12h, Disp# 14, X 7 day, Stop: 03/01/24 9:39:00 AM EDT, Pharmacy: [id number] Start Date: 02/23/24 Stop Date: 03/01/24 Status: Ordered colchicine 0.6 mg oral tablet Start: 06/25/19 8:59:00 AM EST, See Instructions, Disp# 20 tab, Refills: 1, 2 tab PO at the first sign of a gout flare followed by 1 tab one hour later, PRN: as needed for gout pain, Pharmacy: [id number] Start Date: 06/25/19 Status: Ordered DilTIAZem (Eqv-Cardizem CD) 240 mg/24 hours oral capsule, extended release Start: 03/31/23 1:22:00 PM EST, 1 cap, PO, Daily, Disp# 90 cap, Refills: 3, Pharmacy: [facility] Start Date: 03/31/23 Status: Ordered Eliquis 5 mg oral tablet Start: 10/23/23 3:44:00 PM EDT, 1 tab, PO, bid, Disp# 60 tab, Refills: 11, Pharmacy: [facility] Start Date: 10/23/23 Status: Ordered Hycodan 5 mg-1.5 mg/5 mL oral syrup Start: 02/23/24 9:36:00 AM EDT, 5 mL, PO, q8h, Disp# 60 mL, X 5 day, Refills: 0, PRN: as needed forcough, Stop: 02/28/24 9:36:00 AM EDT, Pharmacy: [facility] Start Date: 02/23/24 Stop Date: 02/28/24 Status: Ordered metoprolol succinate 100 mg oral tablet, extended release Start: 10/29/22 2:52:00 PM EDT, 1 tab, PO, Daily, Disp# 30 tab, Refills: 5, Pharmacy: [facility] Start Date: 10/29/22 Status: Ordered olmesartan 40 mg oral tablet Start: 09/24/23 10:05:00 AM EDT, See Instructions, Disp# 100 tab, Refills: 1, TAKE 1/2 TABLET BY MOUTH TWICE DAILY, Pharmacy: [facility] Start Date: 09/24/23 Status: Ordered pantoprazole 40 mg oral delayed release tablet Start: 07/21/23 9:58:00 AM EDT, 1 tab, PO, Daily, Disp# 90 tab, Refills: 3, Pharmacy: [facility] Start Date: 07/21/23 Status: Ordered PreserVision AREDS Start: 01/28/22 9:16:00 AM EDT, See Instructions, 4 tabs po daily Start Date: 01/28/22 Status: Ordered Tessalon Perles 100 mg oral capsule Start: 02/23/24 9:36:00 AM EDT, 1 cap, PO, tid, Disp# 30 cap, X 5 day, PRN: as needed for cough, Stop: 02/28/24 9:36:00 AM EDT, Pharmacy: [facility] Start Date: 02/23/24 Stop Date: 02/28/24 Status: Ordered Mental Status 02/23/24 Barriers to Learning one year None evide nt Mandatory Health Literacy Documentation Yes Health Literacy Communication Barriers N ever Primary Language Azeri Problem List Condition Confirmation Course Effective Dates [...] Effective Dates Health Status Clinical Service Informant Productive cough Discharge Diagnosis 02/23/24 Non-Specified COVID-19 Discharge Diagnosis 02/23/24 Non-Specified Wheezing Discharge Diagnosis 02/23/24 Non-Specified Hypertension Discharge Diagnosis 02/23/24 Non-Specified History of tobacco use Discharge Diagnosis 02/23/24 Non-Specified Procedures Procedure Date Related Diagnosis Body [...] oldest [Reference Range]: 1 Height 165.1 cm (02/23/24 9:09 AM) Temperature [36.5-37.9 DegC] 36.9 DegC (02/23/24 9:09 AM) Heart Rate 66 bpm (02/23/24 9:09 AM) Respiratory Rate 18 br/min (02/23/24 9:09 AM) Blood Pressure 140/70mmHg (02/23/24 9:09 AM) Cuff Pulse Pressure 70 mmHg (02/23/24 9:09 AM) Social History Social History Type Response Tobacco 1 Smoking Status Former Smoker, quit > 1 yr Sex Male Sex Representation Male (finding) 12 PPD x 15 years, quited at age 28 [facility] Outpt Note * DO Santiago Jona M: PERFORM Event Display: [facility] Outpt Note Authored Date: [id number] Chief Complaint Tested positive for covid 02/17. Difficulty sleeping due to coughing and wheezing History of Present Illness 19-jfss-gzkzczwdlgvelfarnoygss today with acute complaints ofnonstop, productive cough. Also having intermittent wheezing. Patient states thatbegan havingupper respiratory symptoms and cough1 week agoand then tested positive on home testCOVID-19 on 1016.Patient denies history of fever. States has experienced low-grade temps of 99 but nothing over 100. Denies nausea vomitingdiarrhea. States only has shortness of breath when has coughing spells. Cough is keeping up at night. Denies chest pain. Overall, reports symptoms have significantly improved except for lasting cough and intermittent wheezing. Patient does have remote smoking historyand smoked a pack a day from roughly 13 years of age to his 30s. Is active and enjoys bike riding. No other complaints or symptoms. Did take his blood pressure medication today however has noted that his blood pressure has been on the higher side. Does not take any wbbd-kqc-lucfjse medications. Did not take any antivirals. Is not interested in Paxlovid at this time. Review of Systems Per HPI Physical Exam Vitals & Measurements T:36.9C HR:66(Monitored) RR:18 BP:140/70 SpO2:98% HT:165.1cm PHQ2 Data(Data Documented on:02/23/2024 09:09) Emotional health assessment NEGATIVE GENERAL: No acute distress. Well developed and well nourished. Vital signs reviewed as above. EYES: Anicteric sclerae. HENT: Moist mucous membranes. Tympanic membranes withouterythema or effusion bilaterally. Nares patent without significant discharge or erythema. Oropharyngeal exam unremarkable. RESPIRATORY: Expiratory wheezing throughout all lung navarro. Distal rhonchi present in bilateral lower lung navarro. CARDIOVASCULAR: Regularrate and rhythm.No murmurs. EXTREMITIES: No gross deformities. SKIN: Warm, dry. NEUROLOGIC: Alert and oriented. Normal speech. No gross focal neurological deficits. PSYCHIATRIC: Cooperative. Appropriate mood and affect. Assessment/Plan 1.COVID-19 Discussed this is a viral illness, symptoms improvingand encourage symptomatic care.Patient >6 days since symptoms onsetPatientis afebrile with 98% O2 on RA. Overall improving exceptfor cough. Lung exam did reveal wheezing withdistal rhonchi in the lower lung navarro. Advisedto use supportive care measuresincluding zinc, vitamin C, fluids, rest,tea with honey, as needed albuterol and Tessalon Perlesand Hycodan ifcough persist. If patient develops fever or ifsymptoms not improved in 24 to 48 hours,may begin antibiotic. Rx sent for Augmentin [id number] daily for 7 days.if symptoms persist despite abxor acutely worsen,encouraged follow- up and includingchest x-ray. 2.Wheezing As needed albuterol follow-up if not improved 3.Productive cough Discussed warm tea with honey,Tessalon Perles, albuterol,and if those measures are not enoughprescription given for Hycodan. Advised patient that thisdoes contain opioid and to use onlywhen other measures not working. 4.History of tobacco use 5.Hypertension Repeat improved but above goal. Patient did take medication this am. Discussed following if home and call for persistent elevations. Will follow up for recheck with PCP Problem List/Past Medical History Ongoing Adrenal nodule [...] Laceration of left index finger Ava-Reece tear UT (myocardial infarction) Procedure/Surgical History Chest X-ray| Service Date: 3CAT scan| Service Date: 01/14/2021MRI of abdomen| Service Date: 01/14/2021Upper GI endoscopy| Service Date: 01/14/2021Ultrasound| Service Date: 11/30/2018Foot X-ray Left| Service Date: 09/05/2017Colonoscopy| Service Date: 08/20/2016US scan of abdominal aorta| Service Date: 08/29/2015Acute duodenal ulcer with hemorrhage but without obstruction| Service Date: 10/04/2011cardiac stent| Service Date: 06/05/2011Hernia repairathroscopy--left kneeTonsillectomyTotal knee replacement Left Medications albuterol(Albuterol (Eqv-ProAir HFA) 90 mcg/inh inhalation aerosol), 2 inh, inhaled, q6h, PRN allopurinol(allopurinol 300 mg oral tablet), 300 mg= 1 tab, PO, Daily, 4 refills amiodarone(amiodarone 200 mg oral tablet), 200 mg= 1 tab, PO, Daily, 10 refills amoxicillin(amoxicillin 500 mg oral capsule), See Instructions amoxicillin-clavulanate(Augmentin 875 mg-125 mg oral tablet), 1 tab, PO, q12h apixaban(Eliquis 5 mg oral tablet), 5 mg= 1 tab, PO, bid, 11 refills atorvastatin(atorvastatin 80 mg oral tablet), 40 mg= 0.5 tab, PO, Daily, 3 refills benzonatate(Tessalon Perles 100 mg oral capsule), 100 mg= 1 cap, PO, tid, PRN colchicine(colchicine 0.6 mg oral tablet), See Instructions, PRN, 1 refills dilTIAZem(DilTIAZem (Eqv-Cardizem CD) 240 mg/24 hours oral capsule, extended release), 240 mg= 1 cap, PO, Daily, 3 refills homatropine-hydrocodone(Hycodan 5 mg-1.5 mg/5 mL oral syrup), 5 mL, PO, q8h, PRN metoprolol(metoprolol succinate 100 mg oral tablet, extended [...] due11/02/23and every 1year Due Adult COVID-19 Vaccination due02/23/24Unknown Frequency Adult Social Determinants of Health Screening due02/23/24Unknown Frequency Pneumococcal Vaccine Older Adults due02/23/24One-time only Shingles Vaccine due02/23/24One-time only Due In Future Body Mass Index not due until02/17/25and every 366day Satisfied(in the past 1 year) Satisfied Body Mass Index on12/04/23.Satisfied by STEPHEN Orozco, Betty Lipid Screening on11/28/23.Satisfied by Contributor_system, [employer] Electronic Signature on File Electronically Reviewed/Signed by: Vinny Santiago DO Author Signature Dt/Tm:02/23/2024 10:27 AM Department of Family Medicine [facility] Patient Care team information Care Team Personnel Name: MD Santana Juan Position: Physician - Family Med Member Role: Primary Care Provider Address: [address] [place] [id number] [place] Care Team Related Persons Name: MISHA EDWARDS"
--- NOTE | 2024-06-21 12:57 | History & Physical Report ---
Date of Service June 21, 2024 Assessment & Plan (1) Chronic blood loss anemia: Plan: Hemodynamically stable with insidious symptom onset since May 2024 - Admit to med tele - Regular diet with NPO after MN - D/C IV PPI drip and change to 40mg IV BID - Type and crossmatched in ER, transfuse 1 unit of blood when ready - Provide Lasix 20mg IV x1 following transfusion (h/o CHF/cardiomyopathy) - Check H&H one hour after transfusion complete and trend again in AM - May benefit from iron supplementation, although serum iron borderline at 34, TIBC 525 (2) GI bleed: Plan: Uncertain chronicity, subacute and not active; h/o PUD w/ prior duodenal ulcer hemorrhage with ongoing ETOH use which is major exacerbating factor - IV PPI as noted above - NPO after MN - Consult GI, appreciate assistance, would benefit from upper endoscopy (3) Chronic alcohol abuse: Plan: Has reduced drinking down to 3-4 drinks of liquor + beer combo - Add AWSS protocol given h/o withdrawal during last hospitalization - PRN lorazepam - Extensively counseled pt on importance of etoh cessation given multiple comorbidities and current concern of anemia/gi bleed - Mildly elevated AST/ALT (4) Atrial fibrillation: Plan: Chronic - Continue diltiazem, amiodarone, and digoxin - Hold eliquis due to gi bleed/anemia as above Plan Other stable chronic medical problems: 1. CAD - not on aspirin. continue statin therapy. HS trop 14.9. 2. HTN - continue diltiazem and olmesartan (or hospital equivalent) 3. HLD - continue atorvastatin 4. Gout - continue allopurinol Defer pharmacologic ppx for VTE due to anemia and GI bleed. SCDs to b/l LE. AM labs ordered for tomorrow including CBC, BMP, and hepatic functional panel. Incidental finding of TSH elevated at 12.65 with normal FT4. Follow up in 8 weeks with PCP. No further w/u needed at this time. Above plan of care has been d/w Dr. Bhatt who will also see and evaluate this patient. Further orders as warranted by attending will be implemented. History of Present Illness Chief Complaint: Abnormal labs Primary Care Provider: MD Huan Zuniga is a 73 yo M with a pmhx of chronic alcohol use, HTN, afib on chronic act with Eliquis, HLD, PUD with prior duodenal ulcer hemorrhage and gout who presents to the ER today c/o abnormal labs, sent in for eval by his client application support specialist. He follows routinely with Dr. Antonio. He reports over the past month, starting in May, increased fatigue and generalized weakness. He contacted his PCP who ordered labs. He was contacted by his client application support specialist who had ordered some other diagnostic testing and was informed that his CBC reflected an acute change in his hgb down to 6.5 and was encouraged to come to the ER for further evaluation. Patient reports CASILLAS since onset of symptoms in May as well as dizziness/lightheadedness. His felt that his stool this AM appeared more "reddish." He denies any falls, passing out/LOC, or injuries, denies abd pain, cp, n/v/d, f/c, increased NSAID use. He does endorse consuming ETOH daily, but reports that since his last hospitalization in 2022 when he was diagnosed with Afib that he has cut his drinking back by about 1/2 to 3-4 drinks of liquor + beer each night. He does have a h/o withdrawal symptoms during his last hospitalization as well. His w/u in the ER today confirms microcytic hypochromic anemia w/ hgb of 6.5, heme positive stool. He does chronically take pantoprazole 40mg daily. He was last scoped (colonoscopy) about 4-5 years ago which was normal per pt. He has been typed and crossmatched for transfusion in the ER. CTAP is negative. He has been referred to hospital medicine team for admission. Allergies Allergy/AdvReac Type Severity Reaction Status Date / Time No Known Allergies Allergy Unknown Verified 09/19/22 07:30 Home Medications Medication Instructions Recorded Confirmed Type allopurinol 300 mg tablet 300 mg PO QAM 01/14/21 06/21/24 History atorvastatin 80 mg tablet 40 mg PO QPM 01/14/21 06/21/24 History olmesartan 40 mg tablet 20 mg PO BID 01/14/21 06/21/24 History amlodipine 10 mg tablet 10 mg PO QAM 08/23/21 06/21/24 History [id number] 5 mg-zeaxanth 2 cap PO BID 08/23/21 06/21/24 History 1 mg-bilberry 7.5 mg-herbal capsule ([employer] Formula) multivitamin 1 tab PO QAM 08/23/21 06/21/24 History pantoprazole 40 mg tablet,delayed 40 mg PO BID 08/23/21 06/21/24 History release apixaban 5 mg tablet (Eliquis) 5 mg PO UD 06/21/24 06/21/24 History diltiazem HCl 240 mg 240 mg PO QAM 06/21/24 06/21/24 History capsule,extended release 24 hr Past Med/Surg History Problem List (Updated 06/21/24 @ 13:41 by Dionicio Coffman M.D.) Microcytic anemia (Acute) GI bleed (Acute) Chronic blood loss anemia Alcohol use disorder, moderate, dependence Tachycardia induced cardiomyopathy Systolic heart failure Atrial fibrillation with rapid ventricular response (Acute) Peripheral edema (Acute) Hypomagnesemia (Acute) Chronic alcohol abuse (Acute) Left knee DJD Encounter for pre-operative examination Gout Alcohol dependence, daily use CAD (coronary artery disease) Stent x1 (2011) Follows with Dr. Antonio Hypertension Medical History Adrenal nodule Arthritis Atrial fibrillation fall 2020 Atrial fibrillation with RVR Bradycardia Chronic, baseline HR 45-50s per cardiology records CAD (coronary artery disease) Stent x1 (2011) Follows with Dr. Antonio Duodenal ulcer GI bleed History of GI bleed x2 (most recent episode 2020) > reason for PPI R/t Ava-Reece tear and duodenal ulcers Hx of gout Hyperlipidemia Hypertension Myocardial Infarction 2012 Surgical History H/O inguinal hernia repair History of arthroscopy LEFT KNEE History of colonoscopy History of esophagogastroduodenoscopy (EGD) History of heart artery stent Stent x1 (2011) History of tonsillectomy [place] teeth removed Family History Grandmother (Paternal) Family history of diabetes mellitus Other COPD (chronic obstructive pulmonary disease) Cancer No family history of adverse response to anesthesia Social History Smoking Status: Former smoker Tobacco Type: Cigarettes Second Hand Exposure: Yes (IN THE PAST); Do You Dip or Chew Tobacco: No; Hx Alcohol Use: Yes Alcohol type: other Hx Substance Use: No Preferred Language: Iraqi Communication Ability: Effective Shipper/Receiver Required: No Beliefs That Will Affect Care: None marital status: Current Living Situation: Spouse How many Children do You have: 0 Feels Safe at Home: Yes Assistive Devices: None Review of Systems 2 Review of Systems: All systems reviewed and are unremarkable except as noted in HPI and below. Denies fever, chills, headache, nasal congestion, sore throat, cough, chest pain, palpitations, orthopnea, PND, abdominal pain, n/v/d, constipation, dysuria, hematuria, frequency, back pain, joint pain or swelling, easy bruising or bleeding, skin lesions or rashes. Physical Exam 2 Physical Exam: GENERAL: 73 yo well-nourished elderly M. No distress. EYES: EOMI. PERRLA. Anicteric. HENT: Moist mucous membranes. No cervical lymphadenopathy. LUNGS: Clear to auscultation bilaterally. No accessory muscle use. No W/R/R. CARDIOVASCULAR: Regular rate and rhythm w/ soft IESHA. ABDOMEN: Soft, non-tender and non-distended. Bowel sounds normoactive x 4 quad. EXTREMITIES: No edema. Non-tender. Peripheral pulses +2/4. NEUROLOGIC: A&O x3. No focal neurological deficits. CN II-XII grossly intact. PSYCHIATRIC: Cooperative. Appropriate mood and affect. SKIN: Warm, dry, intact. No rashes or lesions. Results & Data Results & Data Vital Signs (Past 12 Hours) Vital Signs Temp Pulse Pulse Resp BP BP Pulse Ox 06/21/24 10:50 75 17 141/74 H 98 06/21/24 09:46 87 06/21/24 09:30 36.5 C 100 H 18 161/67 H 98 O2 Del Method 06/21/24 10:50 Room Air 06/21/24 09:46 06/21/24 09:30 Room Air Laboratory Results 06/21/24 10:00 06/21/24 09:57 Diagnostic Findings Chest X-Ray 06/21/24 09:34 XR chest 1V portable CLINICAL HISTORY: weakness COMPARISON STUDY: Chest radiograph September 16, 2022. FINDINGS: Lung volumes are normal. There is no consolidation. A 1.3 cm left upper lobe density is present. There is no pneumothorax or pleural effusion. The heart is mildly enlarged. Mediastinal contours are normal. There is no evidence for pulmonary edema. IMPRESSION: 1. No acute cardiopulmonary findings. 2. 1.3 cm left upper lobe density. This is likely artifactual. Follow-up PA and lateral chest radiograph in one month are recommended to exclude the possibility of a pulmonary nodule. ACT 112: Negative or not required by law. Electronically signed by: Malcolm Guzman M.D. 06/21/2024 9:57 AM Abdomen/Pelvis CTA 06/21/24 09:49 CT ANGIOGRAPHY OF THE ABDOMEN AND PELVIS CLINICAL HISTORY: low h/h, GI bleed COMPARISON STUDY: CT of the abdomen and pelvis January 16, 2021. MRCP January 15, 2021. TECHNIQUE: Helical axial images of the abdomen and pelvis were obtained during arterial phase following intravenous injection of 120 cc Optiray 320 IV. Sagittal and coronal reconstructed reviewed as well as maximal intensity projections on an independent 3-D workstation. Automated exposure control was utilized for the study. A dose lowering technique was utilized adhering to the principles of ALARA. FINDINGS: The heart is moderately enlarged. The caliber of the abdominal aorta is normal. There is moderate plaque within the abdominal aorta and branch vessels. There is no dissection within the abdominal aorta or branch vessels. Celiac axis, superior mesenteric artery and inferior mesenteric artery are patent. The bilateral common iliac, internal iliac and external iliac arteries are patent. There is mild stenosis at the origin the right renal artery. Embolization coils within the expected location of the gastroduodenal artery are present. 2.3 cm low-attenuation right adrenal nodule is unchanged since CT of January 16, 2021. This represents an adenoma. Arterial phase images of the liver, spleen, left adrenal gland, kidneys and pancreas are unremarkable. Caliber and wall thickness of small and large bowel are normal. No intraluminal contrast is identified to suggest active GI bleed on this exam. The appendix is normal. There is no lymphadenopathy. There are no fluid collections. Small fat- containing umbilical hernia is incidentally noted. IMPRESSION: 1. No intraluminal contrast within the bowel to suggest active GI bleed by CT. 2. Moderate atherosclerotic plaque within the abdominal aorta and branch vessels. No severe stenoses. No aneurysms. 3. No bowel obstruction. No bowel wall thickening. ACT 112: Negative or not required by law. Electronically signed by: Malcolm Guzman M.D. 06/21/2024 11:[address] 06/21/24 10:[address] WITH CONTRAST CT DOSE: 2091.63 mGy.cm HISTORY: Possible pulmonary nodule on a recent chest radiograph weak, L pulm nodule anemia, gi bleed, smoker TECHNIQUE: Multiaxial CT images of the chest were performed following the IV administration of 120 cc of Optiray. Sagittal and coronal reconstructions were performed. A dose lowering technique was utilized adhering to the principles of ALARA. COMPARISON STUDY: Chest radiograph dated 06/21/2024 FINDINGS: There is no significant pulmonary nodule identified. The recent radiographic findings are presumptively artifactual. The upper airway is unremarkable. There is no focal airspace opacity or pleural effusion. There is minor dependent discoid atelectasis. There is no adenopathy identified. There is no aortic aneurysm. The central pulmonary arteries are distended which can correlate with pulmonic valvular disease or pulmonary arterial hypertension. Aortic valve calcifications are present moderate coronary artery calcifications are present. There is no pericardial effusion. Heart size is slightly enlarged. The upper abdominal images demonstrate hepatic steatosis and a tiny low- attenuation lesion in the left lobe of the liver is statistically a cyst. There is a low-attenuation right adrenal nodule consistent with a lipid rich adenoma. IMPRESSION: No evidence of a significant pulmonary nodule. Please refer to the body of the report for additional nonacute findings. ACT 112: Negative or not required by law. Electronically signed by: Lashell Singh M.D. 06/21/2024 11:20 AM Code Status & VTE Plan Code Status Full code d/w pt VTE Prophylaxis Plan VTE Prophylaxis will be ordered: Yes Supervising Physician Co-Signing Physician Notes Patient seen and examined, chart reviewed, case discussed with Jennifer Torres PA-C and I agree with the assessment and plan as above except as otherwise noted Labs and images reviewed Huan is a 73-year-old male with a past medical history of A-fib on Eliquis, hyperlipidemia, peptic ulcer disease with prior duodenal ulcer, doubt presented to the ER with outpatient labs showing anemia blood levels less than 7. Patient has had increased fatigue and weakness for around 1 month but had not had any melena. Did not think he had jaylene blood but does note that stool has been a little more red in color which may have been blood. Denies history of NSAID use. 12 history of alcohol use, 3-4 drinks of liquor and 1 beer each night and history of withdrawal symptoms on prior admission. Patient is not tachycardic or hypotensive. Suspect slow/chronic GI bleed. Likely upper given history of ulcers, alcohol use and elevated BUN Agree with PPI bolus. Will switch drip to push twice daily dosing 1 unit transfusion for hemoglobin less than 7 and trend. Continue transfusion threshold 7. H&H posttransfusion and then daily versus increase frequency based on stability Ferritin is low transferrin saturation is low consistent with iron deficiency anemia. If no further transfusions are required would give IV Venofer 3 to milligrams per day up to 3 doses while inpatient. N.p.o., GI consulted for evaluation for endoscopy Patient had a normal colonoscopy approximately 6 years ago was recommended for 10-year follow-up Alcohol abuse AWSS protocol due to daily alcohol use. No signs of withdrawal at time of admission. Last drink day prior to admission. Agree w/ above PG Care Time/CCT Total # of Minutes Spent Total Time Spent with Patient: Total time spent is greater than 50% in coordination of care (as documented) at patient's floor/unit and/or counseling patient: 77 minutes Coding Level of Care Code 44808 INT INP/OBS CARE 3/75MIN Diagnoses Chronic blood loss anemia D50.0 Gastrointestinal hemorrhage with melena K92.1 GI bleed type/associated pathology: melena Chronic alcohol abuse F10.10 Paroxysmal atrial fibrillation I48.0 Atrial fibrillation type: paroxysmal (2) GI bleed GI bleed type/associated pathology: melena Qualified Code(s): K92.1 - Melena (4) Atrial fibrillation Atrial fibrillation type: paroxysmal Qualified Code(s): I48.0 - Paroxysmal atrial fibrillation
--- NOTE | 2024-06-21 13:10 | Electrocardiogram Report ---
Test Reason : Blood Pressure : */* mmHG Vent. Rate : 82 BPM Atrial Rate : 82 BPM P-R Int : 204 ms QRS Dur : 80 ms QT Int : 388 ms P-R-T Axes : 62 14 44 degrees QTcB Int : 453 ms Normal sinus rhythm Normal ECG When compared with ECG of 19-Sep-2022 07:52, Aberrant conduction is no longer Present Confirmed by Alvarado Vargas ([id number]) on 06/21/2024 1:09:45 PM Referred By: Confirmed By: Alvarado Vargas
[2024-06-21] MEDS ORDERED: MAGNESIUM HYDROXIDE SUSP 30 ML UDC PO PRN (16:06)
[2024-06-21] MEDS ORDERED: ALUMINUM/MAGNESIUM SUSP 30 ML UDC PO PRN (16:06)
[2024-06-21] MEDS ORDERED: LORazepam 1 MG TAB PO PRN ×3 (16:06)
[2024-06-21] MEDS ORDERED: ACETAMINOPHEN 325 MG TAB PO PRN (16:06)
[2024-06-21] MEDS ORDERED: ONDANSETRON INJ 2 MG/ML 2 ML VIAL IV PRN (16:06)
[2024-06-21] MEDS ORDERED: Ativan PO Alcohol Withdrawal--Active Protocol PO PRN (16:06)
[2024-06-21] MEDS: FUROSEMIDE 40 MG/4 ML VIAL IV ONE (16:26)
[2024-06-21 17:00] LABS: Appearance Urine Clear (Clear); Bilirubin Urine Negative (Negative); Blood Urine Negative (Negative); Color Urine Yellow; Glucose Urine UA Negative (Negative); Ketones Urine Negative (Negative); Leukocyte Esterase Urine Negative (Negative); Nitrite Urine Negative (Negative); Protein Urine Negative (Negative); Specific Gravity Urine 1.024 (1.000-1.030); Urobilinogen Urine Negative (Negative); pH Urine 5.5 (4.5-7.5)
[2024-06-21 20:00] LABS: Hemoglobin 7.2 g/dl (14.0-18.0)
[2024-06-21] MEDS: PANTOprazole 40 MG/10 ML SYR IV SCH (21:45)
[2024-06-21] MEDS: LORazepam 1 MG TAB PO STA (23:55)
[2024-06-22 06:54] LABS: Basophils # (auto) 0.04 K/uL (0.00-0.20); Basophils % (auto) 0.7 %; Eosinophils # (auto) 0.25 K/uL (0.00-0.50); Eosinophils % (auto) 4.1 %; Hematocrit (blood only) 26.3 % (42.0-52.0); Immature Granulocytes # (auto) 0.02 K/uL (0.01-0.20); Immature Granulocytes % (auto) 0.3 %; Lymphocytes # (auto) 0.96 K/uL (1.20-3.40); Lymphocytes % (auto) 15.9 %; Mean Corpuscular Hemoglobin 23.3 pg (25.0-34.0); Mean Corpuscular Hgb Conc 30.4 g/dL (32.0-36.0); Mean Corpuscular Volume 76.7 fL (80.0-100.0); Monocytes # (auto) 0.87 K/uL (0.11-0.59); Monocytes % (auto) 14.4 %; Neutrophils % (auto) 64.6 %; Platelet Count 203 K/uL (130-400); RDW Coefficient of Variation 19.5 % (11.5-14.5); RDW Standard Deviation 54.3 fL (36.4-46.3); Red Blood Count 3.43 M/uL (4.70-6.10); White Blood Count 6.04 K/ul (4.8-10.8)
[2024-06-22 07:15] LABS: Albumin Level 3.8 gm/dl (3.4-5.0); BUN Creatinine Ratio 23.2 (10-20); Bilirubin Direct 0.1 mg/dl (0-0.2); Bilirubin,Total 0.7 mg/dl (0.2-1.0); Calcium 8.1 mg/dl (8.6-10.3); Creatinine Clr Calc Pharmacy 69.3 ml/min; Magnesium 2.1 mg/dl (1.7-2.4); Potassium 3.9 mmol/L (3.5-5.1)
[2024-06-22] MEDS: SODIUM CHLORIDE 0.9% 1,000 ML IV SCH (08:40)
[2024-06-22] MEDS: IRON SUCROSE 200 MG in SODIUM CHLORIDE 0.9% 100 ML IV ONE (08:49)
--- NOTE | 2024-06-22 09:20 | Gastrointestinal Consultation ---
Date of Consultation June 22, 2024 Assessment & Plan (1) Chronic blood loss anemia: (2) GI bleed: Plan Patient with anemia / heme positive stools in the setting of daily alcohol use. Hgb continued to improve after transfusion of 1 unit PRBC. He does use eliquis for A fib with the last dosage being in the morning of 06/21. CTA shown no active bleeding. - continue with protonix 40mg IV bid. - continue to monitor hgb/hct. transfuse as needed. - In light of recent eliquis and no active bleeding, will plan on EGD tomorrow 06/23. continue to hold eliquis. Supervising Physician Co-Signing Physician Notes I personally saw and examined the patient. I have reviewed the chart and agree with the documentation provided by the WAD COMPRESSOR OPERATOR ADJUSTER including discussion about the assessment, treatment and plan. Briefly, 73 year old male with a past medical history of chronic alcohol use, HTN, afib on Eliquis (last dose 06/21 AM), HLD, PUD with prior duodenal ulcer hemorrhage and gout who presented to the ED on 06/21 at the request of his outpatient physician who had ordered labs for complaints of a month of fatigue and weakness. Hgb was found to be 6.5. In the ED, he was found to be heme positive. He reports a history of PUD with duodenal ulcer/gastric ulcer hemorrhage in 2020. He has not been seeing blood in his stools or dark stools. His looked at his stool yesterday morning and thought there was a little blood in it. Last dose of Eliquis was yesterday. Will plan for an EGD tomorrow to let the Eliquis washout. He can have a full liquid diet today PPI IV twice daily for now. His last colonoscopy was apparently normal by his report and he was told to follow-up in 10 years. Differential is gastritis esophagitis peptic ulcer disease or AVMs. History of Present Illness Reason for Consultation: GIB, anemia Requesting Physician: Jennifer RUFF Attending Physician: Juan Chacon MD History of Present Illness Patient is a 73 year old male with a past medical history of chronic alcohol use, HTN, afib on Eliquis (last dose 06/21 AM), HLD, PUD with prior duodenal ulcer hemorrhage and gout who presented to the ED on 06/21 at the request of his outpatient physician who had ordered labs for complaints of a month of fatigue and weakness. Hgb was found to be 6.5. In the ED, he was found to be heme positive. He reports a history of PUD with duodenal ulcer/gastric ulcer hemorrhage in 2020. He has not been seeing blood in his stools or dark stools. he does report daily alcohol use and he tells me he has done this since age 16. He typically drinks 2 glasses of whiskey a day with a beer (a 6% IPA). no nsaids. He had a CTA 06/21 that shown no active bleeding. He was given 1 unit of prbc and his hgb improved from 6.5 to 7.2. 06/22 hgb 8. Patient denies any current issues with nausea, vomiting, dysphagia, heartburn, abdominal pain, unintentional weight loss, change in bowels, melena, or bright red blood per rectum. Allergies Allergy/AdvReac Type Severity Reaction Status Date / Time No Known Allergies Allergy Unknown Verified 09/19/22 07:30 Home Medications Medication Instructions Recorded Confirmed Type allopurinol 300 mg tablet 300 mg PO QAM 01/14/21 06/21/24 History atorvastatin 80 mg tablet 40 mg PO QPM 01/14/21 06/21/24 History olmesartan 40 mg tablet 20 mg PO BID 01/14/21 06/21/24 History amlodipine 10 mg tablet 10 mg PO QAM 08/23/21 06/21/24 History nvmferkt-lww-mlklsr 5 mg-zeaxanth 2 cap PO BID 08/23/21 06/21/24 History 1 mg-bilberry 7.5 mg-herbal capsule ([employer] Formula) multivitamin 1 tab PO QAM 08/23/21 06/21/24 History pantoprazole 40 mg tablet,delayed 40 mg PO BID 08/23/21 06/21/24 History release apixaban 5 mg tablet (Eliquis) 5 mg PO UD 06/21/24 06/21/24 History diltiazem HCl 240 mg 240 mg PO QAM 06/21/24 06/21/24 History capsule,extended release 24 hr Patient History Medical History Adrenal nodule Arthritis Atrial fibrillation fall 2020 Atrial fibrillation with RVR Bradycardia Chronic, baseline HR 45-50s per cardiology records CAD (coronary artery disease) Stent x1 (2011) Follows with Dr. Antonio Duodenal ulcer GI bleed History of GI bleed x2 (most recent episode 2020) > reason for PPI R/t Ava-Reece tear and duodenal ulcers Hx of gout Hyperlipidemia Hypertension Myocardial Infarction 2012 Surgical History H/O inguinal hernia repair History of arthroscopy LEFT KNEE History of colonoscopy History of esophagogastroduodenoscopy (EGD) History of heart artery stent Stent x1 (2011) History of tonsillectomy [place] teeth removed Family History Grandmother (Paternal) Family history of diabetes mellitus Other COPD (chronic obstructive pulmonary disease) Cancer No family history of adverse response to anesthesia Social History Smoking Status: Former smoker Tobacco Type: Cigarettes Second Hand Exposure: Yes (IN THE PAST); Do You Dip or Chew Tobacco: No; Hx Alcohol Use: Yes Alcohol type: beer and hard liquor Hx Substance Use: No Preferred Language: Bruneian Communication Ability: Effective Area Operations Director Required: No Beliefs That Will Affect Care: None marital status: Current Living Situation: Spouse How many Children do You have: 0 Feels Safe at Home: Yes Assistive Devices: Glasses and Hearing Aid - Bilateral Review of Systems Review of Systems: All systems reviewed & are unremarkable except as noted in HPI & below Physical Exam Constitutional: WD/WN, vitals as above Respiratory: normal respiratory effort, lungs clear to auscultation Cardiovascular: Rate/Rhythm: regular rate and regular rhythm Gastrointestinal (Abdomen): normal bowel sounds, soft, nontender, no hepatosplenomegaly Psychiatric: Orientation: alert and oriented x 3 Affect: euthymic affect Results & Data Vital Signs (Past 12 Hours) Vital Signs Temp Pulse Pulse Resp BP BP Pulse Ox 06/22/24 08:00 06/22/24 07:11 97.9 F 71 14 138/78 97 06/22/24 06:45 69 06/22/24 03:30 97.9 F 68 12 123/73 96 06/22/24 00:01 97.9 F 65 16 134/76 98 06/21/24 23:49 98.4 F 70 18 151/79 H 98 06/21/24 23:05 98.4 F 68 18 133/76 99 06/21/24 22:05 98.2 F 69 18 124/75 99 06/21/24 21:45 70 06/21/24 21:35 99.5 F 69 16 134/78 06/21/24 21:20 98.6 F 73 16 154/74 H 98 06/21/24 21:20 99.5 F 69 16 134/78 Pulse Ox O2 Del Method O2 Del Method 06/22/24 08:00 97 Room Air 06/22/24 07:11 Room Air 06/22/24 06:45 06/22/24 03:30 Room Air 06/22/24 00:01 06/21/24 23:49 Room Air 06/21/24 23:05 06/21/24 22:05 06/21/24 21:45 06/21/24 21:35 06/21/24 21:20 06/21/24 21:20 Coding Level of Care Code 89659 INT INP/OBS CARE 255MIN Diagnoses Chronic blood loss anemia D50.0 Gastrointestinal hemorrhage with melena K92.2 GI bleed type/associated pathology: unspecified gastrointestinal hemorrhage type (2) GI bleed GI bleed type/associated pathology: unspecified gastrointestinal hemorrhage type Qualified Code(s): K92.2 - Gastrointestinal hemorrhage, unspecified
--- NOTE | 2024-06-22 11:30 | Hospitalist Progress Note ---
Date of Service June 22, 2024 Assessment & Plan (1) Chronic blood loss anemia: Plan: Acute on chronic. He has received 1 unit of packed red blood cells thus far for hemoglobin 6.5 on admission. Current hemoglobin is 8.0. Eliquis has been discontinued and will remain so. Will monitor H&H every 6 hours. GI consultation and recommendations pending (2) GI bleed: Plan: Appears to be a chronic problem. In my opinion, he should not be on systemic anticoagulation. He has received 1 unit packed red blood cells to date. Hemoglobin is currently 8.0 and will be followed. GI consultation and recommendations pending (3) Chronic alcohol abuse: Plan: FRITZ S protocol in place. Supportive care (4) Atrial fibrillation: Plan: Paroxysmal. Currently in normal sinus rhythm. Eliquis has been discontinued. Continue diltiazem, amiodarone, and digoxin Plan Other stable chronic medical problems: 1. CAD - not on aspirin. continue statin therapy. HS trop 14.9. 2. HTN - continue diltiazem and olmesartan (or hospital equivalent) 3. HLD - continue atorvastatin 4. Gout - continue allopurinol Hopeful discharge back to home within the next day or 2 off Eliquis. Admission and Anticipated Discharge Date Admission Date: June 21, 2024 Subjective Alert and oriented. No distress. Eliquis has been discontinued. He can discuss with his PCP or applications tester whether or not a Watchman procedure should be done to decrease risk of cardiac thromboembolism. Iron deficiency documented. Venofer has been ordered. TSH is elevated but free T4 is normal. He has received 1 unit packed red blood cells on admission for hemoglobin 6.5. Current hemoglobin 8.0. GI consultation and recommendations pending Review of Systems 2 Review of Systems: Constitutionalno fever or chills ENTno blurred vision, no double vision, no epistaxis, no sore throat Respiratoryno cough, no wheezing, no shortness of breath Cardiacno palpitations, no chest pain, no syncope Prabhu nausea, vomiting, diarrhea, hematochezia. Recent onset of melenic stools GUno urinary retention, no urinary incontinence, no dysuria, no hematuria Musculoskeletalno joint pain, no muscle tenderness Skinno bruising, no rashes, no pruritus Neurono isolated weakness, no paresthesia, no weakness Psychno depression, no anxiety Physical Exam 2 Physical Exam: General-alert and oriented x3, no fever, no chills HEENT-head atraumatic and normocephalic, pupils equal and reactive to light, extraocular muscles intact Neck-no lymphadenopathy or thyromegaly, trachea midline Chest-clear to auscultation. No rales, wheezing or rhonchi Cardiac-regular rate and rhythm, normal S1 and S2 Abdomen-normal bowel sounds, no hepatosplenomegaly Extremities-no cyanosis, clubbing, or edema Neuro-cranial nerves II through XII intact, motor and sensory function within normal limits, strength symmetrical, no focal deficits Psych-normal affect, normal mood Results & Data Results & Data Vital Signs (Past 12 Hours) Vital Signs Temp Pulse Pulse Resp BP BP Pulse Ox 06/22/24 08:00 06/22/24 07:11 36.6 C 71 14 138/78 97 06/22/24 06:45 69 06/22/24 03:30 36.6 C 68 12 123/73 96 06/22/24 00:01 36.6 C 65 16 134/76 98 06/21/24 23:49 36.9 C 70 18 151/79 H 98 Pulse Ox O2 Del Method O2 Del Method 06/22/24 08:00 97 Room Air 06/22/24 07:11 Room Air 06/22/24 06:45 06/22/24 03:30 Room Air 06/22/24 00:01 06/21/24 23:49 Room Air Laboratory Results 06/22/24 06:12 06/22/24 06:12 PG Care Time/CCT Total # of Minutes Spent Total Time Spent with Patient: Total time spent is greater than 50% in coordination of care (as documented) at patient's floor/unit and/or counseling patient: Coding Level of Care Code 19469 SUB INP/OBS CARE 3/50MIN Diagnoses Chronic blood loss anemia D50.0 Gastrointestinal hemorrhage with melena K92.2 GI bleed type/associated pathology: unspecified gastrointestinal hemorrhage type Chronic alcohol abuse F10.10 Paroxysmal atrial fibrillation I48.0 Atrial fibrillation type: paroxysmal (2) GI bleed GI bleed type/associated pathology: unspecified gastrointestinal hemorrhage type Qualified Code(s): K92.2 - Gastrointestinal hemorrhage, unspecified (4) Atrial fibrillation Atrial fibrillation type: paroxysmal Qualified Code(s): I48.0 - Paroxysmal atrial fibrillation
[2024-06-22] MEDS: dilTIAZem HCL 240 MG CAPCR PO SCH (11:55)
[2024-06-22 12:57] LABS: Hematocrit (blood only) 26.7 % (42.0-52.0); Hemoglobin 8.1 g/dl (14.0-18.0)
[2024-06-22 15:27] LABS: iSTAT Creatinine 1.3 mg/dl (0.6-1.3); iSTAT Hemoglobin 6.5 g/dl (14.0-18.0); iSTAT Ionized Calcium 1.12 mmol/l (1.12-1.32); iSTAT Potassium 4.2 mmol/L (3.3-5.0)
[2024-06-22 18:19] LABS: Hematocrit (blood only) 28.4 % (42.0-52.0); Hemoglobin 8.5 g/dl (14.0-18.0)
[2024-06-22] MEDS: MELATONIN 3 MG TAB PO PRN (23:38)
[2024-06-23 00:44] LABS: Hematocrit (blood only) 26.6 % (42.0-52.0); Hemoglobin 8.1 g/dl (14.0-18.0)
--- NOTE | 2024-06-23 07:49 | Anesthesiology Consultation ---
Date of Service June 23, 2024 Assessment & Plan (1) Encounter for pre-operative examination: Chart Review Chart Review: Acceptable Risk for Surgery and Patient NOT seen in Pre Admission Testing Consults Requested none History Surgery Operation Date: 06/23/24 16:30 Proposed Procedures p Esophagogastroduodenoscopy Abdi Patton MD Height/Weight Height: 5 ft 5 in Weight: 97.5 kg Allergies Allergy/AdvReac Type Severity Reaction Status Date / Time No Known Allergies Allergy Unknown Verified 09/19/22 07:30 Medications Home Medications Medication Instructions Recorded Confirmed Last Taken allopurinol 300 mg tablet 300 mg PO QAM 01/14/21 06/21/24 06/21/24 atorvastatin 80 mg tablet 40 mg PO QPM 01/14/21 06/21/24 09/04/21 21:00 olmesartan 40 mg tablet 20 mg PO BID 01/14/21 06/21/24 06/21/24 amlodipine 10 mg tablet 10 mg PO QAM 08/23/21 06/21/24 06/21/24 bhdqonfw-ime-pevkwu 5 mg-zeaxanth 2 cap PO BID 08/23/21 06/21/24 06/21/24 1 mg-bilberry 7.5 mg-herbal capsule ([employer] Formula) multivitamin 1 tab PO QAM 08/23/21 06/21/24 06/21/24 pantoprazole 40 mg tablet,delayed 40 mg PO BID 08/23/21 06/21/24 06/21/24 release apixaban 5 mg tablet (Eliquis) 5 mg PO UD 06/21/24 06/21/24 06/21/24 diltiazem HCl 240 mg 240 mg PO QAM 06/21/24 06/21/24 06/21/24 capsule,extended release 24 hr Active Medications Generic Name Dose Route Start Last Admin Trade Name Freq PRN Reason Stop Dose Admin Diltiazem HCl 240 mg 06/22/24 10:50 06/22/24 11:55 Diltiazem Hcl 240 Mg Capcr PO 07/22/24 10:49 240 mg QAM NATALIE Administration Pantoprazole Sodium 40 mg in 10 mls @ 5 mls/min 06/21/24 21:00 06/22/24 21:43 Protonix IV 07/21/24 20:59 5 mls/min BID NATALIE Administration Melatonin 6 mg 06/22/24 23:29 06/22/24 23:38 Melatonin 3 Mg Tab PO 07/22/24 23:28 6 mg HS PRN Administration Sleep Past Medical History Medical History (Updated 06/23/24 @ 07:48 by Ronni Garces MD) Chronic blood loss anemia Alcohol use disorder, moderate, dependence CAD (coronary artery disease) Stent x1 (2011) Follows with Dr. Antonio Atrial fibrillation fall 2020 Bradycardia Chronic, baseline HR 45-50s per cardiology records Arthritis History of GI bleed x2 (most recent episode 2020) > reason for PPI R/t Ava-Reece tear and duodenal ulcers Myocardial Infarction 2011 Hx of gout Hyperlipidemia Duodenal ulcer Atrial fibrillation with RVR Adrenal nodule Past Family History Family History Grandmother (Paternal) Family history of diabetes mellitus Other COPD (chronic obstructive pulmonary disease) Cancer No family history of adverse response to anesthesia Past Surgical History Surgical History History of arthroscopy LEFT KNEE History of colonoscopy History of esophagogastroduodenoscopy (EGD) H/O inguinal hernia repair [place] teeth removed History of tonsillectomy History of heart artery stent Stent x1 (2011) Social History Smoking Status: Former smoker tobacco type: cigarettes Do You Dip or Chew Tobacco: No Hx Alcohol Use: Yes Alcohol type: beer and hard liquor alcohol intake frequency: 3 or more drinks per day Hx Substance Use: No substance use type: does not use Physical Exam Vital Signs Last Vital Signs Temp 36.5 C 06/23/24 07:35 Pulse 68 06/23/24 07:35 Resp 14 06/23/24 07:35 BP 134/78 06/23/24 07:35 Pulse Ox 97 06/23/24 07:35 O2 Del Method Room Air 06/23/24 07:35 Testing Laboratory Results 06/23/24 00:26 06/22/24 06:12 PT 11.6 Seconds (9.0-12.0) 06/21/24 10:00 INR 1.1 (0.9-1.1) 06/21/24 10:00 Urine Color Yellow 06/21/24 16:48 Urine Appearance Clear (Clear) 06/21/24 16:48 Urine pH 5.5 (4.5-7.5) 06/21/24 16:48 Ur Specific [place] 1.024 (1.000-1.030) 06/21/24 16:48 Urine Protein Negative (Negative) 06/21/24 16:48 Urine Glucose (UA) Negative (Negative) 06/21/24 16:48 Urine Ketones Negative (Negative) 06/21/24 16:48 Urine Nitrite Negative (Negative) 06/21/24 16:48 Ur Leukocyte Esterase Negative (Negative) 06/21/24 16:48 Blood Type B Positive 06/21/24 10:00 Antibody Screen NEGATIVE 06/21/24 10:00 Electrocardiogram Date: 06/21/24 DICTATED BY: Alvarado Vargas MD Test Reason : Blood Pressure : */* mmHG Vent. Rate : 82 BPM Atrial Rate : 82 BPM P-R Int : 204 ms QRS Dur : 80 ms QT Int : 388 ms P-R-T Axes : 62 14 44 degrees QTcB Int : 453 ms Normal sinus rhythm Normal ECG When compared with ECG of 19-Sep-2022 07:52, Aberrant conduction is no longer Present Confirmed by Alvarado Vargas ([id number]) on 06/21/2024 1:09:45 PM
[2024-06-23 08:16] LABS: Basophils # (auto) 0.05 K/uL (0.00-0.20); Basophils % (auto) 0.8 %; Eosinophils # (auto) 0.32 K/uL (0.00-0.50); Hematocrit (blood only) 30.8 % (42.0-52.0); Hemoglobin 9.1 g/dl (14.0-18.0); Immature Granulocytes # (auto) 0.04 K/uL (0.01-0.20); Immature Granulocytes % (auto) 0.6 %; Lymphocytes # (auto) 1.36 K/uL (1.20-3.40); Lymphocytes % (auto) 21.4 %; Mean Corpuscular Hemoglobin 23.1 pg (25.0-34.0); Mean Corpuscular Hgb Conc 29.5 g/dL (32.0-36.0); Mean Corpuscular Volume 78.2 fL (80.0-100.0); Monocytes # (auto) 0.95 K/uL (0.11-0.59); Monocytes % (auto) 14.9 %; Neutrophils # (auto) 3.64 K/uL (1.40-6.50); Neutrophils % (auto) 57.3 %; Platelet Count 229 K/uL (130-400); RDW Coefficient of Variation 19.9 % (11.5-14.5); RDW Standard Deviation 55.7 fL (36.4-46.3); Red Blood Count 3.94 M/uL (4.70-6.10); White Blood Count 6.36 K/ul (4.8-10.8)
[2024-06-23 08:29] LABS: BUN Creatinine Ratio 11.4 (10-20); Calcium 8.8 mg/dl (8.6-10.3); Creatinine Clr Calc Pharmacy 77.9 ml/min; Potassium 4.1 mmol/L (3.5-5.1)
--- NOTE | 2024-06-23 09:26 | History & Physical Bridge Note ---
Date of Service June 23, 2024 History & Physical Bridge Note I have examined the patient, reviewed the History & Physical and in the interval since the performance of the History & Physical I have noted the following changes of clinical significance: no changes noted. Patient with a history of ulcer and admitted with significant anemia. Patient denies any nausea, vomiting, abdominal pain, melena, brbpr, chest pain, or sob. 06/23 hgb 9.1. - plan is to proceed with an EGD today. Supervising Physician Co-Signing Physician Notes I personally saw and examined the patient. I have reviewed the chart and agree with the documentation provided by the STEWARD/STEWARDESS BANQUET including discussion about the assessment, treatment and plan. Briefly, hemoglobin is at 9.1. Will proceed with EGD today as his Eliquis is washed out. He has not noted any active bleeding since admission. Colonoscopy was approximately 5 years ago at [facility] and was negative by report.
[2024-06-23] MEDS: IRON SUCROSE 300 MG in SODIUM CHLORIDE 0.9% 250 ML IV ONE (09:57)
--- NOTE | 2024-06-23 11:44 | Hospitalist Progress Note ---
Date of Service June 23, 2024 Assessment & Plan (1) Chronic blood loss anemia: Plan: Acute on chronic. He has received 1 unit of packed red blood cells thus far for hemoglobin 6.5 on admission. Current hemoglobin is 9.1. Eliquis has been discontinued and will remain so. GI consultation and recommendations appreciated. EGD will be completed later today, June 23. (2) GI bleed: Plan: Appears to be a chronic problem. In my opinion, he should not be on systemic anticoagulation. He has received 1 unit packed red blood cells to date. Hemoglobin has improved to 9.1. GI consultation and recommendations appreciated. EGD later today, June 23 (3) Chronic alcohol abuse: Plan: AW protocol in place. Supportive care. Currently no sign of alcohol withdrawal (4) Atrial fibrillation: Plan: Paroxysmal. Currently in normal sinus rhythm. Eliquis has been discontinued permanently. Continue diltiazem, amiodarone, and digoxin Plan Other stable chronic medical problems: 1. CAD - not on aspirin. continue statin therapy. HS trop 14.9. 2. HTN - continue diltiazem and olmesartan (or hospital equivalent) 3. HLD - continue atorvastatin 4. Gout - continue allopurinol Hopeful discharge back to home today after EGD if no significant findings. Admission and Anticipated Discharge Date Admission Date: June 21, 2024 Subjective Alert and oriented. No distress. He is receiving a second dose of parenteral iron at the time of my rounds this morning. He is awaiting EGD evaluation later today. Hemoglobin has improved to 9.1. He has received 1 unit packed red blood cells this admission. Hopefully he can go home later today after the EGD is completed if there are no significant findings. Eliquis will be discontinued permanently. Review of Systems 2 Review of Systems: Constitutionalno fever or chills ENTno blurred vision, no double vision, no epistaxis, no sore throat Respiratoryno cough, no wheezing, no shortness of breath Cardiacno palpitations, no chest pain, no syncope Prabhu nausea, vomiting, diarrhea, hematochezia. Recent onset of melenic stools GUno urinary retention, no urinary incontinence, no dysuria, no hematuria Musculoskeletalno joint pain, no muscle tenderness Skinno bruising, no rashes, no pruritus Neurono isolated weakness, no paresthesia, no weakness Psychno depression, no anxiety Physical Exam 2 Physical Exam: General-alert and oriented x3, no fever, no chills HEENT-head atraumatic and normocephalic, pupils equal and reactive to light, extraocular muscles intact Neck-no lymphadenopathy or thyromegaly, trachea midline Chest-clear to auscultation. No rales, wheezing or rhonchi Cardiac-regular rate and rhythm, normal S1 and S2 Abdomen-normal bowel sounds, no hepatosplenomegaly Extremities-no cyanosis, clubbing, or edema Neuro-cranial nerves II through XII intact, motor and sensory function within normal limits, strength symmetrical, no focal deficits Psych-normal affect, normal mood Results & Data Results & Data Vital Signs (Past 12 Hours) Vital Signs Temp Pulse Pulse Pulse Resp BP Pulse Ox 06/23/24 08:00 06/23/24 07:35 36.5 C 68 14 134/78 97 06/23/24 06:45 59 L 06/23/24 03:45 36.5 C 66 18 128/73 96 Pulse Ox O2 Del Method O2 Del Method 06/23/24 08:00 97 Room Air 06/23/24 07:35 Room Air 06/23/24 06:45 06/23/24 03:45 Room Air Laboratory Results 06/23/24 07:51 06/23/24 07:51 PG Care Time/CCT Total # of Minutes Spent Total Time Spent with Patient: Total time spent is greater than 50% in coordination of care (as documented) at patient's floor/unit and/or counseling patient: Coding Level of Care Code 72352 SUB INP/OBS CARE 2/35MIN Diagnoses Chronic blood loss anemia D50.0 Gastrointestinal hemorrhage with melena K92.2 GI bleed type/associated pathology: unspecified gastrointestinal hemorrhage type Chronic alcohol abuse F10.10 Paroxysmal atrial fibrillation I48.0 Atrial fibrillation type: paroxysmal (2) GI bleed GI bleed type/associated pathology: unspecified gastrointestinal hemorrhage type Qualified Code(s): K92.2 - Gastrointestinal hemorrhage, unspecified (4) Atrial fibrillation Atrial fibrillation type: paroxysmal Qualified Code(s): I48.0 - Paroxysmal atrial fibrillation
[2024-06-23] MEDS ORDERED: LIDOCAINE 2% 2 ML VIAL/AMP(20MG/ML) INFIL ONE (14:47)
[2024-06-23] MEDS ORDERED: PROPOFOL IV EMULSION 10 MG/ML 20 ML VIAL IV ONE (14:47)
--- NOTE | 2024-06-23 15:00 | Anesthesiology Progress Note ---
Date of Service June 23, 2024 Anesthesia Post Procedure Vital Signs Vital Signs: Temp Pulse Pulse Pulse Resp BP BP 06/23/24 14:49 62 16 104/65 06/23/24 13:44 37.0 C 70 16 146/91 H 06/23/24 13:03 70 06/23/24 12:00 36.4 C L 68 14 128/78 06/23/24 08:00 06/23/24 07:35 36.5 C 68 14 134/78 06/23/24 06:45 59 L 06/23/24 03:45 36.5 C 66 18 128/73 06/22/24 23:23 36.5 C 61 17 136/78 06/22/24 20:12 36.3 C L 64 18 144/80 H 06/22/24 16:00 06/22/24 15:51 36.6 C 65 18 147/72 H Pulse Ox Pulse Ox O2 Del Method O2 Del Method 06/23/24 14:49 96 Room Air 06/23/24 13:44 97 Room Air 06/23/24 13:03 06/23/24 12:00 98 Room Air 06/23/24 08:00 97 Room Air 06/23/24 07:35 97 Room Air 06/23/24 06:45 06/23/24 03:45 96 Room Air 06/22/24 23:23 95 Room Air 06/22/24 20:12 98 Room Air 06/22/24 16:00 97 Room Air 06/22/24 15:51 97 Room Air Transfer of Care Handoff Completed per policy Notes Mental Status: alert / awake / arousable and participated in evaluation Patient Amnestic to Procedure: Yes Nausea / Vomiting: adequately controlled Pain: adequately controlled Airway Patency, RR, SpO2: stable & adequate BP & HR: stable & adequate Hydration State: stable & adequate Anesthetic Complications: no major complications apparent and Pt Satisfied with anesthetic care
--- NOTE | 2024-06-23 15:04 | GI REPORT ---
[facility] Patient: AYSHA EDWARDS : 1950 Sex at : Male Age: 73 Years Procedure: Upper GI endoscopy Date: 06/23/2024 Attending Physician: Branden Patton MD Referring MD: Juan Chacon Indications: - Suspected upper gastrointestinal bleeding Medications: - Monitored Anesthesia Care Complications: - No immediate complications. Estimated Blood Loss: - Estimated blood loss: None. - Estimated blood loss was minimal. Procedure: - Prior to the procedure, a History and Physical was performed, and patient medications and allergies were reviewed. The patient's tolerance of previous anesthesia was also reviewed. The risks and benefits of the procedure and the sedation options and risks were discussed with the patient. All questions were answered, and informed consent was obtained. Prior Anticoagulants: The patient has taken Eliquis (apixaban), last dose was 2 days prior to procedure. ASA Grade Assessment: III - A patient with severe systemic disease. After reviewing the risks and benefits, the patient was deemed in satisfactory condition to undergo the procedure. - The egd scope was introduced through the mouth and advanced to the third part of the duodenum. - The upper GI endoscopy was accomplished without difficulty. - The patient tolerated the procedure well. Findings: - A small hiatal hernia was present. - LA Grade A (one or more mucosal breaks less than 5 mm, not extending between tops of 2 mucosal folds) esophagitis with no bleeding was found at the gastroesophageal junction (on retroflexion). 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 Coagulation for hemostasis using argon plasma was successful. - The examined duodenum was normal. Impression: - Small hiatal hernia. - LA Grade A reflux esophagitis with no bleeding. - Gastric antral vascular ectasia with bleeding. Treated with argon plasma coagulation (APC). - Normal examined duodenum. - No specimens collected. Recommendation: - Discharge patient to home (ambulatory). - Resume previous diet. - Continue present medications. - Await pathology results. - Resume Eliquis (apixaban) at prior dose in 3 days. - Return to primary care physician as previously scheduled. - Patient has a contact number available for emergencies. The signs and symptoms of potential delayed complications were discussed with the patient. Return to normal activities tomorrow. Written discharge instructions were provided to the patient. - Pt will need GI followup for possible repeat EGD with APC. soft mechanical diet. Procedure Code(s): - 22052, Esophagogastroduodenoscopy, flexible, transoral; with control of bleeding, any method Diagnosis Code(s): - K44.9, Diaphragmatic hernia without obstruction or gangrene - K21.00, Gastro-esophageal reflux disease with esophagitis, without bleeding - K31.811, Angiodysplasia of stomach and duodenum with bleeding CPT(R) - 2023 copyright [employer]. All Rights Reserved. The CPT codes, CCI edits and ICD codes generated are intended as suggestions and were generated based on input data. These codes are preliminary and upon shield cleaner review may be revised to meet current compliance and payer requirements. The provider is responsible for the final determination of appropriate codes, and modifiers. Branden Patton MD This document has been electronically signed. Note Initiated:06/23/2024 Note Completed:06/23/2024 3:03 PM \\[email or web address]\[email or web address]\Results\[email or web address]\[id number]
[2024-06-23 15:43] VITALS: RESP 17; TEMP 97.7; O2SAT 99
[2024-06-23] MEDS: INFLUENZA VACC TS2024-25(65y+)/PF (IIV3) 0.5mL Syr IM ONE (15:45)
[2024-06-23] MEDS: PNEUMOCOCCAL VACCINE (PCV20) 20-VAL CONJ-DIP CRM/PF 0.5 ML SYR IM ONE (15:46)
--- NOTE | 2024-06-23 15:48 | Communication Note ---
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 He never noticed any bleeding but is on Eliquis. He will need follow-up to evaluate his liver a little further as well as possible repeat EGD with APC outpt. We will see him outpatient in GI clinic. I had a long discussion with the patient of his best options. He had already considered a Watchman procedure and knew about this for his atrial fibrillation. Given that GAVE can never be completely eliminated, I do think he is going to have chronic anemia and bleeding if he continues to stay on Eliquis long-term. I explained to him that the best option probably is to consider a Watchman which he will do. Please give him a mechanical soft diet and GI will sign off please call us with any questions.
--- NOTE | 2024-06-23 16:00 | Discharge Summary ---
Discharge Summary Date of Service June 23, 2024 Principal Dx & Hospital Course #1 = Principal Diagnosis (1) Chronic blood loss anemia: Acute on chronic. He has received 1 unit of packed red blood cells thus far for hemoglobin 6.5 on admission. Current hemoglobin is 9.1. Eliquis has been discontinued and will remain so. GI consultation and recommendations appreciated. EGD was completed today, June 23, and revealed gastric antral vascular ectasia and he had argon plasma coagulation performed. (2) GI bleed: Appears to be a chronic problem. In my opinion, he should not be on systemic anticoagulation. He has received 1 unit packed red blood cells to date. Hemoglobin has improved to 9.1. GI consultation and recommendations appreciated. EGD later today, June 23 (3) Chronic alcohol abuse: AW protocol in place. Supportive care. Currently no sign of alcohol withdrawal (4) Atrial fibrillation: Paroxysmal. Currently in normal sinus rhythm. Eliquis has been discontinued permanently. Continue diltiazem, amiodarone, and digoxin . Diltiazem replaced amlodipine Plan Other stable chronic medical problems: 1. CAD - not on aspirin. continue statin therapy. HS trop 14.9. 2. HTN - continue diltiazem and olmesartan (or hospital equivalent) 3. HLD - continue atorvastatin 4. Gout - continue allopurinol Hopeful discharge back to home today after EGD if no significant findings. Admission HPI Per Admitting Provider Huan is a 73 yo M with a pmhx of chronic alcohol use, HTN, afib on chronic act with Eliquis, HLD, PUD with prior duodenal ulcer hemorrhage and gout who presents to the ER today c/o abnormal labs, sent in for eval by his interventional radiologist. He follows routinely with Dr. Antonio. He reports over the past month, starting in May, increased fatigue and generalized weakness. He contacted his PCP who ordered labs. He was contacted by his interventional radiologist who had ordered some other diagnostic testing and was informed that his CBC reflected an acute change in his hgb down to 6.5 and was encouraged to come to the ER for further evaluation. Patient reports CASILLAS since onset of symptoms in May as well as dizziness/lightheadedness. His felt that his stool this AM appeared more "reddish." He denies any falls, passing out/LOC, or injuries, denies abd pain, cp, n/v/d, f/c, increased NSAID use. He does endorse consuming ETOH daily, but reports that since his last hospitalization in 2022 when he was diagnosed with Afib that he has cut his drinking back by about 1/2 to 3-4 drinks of liquor + beer each night. He does have a h/o withdrawal symptoms during his last hospitalization as well. His w/u in the ER today confirms microcytic hypochromic anemia w/ hgb of 6.5, heme positive stool. He does chronically take pantoprazole 40mg daily. He was last scoped (colonoscopy) about 4-5 years ago which was normal per pt. He has been typed and crossmatched for transfusion in the ER. CTAP is negative. He has been referred to hospital medicine team for admission. Discharge Exam General-alert and oriented x3, no fever, no chills HEENT-head atraumatic and normocephalic, pupils equal and reactive to light, extraocular muscles intact Neck-no lymphadenopathy or thyromegaly, trachea midline Chest-clear to auscultation. No rales, wheezing or rhonchi Cardiac-regular rate and rhythm, normal S1 and S2 Abdomen-normal bowel sounds, no hepatosplenomegaly Extremities-no cyanosis, clubbing, or edema Neuro-cranial nerves II through XII intact, motor and sensory function within normal limits, strength symmetrical, no focal deficits Psych-normal affect, normal mood Discharge Plan Discharge Items Patient Disposition: Home - Self-Care Reason For Visit: ABLA Discharge Diagnosis: Acute on chronic anemia, chronic GI bleed, iron deficiency anemia, gastric antral vascular ectasia Activity: Resume your previous activity Non-emergency contact: Primary Care Provider Call non-emergency contact if: your symptoms worsen Follow-up/Referrals: Jimmy Santana MD [Primary Care Provider] - Diet: Regular and Heart Healthy Addtl Attending Provider Instructions: Stop Eliquis permanently. Take Protonix (pantoprazole) 40 mg twice daily for 2 weeks then once daily thereafter. Take Carafate 1 g before meals and at bedtime on an empty stomach for 2 weeks. Take an iron supplement daily that you can get [id number]. Follow-up with your primary care doctor as soon as possible to discuss placement of a Watchman device for the atrial fibrillation to decrease the risk of embolic stroke. Amlodipine has been discontinued and replaced by diltiazem CD, which is a different type of calcium channel jama that keeps blood pressure under control and hopefully will help prevent atrial fibrillation Pending Studies at Discharge: No Stand-Alone Forms: [facility], Smoking Cessation Medications and DC Order Prescriptions: New diltiazem HCl 240 mg Capsule,Extended Release 24hr 240 mg PO QAM Qty: 30 0RF pantoprazole [Protonix] 40 mg tablet,delayed release (DR/EC) 40 mg PO BID Qty: 60 0RF sucralfate [Carafate] 1 gram tablet 1 g PO ACHS Qty: 60 0RF Continued atorvastatin 80 mg tablet 40 mg PO QPM allopurinol 300 mg tablet 300 mg PO QAM olmesartan 40 mg tablet 20 mg PO BID multivitamin Tablet 1 tab PO QAM pantoprazole 40 mg Tablet,Delayed Release (Dr/Ec) 40 mg PO BID Macular Health Formula 5-1-7.5 mg Capsule 2 cap PO BID diltiazem HCl 240 mg capsule,extended release 24hr 240 mg PO QAM Discontinued amlodipine 10 mg Tablet 10 mg PO QAM Eliquis 5 mg tablet 5 mg PO UD Rx Instructions: 5 mg po bid. per pt, he was told it is recommended he stop taking Discharge Orders: Discharge Order (Routine); Ordered 06/23/24 Ordered By: Juan Chacon Admission Data Admit Date/Time: 06/21/24 12:05 Attending Provider: Juan Chacon Admit Provider: Cristian Bhatt Primary Care Provider: Jimmy Santana Other Providers: Cristian Bhatt; Branden Patton Other Interventions: Discharge Summary Assessment (RN) Last Done: 06/23/24 15:16 Hospital Stay Data Consultations 06/21/24 11:59 ED Decision to Admit Stat 06/21/24 16:06 Consult Gastroenterology Routine Procedures Performed Operation Date: 06/23/24 16:30 Actual Procedures p EGD Hemostasis - Branden Patton MD Diagnostic Imagining Performed 06/21/24 09:49 CT angio abdomen pelvis w con Stat 06/21/24 10:16 CT chest diagnostic w con Stat Pending Results Patient Have Any Pending Studies at Discharge: No Discharge Instructions Given to Patient (Per Discharging Provider) Stop Eliquis permanently. Take Protonix (pantoprazole) 40 mg twice daily for 2 weeks then once daily thereafter. Take Carafate 1 g before meals and at bedtime on an empty stomach for 2 weeks. Take an iron supplement daily that you can get [id number]. Follow-up with your primary care doctor as soon as possible to discuss placement of a Watchman device for the atrial fibrillation to decrease the risk of embolic stroke. Amlodipine has been discontinued and replaced by diltiazem CD, which is a different type of calcium channel jama that keeps blood pressure under control and hopefully will help prevent atrial fibrillation Total Time Total Time Spent Total Time Spent (In Minutes): 50 minutes Coding Level of Care Code 33955 INP/OBS DISCH >30 MIN Diagnoses Chronic blood loss anemia D50.0 Gastrointestinal hemorrhage with melena K92.2 GI bleed type/associated pathology: unspecified gastrointestinal hemorrhage type Chronic alcohol abuse F10.10 Paroxysmal atrial fibrillation I48.0 Atrial fibrillation type: paroxysmal
[2024-06-23 16:15] VITALS: BP 152/84; PULSE 67
== END 2024-06-23 16:31 | disposition home or self-care (01) | DRG 378 ==
LOC: ED 09:29 → 2N 12:05 → SUATTDRO 12:05 → 2N 15:09